=== PATIENT | female | born 1940 | race Caucasian/White ===

== ENCOUNTER 2016-06-28 10:31 | Observation (INO) ==
--- NOTE | 2016-06-28 11:12 | Emergency Department Note ---
Disposition Clinical Impression: Hemoptysis, Lung mass Disposition: Admitted As Inpatient Condition: Fair URI/Sore Throat HPI - General Chief Complaint: ED General Medical Stated Complaint: Coughing up blood Time Seen by Provider: 06/28/16 11:03 Source: patient Limitations: no limitations Nursing Notes Reviewed: Yes Vital Signs Reviewed: Yes - History of Present Illness Pt Subjective Complaint: cough Onset (ago): week(s) Duration: intermittent Severity: mild Improves with: nothing Worsens with: nothing Associated symptoms: Reports: other (Patient started coughing up bright red blood today) - Related Data Allergies Allergy/AdvReac Type Severity Reaction Status Date / Time Penicillins Allergy Rash Verified 06/28/16 10:40 All systems ED: reviewed and negative except as stated. Constitutional: Denies: fever, chills, weakness Respiratory: Reports: hemoptysis. Denies: wheezes Gastrointestinal: Denies: nausea, vomiting URI PMH - Past Medical History Medical history: Reports: aortic aneurysm - Social History Smoking Status: Former smoker Alcohol use: Reports: none Drug use: Reports: none Physical Exam - General Limitations: no limitations General appearance: alert, in no apparent distress - Head Head exam: atraumatic, normocephalic, normal inspection - Eye Eye exam: Present: normal appearance, PERRL, EOMI - Expanded Eye Exam Pupils: Left: reactive - ENT ENT exam: normal exam, normal oropharynx, mucous membranes moist - Expanded ENT Exam External ear exam: Present: normal external inspection Mouth exam: Present: normal external inspection Teeth exam: Present: normal inspection Throat exam: Present: normal inspection - Neck Neck exam: Present: normal inspection, full ROM, trachea midline - Chest Chest inspection: Present: normal inspection, symmetric chest wall rise - Respiratory Respiratory exam: Present: normal lung sounds bilaterally - Cardiovascular Cardiovascular exam: Present: regular rate, normal rhythm, normal heart sounds - Abdominal Exam Abdominal exam: Present: soft, Non-Tender. Absent: tenderness, distention, guarding, rebound, rigidity - Extremities Exam Extremities exam: Present: normal inspection, full ROM. Absent: tenderness, pedal edema - Expanded Upper Extremity Exam Shoulder exam: Present: normal inspection, full ROM Arm exam: Present: normal inspection, full ROM Elbow exam: Present: normal inspection, full ROM Forearm/Wrist exam: Present: normal inspection, full ROM Hand exam: Present: normal inspection, full ROM Vascular exam: Normal: capillary refill, radial pulse - Expanded Lower Extremity Exam Hip/Pelvis exam: Present: normal inspection, full ROM Upper leg exam: Present: normal inspection, full ROM Knee exam: Present: normal inspection, full ROM Lower leg exam: Present: normal inspection, full ROM Ankle exam: Present: normal inspection, full ROM Foot/toe exam: Present: normal inspection, full ROM Neurovascular/Tendon exam: Absent: motor deficit, sensory deficit, tendon deficit - Back Exam Back exam: Present: normal inspection, full ROM. Absent: tenderness - Neurological Exam Neurological exam: Present: alert, oriented X3 - Expanded Neurological Exam Patient oriented to: Present: person, place, time Coma Scale Eye Opening: Spontaneous Coma Scale Motor Response: Obeys Commands Coma Scale Verbal Response: Oriented Coma Scale Total: 15 - Psychiatric Psychiatric exam: Present: normal affect, normal mood - Skin Skin exam: Present: warm, dry, intact, normal color Course - Consultations Consultation #1: Dr. Gorman accepts Time: 13:01 Vital Signs Temperature 98.1 F 06/28/16 10:36 Pulse Rate 113 06/28/16 10:36 Respiratory Rate 20 06/28/16 10:36 Blood Pressure 146/68 06/28/16 10:36 O2 Sat by Pulse Oximetry 96 06/28/16 10:36 Temperature 98.1 F 06/28/16 10:36 Pulse Rate 97 06/28/16 12:18 Respiratory Rate 18 06/28/16 12:18 Blood Pressure 150/63 06/28/16 12:18 O2 Sat by Pulse Oximetry 95 06/28/16 12:18 Oxygen Delivery Oxygen Delivery Room Air Upper Respiratory Infection - Differential Diagnosis Differential Diagnosis: Likely: bronchitis, pneumonia - Medical Records Medical records reviewed: Yes I reviewed the patient's medical records. - Lab Data Lab results reviewed: Yes I reviewed the patient's lab results. Result diagrams: 06/28/16 11:34 06/28/16 11:34 Lab Results 06/28/16 06/28/16 06/28/16 Range/Units 11:34 11:34 11:34 WBC 11.5 H (4.3-11.1) K/mcL RBC 3.97 (3.82-4.97) M/mcL Hgb 10.6 L (11.5-15.4) g/dL Hct 32.7 L (35.3-44.9) % MCV 82.4 L (83.0-100.0) fL MCH 26.7 L (28.0-33.3) pg MCHC 32.4 (31.6-35.5) g/dL RDW 14.6 H (11.5-14.5) % Plt Count 500 H (140-400) K/mcL MPV 9.3 L (9.4-12.4) fL Immature Gran % 0.6 (0-4) % Seg Neutrophils % 67.8 % Lymphocytes % 20.9 % Monocytes % 8.1 % Eosinophils % 1.8 % Basophils % 0.8 % Neutrophils # 7.8 (1.6-8.9) K/mcL Lymphocytes # 2.4 (0.6-4.6) K/mcL Monocytes # 0.9 (0.0-1.3) K/mcL Eosinophils # 0.2 (0.0-0.6) K/mcL Basophils # 0.1 (0.0-0.2) K/mcL Immature Plt Fraction 2.6 (1.1-6.1) % PT 11.7 (9.4-12.1) Seconds INR 1.1 APTT 25.9 L (26.0-36.0) Seconds Sodium 130 L (136-145) mEq/L Potassium 3.8 (3.5-4.5) mEq/L Chloride 96 L (98-109) mEq/L Carbon Dioxide 23 (19-29) mEq/L BUN 16 (7-20) mg/dL Creatinine 0.97 (0.57-1.11) mg/dL Est GFR ( Amer) > 60 (> 60) Est GFR (Non-Af Amer) 56 L (> 60) BUN/Creatinine Ratio 16 (6-26) Glucose 486 H (70-99) mg/dL Calculated Osmolality 293 (280-300) Calcium 9.1 (8.6-10.8) mg/dL - Radiology Data Radiology results reviewed: Yes I reviewed the patient's radiology results.
[2016-06-28 11:41] LABS: Basophils # 0.1 K/mcL (0.0-0.2); Basophils % 0.8 %; Eosinophils # 0.2 K/mcL (0.0-0.6); Eosinophils % 1.8 %; Hematocrit 32.7 % (35.3-44.9); Hemoglobin 10.6 g/dL (11.5-15.4); Immature Granulocytes % 0.6 % (0-4); Immature Platelets 2.6 % (1.1-6.1); Lymphocytes # 2.4 K/mcL (0.6-4.6); Lymphocytes % 20.9 %; Mean Corpuscular HGB Conc 32.4 g/dL (31.6-35.5); Mean Corpuscular Hemoglobin 26.7 pg (28.0-33.3); Mean Corpuscular Volume 82.4 fL (83.0-100.0); Mean Platelet Volume 9.3 fL (9.4-12.4); Monocytes # 0.9 K/mcL (0.0-1.3); Monocytes % 8.1 %; Neutrophils # 7.8 K/mcL (1.6-8.9); Platelet Count 500 K/mcL (140-400); Red Blood Count 3.97 M/mcL (3.82-4.97); Red Cell Distribution Width 14.6 % (11.5-14.5); Segmented Neutrophils % 67.8 %
[2016-06-28 11:47] LABS: INR 1.1; Prothrombin Time 11.7 Seconds (9.4-12.1)
[2016-06-28 11:49] LABS: Activated Partial Thrombo Time 25.9 Seconds (26.0-36.0)
[2016-06-28 11:52] LABS: BUN/Creatinine Ratio 16 (6-26); Blood Urea Nitrogen 16 mg/dL (7-20); Calcium 9.1 mg/dL (8.6-10.8); Carbon Dioxide 23 mEq/L (19-29); Chloride 96 mEq/L (98-109); Glucose 486 mg/dL (70-99); Osmolality,Calculated 293 (280-300); Potassium 3.8 mEq/L (3.5-4.5); Sodium 130 mEq/L (136-145); eGFR For African Americans > 60 (> 60); eGFR For Non-African Americans 56 (> 60)
[2016-06-28] MEDS ORDERED: Insulin LISPRO 300 UNITS/3 ML VIAL SQ STA (13:12)
--- NOTE | 2016-06-28 13:45 | Internal Med History&Physical ---
Date of Encounter: 06/28/16 Time of Encounter: 13:00 Assessment and Plan (1) Hemoptysis Current visit: Yes Status: Acute Patient with acute hemoptysis. Recent aspirin use. Prior history of gastric ulcers. Also lung mass present on CT scan. Will observe patient in the hospital. Monitor blood counts. High risk for complications. (2) Essential hypertension Current visit: Yes Status: Chronic Monitor blood pressure. Resume home medications. (3) Diabetes mellitus, type 2 Current visit: Yes Status: Chronic Blood sugars are elevated. Monitor blood sugars. Sliding scale insulin. Diabetic diet. Qualifiers: Diabetes mellitus complication status: with hyperglycemia Diabetes mellitus exterminator insulin use: without assisted use Qualified Code(s): E11.65 - Type 2 diabetes mellitus with hyperglycemia (4) Lung mass Current visit: Yes Status: Acute Last present in the left upper lobe. Concern for malignancy. Will consult pulmonology for further recommendations. No weight loss reported. (5) Anemia Current visit: Yes Status: Chronic Hemoglobin is 10.6. Reviewing patient's labs, she has had anemia in the past. We will check iron levels, folic acid and vitamin B12 levels. Patient could also have acute anemia related to her hemoptysis. We will follow blood counts. Qualifiers: Anemia type: unspecified type Qualified Code(s): D64.9 - Anemia, unspecified Internal Medicine - H&P: HPI Chief complaint: Hemoptysis Admitted From: Emergency Dept Plans for Post Hospital Care: Home History of present illness: Ms. Hernandez is a 75 year old female patient with history of diabetes mellitus type 2, hypertension presented to the ER with complaints of hemoptysis. Patient is a former smoker who quit smoking about 2-1/2 years back. She had previously been diagnosed with possible COPD. She does not use any inhalers. Over the past week she has been taking a lot of [place] for indigestion. She noticed hemoptysis with a large amount of blood clots since this morning. Denies any fever chills or night sweats. No weight loss. No shortness of breath. No chest pain. No abdominal pain. No nausea or vomiting. Past Med Surg Social Fam HX - Past Medical History Attestation: Yes The following information was validated with the patient. Source: patient Medical history: aortic aneurysm, cirrhosis, hypertension - Past Surgical History Surgical History: cholecystectomy, hysterectomy, knee replacement - Social History Smoking Status: Former smoker Alcohol use: none Drug use: none - Additional Family History Additional family history: Reviewed and found to be noncontributory at this time Internal Medicine - H&P: Meds Glimepiride [Amaryl] 4 mg PO DAILY 06/28/16 [History] Losartan/Hydrochlorothiazide [Hyzaar 100-25 Tablet] 1 tab PO DAILY 06/28/16 [ History] Potassium Chloride [Klor-Con 10] 30 meq PO DAILY 06/28/16 [History] Simvastatin [Zocor] 5 mg PO DAILY 06/28/16 [History] Allergies Penicillins Allergy (Verified 06/28/16 10:40) Rash aspirin Adverse Reaction (Verified 06/28/16 13:35) Gastrointestinal Upset All Systems PM: A 10-system review of systems was performed and is negative for pertinent findings except as documented above in the HPI. - Constitutional Constitutional: no chills, no fever(s), no night sweats - EENT Eyes: no change in vision, no discharge, no pain, no photophobia Ears: no ear discharge, no ear pain, no tinnitus Nose, mouth and throat: no dysphagia, no nasal discharge, no neck pain, no sore throat - Cardiovascular Cardiovascular ROS IM: no chest pain, no diaphoresis, no dyspnea, no lightheadedness, no palpitations, no syncope - Respiratory Respiratory: cough, hemoptysis, no dyspnea, no wheezing, no excessive phlegm production - Gastrointestinal Gastrointestinal: no abdominal pain, no diarrhea, no hematemesis, no hematochezia, no melena, no nausea, no vomiting - Genitourinary Genitourinary: no change in urinary stream, no dysuria, no flank pain, no hematuria - Musculoskeletal Musculoskeletal ROS IM: no numbness, no tingling - Integumentary Integumentary IM: no rash, no unusual bruising - Neurological Neurological ROS: no confusion, no convulsions, no focal weakness, no numbness, no tingling, no tremor(s) - Hematologic/Lymphatic Hematologic/Lymphatic: no easy bruising - Constitutional Vitals: Temp Pulse Resp BP Pulse Ox 98.1 F 97 18 149/74 95 06/28/16 10:36 06/28/16 12:18 06/28/16 13:14 06/28/16 13:14 06/28/16 12:18 General appearance: Present: cooperative, mild distress, A&O X 3, answers questions appropriately - Eye Eye exam: Present: EOMI, PERRL, conjuntiva pink, sclera anicteric - Neck Neck exam general surgery: Present: supple, trachea midline. Absent: lymphadenopathy - Respiratory Respiratory exam: Present: CTAB. Absent: accessory muscle use, rales, rhonchi, wheezes - Cardiovascular Cardiovascular exam: Present: RRR, +S1, +S2. Absent: diastolic murmur, gallop, rubs, systolic murmur - GI/Abdominal GI/Abdominal exam: Present: normal bowel sounds, soft, no peritoneal signs. Absent: distended, tenderness - Extremities Exam Extremities exam: Present: warm, radial pulses palpable and symetrical. Absent : calf tenderness, cyanotic, pedal edema - Neurological Exam Neurological exam: Present: alert, oriented X3, no focal deficits. Absent: facial droop, speech deficit - Skin Skin exam: Present: dry, intact Internal Med - H&P Results - Labs CBC & Chem 7: 06/28/16 11:34 06/28/16 11:34 - Impressions Impressions Chest CT 06/28/16 11:11 IMPRESSION: Large 8.2 x 6.3 cm left lung mass most suggestive of neoplasm. There are mildly prominent mediastinal lymph nodes. D/ / Madeline Mac Cha, MD / Madeline Mac Cha, MD Interpreting Provider: Madeline Mac Cha, MD - Attending Attestation This document has been at least partially created by [employer] recognition technology by Dr. Gorman. Errors in grammar, wording or other phrases may exist. If errors are found after the documentation is signed, they will be addressed individually in the addendum section of this document when appropriate.
[2016-06-28] MEDS ORDERED: Naloxone 0.4 MG/ML INJ IVP PRN (13:51)
[2016-06-28] MEDS ORDERED: *HR* Dextrose 50 % in Water (Syg) 50 ML SYRINGE IVP PRN (13:53)
[2016-06-28] MEDS ORDERED: Dextrose Gel 15 GM PO PRN ×2 (13:53)
[2016-06-28] MEDS ORDERED: D5% in Water 1,000 ML IVC PRN (13:53)
[2016-06-28 14:13] LABS: Hemoglobin A1C 9.9 %
--- NOTE | 2016-06-28 14:53 | Pulmonology Consult Note ---
Date of Encounter: 06/28/16 Time of Encounter: 14:51 Assessment and Plan (1) Hemoptysis Current Visit: Yes Status: Acute Hemoptysis in this former cigarette smoker with COPD upper lobe lung mass is likely secondary to lung cancer. Patient also seems to have mediastinal adenopathy and thus likely has advanced stage non-small cell lung cancer. Further evaluation will be performed to include conventional bronchoscopy and EBUS. The timing of these procedures will be deferred to the pulmonary rounding service assuming care next week. Code(s): R04.2 - Hemoptysis SNOMED Code(s): 81284814 (2) Abnormal chest CT Current Visit: Yes Status: Acute Chest CT scan abnormalities as previously outlined. 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 The patient is aware of the situation and has agreed to bronchoscopy for further evaluation. Code(s): R93.8 - Abnormal findings on diagnostic imaging of other specified body structures SNOMED Code(s): 901379734 History of Present Illness Consult date: 06/28/16 Chief complaint: Hemoptysis, abnormal chest CT scan History of present illness: 75-year-old female, former 40+-pack-year smoker having stopped approximately 2 years ago who noted the onset of hemoptysis prompting admission to the hospital. Patient describes several bouts of expectoration of bright red blood , unable to specifically quantitate volume. In addition, the patient has also noted mild left anterior shoulder discomfort for at least the past several weeks. Patient does admit to mild exertional breathlessness and activity limitation. There is no well established family history of either COPD or lung cancer. The patient has no personal histories of malignancy. Past Med Surg Social Fam HX - Past Medical History Medical history: aortic aneurysm, cirrhosis, hypertension Psychiatric history: no psych history - Past Surgical History Surgical History: cholecystectomy, hysterectomy, knee replacement - Social History Smoking Status: Former smoker Smokeless Tobacco Status: No Alcohol use: none Drug use: none - Family History Mother Name: Maria D Castillo Age: 74 Family Member Ethnicity: Non- Living Status: Age at : 74 Cause of : complications from diabetes Hx Family Cardiac Disorders: No Hx Family Respiratory Disorders: No Hx Family Cancer: No Hx Family GI Disorders: No Hx Family Genitourinary Disorders: No Hx Family Endocrine Disorder: No Hx Family Musculoskeletal Disorders: No Hx Family Neuromuscular Disorders: No Hx Family Neurologic Disorders: No Hx Family HEENT Disorders: No Hx Family Autoimmune Disorders: No Hx Family Reproductive Disorders: No Hx Family Psychosocial Disorders: No Hx Family Medical Disorders: No Medications and Allergies Glimepiride [Amaryl] 4 mg PO DAILY 06/28/16 [History] Losartan/Hydrochlorothiazide [Hyzaar 100-25 Tablet] 1 tab PO DAILY 06/28/16 [ History] Potassium Chloride [Klor-Con 10] 30 meq PO DAILY 06/28/16 [History] Simvastatin [Zocor] 5 mg PO DAILY 06/28/16 [History] Allergies Penicillins Allergy (Verified 06/28/16 10:40) Rash aspirin Adverse Reaction (Verified 06/28/16 13:35) Gastrointestinal Upset All Systems: A 10-system review of systems was performed and is negative for pertinent findings except as documented above in the HPI. - Constitutional Constitutional: as per HPI - Respiratory Respiratory: as per HPI Physical Examination Vital Signs: Vital Signs, Last 4 Hours Temp Pulse Resp BP Pulse Ox 06/28/16 14:03 96 06/28/16 13:49 98.3 F 95 16 145/76 97 06/28/16 13:14 18 149/74 General appearance: no acute distress, other (Obese female) Eyes: nonicteric ENT: oropharynx moist Mallampati (class): 2 Neck: supple, no lymphadenopathy Auscultation: bilateral: diminished breath sounds (Clear andrade bilaterally) Cardiovascular: regular rate and rhythm Gastrointestinal: normoactive bowel sounds, non-distended Integumentary: normal Extremities: no cyanosis, no clubbing, edema (Mild lower extremity edema) normal mental status, non-focal exam Results - Laboratory Findings CBC and BMP: 06/28/16 11:34 06/28/16 11:34 PT/INR, D-dimer PT 11.7 Seconds (9.4-12.1) 06/28/16 11:34 Abnormal lab findings: Abnormal lab results WBC 11.5 K/mcL (4.3-11.1) H 06/28/16 11:34 Hgb 10.6 g/dL (11.5-15.4) L 06/28/16 11:34 Hct 32.7 % (35.3-44.9) L 06/28/16 11:34 MCV 82.4 fL (83.0-100.0) L 06/28/16 11:34 MCH 26.7 pg (28.0-33.3) L 06/28/16 11:34 RDW 14.6 % (11.5-14.5) H 06/28/16 11:34 Plt Count 500 K/mcL (140-400) H 06/28/16 11:34 MPV 9.3 fL (9.4-12.4) L 06/28/16 11:34 APTT 25.9 Seconds (26.0-36.0) L 06/28/16 11:34 Sodium 130 mEq/L (136-145) L 06/28/16 11:34 Chloride 96 mEq/L (98-109) L 06/28/16 11:34 Est GFR (Non-Af Amer) 56 (> 60) L 06/28/16 11:34 Glucose 486 mg/dL (70-99) H 06/28/16 11:34 Hemoglobin A1c 9.9 % (-5.6) H 06/28/16 11:34 - Diagnostic Findings CT scan - chest: other (Chest CT scan notable for diffuse emphysematous changes in addition to left upper lobe mass possible endobronchial component and concurrent mediastinal adenopathy within the paratracheal area right AP window periaortic area and lower left paratracheal region.) - Clinical Findings Intake & Output: Intake & Output 06/27/16 06/28/16 06/28/16 23:59 07:59 15:59 Weight 96.9 kg Consult Discharge Plan - Plan Referrals: Madeline Patterson CNP [Primary Care Provider] -
[2016-06-28] MEDS: Pantoprazole 40 MG VIAL IVP SCH (15:04)
[2016-06-28] MEDS ORDERED: 0.9 % Sodium Chloride 1,000 ML IVC SCH (15:30)
[2016-06-28 15:57] LABS: Hematocrit 34.3 % (35.3-44.9)
[2016-06-28] MEDS: Insulin LISPRO 300 UNITS/3 ML VIAL SQ SCH ×2 (17:33→21:07)
[2016-06-28 22:37] LABS: Hematocrit 34.1 % (35.3-44.9)
[2016-06-29 04:12] LABS: Basophils # 0.1 K/mcL (0.0-0.2); Basophils % 0.8 %; Eosinophils # 0.3 K/mcL (0.0-0.6); Eosinophils % 2.2 %; Hematocrit 31.8 % (35.3-44.9); Hemoglobin 10.3 g/dL (11.5-15.4); Immature Granulocytes % 0.6 % (0-4); Lymphocytes # 3.2 K/mcL (0.6-4.6); Lymphocytes % 23.8 %; Mean Corpuscular HGB Conc 32.4 g/dL (31.6-35.5); Mean Corpuscular Hemoglobin 26.5 pg (28.0-33.3); Mean Corpuscular Volume 81.7 fL (83.0-100.0); Mean Platelet Volume 9.5 fL (9.4-12.4); Monocytes # 1.2 K/mcL (0.0-1.3); Monocytes % 8.8 %; Neutrophils # 8.6 K/mcL (1.6-8.9); Platelet Count 468 K/mcL (140-400); Red Blood Count 3.89 M/mcL (3.82-4.97); Red Cell Distribution Width 14.9 % (11.5-14.5); Segmented Neutrophils % 63.8 %
[2016-06-29 04:30] LABS: % Iron Saturation 14 % (15-50); BUN/Creatinine Ratio 16 (6-26); Blood Urea Nitrogen 14 mg/dL (7-20); Calcium 9.2 mg/dL (8.6-10.8); Carbon Dioxide 22 mEq/L (19-29); Chloride 100 mEq/L (98-109); Glucose 195 mg/dL (70-99); Iron 27 mcg/dL (50-170); Osmolality,Calculated 284 (280-300); Potassium 3.5 mEq/L (3.5-4.5); Sodium 134 mEq/L (136-145); Transferrin 137 mg/dL (180-382); eGFR For African Americans > 60 (> 60); eGFR For Non-African Americans > 60 (> 60)
[2016-06-29 04:52] LABS: Ferritin 279 ng/ml (5-204)
[2016-06-29 05:03] LABS: Folate 17.9 ng/mL (7.0-31.4)
--- NOTE | 2016-06-29 06:54 | Pulmonology Progress Note ---
Date of Encounter: 06/29/16 Time of Encounter: 06:54 Assessment and Plan (1) Hemoptysis Current Visit: Yes Status: Acute Minor hemoptysis which appears to be s/t to SONDRA lung mass presumable primary lung CA in this woman with a significant history of tobacco abuse. Last episode was last night. No evidence of coaguloapathy and the patient is not on anticoagulation. -empiric Abx started likely deescalate as no clear evidence of infectious process. -continue conservative mgnt including antitussive agents. (2) Lung mass Current Visit: Yes Status: Acute Suspect primary lung malignancy. Plan on diagnostic Bronchoscopy today. Subjective Principal diagnosis: Hemoptysis Interval history: NO events overnight. The patient states that she is feeling fine. Last episode of hemoptysis was last night around 7pm. Objective PUL Vital signs: Last Vital Signs Temp 98.4 F 06/29/16 06:36 Pulse 88 06/29/16 06:36 Resp 15 06/29/16 06:36 BP 141/78 06/29/16 06:36 Pulse Ox 95 06/29/16 06:36 General appearance: no acute distress Eyes: nonicteric ENT: oropharynx moist Neck: supple Effort: normal Auscultation: left: diminished breath sounds (Left upper lung andrade diminished ) Cardiovascular: regular rate and rhythm Gastrointestinal: normoactive bowel sounds Integumentary: normal Extremities: no clubbing normal mental status, non-focal exam mood appropriate Results - Laboratory Findings CBC and BMP: 06/29/16 03:18 06/29/16 03:18 PT/INR, D-dimer PT 11.7 Seconds (9.4-12.1) 06/28/16 11:34 Abnormal lab findings: Abnormal lab results WBC 13.5 K/mcL (4.3-11.1) H 06/29/16 03:18 Hgb 10.3 g/dL (11.5-15.4) L 06/29/16 03:18 Hct 31.8 % (35.3-44.9) L 06/29/16 03:18 MCV 81.7 fL (83.0-100.0) L 06/29/16 03:18 MCH 26.5 pg (28.0-33.3) L 06/29/16 03:18 RDW 14.9 % (11.5-14.5) H 06/29/16 03:18 Plt Count 468 K/mcL (140-400) H 06/29/16 03:18 APTT 25.9 Seconds (26.0-36.0) L 06/28/16 11:34 Sodium 134 mEq/L (136-145) L 06/29/16 03:18 Glucose 195 mg/dL (70-99) H 06/29/16 03:18 Hemoglobin A1c 9.9 % (-5.6) H 06/28/16 11:34 Iron 27 mcg/dL (50-170) L 06/29/16 03:18 % Saturation 14 % (15-50) L 06/29/16 03:18 Transferrin 137 mg/dL (180-382) L 06/29/16 03:18 Ferritin 279 ng/ml (5-204) H 06/29/16 03:18 - Diagnostic Findings Chest x-ray: report reviewed, image reviewed CT scan - chest: report reviewed, image reviewed - Clinical Findings Intake & Output: Intake & Output 06/28/16 06/28/16 06/29/16 15:59 23:59 07:59 Intake Total 0 / 0 Output Total 0 / 0 Balance 0 / 0 Weight 96.9 kg Consult Discharge Plan - Plan Referrals: Madeline Patterson, [employer] [Primary Care Provider] -
[2016-06-29] MEDS: Insulin LISPRO 300 UNITS/3 ML VIAL SQ SCH ×4 (07:40→21:10)
--- NOTE | 2016-06-29 07:48 | Internal Med Progress Note ---
Date of Encounter: 06/29/16 Time of Encounter: 07:44 - Assessment and plan (1) Lung mass Current Visit: Yes Status: Acute Assessment and plan: 71/female Admitted with hemoptysis. Noted that patient has a left lower lobe lung mass. Pulmonology consulted. Scheduled for bronchoscopy. Plan: We will start IV levofloxacin after blood cultures. Possibility of a postobstructive pneumonia cannot be ruled out Will follow recommendations from pulmonary. (2) Hemoptysis Current Visit: Yes Status: Acute Assessment and plan: No hemoptysis in the past 12 hours. We will monitor very closely. (3) Essential hypertension Current Visit: Yes Status: Chronic Assessment and plan: Blood pressure is within acceptable range. (4) Diabetes mellitus, type 2 Current Visit: Yes Status: Chronic Assessment and plan: Blood sugar is within acceptable range. Qualifiers: Diabetes mellitus complication status: with unspecified complications Diabetes mellitus retirement insulin use: without retirement use Qualified Code( s): E11.8 - Type 2 diabetes mellitus with unspecified complications (5) DVT prophylaxis Current Visit: Yes Status: Acute Assessment and plan: No pharmacological DVT prophylaxis in view of hemoptysis. Medical decision making: This patient has moderate to severe risk of worsening in spite of being on appropriate treatment due to underlying lung mass. - Subjective Interval history: Seen and examined. Chart reviewed. Patient is comfortably sitting in a bed. Denies any chest pain, shortness of breath, dizziness or diarrhea. - Constitutional Vitals: Temp Pulse Resp BP Pulse Ox 98.4 F 88 15 141/78 95 06/29/16 06:36 06/29/16 06:36 06/29/16 06:36 06/29/16 06:36 06/29/16 06:36 General appearance: Present: cooperative, mild distress, A&O X 3, answers questions appropriately - Head Head exam: Present: atraumatic, normocephalic - Eye Eye exam: Present: PERRL, conjuntiva pink, sclera anicteric Pupils: Present: PERRL - Neck Neck exam general surgery: Present: supple, trachea midline. Absent: lymphadenopathy - Respiratory Respiratory exam: Present: CTAB. Absent: accessory muscle use, rales, rhonchi, wheezes - Cardiovascular Cardiovascular exam: Present: RRR, +S1, +S2. Absent: diastolic murmur, gallop, rubs, systolic murmur - GI/Abdominal GI/Abdominal exam: Present: normal bowel sounds, soft, no peritoneal signs. Absent: distended, tenderness - Extremities Exam Extremities exam: Present: warm, radial pulses palpable and symetrical. Absent : calf tenderness, cyanotic, pedal edema - Neurological Exam Neurological exam: Present: CN II-XII intact, oriented X3, no focal deficits. Absent: pronater drift, facial droop, speech deficit - Skin Skin exam: Present: dry, intact Internal Medicine: Result - Labs CBC & Chem 7: 06/29/16 03:18 06/29/16 03:18 Labs: Short CBC 06/28/16 06/28/16 06/29/16 Range/Units 15:50 21:52 03:18 WBC 13.5 H (4.3-11.1) K/mcL Hgb 11.0 L 11.0 L 10.3 L (11.5-15.4) g/dL Hct 34.3 L 34.1 L 31.8 L (35.3-44.9) % Plt Count 468 H (140-400) K/mcL Neutrophils # 8.6 (1.6-8.9) K/mcL BMP 06/29/16 03:18 Sodium 134 L Potassium 3.5 Chloride 100 Carbon Dioxide 22 BUN 14 Creatinine 0.87 Glucose 195 H Calcium 9.2 - ABG Interpretation ABG results: PT/INR, D-dimer PT 11.7 Seconds (9.4-12.1) 06/28/16 11:34 Consult Discharge Plan - Plan Referrals: Madeline Patterson [employer] [Primary Care Provider] -
--- NOTE | 2016-06-29 08:48 | Anesthesia Evaluation PreOp ---
Date of Encounter: 06/29/16 Time of Encounter: 08:46 - Past History Planned Operation: ebus/hemoptysis Cardiac History: HTN, Other (h/h stable, no tx. echo 05/15 ef 65%, nl rv. AAA) Pulmonary History: Former smoker (quit 2.5 years ago, h/o 40 pack years), Asthma , COPD, Other (lung mass, SONDRA) Other Medical History: Hepatic (cirrhosis/nl coags), Diabetes Type II (241 at 7 :13) Anesthesia History: No Prior Anesthetic Complications, Past Anesthesia ( cholecyst, hysterect, r knee) Alcohol Use: none Drug use: none Medications and Allergies Glimepiride [Amaryl] 4 mg PO DAILY 06/28/16 [History] Losartan/Hydrochlorothiazide [Hyzaar 100-25 Tablet] 1 tab PO DAILY 06/28/16 [ History] Potassium Chloride [Klor-Con 10] 30 meq PO DAILY 06/28/16 [History] Simvastatin [Zocor] 5 mg PO DAILY 06/28/16 [History] Allergies Penicillins Allergy (Verified 06/28/16 10:40) Rash aspirin Adverse Reaction (Verified 06/28/16 13:35) Gastrointestinal Upset - Meds/Allergy Pre-op Review Medications Reviewed: Yes Allergies Reviewed: Yes Beta Blockers on Current Med List: No Anesthesia Results - Labs 06/29/16 03:18 06/29/16 03:18 Anesthesia Exam Vital Signs/O2 Sat/Glucose, Most Current Temp Pulse Resp BP Pulse Ox 06/29/16 06:36 98.4 F 88 15 141/78 95 Height: 1.55 Weight: 97 NPO (# of Hours): >8 - HEENT Pupil (Motor): Pupils equal, EOMI Mallampati: II Teeth: Edentulous Oral Opening: Greater than 3 - RETAIL FIELD REPRESENTATIVE LOC: Oriented RETAIL FIELD REPRESENTATIVE Motor: Normal RUE, Normal LUE, Normal RLE, Normal LLE, Normal Face RETAIL FIELD REPRESENTATIVE Sensory: Normal: RUE, LUE, RLE, LLE, Face - Cardiac Rhythm: Regular Murmur: None - Pulmonary Breath Sounds: bilateral Clear Respiratory Effort: Symmetrical Anesthesia Assess/Plan ASA Score: 3 (mo, dm, lung ca) Modified [place] Scale for Level of Consciousness: Cooperative, oriented, and tranquil Anesthetic Plan: General Monitoring Plan: Standard Monitors Recovery Plan: PACU
[2016-06-29] MEDS ORDERED: Ondansetron 4 MG/2 ML VIAL IVP ONE (08:49)
[2016-06-29] MEDS ORDERED: *HR* Rocuronium Bromide 50 MG/5 ML VIAL IVC ONE (08:49)
[2016-06-29] MEDS ORDERED: *HR* Phenylephrine 10 MG/ML VIAL IVC ONE (08:49)
[2016-06-29] MEDS ORDERED: 0.9 % Sodium Chloride 10 ML PF VIAL IVP ONE (08:49)
[2016-06-29] MEDS ORDERED: Lidocaine -MPF 4% 5 ML AMPUL TP ONE (08:49)
[2016-06-29] MEDS ORDERED: EPHEDrine 50 MG/ML VIAL IVP ONE (08:49)
[2016-06-29] MEDS ORDERED: Lidocaine -MPF 2% 5 ML VIAL INFILT ONE (08:49)
[2016-06-29] MEDS ORDERED: *HR* Succinylcholine 200 MG/10 ML VIAL IVP ONE (08:49)
[2016-06-29] MEDS ORDERED: *HR* Propofol 200 MG/20 ML VIAL IVP ONE (08:49)
--- NOTE | 2016-06-29 08:52 | History & Physical Report ---
Date of Encounter: 06/29/16 Time of Encounter: 08:51 24 Hour HP Update - Instructions Instructions: If the History and Physical is less than 30 days old and was completed prior to A.M. admission and or procedure and has NOT been updated on calendar day of procedure please complete this update prior to performing procedure. - Update Patient reports changes in Medical Condition: No Changes in examination, assessment, or condition: No Changes in Medication: No Preop tests/diagnostics Reviewed: Yes Pre-Op MRSA Screen: Negative Surgery Remains Indicated: Yes Consent for Planned Operative Procedure(s) Verified: Yes - Pre-Operative Checklist Preoperative Checklist Indicated: No
[2016-06-29] MEDS ORDERED: *HR* FentaNYL (PF) 100 MCG/2 ML VIAL ONE (09:09)
[2016-06-29] MEDS ORDERED: *HR* Promethazine 25 MG/ML VIAL IVP PRN (10:30)
[2016-06-29] MEDS ORDERED: *HR* Labetalol 100 MG/20 ML MDV IVP PRN (10:30)
--- NOTE | 2016-06-29 10:55 | Anesthesia Evaluation Post Op ---
Date of Encounter: 06/29/16 Time of Encounter: 10:53 - Vital Signs Vital Signs: Vital Signs/O2 Sat/Glucose, Most Recent Temp Pulse Resp BP Pulse Ox 98.2 F 100 18 133/65 93 06/29/16 10:13 06/29/16 10:43 06/29/16 10:43 06/29/16 10:43 06/29/16 10:43 Blood Glucose* 241 - Lungs Lungs: Clear Ascult./Percussion - Airway Airway: Non-obstructed - Cardiovascular Baseline Rhythm - Mental Status Mental Status: Alert & Oriented, Answers Appropriately - Pain Pain Scale: 0 Pain Scale used: Numeric (1 - 10) - Nausea Vomiting Nausea Vomiting: Not Present - Hydration Hydration: NPO, Has not voided Notes: 06/29/16 10:54 AAOx3,VSS with no complaints, as per preop baseline - Discharge PostOp Status: Transfer Patient to floor
[2016-06-29] MEDS: Levofloxacin 750 MG/150 ML 750 MG/150 ML BAG IVPB SCH (11:46)
[2016-06-29] MEDS: Losartan/HCTZ 50-12.5 TABLET PO SCH (11:46)
[2016-06-29] MEDS: Pantoprazole 40 MG VIAL IVP SCH (11:46)
--- NOTE | 2016-06-29 11:57 | Electrocardiograph Report ---
[address] [address] Test Date: 2016-06-28 Pat Name: Medina Hernandez Department: [id number] Room: 2NE19 Gender: F Upfitter: : 1940 Requested By: Jairo Chapman Order Number: [id number] Reading MD: David Fish Measurements Intervals [place] Rate: 106 P: 2 SD: 154 QRS: 72 QRSD: 65 T: 48 QT: 316 QTc: 378 Interpretive Statements SINUS TACHYCARDIA WITH OCCASIONAL SUPRAVENTRICULAR PREMATURE COMPLEXES LOW QRS VOLTAGE IN PRECORDIAL LEADS ABNORMAL RHYTHM ECG Electronically Signed On 06-29-2016 11:56:08 EDT by David Fish
[2016-06-29 12:50] LABS: Source of Body Fluid LUL BAL
[2016-06-29 14:10] LABS: Appearance of Body Fluid Hazy (Clear)
[2016-06-29 14:11] LABS: Volume of Body Fluid 19 mL
[2016-06-30] MEDS: Insulin LISPRO 300 UNITS/3 ML VIAL SQ SCH ×4 (08:33→21:54)
[2016-06-30] MEDS: Levofloxacin 750 MG/150 ML 750 MG/150 ML BAG IVPB SCH (08:35)
[2016-06-30] MEDS: Losartan/HCTZ 50-12.5 TABLET PO SCH (08:36)
[2016-06-30] MEDS: Pantoprazole 40 MG VIAL IVP SCH (08:36)
--- NOTE | 2016-06-30 09:57 | Pulmonology Progress Note ---
Date of Encounter: 06/30/16 Time of Encounter: 09:57 Assessment and Plan (1) Hemoptysis Current Visit: Yes Status: Acute Minor hemoptysis which appears has resolved and is likely related to underlying malignancy possibly with acute infectious for Recommend seven-day course of Levaquin for coverage based upon microbiological sensitivities (currently no growth) (2) Lung mass Current Visit: Yes Status: Acute Suspect primary lung malignancy. Patient underwent bronchoscopy with E Nicole leading to fine-needle aspiration of subcarinal lymph node preliminary evaluation was not suggestive of atypical cells unfortunately course was complicated a bit by hypoxia and procedure was stopped earlier than anticipated. Patient may need to be brought back in the outpatient basis for repeat E Nicole and sampling of the lung mass itself I will follow-up on the results of her cytology and call patient to reschedule if no diagnosis is made from my standpoint does not appear that patient needs to be aimed in the hospital and I am okay with discharge at the discretion of the primary team. She will follow up with pulmonary Subjective Principal diagnosis: Hemoptysis Interval history: No further episodes of hemoptysis. Some Florencio minor throat pain status post intubation but no other untoward effects of bronchoscopy. I explained to the patient that his initial evaluation has been nondiagnostic and she may need to repeat bronchoscopy pending cytological evaluation Objective PUL Vital signs: Last Vital Signs Temp 97.7 F 06/30/16 07:07 Pulse 80 06/30/16 07:07 Resp 17 06/30/16 07:07 BP 141/83 06/30/16 07:07 Pulse Ox 96 06/30/16 07:07 General appearance: no acute distress Auscultation: left: diminished breath sounds Cardiovascular: regular rate and rhythm Extremities: no edema, no clubbing Results - Laboratory Findings CBC and BMP: 06/29/16 03:18 06/29/16 03:18 PT/INR, D-dimer PT 11.7 Seconds (9.4-12.1) 06/28/16 11:34 Abnormal lab findings: Abnormal lab results WBC 13.5 K/mcL (4.3-11.1) H 06/29/16 03:18 Hgb 10.3 g/dL (11.5-15.4) L 06/29/16 03:18 Hct 31.8 % (35.3-44.9) L 06/29/16 03:18 MCV 81.7 fL (83.0-100.0) L 06/29/16 03:18 MCH 26.5 pg (28.0-33.3) L 06/29/16 03:18 RDW 14.9 % (11.5-14.5) H 06/29/16 03:18 Plt Count 468 K/mcL (140-400) H 06/29/16 03:18 APTT 25.9 Seconds (26.0-36.0) L 06/28/16 11:34 Sodium 134 mEq/L (136-145) L 06/29/16 03:18 Glucose 195 mg/dL (70-99) H 06/29/16 03:18 POC Glucose 125 (58-89) H 06/28/16 20:49 Hemoglobin A1c 9.9 % (-5.6) H 06/28/16 11:34 Iron 27 mcg/dL (50-170) L 06/29/16 03:18 % Saturation 14 % (15-50) L 06/29/16 03:18 Transferrin 137 mg/dL (180-382) L 06/29/16 03:18 Ferritin 279 ng/ml (5-204) H 06/29/16 03:18 Fluid Appearance Hazy (Clear) A 06/29/16 12:48 - Microbiology Findings Microbiology Findings: Microbiology, Last 48 Hours 06/29/16 12:48 Respiratory Culture - Preliminary Left Upper Lobe Lung Normal upper respiratory tract maria [place] rosario. No apparent pathogens isolated. 06/29/16 12:48 Gram Stain - Final Left Upper Lobe Lung - Clinical Findings Intake & Output: Intake & Output 06/29/16 06/30/16 06/30/16 23:59 07:59 15:59 Intake Total 240 / 240 0 / 0 Output Total 100 / 100 0 / 0 Balance 140 / 140 0 / 0 Weight 96.9 kg - VTE Documentation of Mechanical Device: Intermittent pneumatic compression device Consult Discharge Plan - Plan Referrals: Madeline Patterson CNP [Primary Care Provider] -
--- NOTE | 2016-06-30 18:28 | Internal Med Progress Note ---
Date of Encounter: 06/30/16 Time of Encounter: 18:26 - Assessment and plan (1) Lung mass Current Visit: Yes Status: Acute Assessment and plan: 71/female Admitted with hemoptysis. Noted that patient has a left lower lobe lung mass. Pulmonology consulted. Scheduled for bronchoscopy. Plan: We will start IV levofloxacin after blood cultures. Possibility of a postobstructive pneumonia cannot be ruled out Will follow recommendations from pulmonary. 06/30/2016 Still having hemoptysis. We will continue present management. Likely home tomorrow. (2) Hemoptysis Current Visit: Yes Status: Acute Assessment and plan: No hemoptysis in the past 12 hours. We will monitor very closely. (3) Essential hypertension Current Visit: Yes Status: Chronic Assessment and plan: Blood pressure is within acceptable range. (4) Diabetes mellitus, type 2 Current Visit: Yes Status: Chronic Assessment and plan: Blood sugar is within acceptable range. Qualifiers: Diabetes mellitus complication status: with unspecified complications Diabetes mellitus termite renewal inspector insulin use: without termite renewal inspector use Qualified Code( s): E11.8 - Type 2 diabetes mellitus with unspecified complications (5) DVT prophylaxis Current Visit: Yes Status: Acute Assessment and plan: No pharmacological DVT prophylaxis in view of hemoptysis. Medical decision making: This patient has moderate to severe risk of worsening in spite of being on appropriate treatment due to underlying lung mass. - Subjective Interval history: Seen and examined. Chart reviewed. Patient is comfortably sitting in a bed. Denies any chest pain, shortness of breath, dizziness or diarrhea. 06/30/2016 Seen and examined. Chart reviewed. Patient is sitting on a chair. Patient is still having hemoptysis. - Constitutional Vitals: Temp Pulse Resp BP Pulse Ox 97.4 F L 90 15 144/76 97 06/30/16 15:44 06/30/16 15:44 06/30/16 15:44 06/30/16 15:44 06/30/16 15:44 General appearance: Present: cooperative, mild distress, A&O X 3, answers questions appropriately - Head Head exam: Present: atraumatic, normocephalic - Eye Eye exam: Present: PERRL, conjuntiva pink, sclera anicteric Pupils: Present: PERRL - Neck Neck exam general surgery: Present: supple, trachea midline. Absent: lymphadenopathy - Respiratory Respiratory exam: Present: CTAB. Absent: accessory muscle use, rales, rhonchi, wheezes - Cardiovascular Cardiovascular exam: Present: RRR, +S1, +S2. Absent: diastolic murmur, gallop, rubs, systolic murmur - GI/Abdominal GI/Abdominal exam: Present: normal bowel sounds, soft, no peritoneal signs. Absent: distended, tenderness - Extremities Exam Extremities exam: Present: warm, radial pulses palpable and symetrical. Absent : calf tenderness, cyanotic, pedal edema - Neurological Exam Neurological exam: Present: CN II-XII intact, oriented X3, no focal deficits. Absent: pronater drift, facial droop, speech deficit - Skin Skin exam: Present: dry, intact Internal Medicine: Result - Labs CBC & Chem 7: 06/29/16 03:18 06/29/16 03:18 - ABG Interpretation ABG results: PT/INR, D-dimer PT 11.7 Seconds (9.4-12.1) 06/28/16 11:34 - VTE Documentation of Mechanical Device: Intermittent pneumatic compression device Consult Discharge Plan - Plan Referrals: Madeline Patterson, MEDICAL ASSISTANT [Primary Care Provider] -
[2016-07-01 06:03] LABS: Basophils # 0.1 K/mcL (0.0-0.2); Basophils % 0.9 %; Eosinophils # 0.4 K/mcL (0.0-0.6); Eosinophils % 3.5 %; Hematocrit 32.7 % (35.3-44.9); Hemoglobin 10.2 g/dL (11.5-15.4); Immature Granulocytes % 0.8 % (0-4); Lymphocytes # 2.5 K/mcL (0.6-4.6); Lymphocytes % 24.7 %; Mean Corpuscular HGB Conc 31.2 g/dL (31.6-35.5); Mean Corpuscular Hemoglobin 26.1 pg (28.0-33.3); Mean Corpuscular Volume 83.6 fL (83.0-100.0); Mean Platelet Volume 9.3 fL (9.4-12.4); Monocytes # 1.1 K/mcL (0.0-1.3); Platelet Count 452 K/mcL (140-400); Red Blood Count 3.91 M/mcL (3.82-4.97); Red Cell Distribution Width 14.8 % (11.5-14.5); Segmented Neutrophils % 59.1 %
[2016-07-01 06:17] LABS: Alanine Aminotransferase 16 Units/L (0-55); Albumin 2.8 g/dL (3.5-5.0); Albumin/Globulin Ratio 0.7 (1.1-2.2); Alkaline Phosphatase 66 Units/L (38-126); Aspartate Amino Transferase 18 Units/L (5-34); BUN/Creatinine Ratio 24 (6-26); Bilirubin,Total 0.3 mg/dL (0.2-1.2); Blood Urea Nitrogen 23 mg/dL (7-20); Calcium 9.2 mg/dL (8.6-10.8); Carbon Dioxide 24 mEq/L (19-29); Chloride 103 mEq/L (98-109); Globulin 4.1 g/dL (2.4-3.5); Glucose 195 mg/dL (70-99); Osmolality,Calculated 291 (280-300); Potassium 3.7 mEq/L (3.5-4.5); Sodium 136 mEq/L (136-145); Total Protein 6.9 g/dL (6.0-8.3); eGFR For African Americans > 60 (> 60); eGFR For Non-African Americans 57 (> 60)
[2016-07-01 07:17] VITALS: BP 134/72
--- NOTE | 2016-07-01 08:39 | Event Note ---
Date of Encounter: 07/01/16 Time of Encounter: 08:38 Cytology comes back as nondiagnostic for malignancy although suspect primary lung cancer. Plan on repeat EBUS early next week as an outpatient. From pulmonary standpoint suitable for discharge is no further episodes of hemoptysis would discharge patient with inhaler regimen including long acting muscarinic agent short acting beta agonist she should be referred to pulmonary an outpatient basis I have updated the patient our staff will call her to schedule bronchoscopy
--- NOTE | 2016-07-01 10:06 | Discharge Summary ---
Date of Encounter: 07/01/16 Time of Encounter: 10:02 - Discharge Diagnosis (1) Lung mass Priority: Primary Status: Acute (2) Hemoptysis Priority: Primary Status: Acute (3) Essential hypertension Priority: Secondary Status: Chronic (4) Diabetes mellitus, type 2 Priority: Secondary Status: Chronic Qualifiers: Diabetes mellitus complication status: with unspecified complications Diabetes mellitus nursing home insulin use: without nursing home use Qualified Code( s): E11.8 - Type 2 diabetes mellitus with unspecified complications (5) DVT prophylaxis Priority: Secondary Status: Acute - Discharge Medications Prescriptions: Levofloxacin 500 mg PO DAILY #3 tablet Tiotropium [Spiriva] 18 mcg IH 0700 #30 capsule Home Medications: Glimepiride [Amaryl] 4 mg PO DAILY 06/28/16 [History] Losartan/Hydrochlorothiazide [Hyzaar 100-25 Tablet] 1 tab PO DAILY 06/28/16 [ History] Potassium Chloride [Klor-Con 10] 30 meq PO DAILY 06/28/16 [History] Simvastatin [Zocor] 5 mg PO DAILY 06/28/16 [History] Levofloxacin 500 mg PO DAILY #3 tablet 07/01/16 [Rx] Tiotropium [Spiriva] 18 mcg IH 0700 #30 capsule 07/01/16 [Rx] Allergies/Adverse Reactions: Allergies Penicillins Allergy (Verified 06/28/16 10:40) Rash aspirin Adverse Reaction (Verified 06/28/16 13:35) Gastrointestinal Upset Date of admission: 06/28/16 12:55 Primary care physician: Madeline Patterson CNP Consults: 06/28/16 13:53 Consult to Sponge Clipper [CONS] Routine Comment: 06/28/16 14:01 Consult to Pulmonology [CONS] Routine Consulting Provider: [facility] Melissa Reason for Consult: Hemoptysis/ lung mass Time Notified: 14:02 Call Completed: Yes Discharging clinician: Vaughn Rao - Patient Status Disposition: Home, Self-Care Condition: Fair Functional capacity at discharge: independent ambulation Overall status at discharge: patient is not back to baseline - Discharge Instructions Follow Up With: Madeline Patterson CNP [Primary Care Provider] - Edward Rothman MD [Partnered Physician] - - Diet and Activity Activity: increase activity as tolerated Diet: diabetic diet Interval History: Ms. Hernandez is a 75 year old female patient with history of diabetes mellitus type 2, hypertension presented to the ER with complaints of hemoptysis. Patient is a former smoker who quit smoking about 2-1/2 years back. She had previously been diagnosed with possible COPD. She does not use any inhalers. Over the past week she has been taking a lot of [place] for indigestion. She noticed hemoptysis with a large amount of blood clots since this morning. Denies any fever chills or night sweats. No weight loss. No shortness of breath. No chest pain. No abdominal pain. No nausea or vomiting. Hospital course: Patient was hospitalized. IV antibiotics levofloxacin started. Pulmonology was consulted and patient underwent bronchoscopy. Bronchoscopy findings noted. Cytology/bronchial brushings were negative. As per pulmonology, they will schedule outpatient bronchoscopy. Plan Patient can go home today. Spriva 18 mcg 1 puff daily Levofloxacin 500 mg for 3 days follow up with PCP in 1-2 weeks Follow up with pulmonary ( pulmonary will schedule appt) all questions answered. - Time Spent with Patient Total time spent providing and/or coordinating discharge services: - Constitutional Vitals: Temp Pulse Resp BP Pulse Ox 98.3 F 92 17 134/72 96 07/01/16 07:12 07/01/16 07:12 07/01/16 07:12 07/01/16 07:12 07/01/16 07:12 General appearance: Present: cooperative, mild distress, A&O X 3, answers questions appropriately - VTE Documentation of Mechanical Device: Intermittent pneumatic compression device
[2016-07-01] MEDS: Levofloxacin 750 MG/150 ML 750 MG/150 ML BAG IVPB SCH (10:19)
[2016-07-01] MEDS: Losartan/HCTZ 50-12.5 TABLET PO SCH (10:20)
[2016-07-01] MEDS: Insulin LISPRO 300 UNITS/3 ML VIAL SQ SCH (10:21)
[2016-07-02] MEDS ORDERED: levoFLOXacin 500 MG TABLET PO SCH (09:00)
== END 2016-07-01 14:33 | disposition home or self-care (01) ==
LOC: 2NENU 10:31 → EMEROO 10:31 → 2NENU 13:40
PROVIDERS: ADMIT Internal Medicine; ATTEND Internal Medicine

== ENCOUNTER 2016-09-07 07:57 | Inpatient (IN) ==
[2016-09-07] MEDS ORDERED: *HR* HYDROcodone/Acet 5/325 mg TABLET PO ONE ×2 (08:13→09:25)
--- NOTE | 2016-09-07 08:41 | Emergency Department Note ---
Disposition Clinical Impression: HCAP (healthcare-associated pneumonia), Chest pain, Atrial fibrillation Disposition: Admitted As Inpatient Condition: Fair General Adult HPI - General Chief complaint: ED Chest Pain Stated complaint: chest pain Time Seen by Provider: 09/07/16 08:01 Source: patient Limitations: no limitations Nursing Notes Reviewed: Yes Vital Signs Reviewed: Yes - History of Present Illness Pain Scale: 3 - Related Data Home Medications Medication Instructions Recorded Confirmed Glimepiride [Amaryl] 4 mg PO BID 06/28/16 09/07/16 Losartan/Hydrochlorothiazide 1 tab PO DAILY 06/28/16 09/07/16 [Hyzaar 100-25 Tablet] Potassium Chloride [Klor-Con 10] 10 meq PO TID 06/28/16 09/07/16 Simvastatin [Zocor] 5 mg PO HS 06/28/16 09/07/16 SitaGLIPtin [Januvia] 100 mg PO DAILY 07/31/16 09/07/16 Albuterol Sulfate [Albuterol 2 puff IH Q6H PRN 08/07/16 09/07/16 Inhaler] Lidocaine/Prilocaine CREAM [Emla] 1 appl TP ONCE PRN 09/02/16 09/07/16 Previous Rx's Medication Instructions Recorded Magic Mouthwash [Magic Mouthwash 10 ml PO QID PRN #240 ml 08/07/16 BLM] Prochlorperazine Maleate 10 mg PO Q8HR PRN #90 tablet 08/07/16 [Compazine] Loperamide [Imodium] 2 mg PO TID PRN #90 capsule 08/20/16 Ondansetron [Zofran] 4 mg PO Q8HR PRN #90 tablet 08/20/16 Omeprazole [PriLOSEC] 40 mg PO DAILY #30 cap 08/27/16 Apixaban [Eliquis] 5 mg PO BID #30 tablet 09/04/16 Diltiazem CD (24hr) [Cardizem CD] 180 mg PO DAILY #30 cap.er.24h 09/04/16 Allergies Allergy/AdvReac Type Severity Reaction Status Date / Time Penicillins Allergy Rash Verified 09/02/16 16:17 aspirin AdvReac Gastrointestinal Verified 09/02/16 16:17 Upset Hydromorphone [From Dilaudid] AdvReac Confusion Verified 09/07/16 10:58 meperidine [From Demerol] AdvReac Confusion Verified 09/07/16 10:58 Past Medical History - Past Medical History Medical history: Reports: aortic aneurysm, atrial fibrillation, cancer, diabetes , hyperlipidemia, hypertension Surgical history: Reports: cholecystectomy, hysterectomy, knee replacement Psychiatric history: Reports: no psych history - Social History Smoking Status: Former smoker Smokeless Tobacco Status: No Alcohol use: Reports: none Drug use: Reports: none Physical Exam - General Limitations: no limitations General appearance: alert, in no apparent distress Course Vital Signs Temperature 97.7 F 09/07/16 07:58 Pulse Rate 101 09/07/16 07:58 Respiratory Rate 20 09/07/16 07:58 Blood Pressure 118/60 09/07/16 07:58 O2 Sat by Pulse Oximetry 96 09/07/16 07:58 Temperature 97.7 F 09/07/16 07:58 Pulse Rate 99 09/07/16 09:13 Respiratory Rate 22 09/07/16 11:26 Blood Pressure 93/57 09/07/16 11:26 O2 Sat by Pulse Oximetry 95 09/07/16 09:13 Oxygen Delivery Oxygen Delivery Room Air Medical Decision Making - MDM Narrative Medical decision making narrative: I examined this patient and my medical decision-making was reviewed with the ARTS ADMINISTRATOR/PA/Advanced Practice Nurse/Resident Physician. I agree with the documented findings, disposition and treatment plan as described except to the extent set forth below. Patient presents today and was seen by Dr. Mitchell and myself, I agree with his evaluation and treatment plan, supervised the care of the patient's stay. Patient's having chest discomfort. It seems reproducible around her sternum. She has had no cardiac disease in the past. She is a cancer patient this time. We will do a workup on her see if we can get her feeling better and then determine disposition. She is in agreement with this plan. Chest X-Ray 09/07/16 08:01 IMPRESSION: 1. Interval appearance of a left base opacity and pleural effusion. Differential considerations include post treatment changes versus pneumonia. 2. Stable left mid lung opacity, compatible with the patient's known malignancy. 3. Emphysema. 4. Cardiomegaly. D/ / 09/07/2016 08:30:05 Diana Lizarraga MD / kalee Interpreting Provider: Diana Lizarraga MD 1100 hrs.: Patient appears to have a possible new pneumonia on chest x-ray we started treatment on her and bring her into the hospital. Patient's agreement with plan. - Lab Data Result diagrams: 09/07/16 08:35 09/07/16 08:35 Lab Results 09/07/16 09/07/16 09/07/16 Range/Units 08:35 08:35 08:35 WBC 6.3 D (4.3-11.1) K/mcL RBC 3.53 L (3.82-4.97) M/mcL Hgb 9.5 L (11.5-15.4) g/dL Hct 30.1 L (35.3-44.9) % MCV 85.3 (83.0-100.0) fL MCH 26.9 L (28.0-33.3) pg MCHC 31.6 (31.6-35.5) g/dL RDW 17.6 H (11.5-14.5) % Plt Count 192 (140-400) K/mcL MPV 9.0 L (9.4-12.4) fL Immature Gran % 0.8 (0-4) % Seg Neutrophils % 74.4 % Lymphocytes % 10.4 % Monocytes % 13.2 % Eosinophils % 0.6 % Basophils % 0.6 % Neutrophils # 4.7 (1.6-8.9) K/mcL Lymphocytes # 0.7 (0.6-4.6) K/mcL Monocytes # 0.8 (0.0-1.3) K/mcL Eosinophils # 0.0 (0.0-0.6) K/mcL Basophils # 0.0 (0.0-0.2) K/mcL PT 16.8 H D (9.4-12.1) Seconds INR 1.5 APTT 29.3 (26.0-36.0) Seconds Sodium (136-145) mEq/L Potassium (3.5-4.5) mEq/L Chloride (98-109) mEq/L Carbon Dioxide (19-29) mEq/L BUN (7-20) mg/dL Creatinine (0.57-1.11) mg/dL Est GFR ( Amer) (> 60) Est GFR (Non-Af Amer) (> 60) BUN/Creatinine Ratio (6-26) Glucose (70-99) mg/dL Calculated Osmolality (280-300) Calcium (8.6-10.8) mg/dL Troponin I (0-0.03) ng/mL B-Natriuretic Peptide 182 H (0-100) pg/mL 09/07/16 09/07/16 Range/Units 08:35 08:35 WBC (4.3-11.1) K/mcL RBC (3.82-4.97) M/mcL Hgb (11.5-15.4) g/dL Hct (35.3-44.9) % MCV (83.0-100.0) fL MCH (28.0-33.3) pg MCHC (31.6-35.5) g/dL RDW (11.5-14.5) % Plt Count (140-400) K/mcL MPV (9.4-12.4) fL Immature Gran % (0-4) % Seg Neutrophils % % Lymphocytes % % Monocytes % % Eosinophils % % Basophils % % Neutrophils # (1.6-8.9) K/mcL Lymphocytes # (0.6-4.6) K/mcL Monocytes # (0.0-1.3) K/mcL Eosinophils # (0.0-0.6) K/mcL Basophils # (0.0-0.2) K/mcL PT (9.4-12.1) Seconds INR APTT (26.0-36.0) Seconds Sodium 136 (136-145) mEq/L Potassium 3.9 (3.5-4.5) mEq/L Chloride 104 (98-109) mEq/L Carbon Dioxide 23 (19-29) mEq/L BUN 13 (7-20) mg/dL Creatinine 0.87 (0.57-1.11) mg/dL Est GFR ( Amer) > 60 (> 60) Est GFR (Non-Af Amer) > 60 (> 60) BUN/Creatinine Ratio 15 (6-26) Glucose 200 H (70-99) mg/dL Calculated Osmolality 288 (280-300) Calcium 9.1 (8.6-10.8) mg/dL Troponin I 0.01 (0-0.03) ng/mL B-Natriuretic Peptide (0-100) pg/mL
[2016-09-07 08:50] LABS: Basophils % 0.6 %; Eosinophils % 0.6 %; Hematocrit 30.1 % (35.3-44.9); Hemoglobin 9.5 g/dL (11.5-15.4); Immature Granulocytes % 0.8 % (0-4); Lymphocytes # 0.7 K/mcL (0.6-4.6); Lymphocytes % 10.4 %; Mean Corpuscular HGB Conc 31.6 g/dL (31.6-35.5); Mean Corpuscular Hemoglobin 26.9 pg (28.0-33.3); Mean Corpuscular Volume 85.3 fL (83.0-100.0); Monocytes # 0.8 K/mcL (0.0-1.3); Monocytes % 13.2 %; Neutrophils # 4.7 K/mcL (1.6-8.9); Platelet Count 192 K/mcL (140-400); Red Blood Count 3.53 M/mcL (3.82-4.97); Red Cell Distribution Width 17.6 % (11.5-14.5); Segmented Neutrophils % 74.4 %
[2016-09-07 09:03] LABS: Activated Partial Thrombo Time 29.3 Seconds (26.0-36.0); BUN/Creatinine Ratio 15 (6-26); Blood Urea Nitrogen 13 mg/dL (7-20); Calcium 9.1 mg/dL (8.6-10.8); Carbon Dioxide 23 mEq/L (19-29); Chloride 104 mEq/L (98-109); Glucose 200 mg/dL (70-99); INR 1.5; Osmolality,Calculated 288 (280-300); Potassium 3.9 mEq/L (3.5-4.5); Prothrombin Time 16.8 Seconds (9.4-12.1); Sodium 136 mEq/L (136-145); eGFR For African Americans > 60 (> 60); eGFR For Non-African Americans > 60 (> 60)
[2016-09-07] MEDS ORDERED: Vancomycin 1,500 MG in D5% in Water 250 ML IVPB ONE ×2 (10:25→10:35)
[2016-09-07] MEDS ORDERED: Levofloxacin 750 MG/150 ML 750 MG/150 ML BAG IVPB ONE (10:25)
[2016-09-07] MEDS ORDERED: Cefepime HCl 2,000 MG in D5% in Water (Mini-Bag+) 100 ML IVPB ONE (10:27)
--- NOTE | 2016-09-07 10:45 | Emergency Department Note ---
Disposition Clinical Impression: HCAP (healthcare-associated pneumonia), Atrial fibrillation Chest pain Qualifiers: Chest pain type: unspecified Qualified Code(s): R07.9 - Chest pain, unspecified Disposition: Admitted As Inpatient Condition: Fair Referrals: NO,PCP [Primary Care Provider] - Forms: ED Satisfaction Letter Time of Disposition: 10:41 Chest Pain HPI - General Chief Complaint: ED Chest Pain Stated Complaint: chest pain Time Seen by Provider: 09/07/16 08:01 Source: patient Limitations: no limitations Vital Signs Reviewed: Yes Nursing Notes Reviewed: Yes - History of Present Illness HPI Narrative: Patient presents to the ED with chief complaint of chest pain. Patient states that she woke up this morning and was having some centralized chest and right chest pain. It did not wake her up, but it was present when she awoke. States at its fairly localized, and tender to palpation and very pleuritic in nature. States she has never had pain like this before. She does have a fairly recently newly diagnosed history of lung cancer. Is followed by oncology here. Had a port placed in her right chest last month. She has had 2 rounds of chemotherapy and 7 rounds of radiation. No fevers. Minimal cough. No nausea or vomiting. No pain or swelling in her legs. She does have a new history of A. fib as well and was just discharged from the hospital about a week ago. She is on a Eliquis. Severity scale (1-10): 3 - Related Data Home Medications Medication Instructions Recorded Confirmed Glimepiride [Amaryl] 4 mg PO BID 06/28/16 09/02/16 Losartan/Hydrochlorothiazide 1 tab PO DAILY 06/28/16 09/02/16 [Hyzaar 100-25 Tablet] Potassium Chloride [Klor-Con 10] 10 meq PO TID 06/28/16 09/02/16 Simvastatin [Zocor] 5 mg PO HS 06/28/16 09/02/16 SitaGLIPtin [Januvia] 100 mg PO DAILY 07/31/16 09/02/16 Albuterol Sulfate [Albuterol 2 puff IH Q6H PRN 08/07/16 09/02/16 Inhaler] Lidocaine/Prilocaine CREAM [Emla] 1 appl TP ONCE PRN 09/02/16 09/02/16 Previous Rx's Medication Instructions Recorded Magic Mouthwash [Magic Mouthwash 10 ml PO QID PRN #240 ml 08/07/16 BLM] Prochlorperazine Maleate 10 mg PO Q8HR PRN #90 tablet 08/07/16 [Compazine] Loperamide [Imodium] 2 mg PO TID PRN #90 capsule 08/20/16 Ondansetron [Zofran] 4 mg PO Q8HR PRN #90 tablet 08/20/16 Omeprazole [PriLOSEC] 40 mg PO DAILY #30 cap 08/27/16 Apixaban [Eliquis] 5 mg PO BID #30 tablet 09/04/16 Diltiazem CD (24hr) [Cardizem CD] 180 mg PO DAILY #30 cap.er.24h 09/04/16 Allergies Allergy/AdvReac Type Severity Reaction Status Date / Time Penicillins Allergy Rash Verified 09/02/16 16:17 aspirin AdvReac Gastrointestinal Verified 09/02/16 16:17 Upset Hydromorphone [From Dilaudid] AdvReac Confusion Verified 09/07/16 10:58 meperidine [From Demerol] AdvReac Confusion Verified 09/07/16 10:58 Constitutional: Denies: fever Eyes: Denies: vision change Cardiovascular: Reports: chest pain Respiratory: Denies: cough Gastrointestinal: Denies: vomiting Chest Pain PMH - Past Medical History Medical history: Reports: aortic aneurysm, atrial fibrillation, cancer, diabetes , hyperlipidemia, hypertension Surgical history: Reports: cholecystectomy, hysterectomy, knee replacement Psychiatric history: Reports: no psych history - Social History Smoking Status: Former smoker Alcohol use: Reports: none Drug use: Reports: none Physical Exam - General Limitations: no limitations General appearance: alert, in no apparent distress, other (Does appear uncomfortable) - Head Head exam: atraumatic, normocephalic, normal inspection - Eye Eye exam: Present: normal appearance, PERRL, EOMI - ENT ENT exam: normal exam, normal oropharynx, mucous membranes moist - Neck Neck exam: Present: normal inspection, full ROM, trachea midline - Chest Chest inspection: Present: other (Patient has a port in her right chest wall. There is no erythema, fluctuance, drainage. It is nontender. However, she is exquisitely tender on her sternum and right costochondral junction. States this is somewhat reproducible of her tenderness, but not exactly) - Respiratory Respiratory exam: Present: other (Rhonchi, left). Absent: normal lung sounds bilaterally - Cardiovascular Cardiovascular exam: Present: regular rate, irregular rhythm - Abdominal Exam Abdominal exam: Present: soft, Non-Tender. Absent: tenderness, distention, guarding, rebound, rigidity - Extremities Exam Extremities exam: Present: normal inspection, full ROM, pedal edema (Trace bilaterally). Absent: tenderness - Back Exam Back exam: Present: normal inspection, full ROM. Absent: tenderness - Neurological Exam Neurological exam: Present: alert, oriented X3 - Psychiatric Psychiatric exam: Present: normal affect, normal mood - Skin Skin exam: Present: warm, dry, intact, normal color Course Course Narrative: 75-year-old female, history lung cancer presenting with chest pain. Newly diagnosed A. fib with RVR. Currently rate controlled. Seems pretty uncomfortable. No fevers. Labs and imaging likely admission. - Reevaluation(s) Reevaluation #1: Patient has a pneumonia, no white count, normal lactate, however, was just admitted, will treat as HCAP. Patient more comfortable now, however, was slightly hypoxic (92%). We will place on oxygen. Vital Signs Temperature 97.7 F 09/07/16 07:58 Pulse Rate 101 09/07/16 07:58 Respiratory Rate 20 09/07/16 07:58 Blood Pressure 118/60 09/07/16 07:58 O2 Sat by Pulse Oximetry 96 09/07/16 07:58 Temperature 97.7 F 09/07/16 07:58 Pulse Rate 99 09/07/16 09:13 Respiratory Rate 22 09/07/16 09:13 Blood Pressure 119/51 09/07/16 09:13 O2 Sat by Pulse Oximetry 95 09/07/16 09:13 Oxygen Delivery Oxygen Delivery Room Air Chest Pain - Medical Records Medical records reviewed: Yes I reviewed the patient's medical records. - Lab Data Lab results reviewed: Yes I reviewed the patient's lab results. Result diagrams: 09/07/16 08:35 09/07/16 08:35 Lab Results 09/07/16 09/07/16 09/07/16 Range/Units 08:35 08:35 08:35 WBC 6.3 D (4.3-11.1) K/mcL RBC 3.53 L (3.82-4.97) M/mcL Hgb 9.5 L (11.5-15.4) g/dL Hct 30.1 L (35.3-44.9) % MCV 85.3 (83.0-100.0) fL MCH 26.9 L (28.0-33.3) pg MCHC 31.6 (31.6-35.5) g/dL RDW 17.6 H (11.5-14.5) % Plt Count 192 (140-400) K/mcL MPV 9.0 L (9.4-12.4) fL Immature Gran % 0.8 (0-4) % Seg Neutrophils % 74.4 % Lymphocytes % 10.4 % Monocytes % 13.2 % Eosinophils % 0.6 % Basophils % 0.6 % Neutrophils # 4.7 (1.6-8.9) K/mcL Lymphocytes # 0.7 (0.6-4.6) K/mcL Monocytes # 0.8 (0.0-1.3) K/mcL Eosinophils # 0.0 (0.0-0.6) K/mcL Basophils # 0.0 (0.0-0.2) K/mcL PT 16.8 H D (9.4-12.1) Seconds INR 1.5 APTT 29.3 (26.0-36.0) Seconds Sodium (136-145) mEq/L Potassium (3.5-4.5) mEq/L Chloride (98-109) mEq/L Carbon Dioxide (19-29) mEq/L BUN (7-20) mg/dL Creatinine (0.57-1.11) mg/dL Est GFR ( Amer) (> 60) Est GFR (Non-Af Amer) (> 60) BUN/Creatinine Ratio (6-26) Glucose (70-99) mg/dL Calculated Osmolality (280-300) Calcium (8.6-10.8) mg/dL Troponin I (0-0.03) ng/mL B-Natriuretic Peptide 182 H (0-100) pg/mL 09/07/16 09/07/16 Range/Units 08:35 08:35 WBC (4.3-11.1) K/mcL RBC (3.82-4.97) M/mcL Hgb (11.5-15.4) g/dL Hct (35.3-44.9) % MCV (83.0-100.0) fL MCH (28.0-33.3) pg MCHC (31.6-35.5) g/dL RDW (11.5-14.5) % Plt Count (140-400) K/mcL MPV (9.4-12.4) fL Immature Gran % (0-4) % Seg Neutrophils % % Lymphocytes % % Monocytes % % Eosinophils % % Basophils % % Neutrophils # (1.6-8.9) K/mcL Lymphocytes # (0.6-4.6) K/mcL Monocytes # (0.0-1.3) K/mcL Eosinophils # (0.0-0.6) K/mcL Basophils # (0.0-0.2) K/mcL PT (9.4-12.1) Seconds INR APTT (26.0-36.0) Seconds Sodium 136 (136-145) mEq/L Potassium 3.9 (3.5-4.5) mEq/L Chloride 104 (98-109) mEq/L Carbon Dioxide 23 (19-29) mEq/L BUN 13 (7-20) mg/dL Creatinine 0.87 (0.57-1.11) mg/dL Est GFR ( Amer) > 60 (> 60) Est GFR (Non-Af Amer) > 60 (> 60) BUN/Creatinine Ratio 15 (6-26) Glucose 200 H (70-99) mg/dL Calculated Osmolality 288 (280-300) Calcium 9.1 (8.6-10.8) mg/dL Troponin I 0.01 (0-0.03) ng/mL B-Natriuretic Peptide (0-100) pg/mL - Radiology Data Radiology results reviewed: Yes I reviewed the patient's radiology results. - EKG Data EKG attestation: Yes I reviewed and interpreted this EKG. EKG results narrative: A. fib, rate 99, QRS 72, QTC 395, normal axis, no change from previous. S.B.A.R. - S.B.A.R. Situation: Demographics, MOA Background: Presenting Complaint, Relevant PMH, Meds, & Allergies Assessment: Vital Signs, Course and respsone to treatment, Exam Concerns, Patient/Family Expectation, Pertinant Lab Results, Outstanding Labs Recommendation: Recommendation based on pending studies, treatments, or consults Hilaria Report Given to: Dr. Ilia Manrique Repor Time: 10:45
[2016-09-07] MEDS ORDERED: Magic Mouthwash 10 ML UD Cup PO PRN (12:44)
[2016-09-07] MEDS ORDERED: Naloxone 0.4 MG/ML INJ IVP PRN (12:45)
[2016-09-07] MEDS ORDERED: Ondansetron 4 MG/2 ML VIAL IVP PRN (12:45)
[2016-09-07] MEDS ORDERED: *HR* Morphine 2 MG/ML SYRINGE IVP PRN (12:45)
[2016-09-07 13:03] LABS: Magnesium 1.4 mg/dL (1.6-2.6)
[2016-09-07] MEDS ORDERED: D5% in Water 1,000 ML IVC PRN ×2 (14:51→16:38)
[2016-09-07] MEDS ORDERED: Dextrose Gel 15 GM PO PRN ×4 (14:51→16:38)
[2016-09-07] MEDS ORDERED: *HR* Dextrose 50 % in Water (Syg) 50 ML SYRINGE IVP PRN ×2 (14:51→16:38)
--- NOTE | 2016-09-07 14:52 | Internal Med History&Physical ---
Date of Encounter: 09/07/16 Time of Encounter: 14:00 Assessment and Plan (1) HCAP (healthcare-associated pneumonia) Current visit: Yes Status: Acute Healthcare associated pneumonia present on admission, likely bacterial Continue IV Levaquin, IV cefepime, IV vancomycin Continue DuoNeb breathing treatment, O2 via nasal cannula Continue Eliquis Cultures pending Troponin - 0.01 BN peptide - 182 Chest x-ray - left lower lobe opacity probable pneumonia EKG - atrial fibrillation with no acute ST-T changes Strict I's and O's, daily weight, cardiac telemetry Labs in a.m. (2) Atrial fibrillation Current visit: Yes Status: Chronic Chronic atrial fibrillation - rate controlled Continue home meds, continue anticoagulation Qualifiers: Atrial fibrillation type: chronic Qualified Code(s): I48.2 - Chronic atrial fibrillation (3) Lung cancer Current visit: No Status: Chronic Recently diagnosed lung cancer - undergoing chemotherapy and radiation therapy Follows up with oncology regularly Oncology consult Qualifiers: Laterality: left Lung location: upper lobe of lung Qualified Code(s): C34.12 - Malignant neoplasm of upper lobe, left bronchus or lung (4) Essential hypertension Current visit: No Status: Chronic Essential hypertension, controlled, continue home meds, monitor. (5) Diabetes mellitus, type 2 Current visit: No Status: Chronic Diabetes mellitus type 2, [id number], hyperglycemia Insulin sliding scale, glucose checks Qualifiers: Diabetes mellitus complication status: without complication Diabetes mellitus senior care insulin use: without senior care use Qualified Code(s): E11.9 - Type 2 diabetes mellitus without complications (6) DVT prophylaxis Current visit: No Status: Acute Continue Eliquis Internal Medicine - H&P: HPI Chief complaint: Chest pain Admitted From: Emergency Dept History of present illness: Ms. Hernandez is a 75 year old female with past medical history of atrial fibrillation, hypertension, diabetes and recently diagnosed lung cancer on chemotherapy. She presents to the ED with complaints of right-sided chest pain that started early this morning. On examination the patient is awake and alert. Not in any distress. Able to provide history. Her daughters are at her bedside. Patient states she woke up and realized that her chest was hurting. Seems to be tender and seems to be around her port region in the right subclavian. Patient states that the area is tender. Pain seems very pleuritic in nature. Patient is undergoing chemotherapy and radiation therapy and is followed by oncology here. Patient has some mild shortness of breath and some cough with no sputum production. Denies having nausea or vomiting or abdominal pain. She states he does have chronic diarrhea. Pain is localized and does not radiate. Rates it about 6 out of 10. Describes it as a aching and sharp pain which is almost constant. Aggravated with movement and with coughing. No alleviating factors. No other associated symptoms. Patient denies having any fever. Initial evaluation revealed probable left base pneumonia and emphysema and currently medically which are chronic. Otherwise labs on initial evaluation are fairly within normal limits. Patient does not have a fever and she is not tachycardic. Hemodynamically stable. Patient will be admitted for healthcare associated pneumonia. She will be on IV antibiotics. Cultures are pending. Patient and family have been explained about her condition and plan of care. Understood and agreed. No unanswered questions. CODE STATUS full code. Past Med Surg Social Fam HX - Past Medical History Medical history: aortic aneurysm, atrial fibrillation, cancer, diabetes, hyperlipidemia, hypertension Psychiatric history: no psych history - Past Surgical History Surgical History: cholecystectomy, hysterectomy, knee replacement - Social History Smoking Status: Former smoker Smokeless Tobacco Status: No Alcohol use: none Drug use: none - Family History Mother Family Member Ethnicity: Non- Living Status: Hx Family Cardiac Disorders: No Hx Family Respiratory Disorders: No Hx Family Cancer: No Hx Family GI Disorders: No Hx Family Endocrine Disorder: No Hx Family Neuromuscular Disorders: No Hx Family Neurologic Disorders: No Hx Family HEENT Disorders: No Hx Family Autoimmune Disorders: No Internal Medicine - H&P: Meds Glimepiride [Amaryl] 4 mg PO BID 06/28/16 [History] Losartan/Hydrochlorothiazide [Hyzaar 100-25 Tablet] 1 tab PO DAILY 06/28/16 [ History] Potassium Chloride [Klor-Con 10] 10 meq PO TID 06/28/16 [History] Simvastatin [Zocor] 5 mg PO HS 06/28/16 [History] SitaGLIPtin [Januvia] 100 mg PO DAILY 07/31/16 [History] Albuterol Sulfate [Albuterol Inhaler] 2 puff IH Q6H PRN 08/07/16 [History] Magic Mouthwash [Magic Mouthwash BLM] 10 ml PO QID PRN #240 ml 08/07/16 [Rx] Prochlorperazine Maleate [Compazine] 10 mg PO Q8HR PRN #90 tablet 08/07/16 [Rx] Loperamide [Imodium] 2 mg PO TID PRN #90 capsule 08/20/16 [Rx] Ondansetron [Zofran] 4 mg PO Q8HR PRN #90 tablet 08/20/16 [Rx] Omeprazole [PriLOSEC] 40 mg PO DAILY #30 cap 08/27/16 [Rx] Lidocaine/Prilocaine CREAM [Emla] 1 appl TP ONCE PRN 09/02/16 [History] Apixaban [Eliquis] 5 mg PO BID #30 tablet 09/04/16 [Rx] Diltiazem CD (24hr) [Cardizem CD] 180 mg PO DAILY #30 cap.er.24h 09/04/16 [Rx] Allergies Penicillins Allergy (Verified 09/02/16 16:17) Rash aspirin Adverse Reaction (Verified 09/02/16 16:17) Gastrointestinal Upset Hydromorphone [From Dilaudid] Adverse Reaction (Verified 09/07/16 10:58) Confusion meperidine [From Demerol] Adverse Reaction (Verified 09/07/16 10:58) Confusion All Systems PM: A 10-system review of systems was performed and is negative for pertinent findings except as documented above in the HPI. - Constitutional Constitutional: fatigue, weakness, no fever(s) - EENT Eyes: no blurry vision - Cardiovascular Cardiovascular ROS IM: chest pain, dyspnea, dyspnea on exertion, edema, no lightheadedness, no orthopnea, no syncope - Respiratory Respiratory: cough, dyspnea, dyspnea on exertion, chest congestion, no hemoptysis - Gastrointestinal Gastrointestinal: diarrhea, no abdominal pain, no bloating, no cramping, no melena, no nausea, no vomiting - Genitourinary Genitourinary: no dysuria - Neurological Neurological ROS: no abnormal gait, no abnormal speech, no dizziness, no focal weakness, no numbness, no tingling - Constitutional Vitals: Temp Pulse Resp BP Pulse Ox 97.7 F 92 20 107/67 98 09/07/16 12:53 09/07/16 12:53 09/07/16 12:53 09/07/16 12:53 09/07/16 12:53 General appearance: Present: A&O X 3, pleasant, no acute distress, obese, answers questions appropriately Exam: Generalized weakness, ill-appearing - Head Head exam: Present: atraumatic - Eye Eye exam: Present: EOMI - Neck Neck exam general surgery: Present: supple - Respiratory Respiratory exam: Present: decreased breath sounds (The bases, otherwise good air entry), rhonchi (Mild bilateral), tachypnea. Absent: accessory muscle use, rales, wheezes - Cardiovascular Cardiovascular exam: Present: irregular rhythm, +S1, +S2, systolic murmur - GI/Abdominal GI/Abdominal exam: Present: soft, no peritoneal signs. Absent: distended, firm , guarding, rigid, tenderness - Extremities Exam Extremities exam: Present: pedal edema (Bilateral leg pitting edema 3+), radial pulses palpable and symetrical. Absent: cyanotic, tenderness - Neurological Exam Neurological exam: Present: alert, oriented X3, no focal deficits. Absent: facial droop, speech deficit Internal Med - H&P Results - Labs CBC & Chem 7: 09/07/16 08:35 09/07/16 08:35
[2016-09-07] MEDS: Acetaminophen 325 MG TABLET PO PRN (15:11)
[2016-09-07] MEDS: Ipratropium/Albuterol Neb 3 ML IH SCH ×3 (15:55→22:06)
[2016-09-07] MEDS: 0.9 % Sodium Chloride 1,000 ML IVC SCH (16:16)
--- NOTE | 2016-09-07 16:37 | Oncology Inp Consult Note ---
Date of Encounter: 09/07/16 Time of Encounter: 12:00 Assessment and Plan (1) Chest pain Status: Acute Assessment and plan: Rt Sided chest pain radiating to the back, history of atrial fibrillation, complaint with anticoagulation, sharp worse with inspiration, chest x-ray showing left lung mass, left lower lung changes inflammation versus pneumonia. She is being treated with antibiotics for hospital-acquired pneumonia, status post recent hospitalization and discharge. Consider CT evaluation if pain does not improve, bilateral lower extremity edema without tenderness and recent diagnosis of atrial fibrillation on anticoagulation. On morphine prn for pain control. Chemoradiation will be held for this wk. Patient seen examined bedside with family who is aware of above plan Qualifiers: Chest pain type: unspecified Qualified Code(s): R07.9 - Chest pain, unspecified - Data of Consult Requesting Physician: Moiz Palma DO Primary Care Provider: PCP NO - Consult Narrative Reason for consult: lung cancer History of present illness: 75-year-old female with medical history significant for hypertension, diabetes mellitus, ulcer disease status post endoscopy in the past, with history of chronic tobacco abuse, with a CT scan 06/28/2016 which showed a large 8.2 x 6.3 cm left lung mass suggestive of neoplasm with prominent mediastinal lymph nodes measuring 1 x 1.8 cm prevascular lymph node, precarinal lymph nodes. Adrenal glands were normal, fatty infiltration of the liver. Patient underwent bronchoscopy at that time but due to hypoxemia underwent a repeat bronchoscopy procedure in June 2016, biopsy of which showed rare clusters of cells suspicious for non-small cell carcinoma. She underwent a repeat bronchoscopy procedure in July 2016 and pathology showed squamous cell carcinoma. PET imaging from June 2016 showed a hypermetabolic left upper lobe mass compatible primary lung malignancy, left hilar and mediastinal lymph nodes compatible with metastatic disease. Started chemoradiation July 2016, first week of carboplatin and Taxol 2016 , she was hospitalized a week ago for atrial fibrillation new onset, started a liquid this and rate controlled with drugs. She presented this morning with sharp pain in the chest and cough chest x-ray showed possible left lower lobe changes consistent with pneumonia/Rx related changes she also has a left lung mass. He is hospitalized for continued monitoring and IV antibiotics. She is being started on vancomycin and levofloxacin. The patient does report a pain of 5 (rt chest) in the chest radiating to the back. He denied any expectoration, no fever or chills. She had taken eliquis since discharge home last wk. Past Med Surg Social Fam HX - Past Medical History Medical history: aortic aneurysm, atrial fibrillation, cancer, diabetes, hyperlipidemia, hypertension Psychiatric history: no psych history - Past Surgical History Surgical History: cholecystectomy, hysterectomy, knee replacement - Social History Smoking Status: Former smoker Smokeless Tobacco Status: No Alcohol use: none Drug use: none - Family History Mother Family Member Ethnicity: Non- Living Status: Hx Family Cardiac Disorders: No Hx Family Respiratory Disorders: No Hx Family Cancer: No Hx Family GI Disorders: No Hx Family Endocrine Disorder: No Hx Family Neuromuscular Disorders: No Hx Family Neurologic Disorders: No Hx Family HEENT Disorders: No Hx Family Autoimmune Disorders: No Medications and Allergies Glimepiride [Amaryl] 4 mg PO BID 06/28/16 [History] Losartan/Hydrochlorothiazide [Hyzaar 100-25 Tablet] 1 tab PO DAILY 06/28/16 [ History] Potassium Chloride [Klor-Con 10] 10 meq PO TID 06/28/16 [History] Simvastatin [Zocor] 5 mg PO HS 06/28/16 [History] SitaGLIPtin [Januvia] 100 mg PO DAILY 07/31/16 [History] Albuterol Sulfate [Albuterol Inhaler] 2 puff IH Q6H PRN 08/07/16 [History] Magic Mouthwash [Magic Mouthwash BLM] 10 ml PO QID PRN #240 ml 08/07/16 [Rx] Prochlorperazine Maleate [Compazine] 10 mg PO Q8HR PRN #90 tablet 08/07/16 [Rx] Loperamide [Imodium] 2 mg PO TID PRN #90 capsule 08/20/16 [Rx] Ondansetron [Zofran] 4 mg PO Q8HR PRN #90 tablet 08/20/16 [Rx] Omeprazole [PriLOSEC] 40 mg PO DAILY #30 cap 08/27/16 [Rx] Lidocaine/Prilocaine CREAM [Emla] 1 appl TP ONCE PRN 09/02/16 [History] Apixaban [Eliquis] 5 mg PO BID #30 tablet 09/04/16 [Rx] Diltiazem CD (24hr) [Cardizem CD] 180 mg PO DAILY #30 cap.er.24h 09/04/16 [Rx] Allergies Penicillins Allergy (Verified 09/02/16 16:17) Rash aspirin Adverse Reaction (Verified 09/02/16 16:17) Gastrointestinal Upset Hydromorphone [From Dilaudid] Adverse Reaction (Verified 09/07/16 10:58) Confusion meperidine [From Demerol] Adverse Reaction (Verified 09/07/16 10:58) Confusion Review of systems: as iN HPI Oncology - Exam - Constitutional Vitals: Temp Pulse Resp BP Pulse Ox 97.7 F 92 20 107/67 98 09/07/16 12:53 09/07/16 12:53 09/07/16 12:53 09/07/16 12:53 09/07/16 12:53 General appearance: obese - Head Head exam: Present: atraumatic - Eye Eye exam: Present: sclera anicteric - ENT Additional comments: On O2 By NC, mild distress due to pain - Neck Neck exam: Present: full ROM - Respiratory Respiratory exam: Present: CTAB - Cardiovascular Cardiovascular exam: Present: irregular rhythm, +S1, +S2 - GI/Abdominal GI/Abdominal exam: Present: normal bowel sounds, soft - Extremities Exam Extremities exam: Present: pedal edema - Neurological Exam Neurological exam: Present: alert, CN II-XII intact, oriented X3 - Psychiatric Psychiatric exam: Present: normal mood Oncology - Results - Imaging and Cardiology CT scan - chest Status: image reviewed by me Consult Discharge Plan - Plan Referrals: NO,PCP [Primary Care Provider] -
[2016-09-07] MEDS ORDERED: Insulin LISPRO 300 UNITS/3 ML VIAL SQ ONE (17:12)
[2016-09-07] MEDS: Insulin LISPRO 300 UNITS/3 ML VIAL SQ SCH ×2 (17:13→23:26)
[2016-09-07] MEDS: Famotidine 20 MG/2 ML VIAL IVP SCH (17:14)
[2016-09-07] MEDS: Cefepime HCl 2,000 MG in D5% in Water (Mini-Bag+) 100 ML IVPB SCH (17:15)
[2016-09-07] MEDS ORDERED: Insulin LISPRO 300 UNITS/3 ML VIAL SQ SCH (18:00)
[2016-09-07] MEDS ORDERED: *HR* HYDROcodone/Acet 7.5/325 mg TABLET PO PRN (18:30)
[2016-09-07] MEDS: APIXABAN 5 MG TABLET PO SCH (20:02)
[2016-09-08] MEDS: Ipratropium/Albuterol Neb 3 ML IH SCH ×4 (03:42→21:13)
[2016-09-08 04:23] LABS: Basophils % 0.4 %; Eosinophils % 0.3 %; Hematocrit 27.8 % (35.3-44.9); Hemoglobin 8.6 g/dL (11.5-15.4); Immature Granulocytes % 0.9 % (0-4); Lymphocytes % 14.6 %; Mean Corpuscular HGB Conc 30.9 g/dL (31.6-35.5); Mean Corpuscular Hemoglobin 26.6 pg (28.0-33.3); Mean Corpuscular Volume 86.1 fL (83.0-100.0); Mean Platelet Volume 9.4 fL (9.4-12.4); Monocytes # 1.2 K/mcL (0.0-1.3); Monocytes % 17.6 %; Neutrophils # 4.6 K/mcL (1.6-8.9); Platelet Count 164 K/mcL (140-400); Red Blood Count 3.23 M/mcL (3.82-4.97); Segmented Neutrophils % 66.2 %
[2016-09-08 04:34] LABS: BUN/Creatinine Ratio 19 (6-26); Blood Urea Nitrogen 19 mg/dL (7-20); Calcium 8.8 mg/dL (8.6-10.8); Carbon Dioxide 20 mEq/L (19-29); Chloride 104 mEq/L (98-109); Glucose 153 mg/dL (70-99); Osmolality,Calculated 281 (280-300); Potassium 4.2 mEq/L (3.5-4.5); Sodium 133 mEq/L (136-145); eGFR For African Americans > 60 (> 60); eGFR For Non-African Americans 53 (> 60)
[2016-09-08] MEDS: Cefepime HCl 2,000 MG in D5% in Water (Mini-Bag+) 100 ML IVPB SCH ×2 (06:29→17:47)
[2016-09-08] MEDS: Famotidine 20 MG/2 ML VIAL IVP SCH (06:29)
--- NOTE | 2016-09-08 06:52 | Electrocardiograph Report ---
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
[2016-09-08] MEDS ORDERED: Magnesium Sulfate 2 GM in D5% in Water 100 ML IVPB ONE (08:12)
[2016-09-08] MEDS: Diltiazem CD (24hr) 180 MG CAPSULE PO SCH (08:40)
[2016-09-08] MEDS: Losartan/HCTZ 50-12.5 TABLET PO SCH (08:40)
[2016-09-08] MEDS: APIXABAN 5 MG TABLET PO SCH ×2 (08:41→21:46)
[2016-09-08] MEDS: Insulin LISPRO 300 UNITS/3 ML VIAL SQ SCH ×4 (08:42→21:47)
[2016-09-08] MEDS ORDERED: Magic Mouthwash 10 ML UD Cup PO PRN (08:45)
[2016-09-08] MEDS ORDERED: Levofloxacin 750 MG/150 ML 750 MG/150 ML BAG IVPB SCH (09:00)
--- NOTE | 2016-09-08 09:44 | Internal Med Progress Note ---
Date of Encounter: 09/08/16 Time of Encounter: 09:44 - Assessment and plan (1) HCAP (healthcare-associated pneumonia) Current Visit: Yes Status: Acute Assessment and plan: Continue Cefepime, Levaquin and Vancomycin Patient's groin rash is not typical for drug rash, however, will continue to monitor Benefits of antibiotics outweigh risk of rash at this time, and the rash is not typical Monitor closely High risk due to use of Vancomycin (2) Atrial fibrillation Current Visit: Yes Status: Chronic Assessment and plan: HR mostly <110 but not optimal Continue Diltiazem 180mg daily, will increase prn Qualifiers: Atrial fibrillation type: chronic Qualified Code(s): I48.2 - Chronic atrial fibrillation (3) History of lung cancer Current Visit: Yes Status: Chronic Assessment and plan: On chemoradiation Continue same, follow up with Oncology as outpatient (4) Anemia Current Visit: Yes Status: Chronic Assessment and plan: Hb is at baseline, anemia of chronic disease Qualifiers: Anemia type: unspecified type Qualified Code(s): D64.9 - Anemia, unspecified (5) Diabetes mellitus, type 2 Current Visit: Yes Status: Chronic Assessment and plan: A1C 8.8% Continue Monitoring FS ACHS Continue basal, prandial and supplemental insulin Qualifiers: Diabetes mellitus complication status: without complication Diabetes mellitus fpc insulin use: without extermination inspector use Qualified Code(s): E11.9 - Type 2 diabetes mellitus without complications (6) Essential hypertension Current Visit: Yes Status: Chronic Assessment and plan: Controlled, continue meds - Subjective Interval history: 75 F Seen a d evaluated at bedside along with daughters Admitted and being managed for probable [id number]-[id number] discharged one week ago Complains of pain in the left hand, and asking for "water pill" Also complained of a rash in her groin bilaterally, said to have started after she was started on antibiotics - Constitutional Vitals: Temp Pulse Resp BP Pulse Ox 98.3 F 103 18 103/64 96 09/08/16 07:03 09/08/16 07:03 09/08/16 07:03 09/08/16 07:03 09/08/16 07:03 General appearance: Present: A&O X 3, pleasant, no acute distress, obese, answers questions appropriately - Head Head exam: Present: atraumatic, normocephalic - Eye Eye exam: Present: PERRL, conjuntiva pink, sclera anicteric Pupils: Present: PERRL - Neck Neck exam general surgery: Present: supple, trachea midline. Absent: lymphadenopathy - Respiratory Respiratory exam: Present: rhonchi. Absent: accessory muscle use, rales, wheezes Additional comments: Port-a-cath - Cardiovascular Cardiovascular exam: Present: RRR, +S1, +S2. Absent: diastolic murmur, gallop, rubs, systolic murmur - GI/Abdominal GI/Abdominal exam: Present: normal bowel sounds, soft, no peritoneal signs. Absent: distended, tenderness - Additional comments: Groin rash, no wheals, seems chronic, not papular, not pruritic and not weeping - Extremities Exam Extremities exam: Present: warm, radial pulses palpable and symetrical. Absent : calf tenderness, cyanotic, pedal edema Internal Medicine: Result - Labs CBC & Chem 7: 09/08/16 04:12 09/08/16 04:12 Labs: Short CBC 09/08/16 Range/Units 04:12 WBC 7.0 (4.3-11.1) K/mcL Hgb 8.6 L (11.5-15.4) g/dL Hct 27.8 L (35.3-44.9) % Plt Count 164 (140-400) K/mcL Neutrophils # 4.6 (1.6-8.9) K/mcL BMP 09/08/16 04:12 Sodium 133 L Potassium 4.2 Chloride 104 Carbon Dioxide 20 BUN 19 Creatinine 1.02 Glucose 153 H Calcium 8.8 - ABG Interpretation ABG results: PT/INR, D-dimer PT 16.8 Seconds (9.4-12.1) H D 09/07/16 08:35 Consult Discharge Plan - Plan Referrals: NO,PCP [Primary Care Provider] -
[2016-09-08] MEDS: *HR* HYDROcodone/Acet 7.5/325 mg TABLET PO PRN ×2 (11:40→17:46)
[2016-09-08] MEDS ORDERED: Vancomycin 1,500 MG in D5% in Water 250 ML IVPB SCH (12:00)
[2016-09-08] MEDS: 0.9 % Sodium Chloride 1,000 ML IVC SCH (21:47)
[2016-09-09 03:37] LABS: Basophils % 0.7 %; Eosinophils # 0.1 K/mcL (0.0-0.6); Hematocrit 25.1 % (35.3-44.9); Hemoglobin 7.9 g/dL (11.5-15.4); Immature Granulocytes % 1.4 % (0-4); Lymphocytes % 17.8 %; Mean Corpuscular HGB Conc 31.5 g/dL (31.6-35.5); Mean Corpuscular Hemoglobin 26.5 pg (28.0-33.3); Mean Corpuscular Volume 84.2 fL (83.0-100.0); Mean Platelet Volume 9.3 fL (9.4-12.4); Monocytes # 0.8 K/mcL (0.0-1.3); Monocytes % 14.7 %; Neutrophils # 3.6 K/mcL (1.6-8.9); Platelet Count 157 K/mcL (140-400); Red Blood Count 2.98 M/mcL (3.82-4.97); Red Cell Distribution Width 18.4 % (11.5-14.5); Segmented Neutrophils % 63.4 %
[2016-09-09 03:44] LABS: Calcium 8.2 mg/dL (8.6-10.8); Potassium 3.7 mEq/L (3.5-4.5)
[2016-09-09] MEDS: Ipratropium/Albuterol Neb 3 ML IH SCH ×5 (04:28→22:35)
[2016-09-09] MEDS: Acetaminophen 325 MG TABLET PO PRN (04:35)
[2016-09-09] MEDS: 0.9 % Sodium Chloride 1,000 ML IVC SCH ×2 (04:36)
[2016-09-09] MEDS: Cefepime HCl 2,000 MG in D5% in Water (Mini-Bag+) 100 ML IVPB SCH ×2 (05:25→17:25)
[2016-09-09] MEDS: Insulin LISPRO 300 UNITS/3 ML VIAL SQ SCH ×4 (07:58→20:35)
--- NOTE | 2016-09-09 08:32 | Oncology Inp Progress Note ---
Date of Encounter: 09/09/16 Time of Encounter: 08:00 (1) Chest pain Current Visit: Yes Status: Acute Assessment and plan: Rt Sided chest pain radiating to the back, history of atrial fibrillation, complaint with anticoagulation, sharp worse with inspiration, chest x-ray showing left lung mass, left lower lung changes inflammation versus pneumonia. She is being treated with antibiotics for hospital-acquired pneumonia, status post recent hospitalization and discharge. Improved pain today, ct pain meds Chemoradiation will be held for this wk. Patient seen examined bedside with family who is aware of above plan Qualifiers: Chest pain type: unspecified Qualified Code(s): R07.9 - Chest pain, unspecified Oncology: Subj Interval history: Sitting up in chair min pain, improved breathing - Constitutional Vitals: Vital Signs Temp Pulse Resp BP Pulse Ox 09/09/16 07:16 97.7 F 98 18 93/50 99 09/09/16 04:39 99/64 09/09/16 04:16 98 F 107 17 91/63 98 09/09/16 00:00 97.3 F L 87 16 94/60 97 09/08/16 21:55 96 09/08/16 21:15 15 97 09/08/16 20:25 97.9 F 100 18 116/68 99 09/08/16 15:48 16 94 09/08/16 15:19 98.6 F 110 20 107/58 94 09/08/16 10:52 18 96 09/08/16 10:43 98.1 F 107 18 110/72 96 Intake and Output 09/08/16 09/09/16 09/09/16 23:59 07:59 15:59 Intake Total 100 / 100 700 / 700 Balance 100 / 100 700 / 700 Intake: IV Fluids 100 / 100 350 / 350 Maxipime 2,000 MG In 100 / 100 100 / 100 Dextrose 5% (Minibag+) 100 ML 100 ML @ 200 mls/ hr IVPB Q12HR RASHI Rx#: [id number] Vancocin 1,500 MG In 250 / 250 Dextrose 5% 250 ML @ 167 mls/hr IVPB Q24H RASHI Rx#: [id number] Oral 350 / 350 Other: # Voids 1 Weight 95.38 kg Blood Glucose* 93 121 Patient Weight 09/09/16 23:59 Weight 95.38 kg General appearance: no acute distress - Head Head exam: Present: atraumatic, normal inspection - Eye Eye exam: Present: sclera anicteric - ENT ENT exam: Present: mucous membranes moist - Respiratory Respiratory exam: Present: CTAB - GI/Abdominal GI/Abdominal exam: Present: distended, soft - Extremities Exam Extremities exam: Present: pedal edema - Neurological Exam Neurological exam: Present: alert, CN II-XII intact, oriented X3 Oncology: Obj Data - Labs CBC & Chem 7: 09/09/16 03:23 09/09/16 03:23 Labs: Laboratory Results - last 24 hr 09/07/16 09/07/16 09/07/16 17:11 17:58 20:41 WBC RBC Hgb Hct MCV MCH MCHC RDW Plt Count MPV Immature Gran % Seg Neutrophils % Lymphocytes % Monocytes % Eosinophils % Basophils % Neutrophils # Lymphocytes # Monocytes # Eosinophils # Basophils # Sodium Potassium Chloride Carbon Dioxide BUN Creatinine Est GFR ( Amer) Est GFR (Non-Af Amer) BUN/Creatinine Ratio Glucose POC Glucose 190 H 217 H 140 H Calculated Osmolality Calcium 09/08/16 09/08/16 09/09/16 07:01 10:46 03:23 WBC 5.6 RBC 2.98 L Hgb 7.9 L Hct 25.1 L MCV 84.2 MCH 26.5 L MCHC 31.5 L RDW 18.4 H Plt Count 157 MPV 9.3 L Immature Gran % 1.4 Seg Neutrophils % 63.4 Lymphocytes % 17.8 Monocytes % 14.7 Eosinophils % 2.0 Basophils % 0.7 Neutrophils # 3.6 Lymphocytes # 1.0 Monocytes # 0.8 Eosinophils # 0.1 Basophils # 0.0 Sodium Potassium Chloride Carbon Dioxide BUN Creatinine Est GFR ( Amer) Est GFR (Non-Af Amer) BUN/Creatinine Ratio Glucose POC Glucose 191 H 193 H Calculated Osmolality Calcium 09/09/16 03:23 WBC RBC Hgb Hct MCV MCH MCHC RDW Plt Count MPV Immature Gran % Seg Neutrophils % Lymphocytes % Monocytes % Eosinophils % Basophils % Neutrophils # Lymphocytes # Monocytes # Eosinophils # Basophils # Sodium 131 L Potassium 3.7 Chloride 103 Carbon Dioxide 22 BUN 24 H Creatinine 1.09 Est GFR ( Amer) 59 L Est GFR (Non-Af Amer) 49 L BUN/Creatinine Ratio 22 Glucose 95 POC Glucose Calculated Osmolality 276 L Calcium 8.2 L - Impressions Impressions Contrast Injection 09/08/16 00:00 IMPRESSION: Normal port dye study D/ / Devante Nieto MD / Devante Nieto MD Interpreting Provider: Devante Nieto MD - ABG Interpretation ABG results: PT/INR, D-dimer PT 16.8 Seconds (9.4-12.1) H D 09/07/16 08:35 Consult Discharge Plan - Plan Referrals: NO,PCP [Primary Care Provider] -
--- NOTE | 2016-09-09 09:43 | Internal Med Progress Note ---
Date of Encounter: 09/09/16 Time of Encounter: 09:43 - Assessment and plan (1) HCAP (healthcare-associated pneumonia) Current Visit: Yes Status: Acute Assessment and plan: Continue Cefepime, Levaquin and Zyvox Check Zyvox with patient's pharmacy for outpatient therapy Blood culture preliminary negative Day 3 of antibiotics Obtain sputum cultur is possible Repeat CXR due to worsening leg edema and cough Patient remains afebrile, WBC is WNL, she is not septic (2) Atrial fibrillation Current Visit: Yes Status: Chronic Assessment and plan: HR now controlled Continue Diltiazem 180mg daily BP is low normal but acceptable Hold Lozartan-HCTZ Qualifiers: Atrial fibrillation type: chronic Qualified Code(s): I48.2 - Chronic atrial fibrillation (3) History of lung cancer Current Visit: Yes Status: Chronic Assessment and plan: On chemoradiation Continue same, follow up with Oncology as outpatient (4) Anemia Current Visit: Yes Status: Chronic Assessment and plan: Hb is at baseline, today blood is hemodiluted, Hb 7.8 No apparent bleeding Continue to monitor Qualifiers: Anemia type: unspecified type Qualified Code(s): D64.9 - Anemia, unspecified (5) Diabetes mellitus, type 2 Current Visit: Yes Status: Chronic Assessment and plan: A1C 8.8% Continue Monitoring FS ACHS Continue basal, prandial and supplemental insulin Qualifiers: Diabetes mellitus complication status: without complication Diabetes mellitus long term acute care registered nurse insulin use: without half-way use Qualified Code(s): E11.9 - Type 2 diabetes mellitus without complications (6) Essential hypertension Current Visit: Yes Status: Chronic Assessment and plan: Controlled, Hold Losaratan-HCTZ (7) Pedal edema Current Visit: Yes Status: Acute Assessment and plan: Pitting bilateral dependent pedal edema Patient with BNP on admission 184 CXR with no pulmonary edema Renal function is at baseline Patient did receive IVF in ER and some maintenance fluids on admission which has been discontinued Continue to monitor May start low dose diuretics prn - Subjective Interval history: 75 F Seen a d evaluated at bedside along with daughters Admitted and being managed for probable [id number] discharged one week ago She continued t have itching and did not tolerate vancomycin yesterday changed to Zyvox this morning, Denies new complains, she is worried about her pedal edema Her ECHo from about a week ago shows normal EF, she is making adequate urine She has not needed increasing O2 requirements but does report her cough is becoming productive - Constitutional Vitals: Temp Pulse Resp BP Pulse Ox 97.7 F 98 18 93/50 99 09/09/16 07:16 09/09/16 07:16 09/09/16 07:16 09/09/16 07:16 09/09/16 07:16 General appearance: Present: A&O X 3, pleasant, no acute distress, obese, answers questions appropriately - Head Head exam: Present: atraumatic, normocephalic - Eye Eye exam: Present: PERRL, conjuntiva pink, sclera anicteric Pupils: Present: PERRL - Neck Neck exam general surgery: Present: supple, trachea midline. Absent: lymphadenopathy - Respiratory Respiratory exam: Present: rhonchi (R lung mid and lower zones) - Cardiovascular Cardiovascular exam: Present: RRR, +S1, +S2. Absent: diastolic murmur, gallop, rubs, systolic murmur - GI/Abdominal GI/Abdominal exam: Present: normal bowel sounds, soft, no peritoneal signs. Absent: distended, tenderness - Extremities Exam Extremities exam: Present: warm, radial pulses palpable and symetrical. Absent : calf tenderness, cyanotic, pedal edema - Neurological Exam Neurological exam: Present: alert, CN II-XII intact, oriented X3, no focal deficits. Absent: pronater drift, facial droop, speech deficit - Skin Skin exam: Present: dry, intact Internal Medicine: Result - Labs CBC & Chem 7: 09/09/16 03:23 09/09/16 03:23 Labs: Short CBC 09/09/16 Range/Units 03:23 WBC 5.6 (4.3-11.1) K/mcL Hgb 7.9 L (11.5-15.4) g/dL Hct 25.1 L (35.3-44.9) % Plt Count 157 (140-400) K/mcL Neutrophils # 3.6 (1.6-8.9) K/mcL BMP 09/09/16 03:23 Sodium 131 L Potassium 3.7 Chloride 103 Carbon Dioxide 22 BUN 24 H Creatinine 1.09 Glucose 95 Calcium 8.2 L - ABG Interpretation ABG results: PT/INR, D-dimer PT 16.8 Seconds (9.4-12.1) H D 09/07/16 08:35 - Impressions Impressions Contrast Injection 09/08/16 00:00 IMPRESSION: Normal port dye study D/ / Devante Nieto MD / Devante Nieto MD Interpreting Provider: Devante Nieto MD Consult Discharge Plan - Plan Referrals: NO,PCP [Primary Care Provider] - Prescriptions: Linezolid [Zyvox] 600 mg PO BID #10 tablet
[2016-09-09] MEDS: Linezolid 600 MG TABLET PO SCH ×2 (09:55→20:11)
[2016-09-09] MEDS: Diltiazem CD (24hr) 180 MG CAPSULE PO SCH (09:55)
[2016-09-09] MEDS: APIXABAN 5 MG TABLET PO SCH ×2 (09:55→20:12)
[2016-09-09] MEDS: Losartan/HCTZ 50-12.5 TABLET PO SCH ×2 (09:55→10:05)
[2016-09-10] MEDS: Cefepime HCl 2,000 MG in D5% in Water (Mini-Bag+) 100 ML IVPB SCH ×2 (06:04→17:06)
[2016-09-10] MEDS: Ipratropium/Albuterol Neb 3 ML IH SCH ×4 (07:35→22:24)
[2016-09-10] MEDS ORDERED: Furosemide 20 MG TABLET PO PRN (08:06)
[2016-09-10] MEDS: APIXABAN 5 MG TABLET PO SCH ×2 (08:43→20:22)
[2016-09-10] MEDS: Diltiazem CD (24hr) 180 MG CAPSULE PO SCH (08:44)
[2016-09-10] MEDS: Linezolid 600 MG TABLET PO SCH ×2 (08:44→20:22)
[2016-09-10] MEDS: Insulin LISPRO 300 UNITS/3 ML VIAL SQ SCH ×4 (08:45→20:32)
[2016-09-10] MEDS ORDERED: levoFLOXacin 750 MG TABLET PO SCH (09:00)
[2016-09-10] MEDS ORDERED: Levofloxacin 750 MG/150 ML 750 MG/150 ML BAG IVPB SCH (09:00)
[2016-09-10] MEDS ORDERED: Aminoglycoside Consult 1 EACH MC ONE (09:18)
[2016-09-10] MEDS ORDERED: Furosemide 20 MG TABLET PO SCH (12:00)
--- NOTE | 2016-09-10 12:18 | Internal Med Progress Note ---
Date of Encounter: 09/10/16 Time of Encounter: 12:13 - Assessment and plan (1) HCAP (healthcare-associated pneumonia) Current Visit: Yes Status: Acute Assessment and plan: Continue Cefepime, Levaquin and Zyvox Zyvox is covered by insurance and per SW no pre-auth and cost is 12 dollars Blood culture preliminary negative Sputum culture shows some bacteria, GPC Day 4 of antibiotics, continue same (2) Atrial fibrillation Current Visit: Yes Status: Chronic Assessment and plan: HR now controlled Continue Diltiazem 180mg daily Continue Eliquis Qualifiers: Atrial fibrillation type: chronic Qualified Code(s): I48.2 - Chronic atrial fibrillation (3) History of lung cancer Current Visit: Yes Status: Chronic Assessment and plan: On chemoradiation Continue same, follow up with Oncology as outpatient (4) Anemia Current Visit: Yes Status: Chronic Assessment and plan: Hb is at baseline, today blood is hemodiluted, Hb 7.8 Rpt CBC today is pending No apparent bleeding Continue to monitor Qualifiers: Anemia type: unspecified type Qualified Code(s): D64.9 - Anemia, unspecified (5) Diabetes mellitus, type 2 Current Visit: Yes Status: Chronic Assessment and plan: A1C 8.8% Continue Monitoring FS ACHS Continue basal, prandial and supplemental insulin Qualifiers: Diabetes mellitus complication status: without complication Diabetes mellitus moth exterminator insulin use: without moth exterminator use Qualified Code(s): E11.9 - Type 2 diabetes mellitus without complications (6) Essential hypertension Current Visit: Yes Status: Chronic Assessment and plan: Controlled, Resume losartan at low dose Add lasix for pedal edema D/C Losartan-HCTZ combination (7) Pedal edema Current Visit: Yes Status: Acute Assessment and plan: Pitting bilateral dependent pedal edema Patient with BNP on admission 184 Repeat BNP pending Patient with normal EF but mild diastolic dysfunction on ECHO 08/2016 CXR with no pulmonary edema Renal function is at baseline Patient did receive IVF in ER and some maintenance fluids on admission which has been discontinued Start low dose lasix as tolerated by BP - Subjective Interval history: 75 F Seen and evaluated at bedside Admitted and being managed for probable [id number]-gqrwatty discharged one week ago She reports some improvement in her respiratory status and is saturating 96% on room air at time of review She however continues to have worsening pedal edema Repeat CXR done yesterday did not show any pulmonary edema, Left lung infiltrates persist her Hb was downtrending yesterday 09/09, repeat CBC, chem and BNP are pending I have started her on po lasix as tolerated by her bP as she does have diastolic dysfunction and has receievd IVF on admission Her sputum culture shows GNR and BPC, she is on appropriate antibiotics She also complained off frequent non-watery BM, send for C.diff - Constitutional Vitals: Temp Pulse Resp BP Pulse Ox 97.8 F 106 28 99/65 98 09/10/16 11:45 09/10/16 11:45 09/10/16 11:45 09/10/16 11:45 09/10/16 11:45 General appearance: Present: A&O X 3, pleasant, no acute distress, obese, answers questions appropriately - Head Head exam: Present: atraumatic, normocephalic - Eye Eye exam: Present: PERRL, conjuntiva pink, sclera anicteric Pupils: Present: PERRL - Neck Neck exam general surgery: Present: supple, trachea midline. Absent: lymphadenopathy - Respiratory Respiratory exam: Present: rhonchi. Absent: accessory muscle use, rales, wheezes, tachypnea - Cardiovascular Cardiovascular exam: Present: irregular rhythm, +S1, +S2. Absent: diastolic murmur, gallop, rubs, systolic murmur - GI/Abdominal GI/Abdominal exam: Present: normal bowel sounds, soft, no peritoneal signs. Absent: distended, tenderness - Extremities Exam Extremities exam: Present: pedal edema, warm, radial pulses palpable and symetrical. Absent: calf tenderness, cyanotic - Neurological Exam Neurological exam: Present: alert, CN II-XII intact, oriented X3, no focal deficits. Absent: pronater drift, facial droop, speech deficit - Skin Skin exam: Present: dry, intact Internal Medicine: Result - Labs CBC & Chem 7: 09/09/16 03:23 09/09/16 03:23 - ABG Interpretation ABG results: PT/INR, D-dimer PT 16.8 Seconds (9.4-12.1) H D 09/07/16 08:35 - Impressions Impressions Chest X-Ray 09/09/16 15:45 IMPRESSION: Persistent left parahilar and left lower lobe infiltrate possibly representing pneumonia D/ / Florencio Epperson MD / Florencio Epperson MD Interpreting Provider: Florencio Epperson MD Consult Discharge Plan - Plan Referrals: Tayo Hudson DO [Non-Partnered Physician] - 09/21/16 2:00 pm ( Please follow up as schedule...) Prescriptions: Linezolid [Zyvox] 600 mg PO BID #10 tablet
[2016-09-10 14:09] LABS: Basophils % 0.7 %; Eosinophils # 0.1 K/mcL (0.0-0.6); Eosinophils % 1.3 %; Hematocrit 25.4 % (35.3-44.9); Hemoglobin 8.2 g/dL (11.5-15.4); Immature Granulocytes % 0.7 % (0-4); Immature Platelets 2.1 % (1.1-6.1); Lymphocytes # 0.7 K/mcL (0.6-4.6); Lymphocytes % 14.3 %; Mean Corpuscular HGB Conc 32.3 g/dL (31.6-35.5); Mean Corpuscular Hemoglobin 27.1 pg (28.0-33.3); Mean Corpuscular Volume 83.8 fL (83.0-100.0); Mean Platelet Volume 9.5 fL (9.4-12.4); Monocytes # 0.6 K/mcL (0.0-1.3); Monocytes % 12.8 %; Neutrophils # 3.2 K/mcL (1.6-8.9); Platelet Count 183 K/mcL (140-400); Red Blood Count 3.03 M/mcL (3.82-4.97); Red Cell Distribution Width 18.1 % (11.5-14.5); Segmented Neutrophils % 70.2 %
[2016-09-10 14:26] LABS: BUN/Creatinine Ratio 24 (6-26); Blood Urea Nitrogen 21 mg/dL (7-20); Calcium 8.3 mg/dL (8.6-10.8); Carbon Dioxide 19 mEq/L (19-29); Chloride 106 mEq/L (98-109); Glucose 158 mg/dL (70-99); Osmolality,Calculated 278 (280-300); Potassium 4.2 mEq/L (3.5-4.5); Sodium 131 mEq/L (136-145); eGFR For African Americans > 60 (> 60); eGFR For Non-African Americans > 60 (> 60)
[2016-09-10 22:57] LABS: Bilirubin,Urine Negative (Negative); Blood,Urine Negative (Negative); Clarity,Urine Clear (Clear); Color,Urine Yellow (Yellow); Glucose,Urine (UA) Normal (Normal); Ketones,Urine Negative (Negative); Leukocyte Esterase,Urine Negative (Negative); Nitrite,Urine Negative (Negative); Protein,Urine Negative (Neg-Trace); Specific Gravity,Urine 1.014 (1.010-1.025); Urobilinogen,Urine Normal (Normal)
[2016-09-11 03:18] LABS: Basophils % 0.7 %; Eosinophils # 0.1 K/mcL (0.0-0.6); Eosinophils % 2.9 %; Hematocrit 24.9 % (35.3-44.9); Hemoglobin 7.9 g/dL (11.5-15.4); Immature Granulocytes % 0.7 % (0-4); Immature Platelets 1.9 % (1.1-6.1); Lymphocytes # 0.8 K/mcL (0.6-4.6); Lymphocytes % 18.2 %; Mean Corpuscular HGB Conc 31.7 g/dL (31.6-35.5); Mean Corpuscular Hemoglobin 26.6 pg (28.0-33.3); Mean Corpuscular Volume 83.8 fL (83.0-100.0); Monocytes # 0.7 K/mcL (0.0-1.3); Monocytes % 15.2 %; Neutrophils # 2.8 K/mcL (1.6-8.9); Platelet Count 180 K/mcL (140-400); Red Blood Count 2.97 M/mcL (3.82-4.97); Red Cell Distribution Width 18.1 % (11.5-14.5); Segmented Neutrophils % 62.3 %
[2016-09-11 03:53] LABS: BUN/Creatinine Ratio 19 (6-26); Blood Urea Nitrogen 16 mg/dL (7-20); Calcium 8.8 mg/dL (8.6-10.8); Carbon Dioxide 19 mEq/L (19-29); Chloride 107 mEq/L (98-109); Glucose 133 mg/dL (70-99); Osmolality,Calculated 281 (280-300); Sodium 134 mEq/L (136-145); eGFR For African Americans > 60 (> 60); eGFR For Non-African Americans > 60 (> 60)
[2016-09-11] MEDS: Ipratropium/Albuterol Neb 3 ML IH SCH ×2 (04:21→10:04)
[2016-09-11] MEDS: Cefepime HCl 2,000 MG in D5% in Water (Mini-Bag+) 100 ML IVPB SCH (05:26)
[2016-09-11] MEDS ORDERED: Furosemide 40 MG TABLET PO SCH (09:00)
[2016-09-11] MEDS: Diltiazem CD (24hr) 180 MG CAPSULE PO SCH (09:39)
[2016-09-11] MEDS: Linezolid 600 MG TABLET PO SCH (09:39)
[2016-09-11] MEDS: APIXABAN 5 MG TABLET PO SCH (09:39)
[2016-09-11] MEDS: Insulin LISPRO 300 UNITS/3 ML VIAL SQ SCH ×2 (09:41→13:04)
[2016-09-11 12:14] VITALS: BP 106/62
[2016-09-11] MEDS ORDERED: levoFLOXacin 750 MG TABLET PO ONE (12:33)
--- NOTE | 2016-09-11 12:34 | Discharge Summary ---
Date of Encounter: 09/11/16 Time of Encounter: 10:00 - Discharge Diagnosis (1) HCAP (healthcare-associated pneumonia) Priority: Primary Status: Acute (2) Atrial fibrillation Priority: Secondary Status: Chronic Qualifiers: Qualified Code(s): I48.2 - Chronic atrial fibrillation (3) History of lung cancer Priority: Secondary Status: Chronic (4) Anemia Priority: Secondary Status: Chronic Qualifiers: Qualified Code(s): D64.9 - Anemia, unspecified (5) Diabetes mellitus, type 2 Priority: Secondary Status: Chronic Qualifiers: Qualified Code(s): E11.9 - Type 2 diabetes mellitus without complications (6) Essential hypertension Priority: Secondary Status: Chronic (7) Pedal edema Priority: Secondary Status: Acute (8) CHF (congestive heart failure) Priority: Secondary Status: Chronic Qualifiers: Qualified Code(s): I50.33 - Acute on chronic diastolic (congestive) heart failure - Discharge Medications Prescriptions: Furosemide [Lasix] 20 mg PO DAILY #15 tab levoFLOXacin [Levaquin] 750 mg PO Q48H #4 tab Linezolid [Zyvox] 600 mg PO BID #10 tablet Losartan [Cozaar] 12.5 mg PO DAILY #30 tab Home Medications: Glimepiride [Amaryl] 4 mg PO BID 06/28/16 [History] Potassium Chloride [Klor-Con 10] 10 meq PO TID 06/28/16 [History] Simvastatin [Zocor] 5 mg PO HS 06/28/16 [History] SitaGLIPtin [Januvia] 100 mg PO DAILY 07/31/16 [History] Albuterol Sulfate [Albuterol Inhaler] 2 puff IH Q6H PRN 08/07/16 [History] Magic Mouthwash [Magic Mouthwash BLM] 10 ml PO QID PRN #240 ml 08/07/16 [Rx] Prochlorperazine Maleate [Compazine] 10 mg PO Q8HR PRN #90 tablet 08/07/16 [Rx] Loperamide [Imodium] 2 mg PO TID PRN #90 capsule 08/20/16 [Rx] Ondansetron [Zofran] 4 mg PO Q8HR PRN #90 tablet 08/20/16 [Rx] Omeprazole [PriLOSEC] 40 mg PO DAILY #30 cap 08/27/16 [Rx] Lidocaine/Prilocaine CREAM [Emla] 1 appl TP ONCE PRN 09/02/16 [History] Apixaban [Eliquis] 5 mg PO BID #30 tablet 09/04/16 [Rx] Diltiazem CD (24hr) [Cardizem CD] 180 mg PO DAILY #30 cap.er.24h 09/04/16 [Rx] Linezolid [Zyvox] 600 mg PO BID #10 tablet 09/09/16 [Rx] Acetaminophen [Tylenol] 650 mg PO Q6HR PRN tab 09/11/16 [Rx] Furosemide [Lasix] 20 mg PO DAILY #15 tab 09/11/16 [Rx] HYDROcodone/Acet 7.5/325 mg [[place] 7.5-325 mg] 1 tab PO Q6HR PRN tab 09/11/16 [ Rx] Linezolid [Zyvox] 600 mg PO BID tab 09/11/16 [Rx] Losartan [Cozaar] 12.5 mg PO DAILY #30 tab 09/11/16 [Rx] levoFLOXacin [Levaquin] 750 mg PO Q48H #4 tab 09/11/16 [Rx] Allergies/Adverse Reactions: Allergies Penicillins Allergy (Verified 09/02/16 16:17) Rash aspirin Adverse Reaction (Verified 09/02/16 16:17) Gastrointestinal Upset Hydromorphone [From Dilaudid] Adverse Reaction (Verified 09/07/16 10:58) Confusion meperidine [From Demerol] Adverse Reaction (Verified 09/07/16 10:58) Confusion Date of admission: 09/07/16 14:17 Primary care physician: PCP NO Consults: 09/07/16 14:45 Consult to Interventional Radiology [CONS] Stat Consulting Provider: Radiology Interventional Cols Reason for Consult: port study Call Completed: No Discharging clinician: Karl Pastrana Anticipated date of discharge: 09/11/16 - Patient Status Disposition: Home, Self-Care Condition: Fair Functional capacity at discharge: independent ambulation Overall status at discharge: patient is progressing back to baseline - Discharge Instructions Instructions: Heart Failure (DC), Pneumonia (DC) Follow Up With: Tayo Hudson DO [Non-Partnered Physician] - 07/24/17 2:00 pm ( Please follow up as schedule...) Additional Instructions: YOUR BLOOD PRESSURE MEDICATIONS WERE ADJUSTED 1. LOSARTAN -HCTZ COMBINATION WAS DISCONTINUED 2. YOU WERE STARTED ON LOSARTAN 12.5MG DAILY 3. YOU WERE STARTED ON LASIX 20MG DAILY FOR YOUR PEDAL EDEMA YOU HAVE ANTIBIOTICS TO TAKE FOR 4 MORE DOSES 1.ZYVOX 500MG TWICE A DAY FOR 4 MORE DAYS 2. LEVOFLOXACIN EVERY OTHER DAY STARTING WEDNESDAY 09/13 FOR 4 MORE DOSES. FOLLOW UP WITH YOUR PCP FOR MONITORING OF YOUR BLOOD PRESSURE AND RENAL FUNCTION - Diet and Activity Activity: resume usual activities as tolerated Diet: diabetic diet, low fat, low cholesterol, low salt diet Interval History: Ms. Hernandez is a 75 year old female with past medical history of atrial fibrillation, hypertension, diabetes and recently diagnosed lung cancer on chemotherapy. She presented to [facility] with complaints of right-sided chest pain that started on day of presentation On examination in the ER, the patient was awake and alert. Not in any distress. Able to provide history. Her daughters were at her bedside. Patient reported she woke up and realized that her chest was hurting. Seems to be tender and seems to be around her port region in the right subclavian. Patient states that the area is tender. Pain seems very pleuritic in nature. Patient is undergoing chemotherapy and radiation therapy and is followed by oncology here. Patient has some mild shortness of breath and some cough with no sputum production. Denies having nausea or vomiting or abdominal pain. Aggravated with movement and with coughing. No alleviating factors. No other associated symptoms. Patient denies having any fever. Initial evaluation revealed probable left base pneumonia and emphysema, otherwise labs on initial evaluation were fairly within normal limits. She was hemodynamically stable She was admitted for management of HCAP with IV broad spectrum antibiotics On Day 1 of admission, she reported itching and rash with use of Vancomycin which was discontinued. She received Levaquin and Zyvox for her pneumonia. Blood and sputum cultures were unremarkable Patient had received IVF in the ER on admission and developed worsening pedal edema during her stay. Rpeat CXR and clinical findings did ot demonstrate pulmonary edema, however, her BNP was elevated at >400. She was therefore started on lasix Her home medications have been adjusted for her blood pressure She was seen this morning, in no form of distress, clinically stable for discharge. She did not require supplemental O2 at time of discharge She is discharged to complete Zyvox and Levaquin at home Plan of care discussed, verbalized understanding Follow up with PCP Hospital course: Ms. Hernandez is a 75 year old female As above - Time Spent with Patient Total time spent providing and/or coordinating discharge services: Greater than 30 minutes (40 minutes spent on face tof damien encounter, chart review, medication reconciliation and prescription and documentation) - Constitutional Vitals: Temp Pulse Resp BP Pulse Ox 98.4 F 107 15 106/62 97 09/11/16 12:13 09/11/16 12:13 09/11/16 12:13 09/11/16 12:13 09/11/16 12:13 General appearance: Present: A&O X 3, pleasant, no acute distress, obese, answers questions appropriately - Head Head exam: Present: atraumatic, normocephalic - Eye Eye exam: Present: PERRL, conjuntiva pink, sclera anicteric Pupils: Present: PERRL - Neck Neck exam general surgery: Present: supple, trachea midline. Absent: lymphadenopathy - Respiratory Respiratory exam: Present: CTAB. Absent: accessory muscle use, rales, rhonchi, wheezes Additional comments: R chest port - Cardiovascular Cardiovascular exam: Present: irregular rhythm, +S1, +S2. Absent: diastolic murmur, gallop, rubs, systolic murmur - GI/Abdominal GI/Abdominal exam: Present: normal bowel sounds, soft, no peritoneal signs. Absent: distended, tenderness - Extremities Exam Extremities exam: Present: pedal edema, warm, radial pulses palpable and symetrical. Absent: calf tenderness, cyanotic - Neurological Exam Neurological exam: Present: alert, CN II-XII intact, oriented X3, no focal deficits. Absent: pronater drift, facial droop, speech deficit - Skin Skin exam: Present: dry, intact
--- NOTE | 2016-09-11 14:30 | Oncology Inp Progress Note ---
Date of Encounter: 09/11/16 Time of Encounter: 11:45 (1) History of lung cancer Status: Chronic Assessment and plan: Ms. Hernandez will continue with Dr. Donaldson as an outpatient for concurrent chemotherapy radiotherapy. We will make sure she has appointment with her primary oncologist after discharge. Do not hesitate to call if you have concerns or questions in the meantime Oncology: Subj Interval history: Feeling much better today. She is breathing much easier. Chest pain is minimal. Still with slight cough, now nonproductive. No fever or chills or other symptoms of active infection. She is anxious to return home. - Constitutional Vitals: Vital Signs Temp Pulse Resp BP Pulse Ox 09/11/16 12:13 98.4 F 107 15 106/62 97 09/11/16 10:05 20 96 09/11/16 08:21 98.4 F 120 18 118/78 95 09/11/16 04:21 16 94 09/11/16 03:17 98.1 F 94 16 113/71 93 09/11/16 00:19 98.2 F 102 16 106/56 96 09/10/16 22:24 16 94 09/10/16 20:40 98 09/10/16 20:36 98 09/10/16 20:13 97.9 F 100 16 111/68 96 09/10/16 16:28 97.8 F 83 13 102/55 98 09/10/16 15:57 18 97 Intake and Output 09/11/16 09/11/16 09/11/16 00:59 08:59 16:59 Intake Total 400 / 400 460 / 460 120 / 120 Output Total 300 / 300 200 / 200 Balance 100 / 100 260 / 260 120 / 120 Intake: IV Fluids 100 / 100 100 / 100 Maxipime 2,000 MG In 100 / 100 100 / 100 Dextrose 5% (Minibag+) 100 ML 100 ML @ 200 mls/ hr IVPB Q12HR [facility] Rx#: [id number] Oral 300 / 300 360 / 360 120 / 120 Output: Urine 300 / 300 200 / 200 Other: Meal Breakfast Lunch Percent of Meal Consumed 90% 75% Weight 96.1 kg Blood Glucose* 157 148 186 Patient Weight 09/12/16 00:59 Weight 96.1 kg - Head Head exam: Present: atraumatic, normal inspection, normocephalic - Eye Eye exam: Present: conjuntiva pink, sclera anicteric - ENT ENT exam: Present: mucous membranes moist, normal oropharynx - Neck Neck exam: Present: full ROM, normal inspection - Respiratory Respiratory exam: Present: CTAB - Cardiovascular Cardiovascular exam: Present: irregular rhythm - GI/Abdominal GI/Abdominal exam: Present: normal bowel sounds, soft - Extremities Exam Extremities exam: Present: pedal edema Oncology: Obj Data - Labs CBC & Chem 7: 09/11/16 03:10 09/11/16 03:10 Labs: Laboratory Results - last 24 hr 09/09/16 09/10/16 09/10/16 20:31 07:13 11:42 WBC RBC Hgb Hct MCV MCH MCHC RDW Plt Count MPV Immature Gran % Seg Neutrophils % Lymphocytes % Monocytes % Eosinophils % Basophils % Neutrophils # Lymphocytes # Monocytes # Eosinophils # Basophils # Immature Plt Fraction Sodium Potassium Chloride Carbon Dioxide BUN Creatinine Est GFR ( Amer) Est GFR (Non-Af Amer) BUN/Creatinine Ratio Glucose POC Glucose 135 H 182 H 131 H Calculated Osmolality Calcium B-Natriuretic Peptide Urine Color Urine Clarity Urine pH Ur Specific [place] Urine Protein Urine Glucose (UA) Urine Ketones Urine Blood Urine Nitrite Urine Bilirubin Urine Urobilinogen Ur Leukocyte Esterase 09/10/16 09/10/16 09/10/16 14:00 14:00 16:30 WBC RBC Hgb Hct MCV MCH MCHC RDW Plt Count MPV Immature Gran % Seg Neutrophils % Lymphocytes % Monocytes % Eosinophils % Basophils % Neutrophils # Lymphocytes # Monocytes # Eosinophils # Basophils # Immature Plt Fraction Sodium 131 L Potassium 4.2 Chloride 106 Carbon Dioxide 19 BUN 21 H Creatinine 0.86 Est GFR ( Amer) > 60 Est GFR (Non-Af Amer) > 60 BUN/Creatinine Ratio 24 Glucose 158 H POC Glucose 197 H Calculated Osmolality 278 L Calcium 8.3 L B-Natriuretic Peptide 414 H Urine Color Urine Clarity Urine pH Ur Specific [place] Urine Protein Urine Glucose (UA) Urine Ketones Urine Blood Urine Nitrite Urine Bilirubin Urine Urobilinogen Ur Leukocyte Esterase 09/10/16 09/10/16 09/11/16 20:32 22:45 03:10 WBC 4.5 RBC 2.97 L Hgb 7.9 L Hct 24.9 L MCV 83.8 MCH 26.6 L MCHC 31.7 RDW 18.1 H Plt Count 180 MPV 9.0 L Immature Gran % 0.7 Seg Neutrophils % 62.3 Lymphocytes % 18.2 Monocytes % 15.2 Eosinophils % 2.9 Basophils % 0.7 Neutrophils # 2.8 Lymphocytes # 0.8 Monocytes # 0.7 Eosinophils # 0.1 Basophils # 0.0 Immature Plt Fraction 1.9 Sodium Potassium Chloride Carbon Dioxide BUN Creatinine Est GFR ( Amer) Est GFR (Non-Af Amer) BUN/Creatinine Ratio Glucose POC Glucose 157 H Calculated Osmolality Calcium B-Natriuretic Peptide Urine Color Yellow Urine Clarity Clear Urine pH 6.0 Ur Specific [place] 1.014 Urine Protein Negative Urine Glucose (UA) Normal Urine Ketones Negative Urine Blood Negative Urine Nitrite Negative Urine Bilirubin Negative Urine Urobilinogen Normal Ur Leukocyte Esterase Negative 09/11/16 03:10 WBC RBC Hgb Hct MCV MCH MCHC RDW Plt Count MPV Immature Gran % Seg Neutrophils % Lymphocytes % Monocytes % Eosinophils % Basophils % Neutrophils # Lymphocytes # Monocytes # Eosinophils # Basophils # Immature Plt Fraction Sodium 134 L Potassium 4.0 Chloride 107 Carbon Dioxide 19 BUN 16 Creatinine 0.85 Est GFR ( Amer) > 60 Est GFR (Non-Af Amer) > 60 BUN/Creatinine Ratio 19 Glucose 133 H POC Glucose Calculated Osmolality 281 Calcium 8.8 B-Natriuretic Peptide Urine Color Urine Clarity Urine pH Ur Specific [place] Urine Protein Urine Glucose (UA) Urine Ketones Urine Blood Urine Nitrite Urine Bilirubin Urine Urobilinogen Ur Leukocyte Esterase - ABG Interpretation ABG results: PT/INR, D-dimer PT 16.8 Seconds (9.4-12.1) H D 09/07/16 08:35 Consult Discharge Plan - Plan Instructions: Heart Failure (DC), Pneumonia (DC) Additional Instructions: YOUR BLOOD PRESSURE MEDICATIONS WERE ADJUSTED 1. LOSARTAN -HCTZ COMBINATION WAS DISCONTINUED 2. YOU WERE STARTED ON LOSARTAN 12.5MG DAILY 3. YOU WERE STARTED ON LASIX 20MG DAILY FOR YOUR PEDAL EDEMA YOU HAVE ANTIBIOTICS TO TAKE FOR 4 MORE DOSES 1.ZYVOX 500MG TWICE A DAY FOR 4 MORE DAYS 2. LEVOFLOXACIN EVERY OTHER DAY STARTING WEDNESDAY 09/13 FOR 4 MORE DOSES. FOLLOW UP WITH YOUR PCP FOR MONITORING OF YOUR BLOOD PRESSURE AND RENAL FUNCTION Referrals: Tayo Hudson DO [Non-Partnered Physician] - 09/21/16 2:00 pm ( Please follow up as schedule...) Prescriptions: Furosemide [Lasix] 20 mg PO DAILY #15 tab levoFLOXacin [Levaquin] 750 mg PO Q48H #4 tab Linezolid [Zyvox] 600 mg PO BID #10 tablet Losartan [Cozaar] 12.5 mg PO DAILY #30 tab
[2016-09-12] MEDS ORDERED: levoFLOXacin 750 MG TABLET PO SCH (09:00)
== END 2016-09-11 13:29 | disposition home or self-care (01) | DRG 193 ==
LOC: 2ANU 07:57 → EMEROO 07:57 → 2ANU 12:18 → SUATTDRO 14:17
PROVIDERS: ADMIT Internal Medicine; ATTEND Internal Medicine

== ENCOUNTER 2016-09-29 12:15 | Inpatient (IN) ==
--- NOTE | 2016-09-29 12:38 | Emergency Department Note ---
Disposition Clinical Impression: Pericardial effusion, Pleural effusion Dyspnea Qualifiers: Dyspnea type: unspecified Qualified Code(s): R06.00 - Dyspnea, unspecified Lung cancer Qualifiers: Laterality: unspecified laterality Lung location: unspecified part of lung Qualified Code(s): C34.90 - Malignant neoplasm of unspecified part of unspecified bronchus or lung Disposition: Admitted As Inpatient Condition: Fair Referrals: NONE,PCP [Non-Partnered Physician] - Forms: ED Satisfaction Letter Time of Disposition: 16:56 Chest Pain HPI - General Chief Complaint: ED Chest Pain Stated Complaint: chest discomfort Time Seen by Provider: 09/29/16 12:29 Source: patient Limitations: no limitations Vital Signs Reviewed: Yes Nursing Notes Reviewed: Yes - History of Present Illness HPI Narrative: 76-year-old comes in with exertional dyspnea and chest discomfort. Patient states she was diagnosed with pneumonia couple weeks ago and she's been short of breath. Patient was to receive a blood transfusion couple days ago but apparently there were not able to give it as a were not able to access her port. She does have bruising around her chest. Patient was seen at cancer Center today and they were concerned she might be in heart failure. Patient does have a history of atrial fib that was diagnosed a couple weeks ago. She does have a heart rate of 110 up to 130. Echocardiogram done on 09/03/2016 indicates EF of 70-75%. Patient was a heavy cigarette smoker stopped in 2013. Review of recent records show a biopsy adenocarcinoma of the lung stage III. She was started on chemotherapy. Hemoglobin was noted to be 7 on the . Pt complaint: chest pain Onset (ago): [employer] Duration: constant Pain Location: substernal Severity scale (1-10): 2 Quality: tightness, aching Worsens with: exertion (Dyspnea worse with exertion) Associated symptoms: Denies: nausea, vomiting Treatments prior to arrival chest pain: none - Related Data Home Medications Medication Instructions Recorded Confirmed Glimepiride [Amaryl] 4 mg PO BID 06/28/16 09/24/16 Potassium Chloride [Klor-Con 10] 10 meq PO TID 06/28/16 09/24/16 Simvastatin [Zocor] 5 mg PO HS 06/28/16 09/24/16 SitaGLIPtin [Januvia] 100 mg PO DAILY 07/31/16 09/24/16 Albuterol Sulfate [Albuterol 2 puff IH Q6H PRN 08/07/16 09/24/16 Inhaler] Lidocaine/Prilocaine CREAM [Emla] 1 appl TP ONCE PRN 09/02/16 09/24/16 Previous Rx's Medication Instructions Recorded Magic Mouthwash [Magic Mouthwash 10 ml PO QID PRN #240 ml 08/07/16 BLM] Prochlorperazine Maleate 10 mg PO Q8HR PRN #90 tablet 08/07/16 [Compazine] Loperamide [Imodium] 2 mg PO TID PRN #90 capsule 08/20/16 Ondansetron [Zofran] 4 mg PO Q8HR PRN #90 tablet 08/20/16 Omeprazole [PriLOSEC] 40 mg PO DAILY #30 cap 08/27/16 Apixaban [Eliquis] 5 mg PO BID #30 tablet 09/04/16 Diltiazem CD (24hr) [Cardizem CD] 180 mg PO DAILY #30 cap.er.24h 09/04/16 Acetaminophen [Tylenol] 650 mg PO Q6HR PRN tab 09/11/16 Furosemide [Lasix] 20 mg PO DAILY #15 tab 09/11/16 Losartan [Cozaar] 12.5 mg PO DAILY #30 tab 09/11/16 HYDROcodone/Acet 5/325 mg [[place] 1 tab PO Q6H PRN #50 tab 09/17/16 5-325 mg] Nystatin [Nystatin Suspension] 5 ml PO QID #240 ml 09/17/16 Allergies Allergy/AdvReac Type Severity Reaction Status Date / Time Penicillins Allergy Rash Verified 09/29/16 12:19 vancomycin Allergy Rash Verified 09/29/16 12:19 aspirin AdvReac Gastrointestinal Verified 09/29/16 12:19 Upset Hydromorphone [From Dilaudid] AdvReac Confusion Verified 09/29/16 12:19 meperidine [From Demerol] AdvReac Confusion Verified 09/29/16 12:19 All systems ED: reviewed and negative except as stated. Constitutional: Denies: fever, chills, weakness, weight change Eyes: Denies: eye pain, eye discharge, vision change ENT ED: Denies: ear pain, throat pain, dental pain, hearing loss, epistaxis, congestion, dysphagia Cardiovascular: Reports: dyspnea on exertion. Denies: chest pain, palpitations , edema, syncope Respiratory: Denies: cough, dyspnea, wheezes, hemoptysis, stridor Gastrointestinal: Denies: abdominal pain, nausea, vomiting, diarrhea, constipation, hematemesis, melena, hematochezia Genitourinary: Denies: dysuria, frequency, hematuria, discharge Musculoskeletal: Denies: back pain, neck pain, arthralgia, myalgia Integumentary: Denies: rash, abrasion, lesions Neurological: Denies: headache, weakness, numbness, paresthesias, confusion, abnormal gait, vertigo Psychiatric: Denies: anxiety, depression, suicidal thoughts, homicidal thoughts , auditory hallucinations, visual hallucinations Endocrine: Denies: fatigue Hematological/Lymphatic: Denies: easy bleeding, easy bruising Allergic/Immunologic: Denies: facial swelling, urticaria Chest Pain PMH - Past Medical History Medical history: Reports: aortic aneurysm, atrial fibrillation, cancer, diabetes , hyperlipidemia, hypertension Surgical history: Reports: cholecystectomy, hysterectomy, knee replacement Psychiatric history: Reports: no psych history - Social History Smoking Status: Former smoker Alcohol use: Reports: none Drug use: Reports: none Physical Exam - General Limitations: no limitations General appearance: alert - Head Head exam: atraumatic, normocephalic, normal inspection - Eye Eye exam: Present: normal appearance, PERRL, EOMI - ENT ENT exam: normal exam, normal oropharynx, mucous membranes moist - Neck Neck exam: Present: normal inspection, full ROM, trachea midline - Chest Chest inspection: Present: symmetric chest wall rise, other (Ecchymosis across the anterior chest wall) - Respiratory Respiratory exam: Present: wheezes, prolonged expiratory phase - Cardiovascular Cardiovascular exam: Present: regular rate, normal rhythm, normal heart sounds - Abdominal Exam Abdominal exam: Present: soft, Non-Tender. Absent: tenderness, distention, guarding, rebound, rigidity - Extremities Exam Extremities exam: Present: normal inspection, full ROM. Absent: tenderness, pedal edema - Expanded Lower Extremity Exam Neurovascular/Tendon exam: Absent: motor deficit, sensory deficit, tendon deficit Gait: observed and normal - Back Exam Back exam: Present: normal inspection, full ROM. Absent: tenderness - Neurological Exam Neurological exam: Present: alert, oriented X3 - Psychiatric Psychiatric exam: Present: normal affect, normal mood - Skin Skin exam: Present: warm, dry, intact, normal color Course - Reevaluation(s) Reevaluation #1: The patient indicates that she does not want to have any blood transfusions here as apparently there was some problems getting blood the last couple of days and she wants to have it done as scheduled in the cancer center tomorrow. I was able to convince her to get an IV and have a CTA of the chest to make sure we were not dealing with a pulmonary embolism although she is on blood thinners. Time: 13:00 Reevaluation #2: Discussed with Kat Al nurse practitioner, will admit. I did discuss with her tray filler concerned that if the pleural effusion is drain the pericardial effusion could develop into cardiac tamponade Time: 16:54 - Consultations Consultation #1: Discussed with Dr. Gaytan, admit to hospitalist Time: 15:27 Consultation #2: Discussed with Dr. Reyes. Echo does show a fairly large pleural effusion and fairly large pericardial effusion. No evidence of tamponade. He does note that draining the pleural fluid may result in a development of tamponade. Time: 16:50 Consultation #3: Discussed with Dr. Norman of cardiothoracic surgery who will see the patient in consult. Time: 16:57 Vital Signs Temperature 97.5 F L 09/29/16 12:23 Pulse Rate 115 09/29/16 12:23 Respiratory Rate 20 09/29/16 12:23 Blood Pressure 116/73 09/29/16 12:23 O2 Sat by Pulse Oximetry 97 09/29/16 12:23 Temperature 97.5 F L 09/29/16 12:23 Pulse Rate 106 09/29/16 13:51 Respiratory Rate 22 09/29/16 13:51 Blood Pressure 117/68 09/29/16 13:51 O2 Sat by Pulse Oximetry 95 09/29/16 13:51 Oxygen Delivery Oxygen Delivery Room Air Chest Pain - Lab Data Lab results reviewed: Yes I reviewed the patient's lab results. Result diagrams: 09/29/16 13:34 09/29/16 13:15 Lab Results 09/29/16 09/29/16 09/29/16 Range/Units 13:15 13:15 13:15 WBC (4.3-11.1) K/mcL RBC (3.82-4.97) M/mcL Hgb (11.5-15.4) g/dL Hct (35.3-44.9) % MCV (83.0-100.0) fL MCH (28.0-33.3) pg MCHC (31.6-35.5) g/dL RDW (11.5-14.5) % Plt Count (140-400) K/mcL MPV (9.4-12.4) fL Immature Gran % (0-4) % Seg Neutrophils % % Lymphocytes % % Monocytes % % Eosinophils % % Basophils % % Neutrophils # (1.6-8.9) K/mcL Lymphocytes # (0.6-4.6) K/mcL Monocytes # (0.0-1.3) K/mcL Eosinophils # (0.0-0.6) K/mcL Basophils # (0.0-0.2) K/mcL PT 19.6 H (9.4-12.1) Seconds INR 1.8 APTT 27.3 (26.0-36.0) Seconds Sodium 133 L (136-145) mEq/L Potassium 3.8 (3.5-4.5) mEq/L Chloride 101 (98-109) mEq/L Carbon Dioxide 24 (19-29) mEq/L BUN 22 H (7-20) mg/dL Creatinine 0.87 (0.57-1.11) mg/dL Est GFR ( Amer) > 60 (> 60) Est GFR (Non-Af Amer) > 60 (> 60) BUN/Creatinine Ratio 25 (6-26) Glucose 236 H (70-99) mg/dL Calculated Osmolality 287 (280-300) Lactic Acid (0.5-2.2) mmol/L Calcium 8.8 (8.6-10.8) mg/dL Total Bilirubin (0.2-1.2) mg/dL Direct Bilirubin (0.0-0.5) mg/dL Indirect Bilirubin (0.0-1.2) mg/dL AST (5-34) Units/L ALT (0-55) Units/L Alkaline Phosphatase (38-126) Units/L Troponin I 0.06 H* (0-0.03) ng/mL B-Natriuretic Peptide (0-100) pg/mL Serum Total Protein (6.0-8.3) g/dL Albumin (3.5-5.0) g/dL Globulin (2.4-3.5) g/dL Albumin/Globulin Ratio (1.1-2.2) Amylase (25-125) Units/L Lipase (8-78) Units/L 09/29/16 09/29/16 09/29/16 Range/Units 13:15 13:34 13:34 WBC 4.9 (4.3-11.1) K/mcL RBC 2.91 L (3.82-4.97) M/mcL Hgb 7.8 L (11.5-15.4) g/dL Hct 24.5 L (35.3-44.9) % MCV 84.2 (83.0-100.0) fL MCH 26.8 L (28.0-33.3) pg MCHC 31.8 (31.6-35.5) g/dL RDW 18.9 H (11.5-14.5) % Plt Count 265 (140-400) K/mcL MPV 10.5 (9.4-12.4) fL Immature Gran % 1.2 (0-4) % Seg Neutrophils % 77.3 % Lymphocytes % 12.7 % Monocytes % 4.7 % Eosinophils % 3.7 % Basophils % 0.4 % Neutrophils # 3.8 (1.6-8.9) K/mcL Lymphocytes # 0.6 (0.6-4.6) K/mcL Monocytes # 0.2 (0.0-1.3) K/mcL Eosinophils # 0.2 (0.0-0.6) K/mcL Basophils # 0.0 (0.0-0.2) K/mcL PT (9.4-12.1) Seconds INR APTT (26.0-36.0) Seconds Sodium (136-145) mEq/L Potassium (3.5-4.5) mEq/L Chloride (98-109) mEq/L Carbon Dioxide (19-29) mEq/L BUN (7-20) mg/dL Creatinine (0.57-1.11) mg/dL Est GFR ( Amer) (> 60) Est GFR (Non-Af Amer) (> 60) BUN/Creatinine Ratio (6-26) Glucose (70-99) mg/dL Calculated Osmolality (280-300) Lactic Acid 1.8 (0.5-2.2) mmol/L Calcium (8.6-10.8) mg/dL Total Bilirubin 0.9 (0.2-1.2) mg/dL Direct Bilirubin 0.3 (0.0-0.5) mg/dL Indirect Bilirubin 0.6 (0.0-1.2) mg/dL AST 23 (5-34) Units/L ALT 24 (0-55) Units/L Alkaline Phosphatase 105 (38-126) Units/L Troponin I (0-0.03) ng/mL B-Natriuretic Peptide (0-100) pg/mL Serum Total Protein 7.1 (6.0-8.3) g/dL Albumin 3.0 L (3.5-5.0) g/dL Globulin 4.1 H (2.4-3.5) g/dL Albumin/Globulin Ratio 0.7 L (1.1-2.2) Amylase 65 (25-125) Units/L Lipase 86 H (8-78) Units/L 09/29/16 Range/Units 13:54 WBC (4.3-11.1) K/mcL RBC (3.82-4.97) M/mcL Hgb (11.5-15.4) g/dL Hct (35.3-44.9) % MCV (83.0-100.0) fL MCH (28.0-33.3) pg MCHC (31.6-35.5) g/dL RDW (11.5-14.5) % Plt Count (140-400) K/mcL MPV (9.4-12.4) fL Immature Gran % (0-4) % Seg Neutrophils % % Lymphocytes % % Monocytes % % Eosinophils % % Basophils % % Neutrophils # (1.6-8.9) K/mcL Lymphocytes # (0.6-4.6) K/mcL Monocytes # (0.0-1.3) K/mcL Eosinophils # (0.0-0.6) K/mcL Basophils # (0.0-0.2) K/mcL PT (9.4-12.1) Seconds INR APTT (26.0-36.0) Seconds Sodium (136-145) mEq/L Potassium (3.5-4.5) mEq/L Chloride (98-109) mEq/L Carbon Dioxide (19-29) mEq/L BUN (7-20) mg/dL Creatinine (0.57-1.11) mg/dL Est GFR ( Amer) (> 60) Est GFR (Non-Af Amer) (> 60) BUN/Creatinine Ratio (6-26) Glucose (70-99) mg/dL Calculated Osmolality (280-300) Lactic Acid (0.5-2.2) mmol/L Calcium (8.6-10.8) mg/dL Total Bilirubin (0.2-1.2) mg/dL Direct Bilirubin (0.0-0.5) mg/dL Indirect Bilirubin (0.0-1.2) mg/dL AST (5-34) Units/L ALT (0-55) Units/L Alkaline Phosphatase (38-126) Units/L Troponin I (0-0.03) ng/mL B-Natriuretic Peptide 141 H (0-100) pg/mL Serum Total Protein (6.0-8.3) g/dL Albumin (3.5-5.0) g/dL Globulin (2.4-3.5) g/dL Albumin/Globulin Ratio (1.1-2.2) Amylase (25-125) Units/L Lipase (8-78) Units/L - Radiology Data Radiology results reviewed: Yes I reviewed the patient's radiology results. Chest X-Ray 09/29/16 12:35 IMPRESSION: Moderate left pleural effusion. Left basilar airspace disease or atelectasis, worse than 09/07/2016. D/ / 09/29/2016 13:40:27 Donn Cleary MD / [facility] Interpreting Provider: Donn Cleary MD Chest CTA 09/29/16 13:55 IMPRESSION: 1. No evidence of pulmonary embolus. 2. Persistent left hilar and mediastinal adenopathy. Previously seen left upper lobe mass has decreased in size since prior PET-CT of July 29, 2016. There is a persistent consolidation in the lingula of the left upper lobe. 3. Large pericardial effusion, new since prior CT of September 02, 2016. 4. Moderate left pleural effusion and small to moderate right pleural effusion. D/ / Juan Francisco Ochoa MD / Juan Francisco Ochoa MD Interpreting Provider: Juan Francisco Ochoa MD - EKG Data EKG attestation: Yes I reviewed and interpreted this EKG. Rate: tachycardia Rhythm: A.Fib Interpretation: no acute changes Heart Score - Score History: Moderately Suspicious EKG: Normal Age: Greater than 65 Risk Factors: 1-2 risk factors Troponin: Less than normal limit HEART Score Total: 4 Critical Care Time Critical Care Time: Yes Total Critical Care Time: 30 Attestation: The high probability of a clinically significant, sudden or life threatening deterioration of the [cardiovascular] system(s) required my full and direct attention, intervention and personal management. The aggregate critical care time was [30] minutes. This time is in addition to time spent performing reported procedures but includes the following: [x] Data Review and interpretation [x] Patient assessment and monitoring of vital signs [x] Documentation [x] Medication orders and management
[2016-09-29 13:32] LABS: INR 1.8; Prothrombin Time 19.6 Seconds (9.4-12.1)
[2016-09-29 13:34] LABS: Activated Partial Thrombo Time 27.3 Seconds (26.0-36.0)
[2016-09-29 13:40] LABS: BUN/Creatinine Ratio 25 (6-26); Blood Urea Nitrogen 22 mg/dL (7-20); Calcium 8.8 mg/dL (8.6-10.8); Carbon Dioxide 24 mEq/L (19-29); Chloride 101 mEq/L (98-109); Glucose 236 mg/dL (70-99); Osmolality,Calculated 287 (280-300); Sodium 133 mEq/L (136-145); eGFR For African Americans > 60 (> 60); eGFR For Non-African Americans > 60 (> 60)
[2016-09-29 13:41] LABS: Basophils % 0.4 %; Eosinophils # 0.2 K/mcL (0.0-0.6); Eosinophils % 3.7 %; Hematocrit 24.5 % (35.3-44.9); Immature Granulocytes % 1.2 % (0-4); Lymphocytes # 0.6 K/mcL (0.6-4.6); Lymphocytes % 12.7 %; Mean Corpuscular HGB Conc 31.8 g/dL (31.6-35.5); Mean Corpuscular Hemoglobin 26.8 pg (28.0-33.3); Mean Corpuscular Volume 84.2 fL (83.0-100.0); Mean Platelet Volume 10.5 fL (9.4-12.4); Monocytes # 0.2 K/mcL (0.0-1.3); Monocytes % 4.7 %; Neutrophils # 3.8 K/mcL (1.6-8.9); Platelet Count 265 K/mcL (140-400); Red Blood Count 2.91 M/mcL (3.82-4.97); Red Cell Distribution Width 18.9 % (11.5-14.5); Segmented Neutrophils % 77.3 %
[2016-09-29 13:42] LABS: Albumin/Globulin Ratio 0.7 (1.1-2.2); Bilirubin,Direct 0.3 mg/dL (0.0-0.5); Bilirubin,Indirect 0.6 mg/dL (0.0-1.2); Bilirubin,Total 0.9 mg/dL (0.2-1.2); Globulin 4.1 g/dL (2.4-3.5); Potassium 3.8 mEq/L (3.5-4.5); Total Protein 7.1 g/dL (6.0-8.3)
[2016-09-29 13:56] LABS: Hemoglobin 7.8 g/dL (11.5-15.4)
--- NOTE | 2016-09-29 16:41 | Electrocardiograph Report ---
[email or web address] Test Date: 2016-09-29 Pat Name: Medina Hernandez Department: 105 Room: Gender: F [employer]ist: : 1940 Requested By: Carlos Eduardo Farmer Order Number: [id number] Reading MD: Teena Lunsford DO Measurements Intervals [place] Rate: 109 P: MN: 0 QRS: 83 QRSD: 60 T: 35 QT: 313 QTc: 377 Interpretive Statements ATRIAL FIBRILLATION WITH RAPID VENTRICULAR RESPONSE LOW QRS VOLTAGE IN PRECORDIAL LEADS [QRS DEFLECTION < 1.0 mV IN CHEST LEADS] ABNORMAL RHYTHM ECG Electronically Signed On 09-29-2016 16:39:55 EDT by Teena Lunsford DO
[2016-09-29] MEDS ORDERED: Naloxone 0.4 MG/ML INJ IVP PRN (17:05)
[2016-09-29] MEDS ORDERED: Acetaminophen 325 MG TABLET PO PRN (17:05)
--- NOTE | 2016-09-29 17:05 | Internal Med History&Physical ---
<Ubaldo Alhieu Bray - Last Filed: 09/29/16 17:10> Date of Encounter: 09/29/16 Time of Encounter: 16:58 Assessment and Plan (1) Pericardial effusion Current visit: Yes Status: Acute Presented with shortness of breath and orthopnea. CTA chest with large pericardial effusion, new since prior CT of 09/02/2016. Echo done in the ED without evidence of tamponade. Cardiology consulted in ED and recommended not draining pleural effusion as this may result in development of tamponade. CTS also consulted. Awaiting further recommendations (2) Pleural effusion Current visit: Yes Status: Acute CTA chest with moderate left pleural effusion and small to moderate right pleural effusion. Also has large pericardial effusion; Cardiology evaluated and conceredn that drainign pleueral effusion will result in development of tamonade. Hold on thoracentesis for now. With lung cancer concerned for malignant effusion. IV lasix. Oncology consulted (3) Elevated troponin Current visit: Yes Status: Acute troponin 0.06. In the setting of a-fib with RVR, pericardial effusion. Denies chest pain. EKG with a-fib. Cycle troponin. Cardiology consulted. (4) Lung cancer Current visit: No Status: Chronic dx non-small cell lung cancer 07/2016. Follows with Dr. Donaldson. Currently on chemo and radiation. Oncology consulted Qualifiers: Laterality: left Lung location: upper lobe of lung Qualified Code(s): C34.12 - Malignant neoplasm of upper lobe, left bronchus or lung (5) Atrial fibrillation with RVR Current visit: No Status: Acute known hx a-fib. HRs intermittently in low 100s. Cont home CCB, monitor HR. Monitor HR and consider cardizem gtt if worsens. Cont home Eliqus (6) Anemia Current visit: No Status: Chronic Hgb 7.8. Was suppose to receive 1 unit PRBC say prior to admission however unable to infuse due to medi-port difficulty per patient. No evidence of bleeding, no melena. Hgb has been stable in the 7s. Hold on transfusion at thie time to prevent worsening fluid overload. Oncology consulted Qualifiers: Anemia type: other cause Other causes of anemia: chronic disease, neoplastic Qualified Code(s): D63.0 - Anemia in neoplastic disease (7) Diabetes mellitus, type 2 Current visit: No Status: Chronic per hx. Holding hoe oral hypoglycemics. SSI while inpatient. Monitor blood sugar and titrate PRN Qualifiers: Diabetes mellitus complication status: without complication Diabetes mellitus fpc insulin use: without fpc use Qualified Code(s): E11.9 - Type 2 diabetes mellitus without complications (8) Essential hypertension Current visit: No Status: Chronic per hx. BP stable in the ED. Cont home BP medications. Monitor BP and titrate PRN (9) DVT prophylaxis Current visit: No Status: Acute eliquis Internal Medicine - H&P: HPI Chief complaint: shortness of breath Admitted From: Home Plans for Post Hospital Care: Home History of present illness: Ms. Hernandez is a 76 year old female with PMH lung cancer, anemia, a-fib, and HTN who presented to [facility] on 09/29/2016 with complaints of shortness of breath. She was found to have a large pericardial effusion and moderate pleural effusion. She was admitted for further work-up and treatment. Information obtained from chart review and patient report. Patient was recently discharged from hospital with pneumonia; says she has been short of breath since leaving hospital and has gotten progressively worse. Says she has missed last 2 radiation tx because she cannot lay flat. Has intermittent cough, non- productive. No chest pain. Legs are swollen but have been since she left the hospital. Has large bruise to left breast from mediport being placed yesterday, no melena, no active bleeding Past Med Surg Social Fam HX - Past Medical History Medical history: aortic aneurysm, atrial fibrillation, cancer, diabetes, hyperlipidemia, hypertension Psychiatric history: no psych history - Past Surgical History Surgical History: cholecystectomy, hysterectomy, knee replacement - Social History Smoking Status: Former smoker Smokeless Tobacco Status: No Alcohol use: none Drug use: none - Family History Mother Family Member Ethnicity: Non- Living Status: Hx Family Cardiac Disorders: No Hx Family Respiratory Disorders: No Hx Family Cancer: No Hx Family GI Disorders: No Hx Family Endocrine Disorder: No Hx Family Neuromuscular Disorders: No Hx Family Neurologic Disorders: No Hx Family HEENT Disorders: No Hx Family Autoimmune Disorders: No Internal Medicine - H&P: Meds Glimepiride [Amaryl] 4 mg PO BID 06/28/16 [History] Potassium Chloride [Klor-Con 10] 10 meq PO TID 06/28/16 [History] Simvastatin [Zocor] 5 mg PO HS 06/28/16 [History] SitaGLIPtin [Januvia] 100 mg PO DAILY 07/31/16 [History] Albuterol Sulfate [Albuterol Inhaler] 2 puff IH Q6H PRN 08/07/16 [History] Magic Mouthwash [Magic Mouthwash BLM] 10 ml PO QID PRN #240 ml 08/07/16 [Rx] Prochlorperazine Maleate [Compazine] 10 mg PO Q8HR PRN #90 tablet 08/07/16 [Rx] Loperamide [Imodium] 2 mg PO TID PRN #90 capsule 08/20/16 [Rx] Ondansetron [Zofran] 4 mg PO Q8HR PRN #90 tablet 08/20/16 [Rx] Omeprazole [PriLOSEC] 40 mg PO DAILY #30 cap 08/27/16 [Rx] Lidocaine/Prilocaine CREAM [Emla] 1 appl TP ONCE PRN 09/02/16 [History] Apixaban [Eliquis] 5 mg PO BID #30 tablet 09/04/16 [Rx] Diltiazem CD (24hr) [Cardizem CD] 180 mg PO DAILY #30 cap.er.24h 09/04/16 [Rx] Acetaminophen [Tylenol] 650 mg PO Q6HR PRN tab 09/11/16 [Rx] Losartan [Cozaar] 12.5 mg PO DAILY #30 tab 09/11/16 [Rx] HYDROcodone/Acet 5/325 mg [[place] 5-325 mg] 1 tab PO Q6H PRN #50 tab 09/17/16 [Rx ] Furosemide [Lasix] 40 mg PO DAILY 09/29/16 [History] Allergies Penicillins Allergy (Verified 09/29/16 12:19) Rash vancomycin Allergy (Verified 09/29/16 12:19) Rash aspirin Adverse Reaction (Verified 09/29/16 12:19) Gastrointestinal Upset Hydromorphone [From Dilaudid] Adverse Reaction (Verified 09/29/16 12:19) Confusion meperidine [From Demerol] Adverse Reaction (Verified 09/29/16 12:19) Confusion All Systems PM: A 10-system review of systems was performed and is negative for pertinent findings except as documented above in the HPI. - Constitutional Constitutional: fatigue, lethargy, malaise, no chills, no fever(s), no night sweats - EENT Eyes: no change in vision, no discharge, no pain, no photophobia Ears: no ear discharge, no ear pain, no tinnitus Nose, mouth and throat: no dysphagia, no nasal discharge, no neck pain, no sore throat - Cardiovascular Cardiovascular ROS IM: edema, no chest pain, no diaphoresis, no dyspnea, no lightheadedness, no palpitations, no syncope - Respiratory Respiratory: dyspnea, dyspnea on exertion, no cough, no wheezing, no excessive phlegm production - Gastrointestinal Gastrointestinal: no abdominal pain, no diarrhea, no hematemesis, no hematochezia, no melena, no nausea, no vomiting - Genitourinary Genitourinary: no change in urinary stream, no dysuria, no flank pain, no hematuria - Musculoskeletal Musculoskeletal ROS IM: no numbness, no tingling - Integumentary Integumentary IM: no rash, no unusual bruising - Neurological Neurological ROS: no confusion, no convulsions, no focal weakness, no numbness, no tingling, no tremor(s) - Hematologic/Lymphatic Hematologic/Lymphatic: no easy bruising - Constitutional Vitals: Temp Pulse Resp BP Pulse Ox 97.5 F L 106 22 117/68 95 09/29/16 12:23 09/29/16 13:51 09/29/16 13:51 09/29/16 13:51 09/29/16 13:51 General appearance: Present: A&O X 3, no acute distress, obese - Head Head exam: Present: atraumatic, normocephalic - Eye Eye exam: Present: PERRL, conjuntiva pink, sclera anicteric Pupils: Present: PERRL - Neck Neck exam general surgery: Present: supple, trachea midline. Absent: lymphadenopathy - Respiratory Respiratory exam: Present: rales. Absent: accessory muscle use, rhonchi, wheezes - Cardiovascular Cardiovascular exam: Present: irregular rhythm, tachycardia. Absent: diastolic murmur, gallop, rubs, systolic murmur - GI/Abdominal GI/Abdominal exam: Present: normal bowel sounds, soft, no peritoneal signs. Absent: distended, tenderness - Extremities Exam Extremities exam: Present: pedal edema, warm, radial pulses palpable and symetrical. Absent: calf tenderness, cyanotic - Neurological Exam Neurological exam: Present: CN II-XII intact, oriented X3, no focal deficits. Absent: pronater drift, facial droop, speech deficit - Skin Skin exam: Present: dry, intact Additional comments: right breast bruising Internal Med - H&P Results - Labs CBC & Chem 7: 09/29/16 13:34 09/29/16 13:15 Labs: Short CBC 09/29/16 Range/Units 13:34 WBC 4.9 (4.3-11.1) K/mcL Hgb 7.8 L (11.5-15.4) g/dL Hct 24.5 L (35.3-44.9) % Plt Count 265 (140-400) K/mcL Neutrophils # 3.8 (1.6-8.9) K/mcL BMP 09/29/16 13:15 Sodium 133 L Potassium 3.8 Chloride 101 Carbon Dioxide 24 BUN 22 H Creatinine 0.87 Glucose 236 H Calcium 8.8 Cardiac Enzymes 09/29/16 Range/Units 13:15 Troponin I 0.06 H* (0-0.03) ng/mL Liver Function 09/29/16 Range/Units 13:15 Total Bilirubin 0.9 (0.2-1.2) mg/dL Direct Bilirubin 0.3 (0.0-0.5) mg/dL AST 23 (5-34) Units/L ALT 24 (0-55) Units/L Alkaline Phosphatase 105 (38-126) Units/L Albumin 3.0 L (3.5-5.0) g/dL - Impressions ITS Impressions Chest X-Ray 09/29/16 12:35 IMPRESSION: Moderate left pleural effusion. Left basilar airspace disease or atelectasis, worse than 09/07/2016. D/ / 09/29/2016 13:40:27 [facility] Provider: Donn Cleary MD Chest CTA 09/29/16 13:55 IMPRESSION: 1. No evidence of pulmonary embolus. 2. Persistent left hilar and mediastinal adenopathy. Previously seen left upper lobe mass has decreased in size since prior PET-CT of 07/29/2016. There is a persistent consolidation in the lingula of the left upper lobe. 3. Large pericardial effusion, new since prior CT of 09/02/2016. 4. Moderate left pleural effusion and small to moderate right pleural effusion. D/ / 09/29/2016 15:42:13 Juan Francisco Ochoa MD / [facility] Interpreting Provider: Juan Francisco Ochoa MD <AnaCintiaJose MigueldanaKeith ruth - Last Filed: 09/29/16 18:28> Date of Encounter: 09/29/16 Internal Medicine - H&P: HPI History of present illness: Ms. Hernandez is a 76 year old female All Systems PM: A 10-system review of systems was performed and is negative for pertinent findings except as documented above in the HPI. - Constitutional Vitals: Temp Pulse Resp BP Pulse Ox 97.5 F L 86 20 125/84 94 09/29/16 12:23 09/29/16 17:10 09/29/16 17:57 09/29/16 17:57 09/29/16 17:10 Internal Med - H&P Results - Labs CBC & Chem 7: 09/29/16 13:34 09/29/16 13:15 - Attending Attestation Pericardial and left pleural effusions, consider possible etiology as malignancy due to history of lung cancer. Cardiothoracic surgery consulted, cardiology and oncology consult as well Continue Lasix IV Time spent on this admission 40 minutes For this encounter, I have reviewed the KENO CLERK or PA documentation, treatment plan, and medical decision making; and I have had face to face time with this patient.
[2016-09-29] MEDS ORDERED: D5% in Water 1,000 ML IVC PRN (17:08)
[2016-09-29] MEDS ORDERED: *HR* Dextrose 50 % in Water (Syg) 50 ML SYRINGE IVP PRN (17:08)
[2016-09-29] MEDS ORDERED: Dextrose Gel 15 GM PO PRN ×2 (17:08)
[2016-09-29] MEDS ORDERED: Furosemide 40 MG/4 ML VIAL IVP SCH (17:15)
[2016-09-29 19:52] LABS: Hemoglobin A1C 7.3 %
--- NOTE | 2016-09-29 20:01 | Oncology Inp Consult Note ---
Date of Encounter: 09/29/16 Time of Encounter: 16:30 Assessment and Plan (1) Lung cancer Status: Chronic Assessment and plan: -Started on chemoradiation in July, with week 1 started on august 20, 2016 as part of her management for stage III NSCLC. - Week 3 of chemotherapy was delayed until September 24, 2016 due to episode of PNA and new onset Afib after cycle 2 that required inpatient management. - At this time I would recommend to hold off on chemoradiation until her acute medical issues have resolved ( orthopnea, management of new pericardial effusion ). Qualifiers: Laterality: left Lung location: upper lobe of lung Qualified Code(s): C34.12 - Malignant neoplasm of upper lobe, left bronchus or lung (2) Pericardial effusion Status: Acute Assessment and plan: -CT scan showed moderate-large pericardial effusion. Clinically presentation concerning for pericardial tamponade. I agree with TTE and cardiothoracic surgery consult. - Differential diagnosis include malignant pericardial effusion. Awaiting for cardiothoracic surgery input. She is aware that she may need pericardial drainage if her TTE reveals findings consistent with tamponade. She reports that her last meal was early today, so I would keep her NPO in case surgical management is required. Daughter present at the bedside during the discussion. (3) Atrial fibrillation Status: Chronic Assessment and plan: Management as per primary team. Qualifiers: Atrial fibrillation type: chronic Qualified Code(s): I48.2 - Chronic atrial fibrillation - Data of Consult Requesting Physician: Litzy Carreno MD Primary Care Provider: Tayo Hudson - Consult Narrative Reason for consult: stage IV lung cancer , shortness of breath and pericardial effusion History of present illness: Ms. Hernandez is a 76 year old female with history of HTN, DM, Peptic ulcer disease, history of tobacco abuse, and stage III lung cancer currently undergoing chemoradiation, referred from the cancer center due to shortness of breath/orthopnea. Ms. Hernandez was seen with her daughter at the bedside. The clinical events that led to the diagnosis of lung cancer included blood-tinged sputum, for which a CT chest was completed on 06/28/16, revealing a large 8.2 x 6.3 cm left lung mass associated with ipsilateral mediastinal nodes . She underwent a bronchoscopy + biopsy procedure in June 2016 that showed cells suspicious for non small cell carcinoma. Repeat bronchoscopy in July 2016, revealed pathologic findings consistent with a diagnosis of squamous cell carcinoma. PET scan from June 2016 showed an hypermetabolic left upper lobe mass compatible with primary lung cancer. left hilar and mediastinal lymph nodes compatible with metastatic disease. She was started on chemoradiation in July 2016. On 08/20/16 she received the first week of carboplatin/taxol. After 2 doses she required hospitalization due to PNA and new onset Afib. Her treatment was interrupted due to the hospitalization, but week 3 was resumed on 09/24/16. She reports that during the last couple of days she has experienced significant orthopnea, having to sleep in a recliner, along with having difficulty to lie down flat when radiation therapy was attempted. Today, she was noticed more dysneic when during a visit to receive radiation therapy, then being brought to the ED due to worsening respiratory distress and concerns of CHF. Hospital course: CT chest showed not PE, but revealed moderate-large pericardial effusion. TTE was completed and cardiothoracic surgery consult has been requested due to concerns of possible tamponade. At the time of the visit she denies CP, SOB at rest. Past Med Surg Social Fam HX - Past Medical History Medical history: aortic aneurysm, atrial fibrillation, cancer, diabetes, hyperlipidemia, hypertension Psychiatric history: no psych history - Past Surgical History Surgical History: cholecystectomy, hysterectomy, knee replacement - Social History Smoking Status: Former smoker Smokeless Tobacco Status: No Alcohol use: none Drug use: none - Family History Mother Family Member Ethnicity: Non- Living Status: Hx Family Cardiac Disorders: No Hx Family Respiratory Disorders: No Hx Family Cancer: No Hx Family GI Disorders: No Hx Family Endocrine Disorder: No Hx Family Neuromuscular Disorders: No Hx Family Neurologic Disorders: No Hx Family HEENT Disorders: No Hx Family Autoimmune Disorders: No Medications and Allergies Glimepiride [Amaryl] 4 mg PO BID 06/28/16 [History] Potassium Chloride [Klor-Con 10] 10 meq PO TID 06/28/16 [History] Simvastatin [Zocor] 5 mg PO HS 06/28/16 [History] SitaGLIPtin [Januvia] 100 mg PO DAILY 07/31/16 [History] Albuterol Sulfate [Albuterol Inhaler] 2 puff IH Q6H PRN 08/07/16 [History] Magic Mouthwash [Magic Mouthwash BLM] 10 ml PO QID PRN #240 ml 08/07/16 [Rx] Prochlorperazine Maleate [Compazine] 10 mg PO Q8HR PRN #90 tablet 08/07/16 [Rx] Loperamide [Imodium] 2 mg PO TID PRN #90 capsule 08/20/16 [Rx] Ondansetron [Zofran] 4 mg PO Q8HR PRN #90 tablet 08/20/16 [Rx] Omeprazole [PriLOSEC] 40 mg PO DAILY #30 cap 08/27/16 [Rx] Lidocaine/Prilocaine CREAM [Emla] 1 appl TP ONCE PRN 09/02/16 [History] Apixaban [Eliquis] 5 mg PO BID #30 tablet 09/04/16 [Rx] Diltiazem CD (24hr) [Cardizem CD] 180 mg PO DAILY #30 cap.er.24h 09/04/16 [Rx] Acetaminophen [Tylenol] 650 mg PO Q6HR PRN tab 09/11/16 [Rx] Losartan [Cozaar] 12.5 mg PO DAILY #30 tab 09/11/16 [Rx] HYDROcodone/Acet 5/325 mg [[place] 5-325 mg] 1 tab PO Q6H PRN #50 tab 09/17/16 [Rx ] Furosemide [Lasix] 40 mg PO DAILY 09/29/16 [History] Allergies Penicillins Allergy (Verified 09/29/16 12:19) Rash vancomycin Allergy (Verified 09/29/16 12:19) Rash aspirin Adverse Reaction (Verified 09/29/16 12:19) Gastrointestinal Upset Hydromorphone [From Dilaudid] Adverse Reaction (Verified 09/29/16 12:19) Confusion meperidine [From Demerol] Adverse Reaction (Verified 09/29/16 12:19) Confusion Constitutional: Present: fatigue Cardiovascular: Present: irregular heart rhythm, leg edema, orthopnea Gastrointestinal: Absent: abdominal pain, dysphagia, melena Musculoskeletal: Present: as per HPI Neurological: Absent: abnormal gait, behavioral changes, dizziness, focal weakness Psychiatric: Absent: confusion Endocrine: Present: as per HPI Hematologic/Lymphatic: Present: as per HPI Oncology - Exam - Constitutional Vitals: Temp Pulse Resp BP Pulse Ox 97.7 F 97 20 116/56 95 09/29/16 18:52 09/29/16 18:52 09/29/16 18:52 09/29/16 18:52 09/29/16 18:52 - Head Head exam: Present: normal inspection - ENT ENT exam: Present: normal exam - Neck Neck exam: Present: normal inspection - Respiratory Respiratory exam: Present: CTAB - Cardiovascular Cardiovascular exam: Present: RRR - GI/Abdominal GI/Abdominal exam: Present: normal bowel sounds - Extremities Exam Extremities exam: Present: pedal edema - Neurological Exam Neurological exam: Present: oriented X3 - Psychiatric Psychiatric exam: Present: normal affect - Skin Skin exam: Present: normal color Consult Discharge Plan - Plan Referrals: Tayo Hudson DO [Primary Care Provider] -
[2016-09-29] MEDS: Insulin LISPRO 300 UNITS/3 ML VIAL SQ SCH (21:07)
[2016-09-30 01:34] LABS: Alanine Aminotransferase 17 Units/L (0-55); Albumin 2.9 g/dL (3.5-5.0); Albumin/Globulin Ratio 0.8 (1.1-2.2); Alkaline Phosphatase 101 Units/L (38-126); Aspartate Amino Transferase 16 Units/L (5-34); BUN/Creatinine Ratio 22 (6-26); Bilirubin,Total 0.9 mg/dL (0.2-1.2); Blood Urea Nitrogen 18 mg/dL (7-20); Calcium 8.6 mg/dL (8.6-10.8); Carbon Dioxide 26 mEq/L (19-29); Chloride 101 mEq/L (98-109); Globulin 3.6 g/dL (2.4-3.5); Glucose 102 mg/dL (70-99); Osmolality,Calculated 284 (280-300); Potassium 3.1 mEq/L (3.5-4.5); Sodium 136 mEq/L (136-145); Total Protein 6.5 g/dL (6.0-8.3); eGFR For African Americans > 60 (> 60); eGFR For Non-African Americans > 60 (> 60)
[2016-09-30 01:40] LABS: Basophils % 0.4 %; Eosinophils # 0.3 K/mcL (0.0-0.6); Eosinophils % 5.9 %; Hematocrit 22.6 % (35.3-44.9); Hemoglobin 7.3 g/dL (11.5-15.4); Immature Granulocytes % 0.9 % (0-4); Lymphocytes # 0.7 K/mcL (0.6-4.6); Lymphocytes % 15.5 %; Mean Corpuscular HGB Conc 32.3 g/dL (31.6-35.5); Mean Corpuscular Hemoglobin 27.2 pg (28.0-33.3); Mean Corpuscular Volume 84.3 fL (83.0-100.0); Mean Platelet Volume 10.1 fL (9.4-12.4); Monocytes # 0.3 K/mcL (0.0-1.3); Neutrophils # 3.2 K/mcL (1.6-8.9); Nucleated Red Blood Cells 0.4 /100 WBC (0); Platelet Count 262 K/mcL (140-400); Red Blood Count 2.68 M/mcL (3.82-4.97); Red Cell Distribution Width 18.6 % (11.5-14.5); Segmented Neutrophils % 70.3 %
--- NOTE | 2016-09-30 08:09 | Cardiothoracic Consult Note ---
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 The patient was evaluated in [facility] emergency department yesterday for progressive shortness of breath and dyspnea on exertion. A chest CT revealed a large pericardial effusion. A transthoracic echocardiogram was performed in the emergency department; however, no formal echocardiogram was performed to evaluate the patient for evidence of tamponade. She appears asymptomatic at this point, stating that her breathing has improved and her vital signs have remained stable without evidence of hypotension. I will obtain a transthoracic echocardiogram to evaluate the size of the effusion and any evidence of tamponade. She had been Elequis until yesterday and this will need to be stopped for at least 2 days prior to surgery. The patient will possibly undergo subxiphoid pericardial window tomorrow. The assessment and plan as outlined above was discussed with the patient and/or family members who expressed understanding and agreement. All questions were answered. - History of Present Illness Consult date: 09/29/16 Requesting physician: Teofilo Moore Consult reason: Pericardial effusion Chief complaint: Shortness of breath, lower extremity edema History of present illness: Ms. Hernadnez is a 76 year old hypertensive lady with hypercholesterolemia, known COPD, and recently diagnosed Stage IIIa left upper lobe lung squamous cell carcinoma. The patient had a biopsy-proven diagnosis of left upper lobe lung cancer in July 2016. She was started on chemotherapy and radiation therapy and has currently completed 3 cycles of chemotherapy and approximately 15 radiation sessions. Yesterday she complained of more severe shortness of breath and dyspnea on exertion, as well as progressive lower extremity edema. She was evaluated in the emergency department where a chest x-ray showed stable cardiomegaly and left basilar airspace disease. Subsequent chest CT revealed a large pericardial effusion, a moderate to large left pleural effusion, and a small to moderate right pericardial effusion. The patient was admitted for treatment of her pericardial effusion and pleural effusions. Past Med Surg Social Fam HX - Past Medical History Medical history: aortic aneurysm, atrial fibrillation, cancer (Stage IIIa squamous cell carcinoma involving the left upper lobe of the lung), COPD, diabetes, hyperlipidemia, hypertension Psychiatric history: no psych history - Past Surgical History Surgical History: cholecystectomy, hysterectomy, knee replacement (Right total knee replacement.), other (A-port placement) - Social History Smoking Status: Former smoker Smokeless Tobacco Status: No Alcohol use: none Drug use: none - Family History Mother Family Member Ethnicity: Non- Living Status: Hx Family Cardiac Disorders: No Hx Family Respiratory Disorders: No Hx Family Cancer: No Hx Family GI Disorders: No Hx Family Endocrine Disorder: No Hx Family Neuromuscular Disorders: No Hx Family Neurologic Disorders: No Hx Family HEENT Disorders: No Hx Family Autoimmune Disorders: No Medications and Allergies Glimepiride [Amaryl] 4 mg PO BID 06/28/16 [History] Potassium Chloride [Klor-Con 10] 10 meq PO TID 06/28/16 [History] Simvastatin [Zocor] 5 mg PO HS 06/28/16 [History] SitaGLIPtin [Januvia] 100 mg PO DAILY 07/31/16 [History] Albuterol Sulfate [Albuterol Inhaler] 2 puff IH Q6H PRN 08/07/16 [History] Magic Mouthwash [Magic Mouthwash BLM] 10 ml PO QID PRN #240 ml 08/07/16 [Rx] Prochlorperazine Maleate [Compazine] 10 mg PO Q8HR PRN #90 tablet 08/07/16 [Rx] Loperamide [Imodium] 2 mg PO TID PRN #90 capsule 08/20/16 [Rx] Ondansetron [Zofran] 4 mg PO Q8HR PRN #90 tablet 08/20/16 [Rx] Omeprazole [PriLOSEC] 40 mg PO DAILY #30 cap 08/27/16 [Rx] Lidocaine/Prilocaine CREAM [Emla] 1 appl TP ONCE PRN 09/02/16 [History] Apixaban [Eliquis] 5 mg PO BID #30 tablet 09/04/16 [Rx] Diltiazem CD (24hr) [Cardizem CD] 180 mg PO DAILY #30 cap.er.24h 09/04/16 [Rx] Acetaminophen [Tylenol] 650 mg PO Q6HR PRN tab 09/11/16 [Rx] Losartan [Cozaar] 12.5 mg PO DAILY #30 tab 09/11/16 [Rx] HYDROcodone/Acet 5/325 mg [[place] 5-325 mg] 1 tab PO Q6H PRN #50 tab 09/17/16 [Rx ] Furosemide [Lasix] 40 mg PO DAILY 09/29/16 [History] Allergies Penicillins Allergy (Verified 09/29/16 12:19) Rash vancomycin Allergy (Verified 09/29/16 12:19) Rash aspirin Adverse Reaction (Verified 09/29/16 12:19) Gastrointestinal Upset Hydromorphone [From Dilaudid] Adverse Reaction (Verified 09/29/16 12:19) Confusion meperidine [From Demerol] Adverse Reaction (Verified 09/29/16 12:19) Confusion All Systems Review: A 10-system review of systems was performed and is negative for pertinent findings except as documented above in the HPI. Physical Examination Vital Signs, Last 4 Hours Pulse 09/30/16 04:25 95 General: Conversant, No Apparent Distress HEENT: Atraumatic, Normocephaly, Trachea midline Neck: No JVD, Normal carotid pulses Cardiac: Reg Rate and Rhythm, Normal S1 and S2, No Murmur Lungs: Normal Breath Sounds, No Wheeze, Rales, Rhonchi Neuro: Alert and responsive, No focal deficits noted Vascular: Normal capillary refill Abdomen: Soft, Non-tender Skin: No rashes noted on visualized skin Musculoskeletal: No Chest Wall Tenderness Extremities: No Clubbing, No Cyanosis, Other (Bilateral lower extremity edema from the knees to the toes, right side greater than left side.) Results 09/30/16 01:11 09/30/16 01:11 Lab Results, Last 24 hours 09/29/16 09/30/16 09/30/16 19:33 01:11 01:11 WBC 4.6 Hgb 7.3 L Hct 22.6 L Plt Count 262 Sodium Potassium Chloride Carbon Dioxide BUN Creatinine Glucose Calcium Total Bilirubin AST ALT Alkaline Phosphatase Troponin I 0.06 H* 0.08 H* 09/30/16 01:11 WBC Hgb Hct Plt Count Sodium 136 Potassium 3.1 L Chloride 101 Carbon Dioxide 26 BUN 18 Creatinine 0.82 Glucose 102 H Calcium 8.6 Total Bilirubin 0.9 AST 16 ALT 17 Alkaline Phosphatase 101 Troponin I - Imaging Chest Xray: image reviewed (Stable cardiomegaly. Left lung andrade airspace disease.) Consult Discharge Plan - Plan Referrals: Tayo Hudson DO [Primary Care Provider] -
[2016-09-30] MEDS: Insulin LISPRO 300 UNITS/3 ML VIAL SQ SCH ×4 (08:43→21:55)
--- NOTE | 2016-09-30 09:10 | Cardiology Consult Note ---
Date of Encounter: 09/30/16 Time of Encounter: 08:30 Assessment and Plan (1) Elevated troponin Current Visit: Yes Status: Acute Mild, adynamic troponin elevation in the setting of large pericardial effusion. This likely reflects demand ischemia; doubt ACS. No ischemic ECG changes, chest pain free. TTE: EF 70% with normal wall motion. (2) Pericardial effusion Current Visit: Yes Status: Acute TTE 09/29/16: Large pericardial effusion, largest inferiorly and inferolaterally without evidence of tamponade. EF 70%. Hemodynamically stable, adequate urine output. CT surgery consulted, tentative plan for pericardial window on 10/01/16 to allow for Eliquis wash-out--last dose on 09/29/16 AM. Recommend stopping IV lasix. Further mgmt per CT surgery. (3) Atrial fibrillation Current Visit: Yes Status: Chronic Recent diagnosis early August on atrial fibrillation in the setting of Lung CA/ chemotherapy/radiation. Has been on cardizem for rate control and Eliquis for AC. 12 hour tele: avg HR=91 Afib. HR low 100's at bedside. Continue to hold cardizem , consider resuming after pericardial window. Unfortunately, unable to continue AC due to pericardial effusion. Last dose of Elqiuis 09/29/16 AM dose. Patient has allergy to ASA (severe stomach ulcers). CHA2Ds Vasc= 5, she is high risk for CVA. She is aware of increased risk without full anticoagulation. Qualifiers: Atrial fibrillation type: persistent Qualified Code(s): I48.1 - Persistent atrial fibrillation Discussion w patient/family: The assessment and plan as outlined above was discussed with the patient and/or family members who expressed understanding and agreement. All questions were answered. Thank you for involving us in the care of your patient. Please call with any questions. The patient will be discussed and reviewed with Dr. David Fish; changes to be made accordingly. Anticipate sign-off. History of Present Illness Consult date: 09/30/16 Requesting physician: Teofilo Moore Consult reason: Pericardial effusion Chief complaint: Shortness of breath History of present illness: Ms. Hernandez is a 76 year old female with PMHx significant for DMII, HTN, HLD, Afib (Eliquis), and recent stage 3 Lung CA dx who was sent to the ED by oncology due to CHF symptoms including worsening shortness of breath and orthopnea. She reports she has been short of breath since dx of PNA several weeks ago but symptoms have worsened the past two days. Reports was recommended to have PRBC infusion this week, however there was difficulty accessing port. She was sent to the ED for CT scan--CT scan demonstrated pericardial and pleural effusions. Stat echo was obtained and demonstrated EF 70% with large pericardial effusion--largest inferiorly and inferolaterally, no evidence of tamponade. CT surgery also consulted. She reports last dose of Eliquis on AM dose. Prior CV testing: TTE 09/03/16: LVEF 70-75%, no significant valvular dysfunction, normal RV size and function, normal wall motion, no effusion TTE 05/05/16: LVEF 65%, mild LVDD, no significant valvular disease, normal wall motion LHC 03/07/12: Mild atherosclerotic coronary artery disease. The left ventricle is normal and has normal contractility, EF 70% Moderate PAD with small AAA. TTE 01/09/12:LVEF 65%, mildly dilated LA, trivial-mild MR, moderate TR, normal wall motion Past Med Surg Social Fam HX - Past Medical History Attestation: Yes The following information was validated with the patient. Source: patient Medical history: aortic aneurysm, atrial fibrillation, cancer (Stage IIIa squamous cell carcinoma involving the left upper lobe of the lung), COPD, diabetes, hyperlipidemia, hypertension Psychiatric history: no psych history - Past Surgical History Surgical History: cholecystectomy, hysterectomy, knee replacement (Right total knee replacement.), other (A-port placement) - Social History Smoking Status: Former smoker (former heavy smoker, quit 2013) Smokeless Tobacco Status: No Alcohol use: none Drug use: none - Family History Mother Family Member Ethnicity: Non- Living Status: Hx Family Cardiac Disorders: No Hx Family Respiratory Disorders: No Hx Family Cancer: No Hx Family GI Disorders: No Hx Family Endocrine Disorder: No Hx Family Neuromuscular Disorders: No Hx Family Neurologic Disorders: No Hx Family HEENT Disorders: No Hx Family Autoimmune Disorders: No Medications and Allergies Glimepiride [Amaryl] 4 mg PO BID 06/28/16 [History] Potassium Chloride [Klor-Con 10] 10 meq PO TID 06/28/16 [History] Simvastatin [Zocor] 5 mg PO HS 06/28/16 [History] SitaGLIPtin [Januvia] 100 mg PO DAILY 07/31/16 [History] Albuterol Sulfate [Albuterol Inhaler] 2 puff IH Q6H PRN 08/07/16 [History] Magic Mouthwash [Magic Mouthwash BLM] 10 ml PO QID PRN #240 ml 08/07/16 [Rx] Prochlorperazine Maleate [Compazine] 10 mg PO Q8HR PRN #90 tablet 08/07/16 [Rx] Loperamide [Imodium] 2 mg PO TID PRN #90 capsule 08/20/16 [Rx] Ondansetron [Zofran] 4 mg PO Q8HR PRN #90 tablet 08/20/16 [Rx] Omeprazole [PriLOSEC] 40 mg PO DAILY #30 cap 08/27/16 [Rx] Lidocaine/Prilocaine CREAM [Emla] 1 appl TP ONCE PRN 09/02/16 [History] Apixaban [Eliquis] 5 mg PO BID #30 tablet 09/04/16 [Rx] Diltiazem CD (24hr) [Cardizem CD] 180 mg PO DAILY #30 cap.er.24h 09/04/16 [Rx] Acetaminophen [Tylenol] 650 mg PO Q6HR PRN tab 09/11/16 [Rx] Losartan [Cozaar] 12.5 mg PO DAILY #30 tab 09/11/16 [Rx] HYDROcodone/Acet 5/325 mg [[place] 5-325 mg] 1 tab PO Q6H PRN #50 tab 09/17/16 [Rx ] Furosemide [Lasix] 40 mg PO DAILY 09/29/16 [History] Allergies Penicillins Allergy (Verified 09/29/16 12:19) Rash vancomycin Allergy (Verified 09/29/16 12:19) Rash aspirin Adverse Reaction (Verified 09/29/16 12:19) Gastrointestinal Upset Hydromorphone [From Dilaudid] Adverse Reaction (Verified 09/29/16 12:19) Confusion meperidine [From Demerol] Adverse Reaction (Verified 09/29/16 12:19) Confusion All Systems Review: A 10-system review of systems was performed and is negative for pertinent findings except as documented above in the HPI. - Cardiovascular Cardiovascular: as per HPI Physical Examination Vital Signs, Last 4 Hours Temp Pulse Resp BP Pulse Ox 09/30/16 08:14 97.6 F 105 16 123/89 95 General: Conversant, No Apparent Distress HEENT: Atraumatic, Normocephaly, Mucus Membranes Moist Cardiac: Other (irregularly irregular) Lungs: Other (bibasilar diminished/rales) Neuro: Alert and responsive Abdomen: Soft Skin: No rashes noted on visualized skin Musculoskeletal: No Chest Wall Tenderness Extremities: Normal Pulses, Other (+2-3 BLE edema) Results 09/30/16 01:11 09/30/16 01:11 Lab Results 09/29/16 09/30/16 09/30/16 19:33 01:11 01:11 WBC 4.6 Hgb 7.3 L Hct 22.6 L Plt Count 262 Sodium Potassium Chloride Carbon Dioxide BUN Creatinine Glucose Calcium Total Bilirubin AST ALT Alkaline Phosphatase Troponin I 0.06 H* 0.08 H* 09/30/16 01:11 WBC Hgb Hct Plt Count Sodium 136 Potassium 3.1 L Chloride 101 Carbon Dioxide 26 BUN 18 Creatinine 0.82 Glucose 102 H Calcium 8.6 Total Bilirubin 0.9 AST 16 ALT 17 Alkaline Phosphatase 101 Troponin I Active Medications Acetaminophen (Tylenol) 650 mg PO Q6HR PRN PRN Reason: Mild Pain (1-3) Stop: 03/31/17 17:06 Dextrose/Water (Dextrose 50% (Syg)) 25 ml IVP AD PRN PRN Reason: Hypoglycemia Stop: 03/31/17 17:09 Glucagon (Glucagen) 1 mg IM ONCE PRN PRN Reason: Hypoglycemia Stop: 03/31/17 17:09 Glucose (Gluctose) 15 gm PO ONCE PRN PRN Reason: Hypoglycemia Stop: 03/31/17 17:09 Glucose (Gluctose) 30 gm PO ONCE PRN PRN Reason: Hypoglycemia Stop: 03/31/17 17:09 Dextrose (Dextrose 5%) 1,000 mls @ 100 mls/hr IVC .Q10H PRN PRN Reason: HYPOGLYCEMIA Stop: 03/31/17 17:09 Insulin Human Lispro (Humalog) 0 units SQ TIDAC RASHI PRN Reason: Protocol Stop: 04/01/17 07:31 Last Admin: 09/30/16 08:43 Dose: Not Given Insulin Human Lispro (Humalog) 0 units SQ HS RASHI PRN Reason: Protocol Stop: 03/31/17 21:01 Last Admin: 09/29/16 21:07 Dose: 3 units Naloxone HCl (Narcan) 0.4 mg IVP Q2MIN PRN PRN Reason: Opioid Reversal Stop: 03/31/17 17:06 - Imaging and Cardiology Echo: report reviewed Other Results: 12 hour tele: avg HR=98 afib. - EKG Interpretation EKG results cardiology: personally reviewed Consult Discharge Plan - Plan Referrals: Tayo Hudson DO [Primary Care Provider] -
--- NOTE | 2016-09-30 09:46 | Oncology Inp Progress Note ---
Date of Encounter: 09/30/16 Time of Encounter: 09:44 (1) Lung cancer Current Visit: No Status: Chronic Assessment and plan: -Started on chemoradiation in July, with week 1 started on august 20, 2016 as part of her management for stage III NSCLC. - Week 3 of chemotherapy was delayed until September 24, 2016 due to episode of PNA and new onset Afib after cycle 2 that required inpatient management. - At this time I would recommend to hold off on chemoradiation. I appreciate cardiothoracic surgery input, plan for pericardial window tomorrow. Qualifiers: Laterality: left Lung location: upper lobe of lung Qualified Code(s): C34.12 - Malignant neoplasm of upper lobe, left bronchus or lung (2) Pericardial effusion Current Visit: Yes Status: Acute Assessment and plan: -CT scan showed moderate-large pericardial effusion. Cardiology and cardiothoracic surgery on board. Plan for pericardial window tomorrow. Last dose of Apixaban on 09/29/16 in AM. - We discussed the plan to check for cytology of pericardial fluid to rule out malignant involvement. - Please send the pericardial fluid for cytology, in addition to other routine testing ( LDH, albumin, cell count, gram stain, cultures) (3) Atrial fibrillation Current Visit: No Status: Chronic Assessment and plan: Management as per primary team. Holding apixaban due to expected surgery. Qualifiers: Atrial fibrillation type: chronic Qualified Code(s): I48.2 - Chronic atrial fibrillation Oncology: Subj Interval history: Reports no significant overnight events. Denies chest pain/SOB. Daughter present at bedside. - Constitutional Vitals: Vital Signs Temp Pulse Resp BP Pulse Ox 09/30/16 08:14 97.6 F 105 16 123/89 95 09/30/16 04:25 95 09/30/16 03:51 98.0 F 97 16 109/47 94 09/30/16 00:40 97.6 F 90 18 112/72 93 09/29/16 19:40 81 09/29/16 18:52 97.7 F 97 20 116/56 95 Intake and Output 09/29/16 09/30/16 09/30/16 23:59 07:59 15:59 Output Total 400 / 400 400 / 400 Balance -400 / -400 -400 / -400 Output: Urine 400 / 400 400 / 400 Other: Meal Breakfast Percent of Meal Consumed 35% Weight 96.1 kg Blood Glucose* 257 136 Patient Weight 09/30/16 23:59 Weight 96.1 kg - Head Head exam: Present: normal inspection - Eye Eye exam: Present: normal appearance - ENT ENT exam: Present: normal exam - Respiratory Respiratory exam: Present: rales. Absent: CTAB - Cardiovascular Cardiovascular exam: Present: irregular rhythm - GI/Abdominal GI/Abdominal exam: Present: normal bowel sounds - Extremities Exam Extremities exam: Present: pedal edema. Absent: tenderness Oncology: Obj Data - Labs CBC & Chem 7: 09/30/16 01:11 09/30/16 01:11 Labs: Laboratory Results - last 24 hr 09/29/16 09/29/16 09/29/16 19:33 19:33 21:01 WBC RBC Hgb Hct MCV MCH MCHC RDW Plt Count MPV Immature Gran % Seg Neutrophils % Lymphocytes % Monocytes % Eosinophils % Basophils % Neutrophils # Lymphocytes # Monocytes # Eosinophils # Basophils # Nucleated RBCs/100 WBC Sodium Potassium Chloride Carbon Dioxide BUN Creatinine Est GFR ( Amer) Est GFR (Non-Af Amer) BUN/Creatinine Ratio Glucose POC Glucose 257 H Est Mean Plasma Glucose 163 Hemoglobin A1c 7.3 H Calculated Osmolality Calcium Total Bilirubin AST ALT Alkaline Phosphatase Troponin I 0.06 H* Serum Total Protein Albumin Globulin Albumin/Globulin Ratio 09/30/16 09/30/16 09/30/16 01:11 01:11 01:11 WBC 4.6 RBC 2.68 L Hgb 7.3 L Hct 22.6 L MCV 84.3 MCH 27.2 L MCHC 32.3 RDW 18.6 H Plt Count 262 MPV 10.1 Immature Gran % 0.9 Seg Neutrophils % 70.3 Lymphocytes % 15.5 Monocytes % 7.0 Eosinophils % 5.9 Basophils % 0.4 Neutrophils # 3.2 Lymphocytes # 0.7 Monocytes # 0.3 Eosinophils # 0.3 Basophils # 0.0 Nucleated RBCs/100 WBC 0.4 H Sodium 136 Potassium 3.1 L Chloride 101 Carbon Dioxide 26 BUN 18 Creatinine 0.82 Est GFR ( Amer) > 60 Est GFR (Non-Af Amer) > 60 BUN/Creatinine Ratio 22 Glucose 102 H POC Glucose Est Mean Plasma Glucose Hemoglobin A1c Calculated Osmolality 284 Calcium 8.6 Total Bilirubin 0.9 AST 16 ALT 17 Alkaline Phosphatase 101 Troponin I 0.08 H* Serum Total Protein 6.5 Albumin 2.9 L Globulin 3.6 H Albumin/Globulin Ratio 0.8 L - ABG Interpretation ABG results: PT/INR, D-dimer PT 19.6 Seconds (9.4-12.1) H 09/29/16 13:15 Consult Discharge Plan - Plan Referrals: Tayo Hudson DO [Primary Care Provider] -
--- NOTE | 2016-09-30 14:11 | Anesthesia Evaluation PreOp ---
Date of Encounter: 10/01/16 Time of Encounter: 07:41 - Past History Planned Operation: pericardial window Cardiac History: HTN, Hyperlipidemia, Arrhythmia (A-Fib), Other (hx AAA current pericardial effusion) Pulmonary History: Former smoker, COPD, Other (SONDRA squamous cell cancer stage 3 , currently getting chemo and XRT) APPLICATION INTEGRATION ARCHITECT History: Denies Any Significant HX Other Medical History: Diabetes Type II Anesthesia History: No Prior Anesthetic Complications, Past Anesthesia (krishna, SYLVIA, right TKA, aport) : No Alcohol Use: none Drug use: none Medications and Allergies Glimepiride [Amaryl] 4 mg PO BID 06/28/16 [History] Potassium Chloride [Klor-Con 10] 10 meq PO TID 06/28/16 [History] Simvastatin [Zocor] 5 mg PO HS 06/28/16 [History] SitaGLIPtin [Januvia] 100 mg PO DAILY 07/31/16 [History] Albuterol Sulfate [Albuterol Inhaler] 2 puff IH Q6H PRN 08/07/16 [History] Magic Mouthwash [Magic Mouthwash BLM] 10 ml PO QID PRN #240 ml 08/07/16 [Rx] Prochlorperazine Maleate [Compazine] 10 mg PO Q8HR PRN #90 tablet 08/07/16 [Rx] Loperamide [Imodium] 2 mg PO TID PRN #90 capsule 08/20/16 [Rx] Ondansetron [Zofran] 4 mg PO Q8HR PRN #90 tablet 08/20/16 [Rx] Omeprazole [PriLOSEC] 40 mg PO DAILY #30 cap 08/27/16 [Rx] Lidocaine/Prilocaine CREAM [Emla] 1 appl TP ONCE PRN 09/02/16 [History] Apixaban [Eliquis] 5 mg PO BID #30 tablet 09/04/16 [Rx] Diltiazem CD (24hr) [Cardizem CD] 180 mg PO DAILY #30 cap.er.24h 09/04/16 [Rx] Acetaminophen [Tylenol] 650 mg PO Q6HR PRN tab 09/11/16 [Rx] Losartan [Cozaar] 12.5 mg PO DAILY #30 tab 09/11/16 [Rx] HYDROcodone/Acet 5/325 mg [[place] 5-325 mg] 1 tab PO Q6H PRN #50 tab 09/17/16 [Rx ] Furosemide [Lasix] 40 mg PO DAILY 09/29/16 [History] Allergies Penicillins Allergy (Verified 09/29/16 12:19) Rash vancomycin Allergy (Verified 09/29/16 12:19) Rash aspirin Adverse Reaction (Verified 09/29/16 12:19) Gastrointestinal Upset Hydromorphone [From Dilaudid] Adverse Reaction (Verified 09/29/16 12:19) Confusion meperidine [From Demerol] Adverse Reaction (Verified 09/29/16 12:19) Confusion - Meds/Allergy Pre-op Review Medications Reviewed: Yes Allergies Reviewed: Yes Beta Blockers on Current Med List: No Anesthesia Results - Labs 10/01/16 04:28 10/01/16 04:28 Anesthesia Exam Selected Entries 10/01/16 05:19 Temperature 98.8 F Pulse Rate 111 Respiratory Rate 20 Blood Pressure 116/60 O2 Sat by Pulse Oximetry 95 Oxygen Flow Rate (LPM) 1 Oxygen Delivery Method Nasal Cannula Weight: 97kg NPO (# of Hours): 8 Pain Scale: 0 Pain Scale Used: Numeric (1 - 10) - HEENT Pupil (Motor): EOMI Mallampati: III Teeth: Edentulous Oral Opening: Greater than 3 - APPLICATION INTEGRATION ARCHITECT LOC: Oriented APPLICATION INTEGRATION ARCHITECT Motor: Normal RUE, Normal LUE, Normal RLE, Normal LLE, Normal Face APPLICATION INTEGRATION ARCHITECT Sensory: Normal: RUE, LUE, RLE, LLE, Face - Cardiac Rhythm: Regular Murmur: None - Pulmonary Breath Sounds: bilateral Clear Respiratory Effort: Symmetrical (has to sit up to breath ans is still SOB) Anesthesia Assess/Plan ASA Score: 4 Modified Jamar Scale for Level of Consciousness: Cooperative, oriented, and tranquil Anesthetic Plan: General Monitoring Plan: Standard Monitors Recovery Plan: ICU (Discussed risks of GA, questions answered and agrees to proceed.)
--- NOTE | 2016-09-30 17:19 | Internal Med Progress Note ---
Date of Encounter: 09/30/16 Time of Encounter: 15:30 - Assessment and plan (1) Pericardial effusion Current Visit: Yes Status: Acute Assessment and plan: TTE and CT of chest showed large pericardial effusion hemodynamically stable now no signs of tamponade Possible etiology from recently diagnose Left lug Squamous cell cancer CTS consulted. scheduled for Paricardial window in AM held Elequis and Anti platelets since y/d cont close monitoring (2) Pleural effusion Current Visit: Yes Status: Acute Assessment and plan: Since there is a possibility she may develop hypotension, will d/c Lasix for now Pt symptoms are better too cont close monitoring may need thoracotomy too. will talk to CTS (3) Elevated troponin Current Visit: Yes Status: Acute Assessment and plan: due to demand ischemia no signs of ischemia no acute EKG changes (4) Lung cancer Current Visit: No Status: Chronic Assessment and plan: Currently in the middle of active Chemo Heme Onc consulted Qualifiers: Laterality: left Lung location: upper lobe of lung Qualified Code(s): C34.12 - Malignant neoplasm of upper lobe, left bronchus or lung (5) Essential hypertension Current Visit: No Status: Chronic Assessment and plan: Held all BP meds - concern for hypotension (6) Atrial fibrillation Current Visit: Yes Status: Chronic Assessment and plan: rate controlled held eliquis for procedure Qualifiers: Atrial fibrillation type: persistent Qualified Code(s): I48.1 - Persistent atrial fibrillation (7) Diabetes mellitus, type 2 Current Visit: No Status: Chronic Assessment and plan: on ISS Qualifiers: Diabetes mellitus complication status: without complication Diabetes mellitus nursing home insulin use: without moth exterminator use Qualified Code(s): E11.9 - Type 2 diabetes mellitus without complications (8) DVT prophylaxis Current Visit: No Status: Acute Assessment and plan: SCD's - Subjective Interval history: Ms. Hernandez is a 76 year old female with PMH lung cancer- active chemo therapy, Chronic anemia, a-fib, and HTN who presented to [facility] on 09/29/2016 with complaints of shortness of breath. She was found to have a large pericardial effusion and moderate pleural effusion. She was admitted for further work-up and treatment. Pt denied any CP. Still has some SOB / ADAMS , however over all feels better. No fever / chills. - Constitutional Vitals: Temp Pulse Resp BP Pulse Ox 98.6 F 107 16 123/59 94 09/30/16 11:19 09/30/16 15:28 09/30/16 11:19 09/30/16 11:19 09/30/16 11:19 General appearance: Present: A&O X 3, no acute distress, obese - Head Head exam: Present: atraumatic, normal inspection - Neck Neck exam general surgery: Present: supple. Absent: lymphadenopathy, thyromegaly - Respiratory Respiratory exam: Present: decreased breath sounds, wheezes. Absent: rales, respiratory distress, rhonchi, tachypnea - Cardiovascular Cardiovascular exam: Present: distant heart sounds, irregular rhythm, +S1, +S2 - GI/Abdominal GI/Abdominal exam: Present: normal bowel sounds, soft. Absent: distended, guarding, tenderness - Extremities Exam Extremities exam: Present: pedal edema (2+). Absent: calf tenderness, tenderness - Neurological Exam Neurological exam: Present: alert, oriented X3 - Psychiatric Psychiatric exam: Present: normal affect, normal mood Internal Medicine: Result - Labs CBC & Chem 7: 09/30/16 01:11 09/30/16 01:11 Labs: Short CBC 09/30/16 Range/Units 01:11 WBC 4.6 (4.3-11.1) K/mcL Hgb 7.3 L (11.5-15.4) g/dL Hct 22.6 L (35.3-44.9) % Plt Count 262 (140-400) K/mcL Neutrophils # 3.2 (1.6-8.9) K/mcL BMP 09/30/16 01:11 Sodium 136 Potassium 3.1 L Chloride 101 Carbon Dioxide 26 BUN 18 Creatinine 0.82 Glucose 102 H Calcium 8.6 Cardiac Enzymes 09/29/16 09/30/16 Range/Units 19:33 01:11 Troponin I 0.06 H* 0.08 H* (0-0.03) ng/mL Liver Function 09/30/16 Range/Units 01:11 Total Bilirubin 0.9 (0.2-1.2) mg/dL AST 16 (5-34) Units/L ALT 17 (0-55) Units/L Alkaline Phosphatase 101 (38-126) Units/L Albumin 2.9 L (3.5-5.0) g/dL - ABG Interpretation ABG results: PT/INR, D-dimer PT 19.6 Seconds (9.4-12.1) H 09/29/16 13:15 Consult Discharge Plan - Plan Referrals: Tayo Hudson DO [Primary Care Provider] -
[2016-09-30] MEDS ORDERED: *HR* Digoxin 0.5 MG/2 ML AMPUL IVP ONE (23:13)
[2016-10-01 05:29] LABS: Basophils % 0.5 %; Eosinophils # 0.3 K/mcL (0.0-0.6); Eosinophils % 6.4 %; Hematocrit 21.9 % (35.3-44.9); Hemoglobin 7.1 g/dL (11.5-15.4); Immature Granulocytes % 1.2 % (0-4); Lymphocytes # 0.7 K/mcL (0.6-4.6); Lymphocytes % 15.8 %; Mean Corpuscular HGB Conc 32.4 g/dL (31.6-35.5); Mean Corpuscular Hemoglobin 27.3 pg (28.0-33.3); Mean Corpuscular Volume 84.2 fL (83.0-100.0); Mean Platelet Volume 9.9 fL (9.4-12.4); Monocytes # 0.4 K/mcL (0.0-1.3); Neutrophils # 2.8 K/mcL (1.6-8.9); Platelet Count 219 K/mcL (140-400); Red Cell Distribution Width 19.2 % (11.5-14.5); Segmented Neutrophils % 66.1 %
[2016-10-01 05:44] LABS: BUN/Creatinine Ratio 14 (6-26); Blood Urea Nitrogen 11 mg/dL (7-20); Calcium 8.5 mg/dL (8.6-10.8); Carbon Dioxide 29 mEq/L (19-29); Chloride 103 mEq/L (98-109); Glucose 123 mg/dL (70-99); Magnesium 1.4 mg/dL (1.6-2.6); Osmolality,Calculated 285 (280-300); Potassium 3.1 mEq/L (3.5-4.5); Sodium 137 mEq/L (136-145); eGFR For African Americans > 60 (> 60); eGFR For Non-African Americans > 60 (> 60)
[2016-10-01] MEDS ORDERED: Clindamycin 900 MG/50 ML 900 MG/50 ML IV.SOLN IVPB ONE ×2 (07:00→08:17)
[2016-10-01] MEDS ORDERED: *HR* Phenylephrine 10 MG/ML VIAL ONE (07:25)
[2016-10-01] MEDS ORDERED: *HR* Rocuronium Bromide 50 MG/5 ML VIAL ONE (07:25)
[2016-10-01] MEDS ORDERED: *HR* Midazolam HCl 5 MG/5 ML VIAL IVP ONE (07:25)
[2016-10-01] MEDS ORDERED: *HR* FentaNYL (PF) 250 MCG/5 ML VIAL ONE (07:25)
[2016-10-01] MEDS ORDERED: *HR* Propofol 200 MG/20 ML VIAL IVP ONE (07:26)
[2016-10-01] MEDS ORDERED: Ondansetron 4 MG/2 ML VIAL ONE (08:40)
[2016-10-01] MEDS ORDERED: Dexamethasone 4 MG/ML VIAL ONE (08:40)
[2016-10-01] MEDS ORDERED: *HR* Morphine 2 MG/ML SYRINGE IVP PRN (09:10)
--- NOTE | 2016-10-01 09:25 | Operative Note ---
Date of procedure: 10/01/16 Pre-op diagnosis: 1. Pericardial effusion without tamponade. 2. Left pleural effusion. Post-op diagnosis: same Procedure: 1. Subxiphoid paracardial window. 2. Left chest tube insertion. Implants: None. Complications: None. Anesthesia: TAHIRAA Surgeon: Jose Norman Estimated blood loss (cc): 10 Specimen: 1. Pericardial fluid. 2. Anterior pericardium. 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 The patient had a biopsy-proven diagnosis of left upper lobe lung cancer in July 2016. She was started on chemotherapy and radiation therapy and has currently completed 3 cycles of chemotherapy and approximately 15 radiation sessions. Yesterday she complained of more severe shortness of breath and dyspnea on exertion, as well as progressive lower extremity edema. She was evaluated in the emergency department where a chest x-ray showed stable cardiomegaly and left basilar airspace disease. Subsequent chest CT revealed a large pericardial effusion, a moderate to large left pleural effusion, and a small to moderate right pericardial effusion. The echocardiogram confirmed the large pericardial effusion and showed no evidence of tapenade physiology. The patient was admitted for treatment of her pericardial effusion and pleural effusions. She had been on Eliquis for her atrial fibrillation and this was discontinued. The operation was delayed for 2 days to allow the antiplatelet effect to resolve. FINDINGS AT OPERATION: The patient had approximately 550 mL of serosanguineous fluid within the pericardial space. A portion of the pericardial fluid was sent for CBC, chemistry, cultures, and cytology. She had approximately 700 mL of yellow turbid fluid in the left pleural space. The pleural fluid was not sent for studies. DESCRIPTION OF OPERATION: After obtaining informed consent for the patient, she was taken to the operating room where satisfactory general endotracheal anesthetic was induced. Appropriate monitoring lines were placed, and the patient's neck, chest, and upper abdomen were prepped and draped in a sterile fashion. During the prep, the patient suddenly experienced tachycardia with heart rates 150-160 and a decrease in her systolic blood pressure. Dr. Pandya administered José Manuel- Synephrine for the blood pressure and the subxiphoid pericardial window was undertaken immediately after a timeout define the patient and the procedure. A vertical incision was made over the xiphoid process through the skin and subcutaneous tissue. The xiphoid was lifted anteriorly and the pericardial sac was quickly identified. A 15 blade was used to open the pericardium with removal of the pericardial effusion. Immediately upon opening the pericardial sac the patient's heart rate decreased and she had an increase in her systolic blood pressure. After the patient stabilized, a portion of the anterior pericardium was resected and sent for permanent section. A portion of the pericardial fluid was sent for CBC, chemistry (including glucose, LDH, and total protein), cultures (including aerobic, anaerobic, fungal, and TB), and cytology. A total of 550 mL of serosanguineous fluid was withdrawn from the pericardium. A 32 American right angle chest tube was placed along the diaphragm. The rectus abdominis fascia, subcutaneous tissue, and skin edges were repaired using running Vicryl sutures. Steri-Strips and sterile dressings were applied. A 32 American chest tube was then placed into the left pleural space. An incision was made in the inframammary crease and the intercostal space identified. This was opened with a tonsil and the tube was inserted. The patient had initial drainage were approximately 7 or cc of yellow turbid fluid. The patient was transferred to the ICU in satisfactory postoperative condition. The instrument, needle, and sponge count were correct at end of operation.
[2016-10-01 09:41] LABS: Basophils % 0.4 %; Eosinophils # 0.3 K/mcL (0.0-0.6); Eosinophils % 3.9 %; Hemoglobin 7.7 g/dL (11.5-15.4); Immature Granulocytes % 3.7 % (0-4); Lymphocytes # 1.6 K/mcL (0.6-4.6); Lymphocytes % 24.1 %; Mean Corpuscular HGB Conc 32.1 g/dL (31.6-35.5); Mean Corpuscular Hemoglobin 27.1 pg (28.0-33.3); Mean Corpuscular Volume 84.5 fL (83.0-100.0); Monocytes # 0.7 K/mcL (0.0-1.3); Neutrophils # 3.9 K/mcL (1.6-8.9); Nucleated Red Blood Cells 0.6 /100 WBC (0); Platelet Count 268 K/mcL (140-400); Red Blood Count 2.84 M/mcL (3.82-4.97); Segmented Neutrophils % 57.9 %
[2016-10-01] MEDS: Insulin LISPRO 300 UNITS/3 ML VIAL SQ SCH ×4 (10:12→21:22)
[2016-10-01] MEDS: 0.9 % Sodium Chloride w KCl 20 MEQ/1,000 ML MLS IVC SCH (10:30)
[2016-10-01 11:03] LABS: BUN/Creatinine Ratio 13 (6-26); Blood Urea Nitrogen 11 mg/dL (7-20); Calcium 8.3 mg/dL (8.6-10.8); Carbon Dioxide 22 mEq/L (19-29); Chloride 103 mEq/L (98-109); Glucose 262 mg/dL (70-99); Osmolality,Calculated 288 (280-300); Potassium 3.1 mEq/L (3.5-4.5); Sodium 135 mEq/L (136-145); eGFR For African Americans > 60 (> 60); eGFR For Non-African Americans > 60 (> 60)
[2016-10-01] MEDS: Albuterol 2.5 MG/3 ML NEBULIZER IH SCH ×4 (11:22→23:26)
--- NOTE | 2016-10-01 11:37 | Oncology Inp Progress Note ---
Date of Encounter: 10/01/16 Time of Encounter: 11:36 (1) Lung cancer Current Visit: No Status: Chronic Assessment and plan: -Started on chemoradiation in July, with week 1 started on august 20, 2016 as part of her management for stage III NSCLC. - Week 3 of chemotherapy was delayed until September 24, 2016 due to episode of PNA and new onset Afib after cycle 2 that required inpatient management. - At this time I would recommend to hold off on chemoradiation in view of recent surgical procedure. will follow up results of cytology of pericardial and pleural effusion. Family aware that it may take several days to get a final report. Qualifiers: Laterality: left Lung location: upper lobe of lung Qualified Code(s): C34.12 - Malignant neoplasm of upper lobe, left bronchus or lung (2) Pericardial effusion Current Visit: Yes Status: Acute Assessment and plan: -Associated with pleural effusion. s/p pericardial window today. 550 cc of sero sanguinolent fluid was drained from pericardium, and approximately 700 cc of yellow turbid fluid from the left pleural space. - Do no resume apixaban for now. She will probably need to be discharged off apixaban, and decision about appropriate time to resume it should be taken during outpatient office visit with primary oncologist post discharge. (3) Atrial fibrillation Current Visit: Yes Status: Chronic Assessment and plan: Management as per primary team. Continue holding apixaban due to recent surgery and serosanguinolent pericardial effusion. Qualifiers: Atrial fibrillation type: persistent Qualified Code(s): I48.1 - Persistent atrial fibrillation Oncology: Subj Interval history: Patient seen with her family at the bedside, post procedure ( pericardial window ). She reports pain at the site of chest tube. - Constitutional Vitals: Vital Signs Temp Pulse Resp BP Pulse Ox 10/01/16 11:28 22 94 10/01/16 11:00 124 22 141/62 94 10/01/16 10:57 92 10/01/16 10:53 19 92 10/01/16 10:30 98.0 F 134 24 137/63 88 10/01/16 10:00 98.0 F 105 26 116/56 91 10/01/16 09:45 132 17 124/59 100 10/01/16 09:30 129 16 110/87 99 10/01/16 09:23 12 94 10/01/16 09:15 97.8 F 115 12 110/43 97 10/01/16 05:19 98.8 F 111 20 116/60 95 10/01/16 00:09 98.4 F 111 17 113/61 97 09/30/16 19:57 98.2 F 109 146 126/53 97 09/30/16 19:35 99 09/30/16 15:28 107 Intake and Output 09/30/16 10/01/16 10/01/16 23:59 07:59 15:59 Intake Total 120 / 120 50 / 50 Output Total 715 / 715 Balance 120 / 120 -665 / -665 Intake: IV Fluids 50 / 50 Cleocin Premix 900 MG/50 50 / 50 ML 900 mg In 50 ml @ 100 mls/hr IVPB PREOP ONE Rx# :[id number] Oral 120 / 120 Output: Estimated Blood Loss 500 / 500 Chest Tube Drainage 215 / 215 Left Mediastinal #1 190 / 190 Upper Mediastinal #2 25 / 25 Other: Meal Dinner Percent of Meal Consumed 70% Weight 96.7 kg Blood Glucose* 174 Patient Weight 10/01/16 23:59 Weight 96.7 kg - Head Head exam: Present: normal inspection - Eye Eye exam: Present: EOMI - ENT ENT exam: Present: normal exam - Respiratory Respiratory exam: Absent: respiratory distress, wheezes Additional comments: mostly clear, some upper respiratory transmitted sounds. - Cardiovascular Cardiovascular exam: Present: irregular rhythm, +S1. Absent: RRR Additional comments: chest tube in place - GI/Abdominal GI/Abdominal exam: Present: normal bowel sounds - Extremities Exam Additional comments: intermittent compression device in place. no calf tenderness. persistent bilateral lower extremity edema - Neurological Exam Neurological exam: Present: oriented X3 - Psychiatric Psychiatric exam: Present: normal affect Oncology: Obj Data - Labs CBC & Chem 7: 10/01/16 09:34 10/01/16 10:42 Labs: Laboratory Results - last 24 hr 09/30/16 09/30/16 09/30/16 08:18 11:21 11:39 WBC RBC Hgb Hct MCV MCH MCHC RDW Plt Count MPV Immature Gran % Seg Neutrophils % Lymphocytes % Monocytes % Eosinophils % Basophils % Neutrophils # Lymphocytes # Monocytes # Eosinophils # Basophils # Nucleated RBCs/100 WBC Sodium Potassium Chloride Carbon Dioxide BUN Creatinine Est GFR ( Amer) Est GFR (Non-Af Amer) BUN/Creatinine Ratio Glucose POC Glucose 136 H 215 H Calculated Osmolality Calcium Magnesium Troponin I Blood Type A POSITIVE Antibody Screen NEGATIVE Crossmatch See Detail 09/30/16 09/30/16 10/01/16 16:52 20:01 04:28 WBC 4.2 L RBC 2.60 L Hgb 7.1 L Hct 21.9 L MCV 84.2 MCH 27.3 L MCHC 32.4 RDW 19.2 H Plt Count 219 MPV 9.9 Immature Gran % 1.2 Seg Neutrophils % 66.1 Lymphocytes % 15.8 Monocytes % 10.0 Eosinophils % 6.4 Basophils % 0.5 Neutrophils # 2.8 Lymphocytes # 0.7 Monocytes # 0.4 Eosinophils # 0.3 Basophils # 0.0 Nucleated RBCs/100 WBC Sodium Potassium Chloride Carbon Dioxide BUN Creatinine Est GFR ( Amer) Est GFR (Non-Af Amer) BUN/Creatinine Ratio Glucose POC Glucose 141 H 174 H Calculated Osmolality Calcium Magnesium Troponin I Blood Type Antibody Screen Crossmatch 10/01/16 10/01/16 10/01/16 04:28 04:28 08:05 WBC RBC Hgb Hct MCV MCH MCHC RDW Plt Count MPV Immature Gran % Seg Neutrophils % Lymphocytes % Monocytes % Eosinophils % Basophils % Neutrophils # Lymphocytes # Monocytes # Eosinophils # Basophils # Nucleated RBCs/100 WBC Sodium 137 Potassium 3.1 L Chloride 103 Carbon Dioxide 29 BUN 11 Creatinine 0.78 Est GFR ( Amer) > 60 Est GFR (Non-Af Amer) > 60 BUN/Creatinine Ratio 14 Glucose 123 H POC Glucose 155 H Calculated Osmolality 285 Calcium 8.5 L Magnesium 1.4 L Troponin I 0.15 H* Blood Type Antibody Screen Crossmatch 10/01/16 10/01/16 10/01/16 09:18 09:34 10:42 WBC 6.7 D RBC 2.84 L Hgb 7.7 L Hct 24.0 L MCV 84.5 MCH 27.1 L MCHC 32.1 RDW 19.0 H Plt Count 268 MPV 10.0 Immature Gran % 3.7 Seg Neutrophils % 57.9 Lymphocytes % 24.1 Monocytes % 10.0 Eosinophils % 3.9 Basophils % 0.4 Neutrophils # 3.9 Lymphocytes # 1.6 Monocytes # 0.7 Eosinophils # 0.3 Basophils # 0.0 Nucleated RBCs/100 WBC 0.6 H Sodium 135 L Potassium 3.1 L Chloride 103 Carbon Dioxide 22 BUN 11 Creatinine 0.82 Est GFR ( Amer) > 60 Est GFR (Non-Af Amer) > 60 BUN/Creatinine Ratio 13 Glucose 262 H POC Glucose 238 H Calculated Osmolality 288 Calcium 8.3 L Magnesium Troponin I Blood Type Antibody Screen Crossmatch 10/01/16 11:15 WBC RBC Hgb Hct MCV MCH MCHC RDW Plt Count MPV Immature Gran % Seg Neutrophils % Lymphocytes % Monocytes % Eosinophils % Basophils % Neutrophils # Lymphocytes # Monocytes # Eosinophils # Basophils # Nucleated RBCs/100 WBC Sodium Potassium Chloride Carbon Dioxide BUN Creatinine Est GFR ( Amer) Est GFR (Non-Af Amer) BUN/Creatinine Ratio Glucose POC Glucose 273 H Calculated Osmolality Calcium Magnesium Troponin I Blood Type Antibody Screen Crossmatch - Impressions Impressions Chest X-Ray 10/01/16 09:10 IMPRESSION: 1. Endotracheal tube terminating in the right mainstem bronchus should be retracted approximately 4 cm. 2. Small right apical pneumothorax status post percutaneous chest tube. D/ / Louie Davila MD / Louie Davila MD Interpreting Provider: Louie Davila MD - ABG Interpretation ABG results: PT/INR, D-dimer PT 19.6 Seconds (9.4-12.1) H 09/29/16 13:15 Consult Discharge Plan - Plan Referrals: Tayo Hudson DO [Primary Care Provider] -
[2016-10-01] MEDS: *HR* OxyCODONE/APAP 5/325 TABLET PO PRN ×2 (14:44→21:21)
[2016-10-01] MEDS: Clindamycin 900 MG/50 ML 900 MG/50 ML IV.SOLN IVPB SCH ×2 (16:12→23:42)
[2016-10-01] MEDS: *HR* Morphine 2 MG/ML SYRINGE IVP PRN (16:12)
--- NOTE | 2016-10-01 17:39 | Internal Med Progress Note ---
Date of Encounter: 10/01/16 Time of Encounter: 17:37 - Assessment and plan (1) Pericardial effusion Current Visit: Yes Status: Acute Assessment and plan: TTE and CT of chest showed large pericardial effusion hemodynamically stable now no signs of tamponade Possible etiology from recently diagnose Left lug Squamous cell cancer s/p Paricardial window with Mid line chest tube placed Cont holding Elequis and Anti platelets cont close monitoring (2) Pleural effusion Current Visit: Yes Status: Acute Assessment and plan: s/p Left thoracotomy cont close monitoring Hold on diuretics (3) Elevated troponin Current Visit: Yes Status: Acute Assessment and plan: due to demand ischemia no signs of ischemia no acute EKG changes (4) Lung cancer Current Visit: No Status: Chronic Assessment and plan: Currently in the middle of active Chemo Heme Onc consulted Qualifiers: Laterality: left Lung location: upper lobe of lung Qualified Code(s): C34.12 - Malignant neoplasm of upper lobe, left bronchus or lung (5) Essential hypertension Current Visit: No Status: Chronic Assessment and plan: Held all BP meds - concern for hypotension (6) Atrial fibrillation Current Visit: Yes Status: Chronic Assessment and plan: rate controlled held eliquis for procedure Qualifiers: Atrial fibrillation type: persistent Qualified Code(s): I48.1 - Persistent atrial fibrillation (7) Diabetes mellitus, type 2 Current Visit: No Status: Chronic Assessment and plan: on ISS Qualifiers: Diabetes mellitus complication status: without complication Diabetes mellitus termite renewal inspector insulin use: without termite renewal inspector use Qualified Code(s): E11.9 - Type 2 diabetes mellitus without complications (8) DVT prophylaxis Current Visit: No Status: Acute Assessment and plan: SCD's - Subjective Interval history: Ms. Hernandez is a 76 year old female with PMH lung cancer- active chemo therapy, Chronic anemia, a-fib, and HTN who presented to [facility] on 09/29/2016 with complaints of shortness of breath. She was found to have a large pericardial effusion and moderate pleural effusion. Pt had Subxiphoid paracardial window, Left chest tube placed this morning and transferred to ICU for close monitoring today. Pt was seen and examined in the ICU. Resting comfortably, pain is tolerable with meds. - Constitutional Vitals: Temp Pulse Resp BP Pulse Ox 97.6 F 114 18 112/75 96 10/01/16 15:35 10/01/16 16:00 08/03/17 16:20 10/01/16 16:00 10/01/16 16:20 General appearance: Present: A&O X 3, no acute distress, obese - Neck Neck exam general surgery: Present: supple. Absent: lymphadenopathy, thyromegaly - Respiratory Respiratory exam: Present: decreased breath sounds, rales, wheezes. Absent: respiratory distress - Cardiovascular Cardiovascular exam: Present: distant heart sounds, +S1, +S2, tachycardia - GI/Abdominal GI/Abdominal exam: Present: normal bowel sounds, soft. Absent: rebound, rigid, tenderness - Extremities Exam Extremities exam: Absent: tenderness - Psychiatric Psychiatric exam: Present: normal affect, normal mood Internal Medicine: Result - Labs CBC & Chem 7: 10/01/16 09:34 10/01/16 10:42 Labs: Short CBC 10/01/16 10/01/16 Range/Units 04:28 09:34 WBC 4.2 L 6.7 D (4.3-11.1) K/mcL Hgb 7.1 L 7.7 L (11.5-15.4) g/dL Hct 21.9 L 24.0 L (35.3-44.9) % Plt Count 219 268 (140-400) K/mcL Neutrophils # 2.8 3.9 (1.6-8.9) K/mcL BMP 10/01/16 10/01/16 04:28 10:42 Sodium 137 135 L Potassium 3.1 L 3.1 L Chloride 103 103 Carbon Dioxide 29 22 BUN 11 11 Creatinine 0.78 0.82 Glucose 123 H 262 H Calcium 8.5 L 8.3 L Cardiac Enzymes 10/01/16 Range/Units 04:28 Troponin I 0.15 H* (0-0.03) ng/mL - ABG Interpretation ABG results: PT/INR, D-dimer PT 19.6 Seconds (9.4-12.1) H 09/29/16 13:15 - Impressions Impressions Chest X-Ray 10/01/16 09:10 IMPRESSION: 1. Endotracheal tube terminating in the right mainstem bronchus should be retracted approximately 4 cm. 2. Small right apical pneumothorax status post percutaneous chest tube. D/ / Louie Davila MD / Louie Davila MD Interpreting Provider: Louie Davila MD Consult Discharge Plan - Plan Referrals: Tayo Hudson DO [Primary Care Provider] -
[2016-10-02] MEDS: *HR* OxyCODONE/APAP 5/325 TABLET PO PRN ×4 (02:08→22:55)
[2016-10-02] MEDS: Albuterol 2.5 MG/3 ML NEBULIZER IH SCH ×6 (03:24→23:06)
[2016-10-02 03:44] LABS: Eosinophils % 0.2 %; Hematocrit 23.2 % (35.3-44.9); Hemoglobin 7.2 g/dL (11.5-15.4); Immature Granulocytes % 0.7 % (0-4); Lymphocytes # 0.5 K/mcL (0.6-4.6); Lymphocytes % 10.2 %; Mean Corpuscular Hemoglobin 26.7 pg (28.0-33.3); Mean Corpuscular Volume 85.9 fL (83.0-100.0); Mean Platelet Volume 9.7 fL (9.4-12.4); Monocytes # 0.6 K/mcL (0.0-1.3); Monocytes % 14.2 %; Neutrophils # 3.4 K/mcL (1.6-8.9); Nucleated Red Blood Cells 0.7 /100 WBC (0); Platelet Count 258 K/mcL (140-400); Red Cell Distribution Width 19.5 % (11.5-14.5); Segmented Neutrophils % 74.7 %
[2016-10-02 03:57] LABS: BUN/Creatinine Ratio 17 (6-26); Blood Urea Nitrogen 16 mg/dL (7-20); Calcium 8.5 mg/dL (8.6-10.8); Carbon Dioxide 24 mEq/L (19-29); Chloride 101 mEq/L (98-109); Glucose 157 mg/dL (70-99); Osmolality,Calculated 282 (280-300); Potassium 3.7 mEq/L (3.5-4.5); Sodium 134 mEq/L (136-145); eGFR For African Americans > 60 (> 60); eGFR For Non-African Americans 57 (> 60)
[2016-10-02] MEDS ORDERED: Magnesium Sulfate 2 GM in D5% in Water 100 ML IVPB ONE (04:48)
--- NOTE | 2016-10-02 07:37 | Cardiothoracic Progress Note ---
Date of Encounter: 10/02/16 Time of Encounter: 07:35 - Assessment and plan (1) Atrial fibrillation with RVR Current Visit: No Status: Acute The assessment and plan as outlined above was discussed with the patient and/or family members who expressed understanding and agreement. All questions were answered. The patient is okay to transfer to the floor from my standpoint. We will leave the chest tubes on suction until Wednesday. - Subjective Interval history: The patient has no complaints Vital Signs, Last 4 Hours Pulse Resp BP Pulse Ox 10/02/16 06:00 124 14 124/77 94 10/02/16 05:00 120 18 122/84 92 10/02/16 04:00 133 16 119/63 99 Oxgyen Flow Rate Oxygen Flow Rate (LPM) 3 Clinical Data, last 8 Hours Output, Chest Tube Drainage 90 Amount [Left Mediastinal #1] Output, Chest Tube Drainage 10 Amount [Upper Mediastinal #2] Output, Urine Amount 150 Output, Urine Amount 0 Weight 09/30/16 10/01/16 10/02/16 23:59 23:59 23:59 Weight 96.1 kg 96.7 kg 96.32 kg Lungs are clear to percussion and auscultation. Heart is in a sinus tachycardia. All incisions are healing well without signs of infection. Chest tube drainage is minimal. - Labs 10/02/16 03:18 10/02/16 03:18 Lab Results, Last 24 hours 10/01/16 10/01/16 10/02/16 09:34 10:42 03:18 WBC 6.7 D 4.5 Hgb 7.7 L 7.2 L Hct 24.0 L 23.2 L Plt Count 268 258 Sodium 135 L Potassium 3.1 L Chloride 103 Carbon Dioxide 22 BUN 11 Creatinine 0.82 Glucose 262 H Calcium 8.3 L Magnesium 10/02/16 10/02/16 03:18 03:18 WBC Hgb Hct Plt Count Sodium 134 L Potassium 3.7 Chloride 101 Carbon Dioxide 24 BUN 16 Creatinine 0.96 Glucose 157 H Calcium 8.5 L Magnesium 1.2 L Consult Discharge Plan - Plan Referrals: Tayo Hudson DO [Primary Care Provider] -
[2016-10-02] MEDS: Insulin LISPRO 300 UNITS/3 ML VIAL SQ SCH ×4 (07:43→21:16)
[2016-10-02] MEDS: 0.9 % Sodium Chloride w KCl 20 MEQ/1,000 ML MLS IVC SCH (07:44)
[2016-10-02] MEDS: *HR* Morphine 2 MG/ML SYRINGE IVP PRN (08:51)
[2016-10-02] MEDS ORDERED: Acetaminophen 325 MG TABLET PO PRN ×3 (13:34→16:57)
[2016-10-02] MEDS ORDERED: Diltiazem CD (24hr) 180 MG CAPSULE PO SCH (13:45)
--- NOTE | 2016-10-02 14:19 | Oncology Inp Progress Note ---
Date of Encounter: 10/02/16 Time of Encounter: 14:14 (1) Lung cancer Current Visit: No Status: Chronic Assessment and plan: -Started on chemoradiation in July, with week 1 started on august 20, 2016 as part of her management for stage III NSCLC. - Week 3 of chemotherapy was delayed until September 24, 2016 due to episode of PNA and new onset Afib after cycle 2 that required inpatient management. - Chemoradiation being held due to hospitalization/pericardial fluid collection requiring surgical drainage ( pericardial window). - Pathology results from pericardial tissue: pending. Pericardial fluid cytology revealed red blood cells and rare inflammatory cells. Patient and family updated about the results. Qualifiers: Laterality: left Lung location: upper lobe of lung Qualified Code(s): C34.12 - Malignant neoplasm of upper lobe, left bronchus or lung (2) Pericardial effusion Current Visit: Yes Status: Acute Assessment and plan: -Associated with pleural effusion. s/p pericardial window on 10/01/16. 550 cc of sero sanguinolent fluid was drained from pericardium, and approximately 700 cc of yellow turbid fluid from the left pleural space. cytology showed not evidence of malignancy. Biopsy from pericardial tissue : pending. - Do no resume apixaban for now. She will probably need to be discharged off apixaban, and decision about appropriate time to resume it should be taken during outpatient office visit with primary oncologist . (3) Atrial fibrillation Current Visit: Yes Status: Chronic Assessment and plan: Management as per primary team. Continue holding apixaban due to recent surgery and serosanguinolent pericardial effusion. Qualifiers: Atrial fibrillation type: persistent Qualified Code(s): I48.1 - Persistent atrial fibrillation Oncology: Subj Interval history: patient was seen with her daughter at bedside.Denies significant overnight issues, overall doing ok. awaiting to be transferred to . Expecting to be discharged early next week. - Constitutional Vitals: Vital Signs Temp Pulse Resp BP Pulse Ox 10/02/16 12:33 18 93 10/02/16 11:54 97.2 F L 10/02/16 11:00 118 20 128/78 95 10/02/16 10:10 127 26 97/55 96 10/02/16 09:04 125 24 107/76 96 10/02/16 08:00 144 24 150/92 97 10/02/16 07:42 97.8 F 10/02/16 07:35 12 96 10/02/16 07:00 124 14 133/80 96 10/02/16 06:00 124 14 124/77 94 10/02/16 05:00 120 18 122/84 92 10/02/16 04:00 133 16 119/63 99 10/02/16 03:30 122 10/02/16 03:24 16 119/63 96 10/02/16 03:00 98.2 F 120 18 126/79 96 10/02/16 02:00 138 16 111/35 95 10/02/16 01:00 137 16 123/70 95 10/02/16 00:00 135 18 113/65 97 10/01/16 23:46 128 10/01/16 23:26 16 127/92 97 10/01/16 23:23 97.5 F L 10/01/16 23:00 122 16 127/92 95 10/01/16 22:00 130 22 122/82 96 10/01/16 21:00 138 18 100/67 96 10/01/16 20:29 23 122/71 97 10/01/16 20:00 130 18 92/62 96 10/01/16 19:59 97.8 F 10/01/16 19:30 126 10/01/16 19:00 127 16 108/82 95 10/01/16 18:00 128 18 122/79 96 10/01/16 17:00 128 18 122/96 96 10/01/16 16:20 18 96 10/01/16 16:00 114 18 112/75 99 10/01/16 15:35 97.6 F 10/01/16 15:00 122 18 138/63 99 Intake and Output 10/01/16 10/02/16 10/02/16 23:59 07:59 15:59 Intake Total 660 / 660 1660 / 1660 240 / 240 Output Total 260 / 260 315 / 315 0 / 0 Balance 400 / 400 1345 / 1345 240 / 240 Intake: IV Fluids 100 / 100 1100 / 1100 KCl 20 mEq in 0.9% Sodium 1000 / 1000 Chloride 20 meq In 1,000 ml @ 50 mls/hr IVC .Q20H [facility] Rx#:[id number] Cleocin Premix 900 MG/50 100 / 100 100 / 100 ML 900 mg In 50 ml @ 50 mls/hr IVPB Q8HR [facility] Rx#: [id number] Oral 560 / 560 560 / 560 240 / 240 Output: Urine 50 / 50 150 / 150 Chest Tube Drainage 210 / 210 165 / 165 0 / 0 Left Mediastinal #1 190 / 190 140 / 140 0 / 0 Upper Mediastinal #2 20 / 20 25 / 25 0 / 0 Other: Meal Dinner Breakfast Percent of Meal Consumed 10% 75% Weight 96.32 kg Blood Glucose* 181 178 187 Patient Weight 10/02/16 23:59 Weight 96.32 kg - Head Head exam: Present: normal inspection - ENT ENT exam: Present: normal exam - Neck Neck exam: Present: normal inspection - Respiratory Respiratory exam: Present: CTAB - Cardiovascular Cardiovascular exam: Present: irregular rhythm, RRR - GI/Abdominal GI/Abdominal exam: Present: soft. Absent: distended, mass, rebound - Extremities Exam Extremities exam: Present: pedal edema - Psychiatric Psychiatric exam: Present: normal affect Oncology: Obj Data - Labs CBC & Chem 7: 10/02/16 03:18 10/02/16 03:18 Labs: Laboratory Results - last 24 hr 10/01/16 10/01/16 10/02/16 16:53 20:01 03:18 WBC 4.5 RBC 2.70 L Hgb 7.2 L Hct 23.2 L MCV 85.9 MCH 26.7 L MCHC 31.0 L RDW 19.5 H Plt Count 258 MPV 9.7 Immature Gran % 0.7 Seg Neutrophils % 74.7 Lymphocytes % 10.2 Monocytes % 14.2 Eosinophils % 0.2 Basophils % 0.0 Neutrophils # 3.4 Lymphocytes # 0.5 L Monocytes # 0.6 Eosinophils # 0.0 Basophils # 0.0 Nucleated RBCs/100 WBC 0.7 H Sodium Potassium Chloride Carbon Dioxide BUN Creatinine Est GFR ( Amer) Est GFR (Non-Af Amer) BUN/Creatinine Ratio Glucose POC Glucose 208 H 181 H Calculated Osmolality Calcium Magnesium Pericard Total Protein Pericardial LDH Pericardial Glucose 10/02/16 10/02/16 10/02/16 03:18 03:18 07:17 WBC RBC Hgb Hct MCV MCH MCHC RDW Plt Count MPV Immature Gran % Seg Neutrophils % Lymphocytes % Monocytes % Eosinophils % Basophils % Neutrophils # Lymphocytes # Monocytes # Eosinophils # Basophils # Nucleated RBCs/100 WBC Sodium 134 L Potassium 3.7 Chloride 101 Carbon Dioxide 24 BUN 16 Creatinine 0.96 Est GFR ( Amer) > 60 Est GFR (Non-Af Amer) 57 L BUN/Creatinine Ratio 17 Glucose 157 H POC Glucose 178 H Calculated Osmolality 282 Calcium 8.5 L Magnesium 1.2 L Pericard Total Protein Pericardial LDH Pericardial Glucose 10/02/16 10/02/16 08:25 11:25 WBC RBC Hgb Hct MCV MCH MCHC RDW Plt Count MPV Immature Gran % Seg Neutrophils % Lymphocytes % Monocytes % Eosinophils % Basophils % Neutrophils # Lymphocytes # Monocytes # Eosinophils # Basophils # Nucleated RBCs/100 WBC Sodium Potassium Chloride Carbon Dioxide BUN Creatinine Est GFR ( Amer) Est GFR (Non-Af Amer) BUN/Creatinine Ratio Glucose POC Glucose 187 H Calculated Osmolality Calcium Magnesium Pericard Total Protein 5.1 Pericardial LDH 1140 Pericardial Glucose 131 - Impressions Impressions Chest X-Ray 10/02/16 06:00 IMPRESSION: Interval removal of the endotracheal tube. Stable left chest tube with resolution of the left pneumothorax. Opacification of the left lower lobe likely related to improving atelectasis. Underlying airspace disease is not excluded. Tiny bilateral pleural effusions. D/ / 10/02/2016 07:54:49 Robson Morillo MD / patrica Interpreting Provider: Robson Morillo MD - ABG Interpretation ABG results: PT/INR, D-dimer PT 19.6 Seconds (9.4-12.1) H 09/29/16 13:15 Consult Discharge Plan - Plan Referrals: Tayo Hudson DO [Primary Care Provider] -
--- NOTE | 2016-10-02 14:57 | Internal Med Progress Note ---
Date of Encounter: 10/02/16 Time of Encounter: 13:45 - Assessment and plan (1) Pericardial effusion Current Visit: Yes Status: Acute Assessment and plan: s/p Pericardial window - removed 550 ml of serosanguineous fluid Pericardial fluid cytology revealed red blood cells and rare inflammatory cells hemodynamically stable now no signs of tamponade cont chest tube now - as per CTS Cont holding Elequis and Anti platelets cont close monitoring (2) Pleural effusion Current Visit: Yes Status: Acute Assessment and plan: s/p Left thoracotomy -drained approximately 700 cc of yellow turbid fluid from the left pleural space cont chest tube till Wednesday as per CTS cont close monitoring (3) Atrial fibrillation Current Visit: Yes Status: Chronic Assessment and plan: Pt is in Acute Afib with RVR now mostly due to not taking her Cardizem in last 2 days due concerning of cardiac tamponade Resumed PO Cardizem now if pt HR does not get better, will try Cardizem IV Push then gtt if needed held eliquis for procedure Qualifiers: Atrial fibrillation type: persistent Qualified Code(s): I48.1 - Persistent atrial fibrillation (4) Elevated troponin Current Visit: Yes Status: Acute Assessment and plan: due to demand ischemia no signs of ischemia no acute EKG changes (5) Lung cancer Current Visit: No Status: Chronic Assessment and plan: Currently in the middle of active Chemo Heme Onc is on board Qualifiers: Laterality: left Lung location: upper lobe of lung Qualified Code(s): C34.12 - Malignant neoplasm of upper lobe, left bronchus or lung (6) Essential hypertension Current Visit: No Status: Chronic Assessment and plan: resumed home meds (7) Diabetes mellitus, type 2 Current Visit: No Status: Chronic Assessment and plan: Resumed home meds cont ISS Qualifiers: Diabetes mellitus complication status: without complication Diabetes mellitus snf insulin use: without snf use Qualified Code(s): E11.9 - Type 2 diabetes mellitus without complications (8) DVT prophylaxis Current Visit: No Status: Acute Assessment and plan: SCD's - Subjective Interval history: Ms. Hernandez is a 76 year old female with PMH lung cancer- active chemo therapy, Chronic anemia, a-fib, and HTN who presented to [facility] on 09/29/2016 with complaints of shortness of breath. She was found to have a large pericardial effusion and moderate pleural effusion. Pt had Subxiphoid paracardial window, Left chest tube placed on 10/01/16 and transferred to ICU for close monitoring. Pt was seen and examined in the ICU. Resting comfortably, pain is tolerable with meds. Denied any new complaints. - Constitutional Vitals: Temp Pulse Resp BP Pulse Ox 97.2 F L 127 18 128/78 93 10/02/16 11:54 10/02/16 11:00 10/02/16 12:33 10/02/16 11:00 10/02/16 12:33 General appearance: Present: A&O X 3, no acute distress, obese - Head Head exam: Present: atraumatic, normal inspection - Neck Neck exam general surgery: Present: supple. Absent: thyromegaly - Respiratory Respiratory exam: Present: decreased breath sounds, rales, wheezes. Absent: respiratory distress, rhonchi - Cardiovascular Cardiovascular exam: Present: irregular rhythm, +S1, +S2 - GI/Abdominal GI/Abdominal exam: Present: distended, soft. Absent: rebound, rigid, tenderness - Extremities Exam Extremities exam: Present: pedal edema (2+). Absent: calf tenderness, tenderness - Neurological Exam Neurological exam: Present: alert, oriented X3 - Psychiatric Psychiatric exam: Present: normal affect, normal mood Internal Medicine: Result - Labs CBC & Chem 7: 10/02/16 03:18 10/02/16 03:18 Labs: Short CBC 10/02/16 Range/Units 03:18 WBC 4.5 (4.3-11.1) K/mcL Hgb 7.2 L (11.5-15.4) g/dL Hct 23.2 L (35.3-44.9) % Plt Count 258 (140-400) K/mcL Neutrophils # 3.4 (1.6-8.9) K/mcL BMP 10/02/16 03:18 Sodium 134 L Potassium 3.7 Chloride 101 Carbon Dioxide 24 BUN 16 Creatinine 0.96 Glucose 157 H Calcium 8.5 L - ABG Interpretation ABG results: PT/INR, D-dimer PT 19.6 Seconds (9.4-12.1) H 09/29/16 13:15 - Impressions Impressions Chest X-Ray 10/02/16 06:00 IMPRESSION: Interval removal of the endotracheal tube. Stable left chest tube with resolution of the left pneumothorax. Opacification of the left lower lobe likely related to improving atelectasis. Underlying airspace disease is not excluded. Tiny bilateral pleural effusions. D/ / 10/02/2016 07:54:49 Robson Morillo MD / patrica Interpreting Provider: Robson Morillo MD Consult Discharge Plan - Plan Referrals: Tayo Hudson DO [Primary Care Provider] -
[2016-10-02] MEDS ORDERED: *HR* Morphine 2 MG/ML SYRINGE IVP PRN ×2 (16:00→20:00)
[2016-10-02] MEDS ORDERED: *HR* LORazepam 0.5 MG TABLET PO PRN (16:41)
[2016-10-02] MEDS ORDERED: *HR* Dextrose 50 % in Water (Syg) 50 ML SYRINGE IVP PRN (16:57)
[2016-10-02] MEDS ORDERED: *HR* HYDROcodone/Acet 5/325 mg TABLET PO PRN (16:57)
[2016-10-02] MEDS ORDERED: Naloxone 0.4 MG/ML INJ IVP PRN (16:57)
[2016-10-02] MEDS ORDERED: D5% in Water 1,000 ML IVC PRN (16:57)
[2016-10-02] MEDS ORDERED: Dextrose Gel 15 GM PO PRN ×2 (16:57)
[2016-10-02] MEDS ORDERED: [UNRECOGNIZED DRUG - OTHER] SCH (17:00)
[2016-10-02] MEDS ORDERED: *HR* Glimepiride 4 MG TABLET PO SCH (21:00)
[2016-10-02] MEDS: *HR* Glimepiride 4 MG TABLET PO SCH (21:15)
[2016-10-03 04:10] LABS: Eosinophils % 3.5 %; Hematocrit 23.7 % (35.3-44.9); Hemoglobin 7.6 g/dL (11.5-15.4); Lymphocytes % 15.5 %; Mean Corpuscular HGB Conc 32.1 g/dL (31.6-35.5); Mean Corpuscular Hemoglobin 27.6 pg (28.0-33.3); Mean Corpuscular Volume 86.2 fL (83.0-100.0); Mean Platelet Volume 9.7 fL (9.4-12.4); Monocytes % 16.8 %; Platelet Count 235 K/mcL (140-400); Red Blood Count 2.75 M/mcL (3.82-4.97); Red Cell Distribution Width 20.4 % (11.5-14.5); Segmented Neutrophils % 62.9 %
[2016-10-03 04:11] LABS: Basophils % 0.3 %; Eosinophils # 0.1 K/mcL (0.0-0.6); Lymphocytes # 0.6 K/mcL (0.6-4.6); Monocytes # 0.7 K/mcL (0.0-1.3); Neutrophils # 2.5 K/mcL (1.6-8.9); Nucleated Red Blood Cells 0.8 /100 WBC (0)
[2016-10-03 04:16] LABS: BUN/Creatinine Ratio 18 (6-26); Blood Urea Nitrogen 16 mg/dL (7-20); Calcium 8.8 mg/dL (8.6-10.8); Carbon Dioxide 26 mEq/L (19-29); Chloride 101 mEq/L (98-109); Glucose 161 mg/dL (70-99); Magnesium 1.8 mg/dL (1.6-2.6); Osmolality,Calculated 283 (280-300); Potassium 3.7 mEq/L (3.5-4.5); Sodium 134 mEq/L (136-145); eGFR For African Americans > 60 (> 60); eGFR For Non-African Americans > 60 (> 60)
[2016-10-03] MEDS: *HR* OxyCODONE/APAP 5/325 TABLET PO PRN ×4 (04:34→17:44)
[2016-10-03] MEDS: Albuterol 2.5 MG/3 ML NEBULIZER IH SCH ×5 (04:37→19:45)
[2016-10-03] MEDS: Diltiazem CD (24hr) 180 MG CAPSULE PO SCH (08:34)
[2016-10-03] MEDS: *HR* SitaGLIPtin 100 MG TABLET PO SCH (08:34)
[2016-10-03] MEDS: *HR* Glimepiride 4 MG TABLET PO SCH ×2 (08:34→20:52)
[2016-10-03] MEDS: Furosemide 40 MG TABLET PO SCH (08:35)
[2016-10-03] MEDS: Insulin LISPRO 300 UNITS/3 ML VIAL SQ SCH ×4 (08:36→20:48)
[2016-10-03] MEDS ORDERED: Furosemide 40 MG TABLET PO SCH (09:00)
[2016-10-03] MEDS ORDERED: *HR* SitaGLIPtin 100 MG TABLET PO SCH (09:00)
--- NOTE | 2016-10-03 09:02 | Cardiothoracic Progress Note ---
Date of Encounter: 10/03/16 Time of Encounter: 09:00 - Assessment and plan (1) Atrial fibrillation with RVR Current Visit: No Status: Acute We will leave the chest tubes to suction until Wednesday. - Subjective Interval history: The patient has no complaints. She states that her breathing is improved. Vital Signs, Last 4 Hours Temp Pulse Resp BP Pulse Ox 10/03/16 07:42 97.8 F 109 16 106/57 96 10/03/16 07:28 17 110/49 92 Oxgyen Flow Rate Oxygen Flow Rate (LPM) 2 Clinical Data, last 8 Hours Output, Chest Tube Drainage 0 Amount [Left Mediastinal #1] Output, Chest Tube Drainage 0 Amount [Upper Mediastinal #2] Output, Urine Amount 150 Weight 10/01/16 10/02/16 10/03/16 23:59 23:59 23:59 Weight 96.7 kg 96.32 kg 95.9 kg Lungs are clear to percussion and auscultation. Heart is in an irregular rate and rhythm. All incisions are healing well without signs of infection. Chest tube drainage is minimal. - Labs 10/03/16 03:57 10/03/16 03:57 Lab Results, Last 24 hours 10/03/16 10/03/16 03:57 03:57 WBC 4.0 L Hgb 7.6 L Hct 23.7 L Plt Count 235 Sodium 134 L Potassium 3.7 Chloride 101 Carbon Dioxide 26 BUN 16 Creatinine 0.89 Glucose 161 H Calcium 8.8 Magnesium 1.8 Consult Discharge Plan - Plan Referrals: Tayo Hudson DO [Primary Care Provider] -
--- NOTE | 2016-10-03 14:26 | Internal Med Progress Note ---
Date of Encounter: 10/03/16 Time of Encounter: 14:23 - Assessment and plan (1) Pericardial effusion Current Visit: Yes Status: Acute Assessment and plan: s/p Pericardial window - removed 550 ml of serosanguineous fluid Pericardial fluid cytology revealed red blood cells and rare inflammatory cells hemodynamically stable now no signs of tamponade Improved out put through both chest tubes cont chest tube now - as per CTS Cont holding Elequis and Anti platelets cont close monitoring (2) Pleural effusion Current Visit: Yes Status: Acute Assessment and plan: s/p Left thoracotomy -drained approximately 700 cc of yellow turbid fluid from the left pleural space cont chest tube till Wednesday as per CTS cont close monitoring (3) Atrial fibrillation Current Visit: Yes Status: Chronic Assessment and plan: Her HR is fairly controlled now with PO cardizem If HR persistently elevated will give IV Lopressor 2.5mg IV PRN held eliquis for procedure Qualifiers: Atrial fibrillation type: persistent Qualified Code(s): I48.1 - Persistent atrial fibrillation (4) Elevated troponin Current Visit: Yes Status: Acute Assessment and plan: due to demand ischemia no signs of ischemia no acute EKG changes (5) Lung cancer Current Visit: No Status: Chronic Assessment and plan: Currently in the middle of active Chemo Heme Onc is on board Qualifiers: Laterality: left Lung location: upper lobe of lung Qualified Code(s): C34.12 - Malignant neoplasm of upper lobe, left bronchus or lung (6) Essential hypertension Current Visit: No Status: Chronic Assessment and plan: resumed home meds (7) Diabetes mellitus, type 2 Current Visit: No Status: Chronic Assessment and plan: Resumed home meds cont ISS Qualifiers: Diabetes mellitus complication status: without complication 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 Hernandez is a 76 year old female with PMH lung cancer- active chemo therapy, Chronic anemia, a-fib, and HTN who presented to [facility] on 09/29/2016 with complaints of shortness of breath. She was found to have a large pericardial effusion and moderate pleural effusion. Pt had Subxiphoid paracardial window, Left chest tube placed on 10/01/16. Resting comfortably, pain is tolerable with meds. Denied any new complaints. - Constitutional Vitals: Temp Pulse Resp BP Pulse Ox 98.1 F 100 18 98/75 93 10/03/16 11:12 10/03/16 13:03 10/03/16 11:14 10/03/16 11:12 10/03/16 13:03 General appearance: Present: A&O X 3, no acute distress, obese - Neck Neck exam general surgery: Present: supple. Absent: lymphadenopathy - Respiratory Respiratory exam: Present: decreased breath sounds. Absent: rales, respiratory distress, rhonchi, wheezes - Cardiovascular Cardiovascular exam: Present: irregular rhythm, +S1, +S2. Absent: systolic murmur - GI/Abdominal GI/Abdominal exam: Present: soft. Absent: rebound, rigid, tenderness - Extremities Exam Extremities exam: Present: pedal edema. Absent: calf tenderness, tenderness - Psychiatric Psychiatric exam: Present: normal affect, normal mood Internal Medicine: Result - Labs CBC & Chem 7: 10/03/16 03:57 10/03/16 03:57 Labs: Short CBC 10/03/16 Range/Units 03:57 WBC 4.0 L (4.3-11.1) K/mcL Hgb 7.6 L (11.5-15.4) g/dL Hct 23.7 L (35.3-44.9) % Plt Count 235 (140-400) K/mcL Neutrophils # 2.5 (1.6-8.9) K/mcL BMP 10/03/16 03:57 Sodium 134 L Potassium 3.7 Chloride 101 Carbon Dioxide 26 BUN 16 Creatinine 0.89 Glucose 161 H Calcium 8.8 - ABG Interpretation ABG results: PT/INR, D-dimer PT 19.6 Seconds (9.4-12.1) H 09/29/16 13:15 - VTE Documentation of Mechanical Device: Intermittent pneumatic compression device Consult Discharge Plan - Plan Referrals: Tayo Hudson DO [Primary Care Provider] -
[2016-10-04] MEDS: Albuterol 2.5 MG/3 ML NEBULIZER IH SCH ×7 (00:40→23:22)
[2016-10-04] MEDS: *HR* OxyCODONE/APAP 5/325 TABLET PO PRN ×4 (00:59→18:55)
[2016-10-04] MEDS: Furosemide 40 MG TABLET PO SCH (07:51)
[2016-10-04] MEDS: *HR* SitaGLIPtin 100 MG TABLET PO SCH (07:51)
[2016-10-04] MEDS: Diltiazem CD (24hr) 180 MG CAPSULE PO SCH (07:51)
[2016-10-04] MEDS: *HR* Glimepiride 4 MG TABLET PO SCH ×2 (07:51→20:20)
[2016-10-04] MEDS: Insulin LISPRO 300 UNITS/3 ML VIAL SQ SCH ×4 (07:51→20:58)
--- NOTE | 2016-10-04 09:19 | Cardiothoracic Progress Note ---
Date of Encounter: 10/04/16 Time of Encounter: : - Assessment and plan (1) Atrial fibrillation with RVR Current Visit: No Status: Acute We will leave the chest tubes until tomorrow. I will order a chest x-ray for tomorrow morning. - Subjective Interval history: The patient states that her bilateral leg swelling is gradually improving. She has no complaints. Vital Signs, Last 4 Hours Temp Pulse Resp BP Pulse Ox 10/04/16 08:06 114 10/04/16 08:04 18 97 10/04/16 07:22 98.4 F 107 17 104/65 96 10/04/16 06:01 108 Oxgyen Flow Rate Oxygen Flow Rate (LPM) 2 Clinical Data, last 8 Hours Output, Chest Tube Drainage 0 Amount [Left Mediastinal #1] Output, Chest Tube Drainage 40 Amount [Left Mediastinal #1] Output, Chest Tube Drainage 0 Amount [Upper Mediastinal #2] Output, Chest Tube Drainage 4 Amount [Upper Mediastinal #2] Weight 10/02/16 10/03/16 10/04/16 23:59 23:59 23:59 Weight 96.32 kg 95.9 kg 96.4 kg Lungs are clear to percussion and auscultation. Heart is in an irregular rate and rhythm. All incisions are healing well without signs of infection. Chest tube drainage is minimal and there is no air leak. - Labs 10/03/16 03:57 10/03/16 03:57 - VTE Documentation of Mechanical Device: Intermittent pneumatic compression device Consult Discharge Plan - Plan Referrals: Tayo Hudson DO [Primary Care Provider] -
--- NOTE | 2016-10-04 09:53 | Oncology Inp Progress Note ---
Date of Encounter: 10/04/16 Time of Encounter: 09:49 (1) Lung cancer Current Visit: No Status: Chronic Assessment and plan: -Started on chemoradiation in July, with week 1 started on august 20, 2016 as part of her management for stage III NSCLC. - Chemoradiation being held due to hospitalization/pericardial fluid collection requiring surgical drainage ( pericardial window). Cytology from pericardial fluid revealed not evidence of malignancy ( only RBC and rare inflammatory cells ). She is aware that pathology results from pericardial tissue are still pending , and hopefully will be available later this week. Plan for chest tube to be removed tomorrow. If pathology results are not available at the time she is clinically ready for discharge, there is not need to delay the discharge, but set up an outpatient follow up with Dr. Qiu to discuss the results and further management. Plan of care discussed with patient and daughter at the bedside. Qualifiers: Laterality: left Lung location: upper lobe of lung Qualified Code(s): C34.12 - Malignant neoplasm of upper lobe, left bronchus or lung (2) Pericardial effusion Current Visit: Yes Status: Acute Assessment and plan: -Associated with pleural effusion. s/p pericardial window on 10/01/16. 550 cc of sero sanguinolent fluid was drained from pericardium, and approximately 700 cc of yellow turbid fluid from the left pleural space. cytology showed not evidence of malignancy. Biopsy from pericardial tissue : pending. - Do no resume apixaban for now. She will probably need to be discharged off apixaban, and decision about appropriate time to resume it should be taken during outpatient office visit with primary oncologist . (3) Atrial fibrillation Current Visit: Yes Status: Chronic Assessment and plan: Management as per primary team. Continue holding apixaban due to recent surgery and serosanguinolent pericardial effusion. Qualifiers: Atrial fibrillation type: persistent Qualified Code(s): I48.1 - Persistent atrial fibrillation Oncology: Subj Interval history: Chief complaint: Itching Denies significant overnight complaints, but reports mild itching around the site of the chest tape. She is not interested in anti pruritic medications ( " another pill" . Tolerating meals. Daughter present at the bedside. - Constitutional Vitals: Vital Signs Temp Pulse Resp BP Pulse Ox 10/04/16 08:06 114 10/04/16 08:04 18 97 10/04/16 07:22 98.4 F 107 17 104/65 96 10/04/16 06:01 108 10/04/16 04:27 23 94 10/04/16 04:00 98.2 F 119 18 112/58 96 10/04/16 01:09 91 10/04/16 00:40 20 93 10/04/16 00:00 98.2 F 112 18 102/54 94 10/03/16 21:08 111 10/03/16 20:00 98.1 F 103 18 117/63 94 10/03/16 19:45 19 95 10/03/16 16:19 97.8 F 95 18 90/70 94 10/03/16 15:15 18 94 10/03/16 13:03 100 93 10/03/16 11:50 97 10/03/16 11:14 18 94 10/03/16 11:12 98.1 F 103 18 98/75 100 Intake and Output 10/03/16 10/04/16 10/04/16 23:59 07:59 15:59 Intake Total 240 / 240 120 / 120 740 / 740 Output Total 494 / 494 174 / 174 0 / 0 Balance -254 / -254 -54 / -54 740 / 740 Intake: Oral 240 / 240 120 / 120 740 / 740 Output: Urine 400 / 400 100 / 100 Chest Tube Drainage 94 / 94 74 / 74 0 / 0 Left Mediastinal #1 90 / 90 60 / 60 0 / 0 Upper Mediastinal #2 4 / 4 14 / 14 0 / 0 Other: Meal Dinner Breakfast Percent of Meal Consumed 95% 50% # Voids 1 Weight 96.4 kg Blood Glucose* 152 170 Patient Weight 10/04/16 23:59 Weight 96.4 kg - Head Head exam: Present: normal inspection - Neck Neck exam: Present: normal inspection - GI/Abdominal GI/Abdominal exam: Present: normal bowel sounds. Absent: hyperactive bowel sounds, organomegaly - Psychiatric Psychiatric exam: Present: normal affect Oncology: Obj Data - Labs CBC & Chem 7: 10/03/16 03:57 10/03/16 03:57 Labs: Laboratory Results - last 24 hr 10/03/16 10/03/16 10/03/16 07:47 11:14 16:42 POC Glucose 183 H 193 H 152 H - ABG Interpretation ABG results: PT/INR, D-dimer PT 19.6 Seconds (9.4-12.1) H 09/29/16 13:15 Consult Discharge Plan - Plan Referrals: Tayo Hudson DO [Primary Care Provider] -
--- NOTE | 2016-10-04 14:56 | Internal Med Progress Note ---
Date of Encounter: 10/04/16 Time of Encounter: 14:54 - Assessment and plan (1) Pericardial effusion Current Visit: Yes Status: Acute Assessment and plan: s/p Pericardial window - removed 550 ml of serosanguineous fluid Pericardial fluid cytology revealed red blood cells and rare inflammatory cells Improved out put through both chest tubes possible d/c chest tubes in AM Cont holding Elequis and Anti platelets - as per heme onc request cont close monitoring possible d/c home in AM after Chest tubes removal (2) Pleural effusion Current Visit: Yes Status: Acute Assessment and plan: s/p Left thoracotomy -drained approximately 700 cc of yellow turbid fluid from the left pleural space cont chest tube till Wednesday as per CTS cont close monitoring (3) Atrial fibrillation Current Visit: Yes Status: Chronic Assessment and plan: HR is well controlled with Cardizem Heme Onc recommend to hold on anti coag for an indefinite period Qualifiers: Atrial fibrillation type: persistent Qualified Code(s): I48.1 - Persistent atrial fibrillation (4) Elevated troponin Current Visit: Yes Status: Acute Assessment and plan: due to demand ischemia no signs of ischemia no acute EKG changes (5) Lung cancer Current Visit: No Status: Chronic Assessment and plan: Currently in the middle of active Chemo Heme Onc is on board Qualifiers: Laterality: left Lung location: upper lobe of lung Qualified Code(s): C34.12 - Malignant neoplasm of upper lobe, left bronchus or lung (6) Essential hypertension Current Visit: No Status: Chronic Assessment and plan: stable with home meds (7) Diabetes mellitus, type 2 Current Visit: No Status: Chronic Assessment and plan: Resumed home meds cont ISS Qualifiers: Diabetes mellitus complication status: without complication 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 Hernandez is a 76 year old female with PMH lung cancer- active chemo therapy, Chronic anemia, a-fib, and HTN who presented to [facility] on 09/29/2016 with complaints of shortness of breath. She was found to have a large pericardial effusion and moderate pleural effusion. Pt had Subxiphoid pericardial window, Left chest tube placed on 10/01/16. Resting comfortably, pain is tolerable with meds. Denied any new complaints. - Constitutional Vitals: Temp Pulse Resp BP Pulse Ox 97.9 F 101 16 120/64 97 10/04/16 11:58 10/04/16 12:29 10/04/16 11:58 10/04/16 12:29 10/04/16 11:58 General appearance: Present: A&O X 3, no acute distress, obese - Head Head exam: Present: atraumatic, normal inspection - Respiratory Respiratory exam: Present: decreased breath sounds (basal regions), wheezes. Absent: rales, respiratory distress, rhonchi - Cardiovascular Cardiovascular exam: Present: irregular rhythm, +S1, +S2. Absent: systolic murmur - GI/Abdominal GI/Abdominal exam: Present: normal bowel sounds, soft. Absent: distended, guarding, tenderness - Extremities Exam Extremities exam: Present: pedal edema. Absent: calf tenderness, tenderness - Psychiatric Psychiatric exam: Present: normal affect, normal mood Internal Medicine: Result - Labs CBC & Chem 7: 10/03/16 03:57 10/03/16 03:57 - ABG Interpretation ABG results: PT/INR, D-dimer PT 19.6 Seconds (9.4-12.1) H 09/29/16 13:15 - VTE Documentation of Mechanical Device: Intermittent pneumatic compression device Consult Discharge Plan - Plan Referrals: Tayo Hudson DO [Primary Care Provider] -
[2016-10-05] MEDS: Albuterol 2.5 MG/3 ML NEBULIZER IH SCH ×4 (03:54→16:52)
[2016-10-05] MEDS: *HR* OxyCODONE/APAP 5/325 TABLET PO PRN ×2 (04:46→17:11)
[2016-10-05 04:57] LABS: BUN/Creatinine Ratio 15 (6-26); Blood Urea Nitrogen 14 mg/dL (7-20); Calcium 8.6 mg/dL (8.6-10.8); Carbon Dioxide 27 mEq/L (19-29); Chloride 100 mEq/L (98-109); Glucose 197 mg/dL (70-99); Magnesium 1.5 mg/dL (1.6-2.6); Osmolality,Calculated 282 (280-300); Potassium 3.2 mEq/L (3.5-4.5); Sodium 133 mEq/L (136-145); eGFR For African Americans > 60 (> 60); eGFR For Non-African Americans 58 (> 60)
[2016-10-05 04:58] LABS: Basophils % 0.4 %; Eosinophils # 0.1 K/mcL (0.0-0.6); Eosinophils % 3.1 %; Hematocrit 22.7 % (35.3-44.9); Hemoglobin 6.9 g/dL (11.5-15.4); Immature Granulocytes % 1.1 % (0-4); Lymphocytes # 0.5 K/mcL (0.6-4.6); Lymphocytes % 20.7 %; Mean Corpuscular HGB Conc 30.4 g/dL (31.6-35.5); Mean Corpuscular Hemoglobin 26.3 pg (28.0-33.3); Mean Corpuscular Volume 86.6 fL (83.0-100.0); Mean Platelet Volume 9.3 fL (9.4-12.4); Monocytes # 0.5 K/mcL (0.0-1.3); Monocytes % 17.6 %; Neutrophils # 1.5 K/mcL (1.6-8.9); Nucleated Red Blood Cells 0.8 /100 WBC (0); Platelet Count 217 K/mcL (140-400); Red Blood Count 2.62 M/mcL (3.82-4.97); Red Cell Distribution Width 20.5 % (11.5-14.5); Segmented Neutrophils % 57.1 %
--- NOTE | 2016-10-05 07:45 | Cardiothoracic Progress Note ---
Date of Encounter: 10/05/16 Time of Encounter: 07:43 - Assessment and plan (1) Pericardial effusion Current Visit: Yes Status: Acute The patient is recovering well from her subxiphoid pericardial window and left chest tube insertion. The cytology from the pericardial fluid shows no evidence of malignancy. The drainage from both the pericardial chest tube and left pleural chest tube had decreased. The chest tubes were removed. The assessment and plan as outlined above was discussed with the patient and/or family members who expressed understanding and agreement. All questions were answered. - Subjective Procedure(s) Performed: POD#4 S/P Subxiphoid pericardial window POD#4 S/P Left chest tube insertion Interval history: The patient is resting comfortably in her hospital bed. She has no complaints. Vital Signs, Last 4 Hours Temp Pulse Resp BP Pulse Ox 10/05/16 06:48 98.1 F 106 14 114/56 95 10/05/16 04:48 105 10/05/16 03:54 16 96 Oxgyen Flow Rate Oxygen Flow Rate (LPM) 2 Clinical Data, last 8 Hours Output, Chest Tube Drainage 0 Amount [Left Mediastinal #1] Output, Chest Tube Drainage 45 Amount [Left Mediastinal #1] Output, Chest Tube Drainage 0 Amount [Upper Mediastinal #2] Output, Chest Tube Drainage 2 Amount [Upper Mediastinal #2] Output, Urine Amount 200 Weight 10/03/16 10/04/16 10/05/16 23:59 23:59 23:59 Weight 95.9 kg 96.4 kg 96.9 kg - Physical Examination General: Conversant, No Apparent Distress Neck: No JVD, Normal carotid pulses Cardiac: Reg Rate and Rhythm, Normal S1 and S2, No Murmur Incision: No signs of infection, Dry/intact dressing Chest tubes: Minimal drainage, Other (No air leak.) Lungs: Normal Breath Sounds, No Wheeze, Rales, Rhonchi Neuro: Alert and responsive, No focal deficits noted Vascular: Normal capillary refill Extremities: No Clubbing, No Cyanosis, No Edema - Labs 10/05/16 04:20 10/05/16 04:20 Lab Results, Last 24 hours 10/05/16 10/05/16 04:20 04:20 WBC 2.6 L Hgb 6.9 L Hct 22.7 L Plt Count 217 Sodium 133 L Potassium 3.2 L Chloride 100 Carbon Dioxide 27 BUN 14 Creatinine 0.94 Glucose 197 H Calcium 8.6 Magnesium 1.5 L - Imaging Chest Xray: image reviewed (Mild cardiomegaly. Mild pulmonary edema.) - VTE Documentation of Mechanical Device: Intermittent pneumatic compression device Consult Discharge Plan - Plan Referrals: Tayo Hudson DO [Primary Care Provider] -
[2016-10-05] MEDS: *HR* SitaGLIPtin 100 MG TABLET PO SCH (07:53)
[2016-10-05] MEDS: Furosemide 40 MG TABLET PO SCH (07:53)
[2016-10-05] MEDS: Diltiazem CD (24hr) 180 MG CAPSULE PO SCH (07:53)
[2016-10-05] MEDS: Insulin LISPRO 300 UNITS/3 ML VIAL SQ SCH ×3 (07:53→16:39)
[2016-10-05] MEDS: *HR* Glimepiride 4 MG TABLET PO SCH (07:53)
[2016-10-05] MEDS ORDERED: 0.9 % Sodium Chloride 250 ML ONE (12:05)
[2016-10-05] MEDS ORDERED: Furosemide 20 MG/2 ML VIAL IVP ONE (12:34)
--- NOTE | 2016-10-05 13:42 | Discharge Summary ---
Date of Encounter: 10/05/16 Time of Encounter: 13:38 - Discharge Diagnosis (1) Pericardial effusion Priority: Primary Status: Acute (2) Pleural effusion Priority: Primary Status: Acute (3) Atrial fibrillation Priority: Secondary Status: Chronic Qualifiers: Atrial fibrillation type: persistent Qualified Code(s): I48.1 - Persistent atrial fibrillation (4) Elevated troponin Priority: Secondary Status: Acute (5) Lung cancer Priority: Secondary Status: Chronic Qualifiers: Laterality: left Lung location: upper lobe of lung Qualified Code(s): C34.12 - Malignant neoplasm of upper lobe, left bronchus or lung (6) Essential hypertension Priority: Secondary Status: Chronic (7) Diabetes mellitus, type 2 Priority: Secondary Status: Chronic Qualifiers: Diabetes mellitus complication status: without complication 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 Qualified Code(s): E11.9 - Type 2 diabetes mellitus without complications - Discharge Medications Prescriptions: Oxycodone HCl/Acetaminophen [Percocet 5-325 mg Tablet] 1 each PO Q6H PRN #20 tablet PRN Reason: Pain Home Medications: Glimepiride [Amaryl] 4 mg PO BID 06/28/16 [History] Potassium Chloride [Klor-Con 10] 10 meq PO TID 06/28/16 [History] Simvastatin [Zocor] 5 mg PO HS 06/28/16 [History] SitaGLIPtin [Januvia] 100 mg PO DAILY 07/31/16 [History] Albuterol Sulfate [Albuterol Inhaler] 2 puff IH Q6H PRN 08/07/16 [History] Magic Mouthwash [Magic Mouthwash BLM] 10 ml PO QID PRN #240 ml 08/07/16 [Rx] Prochlorperazine Maleate [Compazine] 10 mg PO Q8HR PRN #90 tablet 08/07/16 [Rx] Loperamide [Imodium] 2 mg PO TID PRN #90 capsule 08/20/16 [Rx] Ondansetron [Zofran] 4 mg PO Q8HR PRN #90 tablet 08/20/16 [Rx] Omeprazole [PriLOSEC] 40 mg PO DAILY #30 cap 08/27/16 [Rx] Lidocaine/Prilocaine CREAM [Emla] 1 appl TP ONCE PRN 09/02/16 [History] Diltiazem CD (24hr) [Cardizem CD] 180 mg PO DAILY #30 cap.er.24h 09/04/16 [Rx] Acetaminophen [Tylenol] 650 mg PO Q6HR PRN tab 09/11/16 [Rx] Losartan [Cozaar] 12.5 mg PO DAILY #30 tab 09/11/16 [Rx] Furosemide [Lasix] 40 mg PO DAILY 09/29/16 [History] Bed - Hospital [Hospital Bed] 1 each .ROUTE AD #1 each 10/02/16 [Rx] Oxycodone HCl/Acetaminophen [Percocet 5-325 mg Tablet] 1 each PO Q6H PRN #20 tablet 10/05/16 [Rx] Allergies/Adverse Reactions: Allergies Penicillins Allergy (Verified 09/29/16 12:19) Rash vancomycin Allergy (Verified 09/29/16 12:19) Rash aspirin Adverse Reaction (Verified 09/29/16 12:19) Gastrointestinal Upset Hydromorphone [From Dilaudid] Adverse Reaction (Verified 09/29/16 12:19) Confusion meperidine [From Demerol] Adverse Reaction (Verified 09/29/16 12:19) Confusion Date of admission: 09/29/16 18:03 Primary care physician: Tayo Hudson - Patient Status Disposition: Home, Self-Care Condition: Good Overall status at discharge: patient is back to baseline - Discharge Instructions Follow Up With: Tayo Hudson DO [Primary Care Provider] - - Diet and Activity Activity: increase activity as tolerated Diet: low salt diet Hospital course: Ms. Hernandez is a 76 year old female with PMH lung cancer- active chemo therapy, Chronic anemia, a-fib, and HTN who presented to [facility] on 09/29/2016 with complaints of shortness of breath. She was found to have a large pericardial effusion and moderate pleural effusion. Pt had Subxiphoid pericardial window, Left chest tube placed on 10/01/16. Pt's SOB improved. s/p Pericardial window - removed 550 ml of serosanguineous fluid and s/p Left thoracotomy -drained approximately 700 cc of yellow turbid fluid from the left pleural space. Her chest tubes got removed by CTS on 10/05/16. Since then no more CP/ SOB. Tolerating PO intake well. Heme Onc did f/u on this pt here, recommend to held her anticoag Eliquis until she sees them as an out pt for further evaluation regarding her chemotherapy. She happened to have Hb at 6.9 today, mostly due to her Lung cancer, no signs of active bleeding. She received 2 U of RPBC before she gets discharged home safely today. - Time Spent with Patient Total time spent providing and/or coordinating discharge services: - Constitutional Vitals: Temp Pulse Resp BP Pulse Ox 98.7 F 87 18 112/46 94 10/05/16 12:45 10/05/16 12:45 10/05/16 12:45 10/05/16 12:45 10/05/16 12:45 General appearance: Present: A&O X 3, no acute distress, obese - Head Head exam: Present: atraumatic, normal inspection - Respiratory Respiratory exam: Present: decreased breath sounds, wheezes. Absent: rales, respiratory distress, rhonchi - Cardiovascular Cardiovascular exam: Present: irregular rhythm, +S1, +S2. Absent: systolic murmur - GI/Abdominal GI/Abdominal exam: Present: normal bowel sounds, soft. Absent: distended, rebound, tenderness - Extremities Exam Extremities exam: Present: pedal edema. Absent: calf tenderness, tenderness - Neurological Exam Neurological exam: Present: alert, oriented X3 - Psychiatric Psychiatric exam: Present: normal affect, normal mood - VTE Documentation of Mechanical Device: Intermittent pneumatic compression device
[2016-10-05 17:16] VITALS: BP 112/62
== END 2016-10-05 17:57 | disposition home or self-care (01) | DRG 271 ==
LOC: 2NNU 12:15 → EMEROO 12:15 → 2NNU 18:28 → ICNU 10-01 09:00 → 2NNU 10-02 18:37
PROVIDERS: ADMIT Internal Medicine; ATTEND Internal Medicine

== ENCOUNTER 2016-12-10 12:43 | Inpatient (IN) ==
[2016-12-10 14:56] LABS: Hematocrit 28.9 % (35.3-44.9); Hemoglobin 9.7 g/dL (11.5-15.4); Lymphocytes # 0.6 K/mcL (0.6-4.6); Mean Corpuscular HGB Conc 33.6 g/dL (31.6-35.5); Mean Corpuscular Hemoglobin 30.5 pg (28.0-33.3); Mean Corpuscular Volume 90.9 fL (83.0-100.0); Mean Platelet Volume 10.6 fL (9.4-12.4); Monocytes # 0.6 K/mcL (0.0-1.3); Red Blood Count 3.18 M/mcL (3.82-4.97); Red Cell Distribution Width 18.8 % (11.5-14.5)
[2016-12-10] MEDS ORDERED: 0.9 % Sodium Chloride 1,000 ML IVC SCH (15:00)
[2016-12-10 15:03] LABS: Platelet Count 65 K/mcL (140-400)
[2016-12-10 15:06] LABS: BUN/Creatinine Ratio 21 (6-26); Blood Urea Nitrogen 14 mg/dL (7-20); Calcium 8.5 mg/dL (8.6-10.8); Carbon Dioxide 28 mEq/L (19-29); Chloride 99 mEq/L (98-109); Glucose 119 mg/dL (70-99); Osmolality,Calculated 282 (280-300); Sodium 135 mEq/L (136-145); eGFR For African Americans > 60 (> 60); eGFR For Non-African Americans > 60 (> 60)
[2016-12-10] MEDS ORDERED: *HR* OxyCODONE/APAP 5/325 TABLET PO ONE (15:12)
[2016-12-10 15:16] LABS: Neutrophils # 0.5 K/mcL (1.6-8.9); Platelet Estimate Decreased (Normal); Toxic Granulation Present (Not Present)
[2016-12-10 15:17] LABS: Dohle Bodies Present (Not Present)
--- NOTE | 2016-12-10 15:48 | Emergency Department Note ---
Disposition Clinical Impression: HCAP (healthcare-associated pneumonia), Lung mass, Pancytopenia Disposition: Admitted As Inpatient Condition: Fair Referrals: Tayo Hudson DO [Primary Care Provider] - General Adult HPI - General Chief complaint: ED Chest Pain Stated complaint: nausea, high hr, from [facility] Time Seen by Provider: 12/10/16 14:45 Source: patient, family Limitations: no limitations Nursing Notes Reviewed: Yes Vital Signs Reviewed: Yes - History of Present Illness HPI Narrative: Patient does have a history of lung cancer diagnosed in May and has gone through chemotherapy and radiation but no surgery. Most recent chemotherapy was 7 days ago. I did review the record that was documented when the patient was seen today by oncology. The patient presents with anorexia and nausea and she did have coughing yesterday productive of brown sputum. Denies any fevers. She does have diarrhea. 2 with family. She did have an episode of nosebleed today when she had coughing. No sneezing. No fever or blurred vision. No blood in the urine or stool, bruising the skin, skin rash, pain or numbness of extremities. Social history: Stopped smoking in 2003, no alcohol Pain Scale: 5 - Related Data Home Medications Medication Instructions Recorded Confirmed Simvastatin [Zocor] 5 mg PO HS 06/28/16 12/10/16 SitaGLIPtin [Januvia] 100 mg PO DAILY 07/31/16 12/10/16 Albuterol Sulfate [Albuterol 2 puff IH Q6H PRN 08/07/16 12/10/16 Inhaler] Lidocaine/Prilocaine CREAM [Emla] 1 appl TP ONCE PRN 09/02/16 12/10/16 Glimepiride [Amaryl] 4 mg PO DAILY 12/10/16 12/10/16 Potassium Chloride [K-Tab ER] 20 meq PO BID 12/10/16 12/10/16 Previous Rx's Medication Instructions Recorded Magic Mouthwash [Magic Mouthwash 10 ml PO QID PRN #240 ml 08/07/16 BLM] Prochlorperazine Maleate 10 mg PO Q8HR PRN #90 tablet 08/07/16 [Compazine] Loperamide [Imodium] 2 mg PO TID PRN #90 capsule 08/20/16 Ondansetron [Zofran] 4 mg PO Q8HR PRN #90 tablet 08/20/16 Omeprazole [PriLOSEC] 40 mg PO DAILY #30 cap 08/27/16 Diltiazem CD (24hr) [Cardizem CD] 180 mg PO DAILY #30 cap.er.24h 09/04/16 Losartan [Cozaar] 12.5 mg PO DAILY #30 tab 09/11/16 Dexamethasone [Decadron] 4 mg PO BID #12 tab 11/24/16 Furosemide [Lasix] 20 mg PO DAILY #20 tablet 11/24/16 OxyCODONE/APAP 5/325 [Percocet 1 each PO Q12H PRN #60 tablet 12/10/16 5/325 MG] Allergies Allergy/AdvReac Type Severity Reaction Status Date / Time Penicillins Allergy Rash Verified 12/10/16 12:49 vancomycin Allergy Rash Verified 12/10/16 12:49 aspirin AdvReac Gastrointestinal Verified 12/10/16 12:49 Upset Hydromorphone [From Dilaudid] AdvReac Confusion Verified 12/10/16 12:49 meperidine [From Demerol] AdvReac Confusion Verified 12/10/16 12:49 Review of Systems: refer to history of present illness Past Medical History - Past Medical History Medical history: Reports: aortic aneurysm, atrial fibrillation, cancer, COPD, diabetes, hyperlipidemia, hypertension Surgical history: Reports: cholecystectomy, hysterectomy, knee replacement ( Right total knee replacement.), other (A-port placement) Psychiatric history: Reports: no psych history - Social History Smoking Status: Former smoker Smokeless Tobacco Status: No Alcohol use: Reports: none Drug use: Reports: none Physical Exam CONSTITUTIONAL: Alert and oriented X3, well-nourished, well appearing, in no apparent distress HEAD: Normocephalic; atraumatic. EYES: PERRL, no scleral icterus. NOSE: The nose is normal in appearance without rhinorrhea RESP: Normal chest excursion with respiration; breath sounds clear and equal bilaterally; no wheezes, rhonchi, or rales CARD: Regular rhythm, without murmurs, rub or gallop ABD: Non-distended; non-tender, soft,without rigidity, rebound or guarding SKIN: Normal for age and race; warm and dry; no apparent lesions . - General Limitations: no limitations General appearance: alert, in no apparent distress Course Vital Signs Temperature 98.2 F 12/10/16 12:46 Pulse Rate 125 12/10/16 12:46 Respiratory Rate 20 12/10/16 12:46 Blood Pressure 118/59 12/10/16 12:46 O2 Sat by Pulse Oximetry 98 12/10/16 12:46 Temperature 98.2 F 12/10/16 12:46 Pulse Rate 125 12/10/16 12:46 Respiratory Rate 20 12/10/16 12:46 Blood Pressure 118/59 12/10/16 12:46 O2 Sat by Pulse Oximetry 98 12/10/16 12:46 Oxygen Delivery Oxygen Delivery Room Air Medical Decision Making - MDM Narrative Medical decision making narrative: Patient does have neutropenia and pneumonia will be started on cefepime and Levaquin and be admitted to the hospital. The hospitalist is paged. Lactate is minimally elevated 2.1. Blood cultures are pending. 1548 - Medical Records Medical records reviewed: Yes I reviewed the patient's medical records. - Lab Data Lab results reviewed: Yes I reviewed the patient's lab results. Result diagrams: 12/10/16 14:48 12/10/16 14:48 Lab Results 12/10/16 12/10/16 12/10/16 Range/Units 14:48 14:48 14:48 WBC 1.7 L D (4.3-11.1) K/mcL RBC 3.18 L (3.82-4.97) M/mcL Hgb 9.7 L (11.5-15.4) g/dL Hct 28.9 L (35.3-44.9) % MCV 90.9 (83.0-100.0) fL MCH 30.5 (28.0-33.3) pg MCHC 33.6 (31.6-35.5) g/dL RDW 18.8 H (11.5-14.5) % Plt Count 65 L (140-400) K/mcL MPV 10.6 (9.4-12.4) fL Seg Neutrophils % 18.0 % Band Neutrophils % 10.0 H (0-4) % Lymphocytes % 36.0 % Monocytes % 36.0 % Neutrophils # 0.5 L (1.6-8.9) K/mcL Lymphocytes # 0.6 (0.6-4.6) K/mcL Monocytes # 0.6 (0.0-1.3) K/mcL Toxic Granulation Present A (Not Present) Dohle Bodies Present A (Not Present) Platelet Estimate Decreased L (Normal) Sodium 135 L (136-145) mEq/L Potassium 3.0 L (3.5-4.5) mEq/L Chloride 99 (98-109) mEq/L Carbon Dioxide 28 (19-29) mEq/L BUN 14 (7-20) mg/dL Creatinine 0.66 (0.57-1.11) mg/dL Est GFR ( Amer) > 60 (> 60) Est GFR (Non-Af Amer) > 60 (> 60) BUN/Creatinine Ratio 21 (6-26) Glucose 119 H (70-99) mg/dL Calculated Osmolality 282 (280-300) Calcium 8.5 L (8.6-10.8) mg/dL Troponin I 0.00 (0-0.03) ng/mL - Radiology Data Radiology results reviewed: Yes I reviewed the patient's radiology results.
[2016-12-10 18:38] LABS: Bilirubin,Urine Negative (Negative); Blood,Urine Negative (Negative); Clarity,Urine Clear (Clear); Color,Urine Yellow (Yellow); Glucose,Urine (UA) Normal (Normal); Ketones,Urine Negative (Negative); Leukocyte Esterase,Urine Negative (Negative); Nitrite,Urine Negative (Negative); PH,Urine 6.5 pH Units (5.0-8.0); Protein,Urine Negative (Neg-Trace); Specific Gravity,Urine 1.014 (1.010-1.025); Urobilinogen,Urine Normal (Normal)
[2016-12-10] MEDS ORDERED: 0.9 % Sodium Chloride 1,000 ML IVC ONE (19:45)
[2016-12-10] MEDS ORDERED: Acetaminophen 325 MG TABLET PO PRN (19:57)
[2016-12-10] MEDS ORDERED: Naloxone 0.4 MG/ML INJ IVP PRN (19:57)
[2016-12-10] MEDS ORDERED: Metoclopramide 10 MG/2 ML VIAL IVP PRN (20:00)
[2016-12-10] MEDS ORDERED: D5% in Water 1,000 ML IVC PRN (20:01)
[2016-12-10] MEDS ORDERED: Dextrose Gel 15 GM PO PRN ×2 (20:01)
[2016-12-10] MEDS ORDERED: *HR* Dextrose 50 % in Water (Syg) 50 ML SYRINGE IVP PRN (20:01)
[2016-12-10] MEDS ORDERED: Potassium Chloride Elixir 20 MEQ/15 ML UDC PO ONE (20:25)
[2016-12-10] MEDS: *HR* Heparin 5,000 UNIT/ML VIAL SQ SCH (21:16)
--- NOTE | 2016-12-10 22:46 | Internal Med History&Physical ---
<Mitesh Trejo - Last Filed: 12/11/16 00:22> Date of Encounter: 12/11/16 Time of Encounter: 21:00 Assessment and Plan (1) Nausea and vomiting Current visit: No Status: Acute Patient initially presented to the hospital with nausea and vomiting. -Her illness is likely a result of her chemotherapy treatment. -Patient on Reglan, which seems to help. Qualifiers: Vomiting type: unspecified Vomiting Intractability: non-intractable Qualified Code(s): R11.2 - Nausea with vomiting, unspecified (2) Pancytopenia Current visit: Yes Status: Acute Patient's white count is 1.7, her hemoglobin was 9.6, platelet count 65. -Patient's pancytopenia is likely a result of her chemotherapy treatments. (3) Lung cancer Current visit: No Status: Chronic Patient has a known history of lung cancer. -Patient was diagnosed in May. -Patient has had a number of radiation and chemotherapy treatments. -Patient's last chemotherapy treatment was expected to elicit a response like the patient has, because her dose was increased. -Patient was warned beforehand that this chemotherapy dose was going to be more serious than normal. -Patient has one more chemotherapy dose scheduled. Qualifiers: Laterality: left Lung location: upper lobe of lung Qualified Code(s): C34.12 - Malignant neoplasm of upper lobe, left bronchus or lung (4) DVT prophylaxis Current visit: No Status: Acute Heparin 5000 subcutaneous Internal Medicine - H&P: HPI Admitted From: Home History of present illness: Ms. Hernandez is a 76 year old female with past medical history of lung cancer, aortic aneurysm, atrial fibrillation, cancer, COPD, diabetes, hyperlipidemia, and hypertension. Presented to the emergency department with the chief complaint of nausea, loss of appetite, and vomiting. Patient states that this happened after she received a chemotherapy treatment. Her last chemotherapy treatment was on . She was diagnosed with colon cancer in May and has gone through several radiation and chemotherapy treatments. She has 1 more chemotherapy treatment scheduled. The patient states that this particular episode of nausea and vomiting this more severe than what normally happens after she receives a chemotherapy treatment. Patient admitted to having a cough the day before her admission with productive brown sputum. She also states that she has some diarrhea. She currently denies any fever, chills, or chest pain. Past Med Surg Social Fam HX - Past Medical History Medical history: aortic aneurysm, atrial fibrillation, cancer, COPD, diabetes, hyperlipidemia, hypertension Psychiatric history: no psych history - Past Surgical History Surgical History: cholecystectomy, hysterectomy, knee replacement, other - Social History Smoking Status: Former smoker Smokeless Tobacco Status: No Alcohol use: none Drug use: none - Family History Mother Family Member Ethnicity: Non- Living Status: Hx Family Cardiac Disorders: No Hx Family Respiratory Disorders: No Hx Family Cancer: No Hx Family GI Disorders: No Hx Family Endocrine Disorder: No Hx Family Neuromuscular Disorders: No Hx Family Neurologic Disorders: No Hx Family HEENT Disorders: No Hx Family Autoimmune Disorders: No Internal Medicine - H&P: Meds Simvastatin [Zocor] 5 mg PO HS 06/28/16 [History] SitaGLIPtin [Januvia] 100 mg PO DAILY 07/31/16 [History] Albuterol Sulfate [Albuterol Inhaler] 2 puff IH Q6H PRN 08/07/16 [History] Magic Mouthwash [Magic Mouthwash BLM] 10 ml PO QID PRN #240 ml 08/07/16 [Rx] Prochlorperazine Maleate [Compazine] 10 mg PO Q8HR PRN #90 tablet 08/07/16 [Rx] Loperamide [Imodium] 2 mg PO TID PRN #90 capsule 08/20/16 [Rx] Ondansetron [Zofran] 4 mg PO Q8HR PRN #90 tablet 08/20/16 [Rx] Omeprazole [PriLOSEC] 40 mg PO DAILY #30 cap 08/27/16 [Rx] Lidocaine/Prilocaine CREAM [Emla] 1 appl TP ONCE PRN 09/02/16 [History] Diltiazem CD (24hr) [Cardizem CD] 180 mg PO DAILY #30 cap.er.24h 09/04/16 [Rx] Losartan [Cozaar] 12.5 mg PO DAILY #30 tab 09/11/16 [Rx] Dexamethasone [Decadron] 4 mg PO BID #12 tab 11/24/16 [Rx] Furosemide [Lasix] 20 mg PO DAILY #20 tablet 11/24/16 [Rx] Glimepiride [Amaryl] 4 mg PO DAILY 12/10/16 [History] OxyCODONE/APAP 5/325 [Percocet 5/325 MG] 1 each PO Q12H PRN #60 tablet 12/10/16 [Rx] Potassium Chloride [K-Tab ER] 20 meq PO BID 12/10/16 [History] 3 Allergy/AdvReac Type Severity Reaction Status Date / Time Penicillins Allergy Rash Verified 12/10/16 12:49 vancomycin Allergy Rash Verified 12/10/16 12:49 aspirin AdvReac Gastrointestinal Verified 12/10/16 12:49 Upset Hydromorphone [From Dilaudid] AdvReac Confusion Verified 12/10/16 12:49 meperidine [From Demerol] AdvReac Confusion Verified 12/10/16 12:49 All Systems PM: A 10-system review of systems was performed and is negative for pertinent findings except as documented above in the HPI. - Constitutional Constitutional: anorexia, fatigue, weakness, no chills, no fever(s), no night sweats - Cardiovascular Cardiovascular ROS IM: no chest pain, no diaphoresis, no dyspnea, no lightheadedness, no palpitations, no syncope - Respiratory Respiratory: cough, excessive phlegm production, change in phlegm color, no wheezing - Gastrointestinal Gastrointestinal: nausea, vomiting, no abdominal pain, no diarrhea, no hematemesis, no hematochezia, no melena - Genitourinary Genitourinary: no change in urinary stream, no dysuria, no flank pain, no hematuria - Musculoskeletal Musculoskeletal ROS IM: no numbness, no tingling - Integumentary Integumentary IM: no rash, no unusual bruising - Neurological Neurological ROS: no confusion, no convulsions, no focal weakness, no numbness, no tingling, no tremor(s) - Constitutional Vitals: Temp Pulse Resp BP Pulse Ox 98.5 F 86 16 86/52 96 12/10/16 19:23 12/10/16 19:23 12/10/16 19:23 12/10/16 21:10 12/10/16 19:23 General appearance: Present: A&O X 3, answers questions appropriately - Head Head exam: Present: atraumatic, normal inspection, normocephalic - Neck Neck exam general surgery: Present: supple, trachea midline. Absent: lymphadenopathy - Respiratory Respiratory exam: Present: rales - Cardiovascular Cardiovascular exam: Present: +S1, +S2. Absent: diastolic murmur, gallop, systolic murmur - GI/Abdominal GI/Abdominal exam: Present: normal bowel sounds, soft, no peritoneal signs. Absent: distended, tenderness - Extremities Exam Extremities exam: Present: warm, radial pulses palpable and symmetrical - Skin Skin exam: Present: dry, intact Internal Med - H&P Results - Labs CBC & Chem 7: 12/10/16 14:48 12/10/16 14:48 Labs: Urine 12/10/16 Range/Units 18:23 Urine Color Yellow (Yellow) Urine Clarity Clear (Clear) Urine pH 6.5 (5.0-8.0) pH Units Ur Specific [place] 1.014 (1.010-1.025) Urine Protein Negative (Neg-Trace) mg/dL Urine Glucose (UA) Normal (Normal) mg/dL <TimothyshelleyRylan - Last Filed: 12/11/16 04:12> Date of Encounter: 12/10/16 Assessment and Plan (1) Hypokalemia Current visit: Yes Status: Acute Potassium of 3.0 was from GI loss and poor intake in the setting of gastroenteritis, will replace and follow BMP (2) GERD (gastroesophageal reflux disease) Current visit: Yes Status: Chronic Continue PPI Qualifiers: Esophagitis presence: without esophagitis Qualified Code(s): K21.9 - Gastro -esophageal reflux disease without esophagitis (3) Diabetes mellitus, type 2 Current visit: Yes Status: Chronic History of type II diabetes with A1c of 8.3% in 09/2016 on glimepiride and sitagliptin, we will hold both medications since she is NPO, will do sliding scale insulin with FS Q4H until she is able to tolerate diet at which point we will switch to ACHS and resume her home medications, hypoglycemia protocol ordered Qualifiers: Diabetes mellitus complication status: with neurologic complications Diabetes mellitus complication detail: with polyneuropathy Diabetes mellitus parts counterman insulin use: without parts counterman use Qualified Code(s): E11.42 - Type 2 diabetes mellitus with diabetic polyneuropathy (4) COPD (chronic obstructive pulmonary disease) Current visit: Yes Status: Chronic stable, will do PRN nebs Qualifiers: COPD type: emphysema Emphysema type: panlobular Qualified Code(s): J43.1 - Panlobular emphysema Internal Medicine - H&P: HPI History of present illness: Ms. Hernandez is a 76 year old female All Systems PM: A 10-system review of systems was performed and is negative for pertinent findings except as documented above in the HPI. - Constitutional Vitals: Temp Pulse Resp BP Pulse Ox 98.4 F 96 16 77/39 93 12/11/16 03:22 12/11/16 03:22 12/11/16 03:22 12/11/16 03:22 12/11/16 03:22 Internal Med - H&P Results - Labs CBC & Chem 7: 12/10/16 14:48 12/10/16 14:48 Labs: Urine 12/10/16 Range/Units 18:23 Urine Color Yellow (Yellow) Urine Clarity Clear (Clear) Urine pH 6.5 (5.0-8.0) pH Units Ur Specific [place] 1.014 (1.010-1.025) Urine Protein Negative (Neg-Trace) mg/dL Urine Glucose (UA) Normal (Normal) mg/dL - Diagnostic Studies Chest x-ray Status: image reviewed by me - Attending Attestation Correction; date of encounter was 12/10/16 and not 12/11/16, the error was electronic in nature I personally interviewed and examined this patient and my medical decision- making was reviewed with the Resident Physician. I agree with the documented findings, disposition and treatment plan as described except to the extent set forth above. Rylan Warner MD, MPH Hospitalist
[2016-12-10] MEDS: *HR* OxyCODONE/APAP 5/325 TABLET PO PRN (23:42)
[2016-12-10] MEDS: Magic Mouthwash 10 ML UD Cup PO SCH (23:47)
[2016-12-10] MEDS: Insulin LISPRO 300 UNITS/3 ML VIAL SQ SCH (23:50)
[2016-12-11] MEDS ORDERED: Ondansetron 4 MG/2 ML VIAL IVP SCH
[2016-12-11] MEDS: Insulin LISPRO 300 UNITS/3 ML VIAL SQ SCH ×5 (04:02→20:55)
[2016-12-11] MEDS ORDERED: Albuterol 2.5 MG/3 ML NEBULIZER IH PRN (04:04)
[2016-12-11] MEDS ORDERED: Magic Mouthwash 10 ML UD Cup PO PRN (04:05)
[2016-12-11 05:01] LABS: Nucleated Red Blood Cells 0.5 /100 WBC (0)
[2016-12-11 05:03] LABS: Basophils # 0.1 K/mcL (0.0-0.2); Basophils % 1.2 %; Eosinophils # 0.1 K/mcL (0.0-0.6); Eosinophils % 1.4 %; Hematocrit 29.7 % (35.3-44.9); Hemoglobin 9.8 g/dL (11.5-15.4); Immature Granulocytes % 1.4 % (0-4); Immature Platelets 7.3 % (1.1-6.1); Lymphocytes # 0.8 K/mcL (0.6-4.6); Lymphocytes % 18.5 %; Mean Corpuscular Hemoglobin 30.3 pg (28.0-33.3); Mean Platelet Volume 11.4 fL (9.4-12.4); Monocytes # 1.1 K/mcL (0.0-1.3); Red Blood Count 3.23 M/mcL (3.82-4.97); Red Cell Distribution Width 18.9 % (11.5-14.5); Segmented Neutrophils % 51.5 %
[2016-12-11 05:09] LABS: Neutrophils # 2.2 K/mcL (1.6-8.9); Platelet Count 74 K/mcL (140-400)
[2016-12-11 05:23] LABS: Alanine Aminotransferase 15 Units/L (0-55); Albumin 2.9 g/dL (3.5-5.0); Alkaline Phosphatase 74 Units/L (38-126); Aspartate Amino Transferase 12 Units/L (5-34); BUN/Creatinine Ratio 17 (6-26); Bilirubin,Total 0.7 mg/dL (0.2-1.2); Blood Urea Nitrogen 12 mg/dL (7-20); Calcium 8.5 mg/dL (8.6-10.8); Carbon Dioxide 25 mEq/L (19-29); Chloride 102 mEq/L (98-109); Dohle Bodies Present (Not Present); Globulin 2.8 g/dL (2.4-3.5); Glucose 97 mg/dL (70-99); Osmolality,Calculated 282 (280-300); Phosphorous 3.2 mg/dL (2.3-4.7); Platelet Estimate Decreased (Normal); Potassium 3.2 mEq/L (3.5-4.5); Sodium 136 mEq/L (136-145); Total Protein 5.7 g/dL (6.0-8.3); Toxic Granulation Present (Not Present); eGFR For African Americans > 60 (> 60); eGFR For Non-African Americans > 60 (> 60)
[2016-12-11 05:24] LABS: Anisocytosis 1+ (Not Present)
[2016-12-11] MEDS: *HR* Heparin 5,000 UNIT/ML VIAL SQ SCH ×3 (05:41→21:13)
[2016-12-11] MEDS ORDERED: Magnesium Sulfate 2 GM in D5% in Water 100 ML IVPB ONE (07:39)
[2016-12-11] MEDS: 0.9 % Sodium Chloride 1,000 ML IVC SCH (08:42)
[2016-12-11] MEDS: Diltiazem CD (24hr) 180 MG CAPSULE PO SCH (08:51)
[2016-12-11] MEDS: Magic Mouthwash 10 ML UD Cup PO SCH ×4 (08:52→21:13)
[2016-12-11] MEDS: *HR* SitaGLIPtin 100 MG TABLET PO SCH (08:58)
[2016-12-11] MEDS: *HR* OxyCODONE/APAP 5/325 TABLET PO PRN ×2 (12:33→23:49)
--- NOTE | 2016-12-11 12:33 | Internal Med Progress Note ---
Date of Encounter: 12/11/16 Time of Encounter: 10:05 - Assessment and plan (1) Nausea and vomiting Current Visit: Yes Status: Acute Assessment and plan: Pt presented to the ED with c/o n/v x 3 days prior to arrival. She is currently getting chemo for lung cancer and was told that this round was going to be worse due to it being stronger. She normally takes Compazine and Zofran at home , is doing well with Reglan here. Will continue as long as it is working. Pt is able to tolerate ice cream and jello with fruit. IVF at 75ml/hour. Abdomen is soft and non-tender to palpation, BS present. Qualifiers: Vomiting type: unspecified Vomiting Intractability: non-intractable Qualified Code(s): R11.2 - Nausea with vomiting, unspecified (2) Diarrhea Current Visit: Yes Status: Acute Assessment and plan: Pt has had several episodes of diarrhea today. She is requesting to wear Attends since she sometimes can't make it to the bathroom. Stool negative for C-diff, stool studies pending, have been collected. Abd is soft and non-tender, bowel sounds present. Immodium prn IVF at 75ml/hour. Pt is able to tolerate jello with fruit and ice cream, encourage po intake if tolerated. Qualifiers: Diarrhea type: functional diarrhea Qualified Code(s): K59.1 - Functional diarrhea (3) Pancytopenia Current Visit: Yes Status: Acute Assessment and plan: White count has increased to 4.2 since admission, hemoglobin is 9.8, platelet count of 74. All improved over admission. Pancytopenia most likely due to chronic disease and chemotherapy, as well as radiation. Continue to monitor labs. (4) GERD (gastroesophageal reflux disease) Current Visit: Yes Status: Chronic Assessment and plan: Chronic. Continue home medications. Qualifiers: Esophagitis presence: without esophagitis Qualified Code(s): K21.9 - Gastro -esophageal reflux disease without esophagitis (5) Hypokalemia Current Visit: Yes Status: Acute Assessment and plan: On admission, potassium was 3.0. She was given supplementation rocío to 3.2. Magnesium is being corrected, as well. We will continue to monitor. (6) Lung cancer Current Visit: Yes Status: Acute Assessment and plan: Patient diagnosed with lung cancer in May. She has undergone radiation and chemotherapy. Chemotherapy treatment was last done last . She normally has nausea and vomiting after treatment, however this time was worse than normal. Patient will follow-up with oncology outpatient for continued treatment and assessment for lung cancer. Qualifiers: Laterality: left Lung location: upper lobe of lung Qualified Code(s): C34.12 - Malignant neoplasm of upper lobe, left bronchus or lung (7) Essential hypertension Current Visit: Yes Status: Chronic Assessment and plan: Patient's vital signs have been stable, blood pressure is within normal limits. Continue to monitor vital signs. Hydralazine 10 mg IV push as needed for systolic blood pressure greater than 180mmhg. Continue home medications. (8) Diabetes mellitus, type 2 Current Visit: Yes Status: Chronic Assessment and plan: Patient's hemoglobin A1c was 7.3% in September. Due to nausea and vomiting, patient has not been able to keep medications down. Continue Accu-Cheks before meals at bedtime Continue sliding scale insulin once patient is able to tolerate foods. Diabetic diet once patient is able to tolerate foods. Qualifiers: Diabetes mellitus complication status: with neurologic complications Diabetes mellitus complication detail: with polyneuropathy Diabetes mellitus intermodal dispatcher insulin use: without intermodal dispatcher use Qualified Code(s): E11.42 - Type 2 diabetes mellitus with diabetic polyneuropathy (9) DVT prophylaxis Current Visit: Yes Status: Acute Assessment and plan: Heparin subcutaneous - Time Spent With Patient less than 15 minutes - Subjective Interval history: Pt was seen and assessed at 1005 a.m. Pt states that she is not feeling any better today. She states that this round of chemo has been really hard on her. Immodium requested for diarrhea. Reports adequate relief with Reglan. Denies headache, blurred vision, SOB, ADAMS, chest pain or tightness, dizziness, near syncope, or lightheadedness. Pt needs another day of IV hydration, antiemetics, and monitoring of labs before discharge. - Constitutional Vitals: Temp Pulse Resp BP Pulse Ox 97.6 F 97 18 101/46 99 12/11/16 11:16 12/11/16 11:16 12/11/16 11:16 12/11/16 11:16 12/11/16 11:16 General appearance: Present: cooperative, mild distress, A&O X 3, pleasant, answers questions appropriately - Head Head exam: Present: atraumatic, normal inspection, normocephalic - Eye Eye exam: Present: normal appearance, conjuntiva pink, sclera anicteric - Neck Neck exam general surgery: Present: normal inspection, supple, trachea midline. Absent: lymphadenopathy, tenderness - Respiratory Respiratory exam: Present: CTAB. Absent: accessory muscle use, chest wall tenderness, decreased breath sounds, rales, respiratory distress, rhonchi, wheezes - Cardiovascular Cardiovascular exam: Present: RRR, +S1, +S2, tachycardia. Absent: diastolic murmur, gallop, rubs, systolic murmur - GI/Abdominal GI/Abdominal exam: Present: normal bowel sounds, soft, no peritoneal signs. Absent: distended, hernia, hepatomegaly, tenderness - Extremities Exam Extremities exam: Present: normal capillary refill, normal inspection, warm, radial pulses palpable and symmetrical. Absent: calf tenderness, cyanotic, pedal edema, tenderness - Neurological Exam Neurological exam: Present: alert, oriented X3, no focal deficits. Absent: facial droop, speech deficit - Skin Skin exam: Present: dry, intact, normal color, warm. Absent: rash Internal Medicine: Result - Labs CBC & Chem 7: 12/11/16 04:44 12/11/16 04:44 Labs: Short CBC 12/11/16 Range/Units 04:44 WBC 4.2 L D (4.3-11.1) K/mcL Hgb 9.8 L (11.5-15.4) g/dL Hct 29.7 L (35.3-44.9) % Plt Count 74 L (140-400) K/mcL Neutrophils # 2.2 (1.6-8.9) K/mcL BMP 12/11/16 04:44 Sodium 136 Potassium 3.2 L Chloride 102 Carbon Dioxide 25 BUN 12 Creatinine 0.69 Glucose 97 Calcium 8.5 L Liver Function 12/11/16 Range/Units 04:44 Total Bilirubin 0.7 (0.2-1.2) mg/dL AST 12 (5-34) Units/L ALT 15 (0-55) Units/L Alkaline Phosphatase 74 (38-126) Units/L Albumin 2.9 L (3.5-5.0) g/dL Urine 12/10/16 Range/Units 18:23 Urine Color Yellow (Yellow) Urine Clarity Clear (Clear) Urine pH 6.5 (5.0-8.0) pH Units Ur Specific [place] 1.014 (1.010-1.025) Urine Protein Negative (Neg-Trace) mg/dL Urine Glucose (UA) Normal (Normal) mg/dL Consult Discharge Plan - Plan Referrals: Tayo Hudson DO [Primary Care Provider] -
[2016-12-11 12:46] LABS: Adenovirus F 40/41 PCR Not detected (Not detect); Astrovirus PCR Not detected (Not detect); C.difficile Toxin A/B by PCR Not detected (Not detect); Campylobacter by PCR Not detected (Not detect); Cryptosporidium by PCR Not detected (Not detect); Cyclospora cayetanensis PCR Not detected (Not detect); E. coli O157 by PCR Not detected (Not detect); Entamoeba histolytica PCR Not detected (Not detect); Enteroaggregative E.coli(EAEC) Not detected (Not detect); Enteropathogenic E.coli(EPEC) Not detected (Not detect); Enterotoxigenic E.coli (ETEC) Not detected (Not detect); Giardia lamblia PCR Not detected (Not detect); Norovirus GI/GII PCR Not detected (Not detect); Plesiomonas shigelloides PCR Not detected (Not detect); Rotavirus A PCR Not detected (Not detect); Salmonella PCR Not detected (Not detect); Sapovirus PCR Not detected (Not detect); Shig/EnteroinvasiveE coli EIEC Not detected (Not detect); Shigalike tox-prod E coli STEC Not detected (Not detect); Vibrio PCR Not detected (Not detect); Vibrio cholerae PCR Not detected (Not detect); Yersinia enterocolitica PCR Not detected (Not detect)
--- NOTE | 2016-12-11 15:27 | Electrocardiograph Report ---
[address] [address] Test Date: 2016-12-10 Pat Name: Medina Hernandez Department: [id number] Room: 3B16 Gender: F Interpreter Translator: MANDO : 1940 Requested By: Florencio Thurston Order Number: [id number] Reading MD: Kana Andujar MD Measurements Intervals [place] Rate: 116 P: CT: 0 QRS: 101 QRSD: 60 T: 37 QT: 331 QTc: 400 Interpretive Statements ATRIAL FIBRILLATION WITH RAPID VENTRICULAR RESPONSE MARKED RIGHT AXIS DEVIATION LOW QRS VOLTAGE IN PRECORDIAL LEADS Electronically Signed On 12-11-2016 15:26:13 EDT by Kana Andujar MD
[2016-12-12] MEDS: *HR* Heparin 5,000 UNIT/ML VIAL SQ SCH ×2 (05:51→14:48)
[2016-12-12] MEDS: 0.9 % Sodium Chloride 1,000 ML IVC SCH ×2 (05:51→22:20)
[2016-12-12 06:48] LABS: Mean Platelet Volume 11.5 fL (9.4-12.4); Red Cell Distribution Width 19.2 % (11.5-14.5)
[2016-12-12 06:49] LABS: Hematocrit 25.2 % (35.3-44.9); Hemoglobin 8.1 g/dL (11.5-15.4); Mean Corpuscular HGB Conc 32.1 g/dL (31.6-35.5); Mean Corpuscular Hemoglobin 30.2 pg (28.0-33.3); Nucleated Red Blood Cells 0.7 /100 WBC (0); Red Blood Count 2.68 M/mcL (3.82-4.97)
[2016-12-12 06:52] LABS: Platelet Count 61 K/mcL (140-400)
[2016-12-12 06:53] LABS: BUN/Creatinine Ratio 13 (6-26); Blood Urea Nitrogen 9 mg/dL (7-20); Calcium 8.3 mg/dL (8.6-10.8); Carbon Dioxide 28 mEq/L (19-29); Chloride 103 mEq/L (98-109); Glucose 66 mg/dL (70-99); Osmolality,Calculated 283 (280-300); Potassium 3.3 mEq/L (3.5-4.5); Sodium 138 mEq/L (136-145); eGFR For African Americans > 60 (> 60); eGFR For Non-African Americans > 60 (> 60)
[2016-12-12 07:25] LABS: Magnesium 1.1 mg/dL (1.6-2.6)
[2016-12-12 07:26] LABS: Lymphocytes # 0.6 K/mcL (0.6-4.6); Monocytes # 0.8 K/mcL (0.0-1.3); Neutrophils # 4.3 K/mcL (1.6-8.9); Platelet Estimate Decreased (Normal); Polychromasia 1+ (Not Present)
[2016-12-12] MEDS ORDERED: Magnesium Sulfate 2 GM in D5% in Water 100 ML IVPB ONE (07:38)
[2016-12-12] MEDS: Insulin LISPRO 300 UNITS/3 ML VIAL SQ SCH ×4 (09:08→22:16)
[2016-12-12] MEDS: Magic Mouthwash 10 ML UD Cup PO SCH ×4 (09:18→22:16)
[2016-12-12] MEDS: *HR* SitaGLIPtin 100 MG TABLET PO SCH (09:18)
[2016-12-12] MEDS: Diltiazem CD (24hr) 180 MG CAPSULE PO SCH (09:20)
[2016-12-12] MEDS: *HR* OxyCODONE/APAP 5/325 TABLET PO PRN (16:18)
--- NOTE | 2016-12-12 18:41 | Discharge Summary ---
Date of Encounter: 12/12/16 Time of Encounter: 07:55 - Discharge Diagnosis (1) Nausea and vomiting Priority: Primary Status: Acute Comments: Pt presented to the ED with c/o n/v x 3 days prior to arrival. She is currently getting chemo for lung cancer and was told that this round was going to be worse due to it being stronger. She normally takes Compazine and Zofran at home , is doing well with Reglan here. Will continue as long as it is working. Pt is able to tolerate ice cream and jello with fruit. IVF at 75ml/hour. Abdomen is soft and non-tender to palpation, BS present. Pt reports today that nausea and vomiting have resolved. She states that Reglan has been helpful. She also states that she has a prescription at home and will not need anymore. She appears to be euvolemic, and her magnesium and potassium have returned within normal limits. Blood pressure is normal, pulses normal for patient. She has been able to tolerate food and fluid. She is stable for discharge. Qualifiers: Vomiting type: unspecified Vomiting Intractability: non-intractable Qualified Code(s): R11.2 - Nausea with vomiting, unspecified (2) Diarrhea Priority: Secondary Status: Acute Comments: Pt had several episodes of diarrhea yesterday, reports improvement with Imodium today. She is requesting to wear Attends since she sometimes can't make it to the bathroom. Stool negative for C-diff, stool studies negative. Stool occult blood was positive. Abd is soft and non-tender, bowel sounds present. Immodium prn IVF at 75ml/hour. Pt is able to tolerate jello with fruit and ice cream, encourage po intake if tolerated. Qualifiers: Diarrhea type: functional diarrhea Qualified Code(s): K59.1 - Functional diarrhea (3) Pancytopenia Priority: Secondary Status: Acute Comments: White blood cell count has returned to normal today. Hemoglobin dropped to 8.1. Platelet count decreased at 61. Pancytopenia most likely due to chronic disease and chemotherapy, as well as radiation. We will continue to monitor. (4) GERD (gastroesophageal reflux disease) Priority: Secondary Status: Chronic Comments: Chronic. Continue home medications. Patient denies esophagitis. Qualifiers: Esophagitis presence: without esophagitis Qualified Code(s): K21.9 - Gastro -esophageal reflux disease without esophagitis (5) Hypokalemia Priority: Secondary Status: Acute Comments: Per family, patient is chronically hypokalemic since beginning chemotherapy. Patient is 3.3 now. Magnesium has been corrected. We will continue to monitor all labs, especially potassium and magnesium throughout visit. Patient takes potassium supplementation at home. She is also getting by mouth supplements here. We will most likely trend upwards once the diarrhea stops. (6) Lung cancer Priority: Secondary Status: Acute Comments: Patient diagnosed with lung cancer in May. She has undergone radiation and chemotherapy. Chemotherapy treatment was last done last . She normally has nausea and vomiting after treatment, however this time was worse than normal. Patient will follow-up with oncology outpatient for continued treatment and assessment for lung cancer. Qualifiers: Laterality: left Lung location: upper lobe of lung Qualified Code(s): C34.12 - Malignant neoplasm of upper lobe, left bronchus or lung (7) Essential hypertension Priority: Secondary Status: Chronic Comments: Patient has been slightly hypotensive at times today. She received a 250 mL bolus of 0.9 normal saline and blood pressure improved and is normotensive at this time. Continue to monitor vital signs. Patient has hydralazine 10 mg IV push as needed for systolic blood pressure greater than 180 mmhg. Continue home medications and monitor vital signs. (8) Diabetes mellitus, type 2 Priority: Secondary Status: Chronic Comments: Patient's hemoglobin A1c was 7.3% in September. Due to nausea and vomiting, patient has not been able to keep medications down. Continue Accu-Cheks before meals at bedtime Continue sliding scale insulin once patient is able to tolerate foods. Diabetic diet once patient is able to tolerate foods. Qualifiers: Diabetes mellitus complication status: with neurologic complications Diabetes mellitus complication detail: with polyneuropathy Diabetes mellitus longterm insulin use: without exterminator termite use Qualified Code(s): E11.42 - Type 2 diabetes mellitus with diabetic polyneuropathy (9) DVT prophylaxis Priority: Secondary Status: Acute Comments: Patient was receiving heparin subcutaneous. It has been stopped due worsening anemia and stool occult blood being positive. MATTI souza ordered. - Discharge Medications Home Medications: Simvastatin [Zocor] 5 mg PO HS 06/28/16 [History] SitaGLIPtin [Januvia] 100 mg PO DAILY 07/31/16 [History] Albuterol Sulfate [Albuterol Inhaler] 2 puff IH Q6H PRN 08/07/16 [History] Magic Mouthwash [Magic Mouthwash BLM] 10 ml PO QID PRN #240 ml 08/07/16 [Rx] Prochlorperazine Maleate [Compazine] 10 mg PO Q8HR PRN #90 tablet 08/07/16 [Rx] Loperamide [Imodium] 2 mg PO TID PRN #90 capsule 08/20/16 [Rx] Ondansetron [Zofran] 4 mg PO Q8HR PRN #90 tablet 08/20/16 [Rx] Omeprazole [PriLOSEC] 40 mg PO DAILY #30 cap 08/27/16 [Rx] Lidocaine/Prilocaine CREAM [Emla] 1 appl TP ONCE PRN 09/02/16 [History] Diltiazem CD (24hr) [Cardizem CD] 180 mg PO DAILY #30 cap.er.24h 09/04/16 [Rx] Losartan [Cozaar] 12.5 mg PO DAILY #30 tab 09/11/16 [Rx] Dexamethasone [Decadron] 4 mg PO BID #12 tab 11/24/16 [Rx] Furosemide [Lasix] 20 mg PO DAILY #20 tablet 11/24/16 [Rx] Glimepiride [Amaryl] 4 mg PO DAILY 12/10/16 [History] OxyCODONE/APAP 5/325 [Percocet 5/325 MG] 1 each PO Q12H PRN #60 tablet 12/10/16 [Rx] Potassium Chloride [K-Tab ER] 20 meq PO BID 12/10/16 [History] Calcium Carbonate [Tums] 1,000 mg PO QID tab.chew 12/12/16 [Rx] Allergies/Adverse Reactions: 3 Allergy/AdvReac Type Severity Reaction Status Date / Time Penicillins Allergy Rash Verified 12/10/16 12:49 vancomycin Allergy Rash Verified 12/10/16 12:49 aspirin AdvReac Gastrointestinal Verified 12/10/16 12:49 Upset Hydromorphone [From Dilaudid] AdvReac Confusion Verified 12/10/16 12:49 meperidine [From Demerol] AdvReac Confusion Verified 12/10/16 12:49 Date of admission: 12/10/16 16:46 Primary care physician: Tayo Burdick Discharging clinician: Reena Schneider Anticipated date of discharge: 12/12/16 - Patient Status Disposition: Home, Self-Care Condition: Good Functional capacity at discharge: independent ambulation Overall status at discharge: patient is progressing back to baseline - Discharge Instructions Follow Up With: Tayo Hudson, [Primary Care Provider] - - Diet and Activity Activity: increase activity as tolerated Diet: diabetic diet Hospital course: Ms. Hernandez is a 76 year old female with recent diagnosis of lung cancer. She also has history of hypertension, diabetes, hyperlipidemia, GERD, COPD, hypertension, and A. fib with RVR. She is currently undergoing chemotherapy for lung cancer. She was admitted for gastritis due to chemotherapy. Patient has had nausea, vomiting, and diarrhea. On discharge, patient reports that nausea and vomiting have resolved, she still having occasional, infrequent episodes of diarrhea that seems to be controlled by Imodium. Patient was going to be discharged this evening, however due to blood in her stool, she will need to stay. Oncology physician saw patient today and was aware of anemia and stated was okay for patient to go home, however I am not certain that she was aware of the positive occult blood stool. Patient denies need for prescription medications for nausea at home. She denies need for medication for pain control. Patient was mildly hypotensive, she recovered with a fluid bolus and has remained normotensive since. Patient has been mildly tachycardic, she states this is normal for her, and has been for years. She denies pain. Potassium has returned almost to normal, magnesium is back within normal limits. Patient will be stable and ready for discharge once hemoglobin has normalized. - Time Spent with Patient Total time spent providing and/or coordinating discharge services: Less than 30 minutes - Constitutional Vitals: Temp Pulse Resp BP Pulse Ox 98.4 F 105 16 109/71 92 12/12/16 15:09 12/12/16 15:09 12/12/16 15:09 12/12/16 15:09 12/12/16 15:09 General appearance: Present: cooperative, mild distress, A&O X 3, pleasant, answers questions appropriately - Head Head exam: Present: atraumatic, normal inspection, normocephalic - Eye Eye exam: Present: normal appearance, conjuntiva pink, sclera anicteric - Neck Neck exam general surgery: Present: normal inspection, supple, trachea midline. Absent: lymphadenopathy, tenderness - Respiratory Respiratory exam: Present: CTAB. Absent: accessory muscle use, rales, respiratory distress, rhonchi, wheezes - Cardiovascular Cardiovascular exam: Present: RRR, +S1, +S2. Absent: diastolic murmur, gallop, rubs, systolic murmur - GI/Abdominal GI/Abdominal exam: Present: normal bowel sounds, soft, no peritoneal signs. Absent: distended, hepatomegaly, tenderness - Extremities Exam Extremities exam: Present: normal capillary refill, normal inspection, warm, radial pulses palpable and symmetrical. Absent: calf tenderness, cyanotic, pedal edema, tenderness - Neurological Exam Neurological exam: Present: alert, oriented X3, no focal deficits. Absent: facial droop, speech deficit - Skin Skin exam: Present: dry, intact, normal color, warm. Absent: rash
[2016-12-12 19:14] LABS: Hematocrit 26.8 % (35.3-44.9); Hemoglobin 8.6 g/dL (11.5-15.4)
[2016-12-13] MEDS: *HR* OxyCODONE/APAP 5/325 TABLET PO PRN (03:35)
[2016-12-13 05:32] LABS: Eosinophils % 0.5 %; Hemoglobin 7.8 g/dL (11.5-15.4); Mean Platelet Volume 11.1 fL (9.4-12.4); Nucleated Red Blood Cells 0.7 /100 WBC (0); Red Cell Distribution Width 19.2 % (11.5-14.5)
[2016-12-13 05:34] LABS: Basophils % 0.7 %; Hematocrit 23.8 % (35.3-44.9); Immature Granulocytes % 5.4 % (0-4); Lymphocytes # 0.6 K/mcL (0.6-4.6); Lymphocytes % 9.8 %; Mean Corpuscular HGB Conc 32.8 g/dL (31.6-35.5); Mean Corpuscular Hemoglobin 31.1 pg (28.0-33.3); Mean Corpuscular Volume 94.8 fL (83.0-100.0); Monocytes # 0.8 K/mcL (0.0-1.3); Monocytes % 13.8 %; Neutrophils # 3.9 K/mcL (1.6-8.9); Platelet Count 63 K/mcL (140-400); Red Blood Count 2.51 M/mcL (3.82-4.97); Segmented Neutrophils % 69.8 %
[2016-12-13 05:46] LABS: BUN/Creatinine Ratio 10 (6-26); Blood Urea Nitrogen 7 mg/dL (7-20); Calcium 8.3 mg/dL (8.6-10.8); Carbon Dioxide 25 mEq/L (19-29); Chloride 104 mEq/L (98-109); Glucose 70 mg/dL (70-99); Osmolality,Calculated 284 (280-300); Sodium 139 mEq/L (136-145); eGFR For African Americans > 60 (> 60); eGFR For Non-African Americans > 60 (> 60)
[2016-12-13] MEDS: *HR* SitaGLIPtin 100 MG TABLET PO SCH (09:09)
[2016-12-13] MEDS: Magic Mouthwash 10 ML UD Cup PO SCH ×3 (09:09→17:34)
[2016-12-13] MEDS: Diltiazem CD (24hr) 180 MG CAPSULE PO SCH (09:09)
[2016-12-13] MEDS: Insulin LISPRO 300 UNITS/3 ML VIAL SQ SCH ×4 (09:11→20:47)
[2016-12-13] MEDS ORDERED: 0.9 % Sodium Chloride 250 ML ONE (11:49)
[2016-12-13] MEDS ORDERED: Potassium Effervescent 25 MEQ TABLET.EFF PO ONE (12:35)
--- NOTE | 2016-12-13 15:18 | Oncology Inp Progress Note ---
Date of Encounter: 12/12/16 Time of Encounter: 12:00 (1) Lung cancer Current Visit: Yes Status: Acute Assessment and plan: s/p chemo radiation--she was hopsitalized at that time and interrupted Rx recently s/p C1 conslidation dose reduced carbotaxol, seen in clinic with tachycardia, A fib, diarrhea, electrolyte imbalanvce D diff neg. She has been feeling well, family wants her home. Discussed with staff, she will be d/james when clinically stable F/U as outpt-with labs-anemia is multifactorial, FOB positive noted. Qualifiers: Laterality: left Lung location: upper lobe of lung Qualified Code(s): C34.12 - Malignant neoplasm of upper lobe, left bronchus or lung Oncology: Subj Interval history: PAtient resting bedside, denies complaints. Has cr diarrhea, C diff neg - Constitutional Vitals: Vital Signs Temp Pulse Resp BP Pulse Ox 12/13/16 14:57 97.9 F 80 16 124/75 97 12/13/16 12:09 98.1 F 16 101/53 96 12/13/16 11:54 98.1 F 99 16 115/55 12/13/16 11:40 98.7 F 109 18 111/77 100 12/13/16 08:31 98.4 F 95 18 110/68 96 12/13/16 03:11 98.2 F 97 15 95/52 95 12/12/16 23:24 98.0 F 87 16 104/64 96 12/12/16 19:09 97.6 F 95 15 104/52 97 Intake and Output 12/12/16 12/13/16 12/13/16 23:59 07:59 15:59 Intake Total 1540 / 1540 300 / 300 2300 / 2300 Output Total 0 / 0 800 / 800 Balance 1540 / 1540 -500 / -500 2300 / 2300 Intake: IV Fluids 1000 / 1000 0.9 % Sodium Chloride 1,000 ML 1000 / 1000 @ 50 mls/hr IVC .Q20H [facility] Rx#: [id number] Oral 540 / 540 300 / 300 800 / 800 Blood Product 1500 / 1500 Rbcs Leuko Poor As-1 Unit 1500 / 1500 [id number] Output: Urine 0 / 0 800 / 800 Other: Meal Dinner Lunch Percent of Meal Consumed 90% 100% Blood Glucose* 135 117 General appearance: obese - Head Head exam: Present: atraumatic, normal inspection - Eye Eye exam: Present: sclera anicteric - ENT ENT exam: Present: mucous membranes moist - Neck Neck exam: Present: full ROM - Respiratory Respiratory exam: Present: CTAB - Cardiovascular Cardiovascular exam: Present: +S1, +S2 - GI/Abdominal GI/Abdominal exam: Present: normal bowel sounds, soft - Extremities Exam Extremities exam: Present: pedal edema - Neurological Exam Neurological exam: Present: alert, CN II-XII intact, oriented X3 Oncology: Obj Data - Labs CBC & Chem 7: 12/13/16 02:55 12/13/16 02:55 Labs: Laboratory Results - last 24 hr 12/12/16 12/12/16 12/12/16 07:18 11:28 15:03 WBC RBC Hgb Hct MCV MCH MCHC RDW Plt Count MPV Immature Gran % Seg Neutrophils % Lymphocytes % Monocytes % Eosinophils % Basophils % Neutrophils # Lymphocytes # Monocytes # Eosinophils # Basophils # Nucleated RBCs/100 WBC Immature Plt Fraction Sodium Potassium Chloride Carbon Dioxide BUN Creatinine Est GFR ( Amer) Est GFR (Non-Af Amer) BUN/Creatinine Ratio Glucose POC Glucose 82 121 H Calculated Osmolality Calcium Magnesium 1.6 Stool Occult Blood Blood Type Antibody Screen Crossmatch 12/12/16 12/12/16 12/12/16 16:42 19:00 19:00 WBC RBC Hgb 8.6 L Hct 26.8 L MCV MCH MCHC RDW Plt Count MPV Immature Gran % Seg Neutrophils % Lymphocytes % Monocytes % Eosinophils % Basophils % Neutrophils # Lymphocytes # Monocytes # Eosinophils # Basophils # Nucleated RBCs/100 WBC Immature Plt Fraction Sodium Potassium Chloride Carbon Dioxide BUN Creatinine Est GFR ( Amer) Est GFR (Non-Af Amer) BUN/Creatinine Ratio Glucose POC Glucose 102 H Calculated Osmolality Calcium Magnesium Stool Occult Blood Blood Type A POSITIVE Antibody Screen NEGATIVE Crossmatch See Detail 12/12/16 12/13/16 12/13/16 19:43 02:55 02:55 WBC 5.6 RBC 2.51 L Hgb 7.8 L Hct 23.8 L MCV 94.8 MCH 31.1 MCHC 32.8 RDW 19.2 H Plt Count 63 L MPV 11.1 Immature Gran % 5.4 H Seg Neutrophils % 69.8 Lymphocytes % 9.8 Monocytes % 13.8 Eosinophils % 0.5 Basophils % 0.7 Neutrophils # 3.9 Lymphocytes # 0.6 Monocytes # 0.8 Eosinophils # 0.0 Basophils # 0.0 Nucleated RBCs/100 WBC 0.7 H Immature Plt Fraction 10.0 H Sodium 139 Potassium 3.0 L Chloride 104 Carbon Dioxide 25 BUN 7 Creatinine 0.67 Est GFR ( Amer) > 60 Est GFR (Non-Af Amer) > 60 BUN/Creatinine Ratio 10 Glucose 70 POC Glucose 135 H Calculated Osmolality 284 Calcium 8.3 L Magnesium Stool Occult Blood Blood Type Antibody Screen Crossmatch 12/13/16 11:25 WBC RBC Hgb Hct MCV MCH MCHC RDW Plt Count MPV Immature Gran % Seg Neutrophils % Lymphocytes % Monocytes % Eosinophils % Basophils % Neutrophils # Lymphocytes # Monocytes # Eosinophils # Basophils # Nucleated RBCs/100 WBC Immature Plt Fraction Sodium Potassium Chloride Carbon Dioxide BUN Creatinine Est GFR ( Amer) Est GFR (Non-Af Amer) BUN/Creatinine Ratio Glucose POC Glucose Calculated Osmolality Calcium Magnesium Stool Occult Blood Positive A Blood Type Antibody Screen Crossmatch Consult Discharge Plan - Plan Referrals: Tayo Hudson DO [Primary Care Provider] -
--- NOTE | 2016-12-13 17:10 | Internal Med Progress Note ---
Date of Encounter: 12/13/16 Time of Encounter: 10:50 - Assessment and plan (1) Nausea and vomiting Current Visit: Yes Status: Acute Assessment and plan: Patient denies nausea or vomiting today. Qualifiers: Vomiting type: unspecified Vomiting Intractability: non-intractable Qualified Code(s): R11.2 - Nausea with vomiting, unspecified (2) Diarrhea Current Visit: Yes Status: Acute Assessment and plan: Pt has had several episodes of diarrhea daily for the last week. Stool negative for C-diff, stool studies are negative. Abd is soft and non-tender, bowel sounds present. Immodium prn IVF at 75ml/hour. Qualifiers: Diarrhea type: functional diarrhea Qualified Code(s): K59.1 - Functional diarrhea (3) Pancytopenia Current Visit: Yes Status: Acute Assessment and plan: White count has increased to 5.6 since admission, hemoglobin was 7.8 this morning , platelet count of 63. All improved over admission. Pancytopenia most likely due to chronic disease and chemotherapy, as well as radiation. Continue to monitor labs. Heparin for DVT prophylaxis has been stopped. Patient received a transfusion of 1 unit PRBCs today. She has had 2 positive stool occult blood test. I have consulted Dr. Thibodeaux for possible scope, she will be seen tomorrow. I also spoke with oncology director of reservations, Dr. Mays, who is in agreement with consult cardiology for tachycardia, as well as consult with Dr. Thibodeaux for scope. Continue to monitor labs (4) GERD (gastroesophageal reflux disease) Current Visit: Yes Status: Chronic Assessment and plan: Chronic. Continue home medications. Qualifiers: Esophagitis presence: without esophagitis Qualified Code(s): K21.9 - Gastro -esophageal reflux disease without esophagitis (5) Hypokalemia Current Visit: Yes Status: Acute Assessment and plan: Patient is chronically hypokalemic. She takes supplements at home. She was to have a K rider today, however it is not hungry early and often interfered with the blood. She received 50 mEq of potassium effervescent supplement. Will continue to check labs daily. Supplement as needed. (6) Lung cancer Current Visit: Yes Status: Acute Assessment and plan: Patient diagnosed with lung cancer in May. She has undergone radiation and chemotherapy. Chemotherapy treatment was last done last . She normally has nausea and vomiting after treatment, however this time was worse than normal. Patient will follow-up with oncology outpatient for continued treatment and assessment for lung cancer. Qualifiers: Laterality: left Lung location: upper lobe of lung Qualified Code(s): C34.12 - Malignant neoplasm of upper lobe, left bronchus or lung (7) Essential hypertension Current Visit: Yes Status: Chronic Assessment and plan: Patient's vital signs have been stable, blood pressure is within normal limits. Continue to monitor vital signs. Hydralazine 10 mg IV push as needed for systolic blood pressure greater than 180mmhg. Continue home medications. Patient has had some hypotensive episodes as well during stay. She has had to have a couple of fluid boluses. We will continue to closely monitor her blood pressure. (8) Diabetes mellitus, type 2 Current Visit: Yes Status: Chronic Assessment and plan: Patient's hemoglobin A1c was 7.3% in September. Continue Accu-Cheks before meals at bedtime Continue sliding scale insulin once patient is able to tolerate foods. Diabetic diet once patient is able to tolerate foods. Qualifiers: Diabetes mellitus complication status: with neurologic complications Diabetes mellitus complication detail: with polyneuropathy Diabetes mellitus exterminator termite insulin use: without exterminator termite use Qualified Code(s): E11.42 - Type 2 diabetes mellitus with diabetic polyneuropathy (9) DVT prophylaxis Current Visit: Yes Status: Acute Assessment and plan: Heparin subcutaneous has been stopped. MATTI souza ordered. Patient up to chair. - Time Spent With Patient less than 15 minutes - Subjective Interval history: Pt was seen and assessed at 1050 a.m. Pt was held overnight due to worsening anemia, as well as positive stool occult Blood. A small morning patient's hemoglobin was lower, she received a transfusion today. We are still waiting on the results of repeat hemoglobin. Patient had second positive stool: Blood today. Consult with Dr. Thibodeaux for scope, patient denies chelsie bleeding per rectum or any increasing abdominal pain or cramping. - Constitutional Vitals: Temp Pulse Resp BP Pulse Ox 97.9 F 80 16 124/75 97 12/13/16 14:57 12/13/16 14:57 12/13/16 14:57 12/13/16 14:57 12/13/16 14:57 General appearance: Present: cooperative, mild distress, A&O X 3, pleasant, no acute distress, answers questions appropriately - Head Head exam: Present: atraumatic, normal inspection, normocephalic - Eye Eye exam: Present: normal appearance, conjuntiva pink, sclera anicteric - Neck Neck exam general surgery: Present: supple, trachea midline. Absent: lymphadenopathy, tenderness - Respiratory Respiratory exam: Present: CTAB. Absent: accessory muscle use, chest wall tenderness, decreased breath sounds, rales, respiratory distress, rhonchi, wheezes - Cardiovascular Cardiovascular exam: Present: RRR, +S1, +S2. Absent: diastolic murmur, gallop, rubs, systolic murmur - GI/Abdominal GI/Abdominal exam: Present: normal bowel sounds, soft, no peritoneal signs. Absent: distended, hepatomegaly, tenderness - Extremities Exam Extremities exam: Present: normal capillary refill, warm, radial pulses palpable and symmetrical. Absent: calf tenderness, cyanotic, pedal edema, tenderness - Neurological Exam Neurological exam: Present: alert, oriented X3, no focal deficits. Absent: facial droop, speech deficit - Skin Skin exam: Present: dry, intact, pallor, warm. Absent: rash Internal Medicine: Result - Labs CBC & Chem 7: 12/13/16 02:55 12/13/16 02:55 Labs: Short CBC 12/12/16 12/13/16 Range/Units 19:00 02:55 WBC 5.6 (4.3-11.1) K/mcL Hgb 8.6 L 7.8 L (11.5-15.4) g/dL Hct 26.8 L 23.8 L (35.3-44.9) % Plt Count 63 L (140-400) K/mcL Neutrophils # 3.9 (1.6-8.9) K/mcL BMP 12/13/16 02:55 Sodium 139 Potassium 3.0 L Chloride 104 Carbon Dioxide 25 BUN 7 Creatinine 0.67 Glucose 70 Calcium 8.3 L Consult Discharge Plan - Plan Referrals: Tayo Hudson DO [Primary Care Provider] -
[2016-12-13 17:12] LABS: Hemoglobin 9.6 g/dL (11.5-15.4)
[2016-12-13] MEDS: 0.9 % Sodium Chloride 1,000 ML IVC SCH (20:47)
[2016-12-14] MEDS: *HR* OxyCODONE/APAP 5/325 TABLET PO PRN ×2 (00:34→14:40)
[2016-12-14] MEDS: Magic Mouthwash 10 ML UD Cup PO SCH ×5 (00:37→21:57)
[2016-12-14 06:17] LABS: Hematocrit 26.6 % (35.3-44.9); Hemoglobin 8.9 g/dL (11.5-15.4); Immature Platelets 8.1 % (1.1-6.1); Mean Corpuscular HGB Conc 33.5 g/dL (31.6-35.5); Mean Corpuscular Hemoglobin 30.9 pg (28.0-33.3); Mean Corpuscular Volume 92.4 fL (83.0-100.0); Mean Platelet Volume 11.6 fL (9.4-12.4); Red Blood Count 2.88 M/mcL (3.82-4.97); Red Cell Distribution Width 19.1 % (11.5-14.5)
[2016-12-14 06:20] LABS: BUN/Creatinine Ratio 12 (6-26); Blood Urea Nitrogen 8 mg/dL (7-20); Calcium 8.2 mg/dL (8.6-10.8); Carbon Dioxide 25 mEq/L (19-29); Chloride 108 mEq/L (98-109); Glucose 96 mg/dL (70-99); Magnesium 1.1 mg/dL (1.6-2.6); Osmolality,Calculated 288 (280-300); Sodium 140 mEq/L (136-145); eGFR For African Americans > 60 (> 60); eGFR For Non-African Americans > 60 (> 60)
[2016-12-14 06:21] LABS: Platelet Count 65 K/mcL (140-400)
[2016-12-14] MEDS ORDERED: Magnesium Sulfate 2 GM in D5% in Water 100 ML IVPB ONE (07:41)
[2016-12-14 07:43] LABS: Lymphocytes # 1.1 K/mcL (0.6-4.6); Monocytes # 0.5 K/mcL (0.0-1.3); Neutrophils # 3.3 K/mcL (1.6-8.9)
[2016-12-14 07:44] LABS: Anisocytosis 1+ (Not Present); Platelet Estimate Decreased (Normal); Polychromasia 1+ (Not Present)
[2016-12-14] MEDS: Insulin LISPRO 300 UNITS/3 ML VIAL SQ SCH ×4 (08:51→21:59)
--- NOTE | 2016-12-14 10:25 | General Surgery Consult Note ---
<Matt Thibodeaux - Last Filed: 12/14/16 14:32> Date of Encounter: 12/14/16 Medications and Allergies Simvastatin [Zocor] 5 mg PO HS 06/28/16 [History] SitaGLIPtin [Januvia] 100 mg PO DAILY 07/31/16 [History] Albuterol Sulfate [Albuterol Inhaler] 2 puff IH Q6H PRN 08/07/16 [History] Magic Mouthwash [Magic Mouthwash BLM] 10 ml PO QID PRN #240 ml 08/07/16 [Rx] Prochlorperazine Maleate [Compazine] 10 mg PO Q8HR PRN #90 tablet 08/07/16 [Rx] Loperamide [Imodium] 2 mg PO TID PRN #90 capsule 08/20/16 [Rx] Ondansetron [Zofran] 4 mg PO Q8HR PRN #90 tablet 08/20/16 [Rx] Omeprazole [PriLOSEC] 40 mg PO DAILY #30 cap 08/27/16 [Rx] Lidocaine/Prilocaine CREAM [Emla] 1 appl TP ONCE PRN 09/02/16 [History] Diltiazem CD (24hr) [Cardizem CD] 180 mg PO DAILY #30 cap.er.24h 09/04/16 [Rx] Losartan [Cozaar] 12.5 mg PO DAILY #30 tab 09/11/16 [Rx] Dexamethasone [Decadron] 4 mg PO BID #12 tab 11/24/16 [Rx] Furosemide [Lasix] 20 mg PO DAILY #20 tablet 11/24/16 [Rx] Glimepiride [Amaryl] 4 mg PO DAILY 12/10/16 [History] OxyCODONE/APAP 5/325 [Percocet 5/325 MG] 1 each PO Q12H PRN #60 tablet 12/10/16 [Rx] Potassium Chloride [K-Tab ER] 20 meq PO BID 12/10/16 [History] Calcium Carbonate [Tums] 1,000 mg PO QID tab.chew 12/12/16 [Rx] 3 Allergy/AdvReac Type Severity Reaction Status Date / Time Penicillins Allergy Rash Verified 12/10/16 12:49 vancomycin Allergy Rash Verified 12/10/16 12:49 aspirin AdvReac Gastrointestinal Verified 12/10/16 12:49 Upset Hydromorphone [From Dilaudid] AdvReac Confusion Verified 12/10/16 12:49 meperidine [From Demerol] AdvReac Confusion Verified 12/10/16 12:49 Review of Systems All systems PM: A 10-system review of systems was performed and is negative for pertinent findings except as documented above in the HPI. General Surgery Exam Initial Vital Signs Temp Pulse Resp BP Pulse Ox 98.2 F 125 20 118/59 98 12/10/16 12:46 12/10/16 12:46 12/10/16 12:46 12/10/16 12:46 12/10/16 12:46 Exam Initial Vital Signs Temp Pulse Resp BP Pulse Ox 98.2 F 125 20 118/59 98 12/10/16 12:46 12/10/16 12:46 12/10/16 12:46 12/10/16 12:46 12/10/16 12:46 Results - Labs 12/14/16 05:19 12/14/16 05:19 Abnormal lab results RBC 2.88 M/mcL (3.82-4.97) L 12/14/16 05:19 Hgb 8.9 g/dL (11.5-15.4) L 12/14/16 05:19 Hct 26.6 % (35.3-44.9) L 12/14/16 05:19 RDW 19.1 % (11.5-14.5) H 12/14/16 05:19 Plt Count 65 K/mcL (140-400) L 12/14/16 05:19 Immature Gran % 5.4 % (0-4) H 12/13/16 02:55 Nucleated RBCs/100 WBC 1.0 /100 WBC (0) H 12/14/16 05:19 Toxic Granulation Present (Not Present) A 12/11/16 04:44 Dohle Bodies Present (Not Present) A 12/11/16 04:44 Platelet Estimate Decreased (Normal) L 12/14/16 05:19 Immature Plt Fraction 8.1 % (1.1-6.1) H 12/14/16 05:19 Polychromasia 1+ (Not Present) A 12/14/16 05:19 Anisocytosis 1+ (Not Present) A 12/14/16 05:19 Potassium 3.0 mEq/L (3.5-4.5) L 12/14/16 05:19 POC Glucose 154 (58-89) H 12/13/16 19:43 Calcium 8.2 mg/dL (8.6-10.8) L 12/14/16 05:19 Magnesium 1.1 mg/dL (1.6-2.6) L 12/14/16 05:19 Serum Total Protein 5.7 g/dL (6.0-8.3) L 12/11/16 04:44 Albumin 2.9 g/dL (3.5-5.0) L 12/11/16 04:44 Albumin/Globulin Ratio 1.0 (1.1-2.2) L 12/11/16 04:44 Procalcitonin 0.13 ng/mL (<=0.10) H 12/10/16 23:40 Stool Occult Blood Positive (Negative) A 12/13/16 11:25 Diabetes panel 12/14/16 Range/Units 05:19 Sodium 140 (136-145) mEq/L Potassium 3.0 L (3.5-4.5) mEq/L Chloride 108 (98-109) mEq/L Carbon Dioxide 25 (19-29) mEq/L BUN 8 (7-20) mg/dL Creatinine 0.67 (0.57-1.11) mg/dL Glucose 96 (70-99) mg/dL Calcium 8.2 L (8.6-10.8) mg/dL Calcium panel 12/14/16 Range/Units 05:19 Calcium 8.2 L (8.6-10.8) mg/dL Pituitary panel 12/14/16 Range/Units 05:19 Sodium 140 (136-145) mEq/L Potassium 3.0 L (3.5-4.5) mEq/L Chloride 108 (98-109) mEq/L Carbon Dioxide 25 (19-29) mEq/L BUN 8 (7-20) mg/dL Creatinine 0.67 (0.57-1.11) mg/dL Glucose 96 (70-99) mg/dL Calcium 8.2 L (8.6-10.8) mg/dL Adrenal panel 12/14/16 Range/Units 05:19 Sodium 140 (136-145) mEq/L Potassium 3.0 L (3.5-4.5) mEq/L Chloride 108 (98-109) mEq/L Carbon Dioxide 25 (19-29) mEq/L BUN 8 (7-20) mg/dL Creatinine 0.67 (0.57-1.11) mg/dL Glucose 96 (70-99) mg/dL Calcium 8.2 L (8.6-10.8) mg/dL All other labs normal. Consult Discharge Plan - Plan Referrals: Tayo Hudson DO [Primary Care Provider] - - Attending Attestation I examined this patient and my medical decision-making was reviewed with the Resident Physician. I agree with the documented findings, disposition and treatment plan as described except to the extent set forth below. I reviewed the above assessment and evaluation and agree with the above plan. Patient denies any abdominal pain but did have symptoms of diarrhea over the past several weeks to months. She has frequent bowel movements up to 5-6 a day with no rectal bleeding. She denies any abdominal pain on examination and denies any nausea or vomiting. States she has a remote history of gastric ulcer and has been on Prilosec for some time. Her last colonoscopy was 5 years ago and was without any polyps. Given her comorbidities I think it will be reasonable for her to have a colonoscopy and an EGD as an outpatient for further evaluation although the most likely cause of the patient's anemia/ pancytopenia is due to her chemotherapy treatments. I will follow-up with the patient after she has had her last chemotherapy treatment and Neulasta injection (likely end of Dec/early Jan). <Cristina Malin - Last Filed: 12/14/16 14:44> Date of Encounter: 12/14/16 Time of Encounter: 10:00 Assessment and Plan (1) Anemia Current Visit: No Status: Chronic On 12/12/16, Hemoglobin 8.6 dropped to 7.8 overnight and patient given 1 unit of pRBC and increased to Hemoglobin= 9.6 (12/13). This morning, hemoglobin= 8.9.Not on anticoagulants. No changes in stool color. Patient has never had an EGD. Requires colonoscopy every 5 years and last one was 5 years ago. Most likely due to chronic anemia as previous iron studies show pattern of chronic anemia along with she is currently completing chomtherapy. Plan: - no need for urgent scopes, but will plan for outpatietn appointment after chemo is completed for EGD and colonoscopy. Qualifiers: Anemia type: other cause Other causes of anemia: chronic disease, neoplastic Qualified Code(s): D63.0 - Anemia in neoplastic disease (2) GERD (gastroesophageal reflux disease) Current Visit: Yes Status: Chronic Home medication prilosec 40mg daily and takes TUMs BID. Patient has never had an EGD and has been treated for GERD for years and can't remember when she started it. No indication for urgent EGD but due to chronic GERD and breakthrough symptoms outpatient EGD indicated. Qualifiers: Esophagitis presence: without esophagitis Qualified Code(s): K21.9 - Gastro -esophageal reflux disease without esophagitis History of Present Illness Consult date: 12/14/16 Reason for consult: other (GI bleed) Requesting physician: Reena Schneider History of present illness: Patient is a 76-year-old female with a past medical history stomach ulcers 40 years ago, GERD, chronic anemia, and lung cancer currently on chemotherapy and radiation presented to the ED with anorexia, nausea, coughing with brown sputum , and nosebleed. Surgery was consultative for positive Hemoccult test with anemia. Patient has chronic anemia highest hemoglobin in the hospital this year 11.0. Patient denies changes in stool color; stool is light brown. For patient 's GERD on prilosec 40mg daily and takes TUMs BID. Patient has never had an EGD. Requires colonoscopy every 5 years and last one was 5 years ago. Denies hx of hemorroids or diverticulous. Not on anticoagulants On 12/12/16, Hemoglobin 8.6 dropped to 7.8 overnight and patient given 1 unit of pRBC and increased to Hemoglobin= 9.6 (12/13). This morning, hemoglobin= 8.9. She has been intermittently tachycardic with systolic pressure in low 100s. Past Med Surg Social Fam HX - Past Medical History Medical history: aortic aneurysm, atrial fibrillation, cancer, COPD, diabetes, hyperlipidemia, hypertension, other (gastric ulcers 40 years ago) Psychiatric history: no psych history - Past Surgical History Surgical History: cholecystectomy, hysterectomy, knee replacement, other - Social History Smoking Status: Former smoker Smokeless Tobacco Status: No Alcohol use: none Drug use: none - Family History Mother Family Member Ethnicity: Non- Living Status: Hx Family Cardiac Disorders: No Hx Family Respiratory Disorders: No Hx Family Cancer: No Hx Family GI Disorders: No Hx Family Endocrine Disorder: No Hx Family Neuromuscular Disorders: No Hx Family Neurologic Disorders: No Hx Family HEENT Disorders: No Hx Family Autoimmune Disorders: No Review of Systems All systems PM: A 10-system review of systems was performed and is negative for pertinent findings except as documented above in the HPI. - Constitutional as per HPI General Surgery Exam Initial Vital Signs Temp Pulse Resp BP Pulse Ox 98.2 F 125 20 118/59 98 12/10/16 12:46 12/10/16 12:46 12/10/16 12:46 12/10/16 12:46 12/10/16 12:46 - Additional Findings Constitutional: Alert, in no acute distress, well nourished, well developed. Head: Normocephalic, atraumatic, normal contour and symmetric, no masses, lesions or scars Heart: Normal, regular rate and rhythm, no murmurs Lungs: Clear to auscultation, no wheezes, rales, or rhonchi Chest: aport present on R Abdomen: Soft, nondistended, nontender, and no masses palpable, bowel sounds present and normal, no guarding or rigidity. Extremities: No clubbing, cyanosis, radial pulse +2/4, capillary refill <2sec., + 3 pitting edema bilaterally in lower extremitites Skin: Skin warm and dry, no lesions, no rashes, no jaundice Neurologic: Cranial nerves II through XII grossly intact, no focal deficits, strength within normal limits in all extremities Psych: Cooperative with exam, good eye contact, cognitive function intact, judgment good insight good, speech clear, thought process logical, and goal directed Exam Initial Vital Signs Temp Pulse Resp BP Pulse Ox 98.2 F 125 20 118/59 98 12/10/16 12:46 12/10/16 12:46 12/10/16 12:46 12/10/16 12:46 12/10/16 12:46 Results - Labs 12/14/16 05:19 12/14/16 05:19 Abnormal lab results RBC 2.88 M/mcL (3.82-4.97) L 12/14/16 05:19 Hgb 8.9 g/dL (11.5-15.4) L 12/14/16 05:19 Hct 26.6 % (35.3-44.9) L 12/14/16 05:19 RDW 19.1 % (11.5-14.5) H 12/14/16 05:19 Plt Count 65 K/mcL (140-400) L 12/14/16 05:19 Immature Gran % 5.4 % (0-4) H 12/13/16 02:55 Nucleated RBCs/100 WBC 1.0 /100 WBC (0) H 12/14/16 05:19 Toxic Granulation Present (Not Present) A 12/11/16 04:44 Dohle Bodies Present (Not Present) A 12/11/16 04:44 Platelet Estimate Decreased (Normal) L 12/14/16 05:19 Immature Plt Fraction 8.1 % (1.1-6.1) H 12/14/16 05:19 Polychromasia 1+ (Not Present) A 12/14/16 05:19 Anisocytosis 1+ (Not Present) A 12/14/16 05:19 Potassium 3.0 mEq/L (3.5-4.5) L 12/14/16 05:19 POC Glucose 154 (58-89) H 12/13/16 19:43 Calcium 8.2 mg/dL (8.6-10.8) L 12/14/16 05:19 Magnesium 1.1 mg/dL (1.6-2.6) L 12/14/16 05:19 Serum Total Protein 5.7 g/dL (6.0-8.3) L 12/11/16 04:44 Albumin 2.9 g/dL (3.5-5.0) L 12/11/16 04:44 Albumin/Globulin Ratio 1.0 (1.1-2.2) L 12/11/16 04:44 Procalcitonin 0.13 ng/mL (<=0.10) H 12/10/16 23:40 Stool Occult Blood Positive (Negative) A 12/13/16 11:25 Diabetes panel 12/14/16 Range/Units 05:19 Sodium 140 (136-145) mEq/L Potassium 3.0 L (3.5-4.5) mEq/L Chloride 108 (98-109) mEq/L Carbon Dioxide 25 (19-29) mEq/L BUN 8 (7-20) mg/dL Creatinine 0.67 (0.57-1.11) mg/dL Glucose 96 (70-99) mg/dL Calcium 8.2 L (8.6-10.8) mg/dL Calcium panel 12/14/16 Range/Units 05:19 Calcium 8.2 L (8.6-10.8) mg/dL Pituitary panel 12/14/16 Range/Units 05:19 Sodium 140 (136-145) mEq/L Potassium 3.0 L (3.5-4.5) mEq/L Chloride 108 (98-109) mEq/L Carbon Dioxide 25 (19-29) mEq/L BUN 8 (7-20) mg/dL Creatinine 0.67 (0.57-1.11) mg/dL Glucose 96 (70-99) mg/dL Calcium 8.2 L (8.6-10.8) mg/dL Adrenal panel 12/14/16 Range/Units 05:19 Sodium 140 (136-145) mEq/L Potassium 3.0 L (3.5-4.5) mEq/L Chloride 108 (98-109) mEq/L Carbon Dioxide 25 (19-29) mEq/L BUN 8 (7-20) mg/dL Creatinine 0.67 (0.57-1.11) mg/dL Glucose 96 (70-99) mg/dL Calcium 8.2 L (8.6-10.8) mg/dL All other labs normal.
[2016-12-14] MEDS: *HR* SitaGLIPtin 100 MG TABLET PO SCH (10:40)
--- NOTE | 2016-12-14 13:38 | Cardiology Consult Note ---
Date of Encounter: 12/14/16 Time of Encounter: 13:33 Assessment and Plan (1) Atrial fibrillation with RVR Current Visit: Yes Status: Chronic Known hx of A-Fib. Presents after chemo for nausea/vomiting. Found to have HGB as low as 7.8 with positive hemoccult stool. GI following. Pt is pancytopenic. A-Fib with mildly elevated HR in setting of lung cancer, and suspected GI bleed. Pt on Cardizem CD 180mg daily at home for rate control. Held this AM due to hypotension. IV fluids infusing. Will stop Cozaar. K 3.0 and Mag 1.1--replace both. 4 hr tele AVG HR 102 bpm, A-Fib. HR 90s-low 100s at bedside. Will continue to monitor for now. BP 90s systolic. If BP stays low and HR becomes more elevated, can consider Digoxin, but not warranted at this time. Given hypotension and hx of pericardial effusion, check limited echo to r/o. Significant LE edema at baseline per pt. CHADSVASC score 5 (Age, Female, HTN, DM). Unable to be anticoagulated given pancytopenia and suspected GI bleed with HGB as low as 7.8. Aware of increased CVA risk. Continue to follow. (2) Hypotension Current Visit: Yes Status: Acute Most recent BP 90s/50s--antihypertensives held this AM. Stop Cozaar. Check limited echo to r/o pericardial effusion given her hx. Qualifiers: Hypotension type: unspecified hypotension type Qualified Code(s): I95.9 - Hypotension, unspecified Discussion w patient/family: The assessment and plan as outlined above was discussed with the patient and/or family members who expressed understanding and agreement. All questions were answered. Thank you for involving us in the care of your patient. Please call with any questions. I will discuss all the above with Dr. Jacobo and make changes as necessary. History of Present Illness Consult date: 12/14/16 Requesting physician: Reena Schneider Consult reason: hypotension, A-Fib RVR Chief complaint: n/v History of present illness: Ms. Hernandez is a 76 year old female with PMH of lung cancer undergoing chemo, aortic aneurysm, atrial fibrillation, COPD, diabetes, hyperlipidemia, pericardial effusion s/p window in September, and hypertension. Presented to the emergency department with the chief complaint of nausea, loss of appetite, and vomiting. Patient states that this happened after she received a chemotherapy treatment. Her last chemotherapy treatment was on . She was diagnosed with lung cancer in May and has gone through several radiation and chemotherapy treatments. She has 1 more chemotherapy treatment scheduled. The patient states that this particular episode of nausea and vomiting this more severe than what normally happens after she receives a chemotherapy treatment. Patient admitted to having a cough the day before her admission with productive brown sputum. She also states that she has some diarrhea. She currently denies any fever, chills, or chest pain. She denies palpitations. Cardiology consulted due to pt being hypotensive and having A-Fib RVR. Since admission, HGB was as low as 7.8, received blood transfusion, hemoccult stool positive. Prior CV testing: TTE 09/29/16: LVEF 70%, no significant valvular dysfunction, normal RV size and function, normal wall motion, large pericardial effusion, largest inferiorly and inferolaterally. No evidence of tamponade. LHC 03/07/12: Mild atherosclerotic coronary artery disease. The left ventricle is normal and has normal contractility, EF 70% Moderate PAD with small AAA. Past Med Surg Social Fam HX - Past Medical History Medical history: aortic aneurysm, atrial fibrillation, cancer, COPD, diabetes, hyperlipidemia, hypertension, other (gastric ulcers 40 years ago) Psychiatric history: no psych history - Past Surgical History Surgical History: cholecystectomy, hysterectomy, knee replacement, other - Social History Smoking Status: Former smoker Smokeless Tobacco Status: No Alcohol use: none Drug use: none - Family History Mother Family Member Ethnicity: Non- Living Status: Hx Family Cardiac Disorders: No Hx Family Respiratory Disorders: No Hx Family Cancer: No Hx Family GI Disorders: No Hx Family Endocrine Disorder: No Hx Family Neuromuscular Disorders: No Hx Family Neurologic Disorders: No Hx Family HEENT Disorders: No Hx Family Autoimmune Disorders: No Medications and Allergies Simvastatin [Zocor] 5 mg PO HS 06/28/16 [History] SitaGLIPtin [Januvia] 100 mg PO DAILY 07/31/16 [History] Albuterol Sulfate [Albuterol Inhaler] 2 puff IH Q6H PRN 08/07/16 [History] Magic Mouthwash [Magic Mouthwash BLM] 10 ml PO QID PRN #240 ml 08/07/16 [Rx] Prochlorperazine Maleate [Compazine] 10 mg PO Q8HR PRN #90 tablet 08/07/16 [Rx] Loperamide [Imodium] 2 mg PO TID PRN #90 capsule 08/20/16 [Rx] Ondansetron [Zofran] 4 mg PO Q8HR PRN #90 tablet 08/20/16 [Rx] Omeprazole [PriLOSEC] 40 mg PO DAILY #30 cap 08/27/16 [Rx] Lidocaine/Prilocaine CREAM [Emla] 1 appl TP ONCE PRN 09/02/16 [History] Diltiazem CD (24hr) [Cardizem CD] 180 mg PO DAILY #30 cap.er.24h 09/04/16 [Rx] Losartan [Cozaar] 12.5 mg PO DAILY #30 tab 09/11/16 [Rx] Dexamethasone [Decadron] 4 mg PO BID #12 tab 11/24/16 [Rx] Furosemide [Lasix] 20 mg PO DAILY #20 tablet 11/24/16 [Rx] Glimepiride [Amaryl] 4 mg PO DAILY 12/10/16 [History] OxyCODONE/APAP 5/325 [Percocet 5/325 MG] 1 each PO Q12H PRN #60 tablet 12/10/16 [Rx] Potassium Chloride [K-Tab ER] 20 meq PO BID 12/10/16 [History] Calcium Carbonate [Tums] 1,000 mg PO QID tab.chew 12/12/16 [Rx] 3 Allergy/AdvReac Type Severity Reaction Status Date / Time Penicillins Allergy Rash Verified 12/10/16 12:49 vancomycin Allergy Rash Verified 12/10/16 12:49 aspirin AdvReac Gastrointestinal Verified 12/10/16 12:49 Upset Hydromorphone [From Dilaudid] AdvReac Confusion Verified 12/10/16 12:49 meperidine [From Demerol] AdvReac Confusion Verified 12/10/16 12:49 All Systems Review: A 10-system review of systems was performed and is negative for pertinent findings except as documented above in the HPI. - Cardiovascular Cardiovascular: leg edema - Respiratory Respiratory: cough - Gastrointestinal Gastrointestinal: nausea Physical Examination Vital Signs Temp Pulse Resp BP Pulse Ox 12/14/16 06:52 97.8 F 86 16 92/51 90 12/14/16 02:58 98.0 F 102 18 106/69 96 12/13/16 19:17 98.4 F 90 15 102/47 95 12/13/16 14:57 97.9 F 80 16 124/75 97 Intake and Output 12/13/16 12/14/16 12/14/16 23:59 07:59 15:59 Intake Total 1100 / 1100 480 / 480 Balance 1100 / 1100 480 / 480 Intake: IV Fluids 1000 / 1000 0.9 % Sodium Chloride 1,000 ML 1000 / 1000 @ 50 mls/hr IVC .Q20H RASHI Rx#: [id number] Oral 100 / 100 480 / 480 Other: Meal Dinner Breakfast Percent of Meal Consumed 0% 100% Stool Size Moderate Moderate Stool Consistency loose loose Stool Color Brown Brown # Voids 1 # Bowel Movements 1 1 Weight 89.54 kg Blood Glucose* 154 95 157 Patient Weight 12/14/16 23:59 Weight 89.54 kg General: Conversant, No Apparent Distress HEENT: Atraumatic, Normocephaly, Mucus Membranes Moist Neck: Normal carotid pulses Cardiac: Other (irregularly irregular) Lungs: Other (diminished) Neuro: Alert and responsive, No focal deficits noted Abdomen: Soft, Non-Tender Skin: No rashes noted on visualized skin Musculoskeletal: No Chest Wall Tenderness Extremities: Other (significant BLE edema) Results 12/14/16 05:19 12/14/16 05:19 Lab Results 12/13/16 12/14/16 12/14/16 17:05 05:19 05:19 WBC 4.8 Hgb 9.6 L D 8.9 L Hct 29.0 L 26.6 L Plt Count 65 L Sodium 140 Potassium 3.0 L Chloride 108 Carbon Dioxide 25 BUN 8 Creatinine 0.67 Glucose 96 Calcium 8.2 L Magnesium 1.1 L Short CBC 12/14/16 12/13/16 Range/Units 05:19 17:05 WBC 4.8 (4.3-11.1) K/mcL Hgb 8.9 L 9.6 L D (11.5-15.4) g/dL Hct 26.6 L 29.0 L (35.3-44.9) % Plt Count 65 L (140-400) K/mcL Neutrophils # 3.3 (1.6-8.9) K/mcL BMP 12/14/16 Range/Units 05:19 Sodium 140 (136-145) mEq/L Potassium 3.0 L (3.5-4.5) mEq/L Chloride 108 (98-109) mEq/L Carbon Dioxide 25 (19-29) mEq/L BUN 8 (7-20) mg/dL Creatinine 0.67 (0.57-1.11) mg/dL Glucose 96 (70-99) mg/dL Calcium 8.2 L (8.6-10.8) mg/dL Active Medications Acetaminophen (Tylenol) 650 mg PO Q6HR PRN PRN Reason: Mild Pain (1-3), headache Stop: 06/11/17 19:58 Last Admin: 12/11/16 18:21 Dose: 650 mg Albuterol Sulfate (Proventil Neb) 2.5 mg IH [id number] PRN; Protocol PRN Reason: Shortness Of Breath/Wheezing Stop: 06/12/17 04:05 Calcium Carbonate (Tums) 1,000 mg PO QID RASHI PRN Reason: Protocol Stop: 06/12/17 09:01 Last Admin: 12/14/16 10:40 Dose: 1,000 mg Dextrose/Water (Dextrose 50% (Syg)) 25 ml IVP AD PRN PRN Reason: Hypoglycemia Stop: 06/11/17 20:02 Diltiazem HCl (Cardizem Cd) 180 mg PO DAILY [facility] Stop: 06/12/17 09:01 Last Admin: 12/14/16 13:39 Dose: Not Given Glucagon (Glucagen) 1 mg IM ONCE PRN PRN Reason: Hypoglycemia Stop: 06/11/17 20:02 Glucose (Gluctose) 15 gm PO ONCE PRN PRN Reason: Hypoglycemia Stop: 06/11/17 20:02 Glucose (Gluctose) 30 gm PO ONCE PRN PRN Reason: Hypoglycemia Stop: 06/11/17 20:02 Dextrose (Dextrose 5%) 1,000 mls @ 100 mls/hr IVC .Q10H PRN PRN Reason: HYPOGLYCEMIA Stop: 06/11/17 20:02 Sodium Chloride (0.9 % Sodium Chloride) 1,000 mls @ 50 mls/hr IVC .Q20H [facility] Stop: 06/12/17 07:46 Last Admin: 12/13/16 20:47 Dose: 50 mls/hr Insulin Human Lispro (Humalog) 0 units SQ TIDAC RASHI PRN Reason: Protocol Stop: 06/12/17 07:31 Last Admin: 12/14/16 08:51 Dose: Not Given Insulin Human Lispro (Humalog) 0 units SQ HS [facility] PRN Reason: Protocol Stop: 06/12/17 21:01 Last Admin: 12/13/16 20:47 Dose: Not Given Loperamide HCl (Imodium) 2 mg PO Q4HR PRN PRN Reason: Diarrhea Stop: 06/12/17 11:19 Last Admin: 12/13/16 20:45 Dose: 2 mg Losartan Potassium (Cozaar) 12.5 mg PO DAILY [facility] PRN Reason: Protocol Stop: 06/12/17 09:01 Last Admin: 12/14/16 10:41 Dose: Not Given Metoclopramide HCl (Reglan) 10 mg IVP Q6HR PRN PRN Reason: Nausea And Vomiting Stop: 06/11/17 20:01 Multi-Ingredient Mouthwash/Gargle (Magic Mouthwash) 10 ml PO QID [facility] Stop: 06/11/17 23:16 Last Admin: 12/14/16 13:39 Dose: 10 ml Multi-Ingredient Mouthwash/Gargle (Magic Mouthwash) 10 ml PO QID PRN PRN Reason: Pain Last Admin: 12/14/16 10:41 Dose: 10 ml Naloxone HCl (Narcan) 0.4 mg IVP Q2MIN PRN PRN Reason: Opioid Reversal Stop: 06/11/17 19:58 Omeprazole (Prilosec) 40 mg PO DAILY [facility] Stop: 06/12/17 09:01 Last Admin: 12/14/16 10:40 Dose: 40 mg Oxycodone/Acetaminophen (Percocet 5/325) 1 each PO Q12H PRN PRN Reason: Pain Stop: 06/12/17 04:06 Last Admin: 12/14/16 00:34 Dose: 1 each Potassium Chloride (Potassium Chloride) 20 meq PO BID [facility] Stop: 06/14/17 21:01 Last Admin: 12/14/16 10:40 Dose: 20 meq Sitagliptin Phosphate (Januvia) 100 mg PO DAILY [facility] Stop: 06/12/17 09:01 Last Admin: 12/14/16 10:40 Dose: Not Given - Imaging and Cardiology Echo: report reviewed - EKG Interpretation EKG results cardiology: personally reviewed (A-Fib RVR rate 116), other (AVG HR past 4 hours 102 A-Fib) Consult Discharge Plan - Plan Referrals: Tayo Hudson DO [Primary Care Provider] -
[2016-12-14] MEDS: Diltiazem CD (24hr) 180 MG CAPSULE PO SCH (13:39)
--- NOTE | 2016-12-14 16:39 | Internal Med Progress Note ---
Date of Encounter: 12/14/16 Time of Encounter: 08:40 - Assessment and plan (1) Nausea and vomiting Current Visit: Yes Status: Resolved Assessment and plan: Patient denies nausea or vomiting today. Antiemetics as needed. Qualifiers: Vomiting type: unspecified Vomiting Intractability: non-intractable Qualified Code(s): R11.2 - Nausea with vomiting, unspecified (2) Diarrhea Current Visit: Yes Status: Acute Assessment and plan: Pt still reports frequent loose stools. Stool negative for C-diff, stool studies are negative. Occult blood was positive x 2. Abd is soft and non-tender, bowel sounds present. Immodium prn Qualifiers: Diarrhea type: functional diarrhea Qualified Code(s): K59.1 - Functional diarrhea (3) Pancytopenia Current Visit: Yes Status: Acute Assessment and plan: White count WNL today, hemoglobin was 8.9 this morning , platelet count of 65. All improved over admission. Pancytopenia most likely due to chronic disease and chemotherapy, as well as radiation. Continue to monitor labs. Heparin for DVT prophylaxis has been stopped. Patient received a transfusion of 1 unit PRBCs. She has had 2 positive stool occult blood test. Pt was seen by Dr. Thibodeaux for scope, not recommended at this time, will follow up outpatient. Continue to monitor labs (4) GERD (gastroesophageal reflux disease) Current Visit: Yes Status: Chronic Assessment and plan: Chronic. Continue home medications. Qualifiers: Esophagitis presence: without esophagitis Qualified Code(s): K21.9 - Gastro -esophageal reflux disease without esophagitis (5) Hypokalemia Current Visit: Yes Status: Acute Assessment and plan: Patient is chronically hypokalemic. She takes supplements at home. Will continue to check labs daily. Increased K+ to 40meq bid. (6) Lung cancer Current Visit: Yes Status: Acute Assessment and plan: Patient diagnosed with lung cancer in May. She has undergone radiation and chemotherapy. Chemotherapy treatment was last done last . She normally has nausea and vomiting after treatment, however this time was worse than normal. Patient will follow-up with oncology outpatient for continued treatment and assessment for lung cancer. Qualifiers: Laterality: left Lung location: upper lobe of lung Qualified Code(s): C34.12 - Malignant neoplasm of upper lobe, left bronchus or lung (7) Essential hypertension Current Visit: Yes Status: Chronic Assessment and plan: Patient's vital signs have been stable, blood pressure is within normal limits. Continue to monitor vital signs. Hydralazine 10 mg IV push as needed for systolic blood pressure greater than 180mmhg. Continue home medications. Patient has had some hypotensive episodes as well during stay. She has had to have a couple of fluid boluses. We will continue to closely monitor her blood pressure. Cardiology has d/cd fluids and stopped Cozaar. Cardizem has been held due to hypotension. (8) Diabetes mellitus, type 2 Current Visit: Yes Status: Chronic Assessment and plan: Patient's hemoglobin A1c was 7.3% in September. Continue Accu-Cheks before meals at bedtime Continue sliding scale insulin. Diabetic diet. Qualifiers: Diabetes mellitus complication status: with neurologic complications Diabetes mellitus complication detail: with polyneuropathy Diabetes mellitus senior care insulin use: without termination clerk use Qualified Code(s): E11.42 - Type 2 diabetes mellitus with diabetic polyneuropathy (9) DVT prophylaxis Current Visit: Yes Status: Acute Assessment and plan: Heparin subcutaneous has been stopped. MATTI souza ordered. Patient up to chair. - Time Spent With Patient less than 15 minutes - Subjective Interval history: Pt was seen and assessed at 0850 a.m. Pt denies chest pain,n/v/d, abdominal pain or cramping. She was seen by surgery and scope will be done outpatient. Pt to have limited echo tomorrow to evaluate for pericardial effusion. - Constitutional Vitals: Temp Pulse Resp BP Pulse Ox 98.1 F 74 15 131/79 97 12/14/16 15:21 12/14/16 15:21 12/14/16 15:21 12/14/16 15:21 12/14/16 15:21 General appearance: Present: cooperative, mild distress, A&O X 3, pleasant, no acute distress, answers questions appropriately - Head Head exam: Present: atraumatic, normal inspection, normocephalic - Eye Eye exam: Present: normal appearance, conjuntiva pink, sclera anicteric - Neck Neck exam general surgery: Present: supple, trachea midline. Absent: lymphadenopathy, tenderness - Respiratory Respiratory exam: Present: CTAB. Absent: accessory muscle use, rales, rhonchi, wheezes - Cardiovascular Cardiovascular exam: Present: RRR, +S1, +S2. Absent: diastolic murmur, gallop, rubs, systolic murmur - GI/Abdominal GI/Abdominal exam: Present: normal bowel sounds, soft, no peritoneal signs. Absent: distended, hepatomegaly, tenderness - Extremities Exam Extremities exam: Present: pedal edema, warm, radial pulses palpable and symmetrical. Absent: calf tenderness, cyanotic, tenderness - Neurological Exam Neurological exam: Present: alert, oriented X3, no focal deficits. Absent: facial droop, speech deficit - Skin Skin exam: Present: dry, intact, normal color, warm. Absent: rash Internal Medicine: Result - Labs CBC & Chem 7: 12/14/16 05:19 12/14/16 05:19 Labs: Short CBC 12/13/16 12/14/16 Range/Units 17:05 05:19 WBC 4.8 (4.3-11.1) K/mcL Hgb 9.6 L D 8.9 L (11.5-15.4) g/dL Hct 29.0 L 26.6 L (35.3-44.9) % Plt Count 65 L (140-400) K/mcL Neutrophils # 3.3 (1.6-8.9) K/mcL BMP 12/14/16 05:19 Sodium 140 Potassium 3.0 L Chloride 108 Carbon Dioxide 25 BUN 8 Creatinine 0.67 Glucose 96 Calcium 8.2 L Consult Discharge Plan - Plan Referrals: Tayo Hudson DO [Primary Care Provider] -
[2016-12-14 17:11] LABS: Magnesium 1.3 mg/dL (1.6-2.6); Potassium 3.3 mEq/L (3.5-4.5)
[2016-12-15 06:50] LABS: Hematocrit 27.3 % (35.3-44.9); Immature Platelets 6.5 % (1.1-6.1); Lymphocytes # 0.6 K/mcL (0.6-4.6); Mean Corpuscular Hemoglobin 30.7 pg (28.0-33.3); Mean Corpuscular Volume 93.2 fL (83.0-100.0); Mean Platelet Volume 10.9 fL (9.4-12.4); Nucleated Red Blood Cells 0.5 /100 WBC (0); Red Blood Count 2.93 M/mcL (3.82-4.97); Red Cell Distribution Width 18.9 % (11.5-14.5)
[2016-12-15 06:58] LABS: BUN/Creatinine Ratio 11 (6-26); Blood Urea Nitrogen 7 mg/dL (7-20); Calcium 8.4 mg/dL (8.6-10.8); Carbon Dioxide 25 mEq/L (19-29); Chloride 107 mEq/L (98-109); Glucose 116 mg/dL (70-99); Osmolality,Calculated 291 (280-300); Potassium 3.2 mEq/L (3.5-4.5); Sodium 141 mEq/L (136-145); eGFR For African Americans > 60 (> 60); eGFR For Non-African Americans > 60 (> 60)
[2016-12-15 07:03] LABS: Platelet Count 66 K/mcL (140-400)
[2016-12-15] MEDS ORDERED: Magnesium Sulfate 2 GM in D5% in Water 100 ML IVPB ONE (07:50)
[2016-12-15] MEDS: Insulin LISPRO 300 UNITS/3 ML VIAL SQ SCH ×2 (09:13→12:36)
[2016-12-15] MEDS: *HR* SitaGLIPtin 100 MG TABLET PO SCH (09:13)
[2016-12-15] MEDS: Diltiazem CD (24hr) 180 MG CAPSULE PO SCH (09:15)
[2016-12-15] MEDS: Magic Mouthwash 10 ML UD Cup PO SCH ×2 (09:16→12:31)
[2016-12-15 10:00] LABS: Dohle Bodies Present (Not Present); Monocytes # 0.4 K/mcL (0.0-1.3); Neutrophils # 3.4 K/mcL (1.6-8.9); Platelet Estimate Decreased (Normal); Toxic Granulation Present (Not Present)
[2016-12-15 10:02] LABS: Anisocytosis 1+ (Not Present); Polychromasia 2+ (Not Present)
--- NOTE | 2016-12-15 11:37 | Cardiology Progress Note ---
Date of Encounter: 12/15/16 Time of Encounter: 11:35 Assessment and Plan (1) Atrial fibrillation with RVR Current Visit: Yes Status: Chronic Known hx of A-Fib. Presents after chemo for nausea/vomiting. Found to have HGB as low as 7.8 with positive hemoccult stool. GI following. Pt is pancytopenic. A-Fib with mildly elevated HR. Pt on Cardizem CD 180mg daily at home for rate control. Held yesterday AM due to hypotension, but given today. HR currently 90s. K 3.2 and Mag 1.3--replace both. 12 hr tele AVG HR 103 bpm, A-Fib. HR 90s bedside. BP tolerated AM dose of Cardizem, continue. BP most recent 136/77. Limited echo resulted--EF 70%, trivial pericardial effusion. Significant LE edema at baseline per pt. CHADSVASC score 5 (Age, Female, HTN, DM). Unable to be anticoagulated given pancytopenia and suspected GI bleed with HGB as low as 7.8. Aware of increased CVA risk. Cardiology signing off. Reconsult PRN. (2) Hypotension Current Visit: Yes Status: Acute Most recent BP 136/77--tolerated Cardizem this AM. Limited echo EF 70%, trivial pericardial effusion. Prior pericardial effusion essentially resolved. Qualifiers: Hypotension type: unspecified hypotension type Qualified Code(s): I95.9 - Hypotension, unspecified Discussion w patient/family: The assessment and plan as outlined above was discussed with the patient and/or family members who expressed understanding and agreement. All questions were answered. Thank you for involving us in the care of your patient. Please call with any questions. I will discuss all the above with Dr. Jacobo and make changes as necessary. Subjective Principal diagnosis: N/V, A-Fib Interval history: Pt denies cardiac complaints this AM. Limited echo EF 70%, trivial pericardial effusion--compared to prior echo, pericardial effusion essentially resolved. 12 hr tele aVG HR 103, A-Fib. Pt received Cardizem CD 180mg this AM. HR 90s at bedside. Objective Vital Signs, Last 4 Hours Temp Pulse Resp BP Pulse Ox 12/15/16 10:58 97.6 F 98 16 136/77 97 Vital Signs Temp Pulse Resp BP Pulse Ox 12/15/16 10:58 97.6 F 98 16 136/77 97 12/15/16 07:24 98.2 F 98 16 97/62 96 12/15/16 04:04 88 16 12/15/16 03:28 99.3 F 124 14 93/55 95 12/15/16 00:18 98.2 F 77 14 113/69 96 12/14/16 19:16 98.0 F 93 14 95/47 97 12/14/16 15:21 98.1 F 74 15 131/79 97 Intake and Output 12/14/16 12/15/16 12/15/16 23:59 07:59 15:59 Intake Total 400 / 400 100 / 100 Balance 400 / 400 100 / 100 Intake: IV Fluids 100 / 100 Magnesium Sulfate 2 GM In 100 / 100 Dextrose 5% 100 ML @ 100 mls/hr IVPB ONCE ONE Rx#:[id number] Oral 400 / 400 Other: Meal Dinner Percent of Meal Consumed 95% Weight 89.902 kg Blood Glucose* 124 125 183 Patient Weight 12/15/16 23:59 Weight 89.902 kg General: Conversant, No Apparent Distress HEENT: Atraumatic, Normocephaly, Mucus Membranes Moist Neck: No JVD, Normal carotid pulses Cardiac: Other (irregularly irregular) Lungs: Normal Breath Sounds, No Wheeze, Rales, Rhonchi Neuro: Alert and responsive, No focal deficits noted Abdomen: Soft, Non-Tender Skin: No rashes noted on visualized skin Musculoskeletal: No Chest Wall Tenderness Extremities: Other (significant lower extremity edema) Results 12/15/16 06:14 12/15/16 06:14 Lab Results 12/15/16 12/15/16 06:14 06:14 WBC 4.4 Hgb 9.0 L Hct 27.3 L Plt Count 66 L Sodium 141 Potassium 3.2 L Chloride 107 Carbon Dioxide 25 BUN 7 Creatinine 0.66 Glucose 116 H Calcium 8.4 L Short CBC 12/15/16 Range/Units 06:14 WBC 4.4 (4.3-11.1) K/mcL Hgb 9.0 L (11.5-15.4) g/dL Hct 27.3 L (35.3-44.9) % Plt Count 66 L (140-400) K/mcL Neutrophils # 3.4 (1.6-8.9) K/mcL BMP 12/15/16 12/14/16 Range/Units 06:14 16:53 Sodium 141 (136-145) mEq/L Potassium 3.2 L 3.3 L (3.5-4.5) mEq/L Chloride 107 (98-109) mEq/L Carbon Dioxide 25 (19-29) mEq/L BUN 7 (7-20) mg/dL Creatinine 0.66 (0.57-1.11) mg/dL Glucose 116 H (70-99) mg/dL Calcium 8.4 L (8.6-10.8) mg/dL Impressions Echocardiogram Limited Views 12/14/16 15:10 Impressions: There is a trivial pericardial effusion present. Previously described pericardial effusion has essentially resolved. Left Ventricular Wall Motion: Rest Echo Findings All wall segments showed normal motion. Findings: Study Quality * Technically adequate exam. Left Ventricle * LVEF 70%. * Normal LV chamber size, wall thickness and function. Right Ventricle * Normal right ventricular structure and function. Pericardium * There is a trivial pericardial effusion present. IVC * The IVC is not well evaluated. Active Medications Acetaminophen (Tylenol) 650 mg PO Q6HR PRN PRN Reason: Mild Pain (1-3), headache Stop: 06/11/17 19:58 Last Admin: 12/11/16 18:21 Dose: 650 mg Albuterol Sulfate (Proventil Neb) 2.5 mg IH [id number] PRN; Protocol PRN Reason: Shortness Of Breath/Wheezing Stop: 06/12/17 04:05 Calcium Carbonate (Tums) 1,000 mg PO QID RASHI PRN Reason: Protocol Stop: 06/12/17 09:01 Last Admin: 12/15/16 09:14 Dose: 1,000 mg Dextrose/Water (Dextrose 50% (Syg)) 25 ml IVP AD PRN PRN Reason: Hypoglycemia Stop: 06/11/17 20:02 Diltiazem HCl (Cardizem Cd) 180 mg PO DAILY [facility] Stop: 06/12/17 09:01 Last Admin: 12/15/16 09:15 Dose: 180 mg Glucagon (Glucagen) 1 mg IM ONCE PRN PRN Reason: Hypoglycemia Stop: 06/11/17 20:02 Glucose (Gluctose) 15 gm PO ONCE PRN PRN Reason: Hypoglycemia Stop: 06/11/17 20:02 Glucose (Gluctose) 30 gm PO ONCE PRN PRN Reason: Hypoglycemia Stop: 06/11/17 20:02 Dextrose (Dextrose 5%) 1,000 mls @ 100 mls/hr IVC .Q10H PRN PRN Reason: HYPOGLYCEMIA Stop: 06/11/17 20:02 Insulin Human Lispro (Humalog) 0 units SQ TIDAC [facility] PRN Reason: Protocol Stop: 06/12/17 07:31 Last Admin: 12/15/16 09:13 Dose: Not Given Insulin Human Lispro (Humalog) 0 units SQ HS [facility] PRN Reason: Protocol Stop: 06/12/17 21:01 Last Admin: 12/14/16 21:59 Dose: Not Given Loperamide HCl (Imodium) 2 mg PO Q4HR PRN PRN Reason: Diarrhea Stop: 06/12/17 11:19 Last Admin: 12/15/16 09:22 Dose: 2 mg Metoclopramide HCl (Reglan) 10 mg IVP Q6HR PRN PRN Reason: Nausea And Vomiting Stop: 06/11/17 20:01 Multi-Ingredient Mouthwash/Gargle (Magic Mouthwash) 10 ml PO QID RASHI Stop: 06/11/17 23:16 Last Admin: 12/15/16 09:16 Dose: 10 ml Multi-Ingredient Mouthwash/Gargle (Magic Mouthwash) 10 ml PO QID PRN PRN Reason: Pain Last Admin: 12/14/16 10:41 Dose: 10 ml Naloxone HCl (Narcan) 0.4 mg IVP Q2MIN PRN PRN Reason: Opioid Reversal Stop: 06/11/17 19:58 Omeprazole (Prilosec) 40 mg PO DAILY [facility] Stop: 06/12/17 09:01 Last Admin: 12/15/16 09:13 Dose: 40 mg Oxycodone/Acetaminophen (Percocet 5/325) 1 each PO Q12H PRN PRN Reason: Pain Stop: 06/12/17 04:06 Last Admin: 12/14/16 14:40 Dose: 1 each Potassium Chloride (Potassium Chloride) 40 meq PO BID [facility] Stop: 06/15/17 21:01 Last Admin: 12/15/16 09:15 Dose: 40 meq Sitagliptin Phosphate (Januvia) 100 mg PO DAILY [facility] Stop: 06/12/17 09:01 Last Admin: 12/15/16 09:13 Dose: Not Given - Imaging and Cardiology Echo: report reviewed - EKG Interpretation EKG results cardiology: other (12 hr tele AVG HR 103, A-Fib.) - VTE Documentation of Mechanical Device: Graduated compression elastic hosiery Consult Discharge Plan - Plan Referrals: Tayo Hudson DO [Primary Care Provider] -
--- NOTE | 2016-12-15 12:14 | Discharge Summary ---
Date of Encounter: 12/15/16 Time of Encounter: 12:13 - Discharge Diagnosis (1) Atrial fibrillation with RVR Priority: Primary Status: Resolved (2) Pedal edema Priority: Primary Status: Chronic (3) CHF (congestive heart failure) Priority: Secondary Status: Chronic Qualifiers: Congestive heart failure type: diastolic Congestive heart failure chronicity: acute on chronic Qualified Code(s): I50.33 - Acute on chronic diastolic (congestive) heart failure (4) Pericardial effusion Priority: Secondary Status: Chronic (5) Nausea and vomiting Priority: Primary Status: Resolved Qualifiers: Vomiting type: unspecified Vomiting Intractability: non-intractable Qualified Code(s): R11.2 - Nausea with vomiting, unspecified (6) Pancytopenia Priority: Secondary Status: Chronic (7) GERD (gastroesophageal reflux disease) Priority: Secondary Status: Chronic Qualifiers: Esophagitis presence: without esophagitis Qualified Code(s): K21.9 - Gastro -esophageal reflux disease without esophagitis (8) Hypokalemia Priority: Primary Status: Acute (9) COPD (chronic obstructive pulmonary disease) Priority: Secondary Status: Chronic Qualifiers: COPD type: emphysema Emphysema type: panlobular Qualified Code(s): J43.1 - Panlobular emphysema (10) Lung cancer Priority: Secondary Status: Chronic Qualifiers: Laterality: left Lung location: upper lobe of lung Qualified Code(s): C34.12 - Malignant neoplasm of upper lobe, left bronchus or lung (11) Essential hypertension Priority: Secondary Status: Chronic (12) Diabetes mellitus, type 2 Priority: Secondary Status: Chronic Qualifiers: Diabetes mellitus complication status: with neurologic complications Diabetes mellitus complication detail: with polyneuropathy Diabetes mellitus group home insulin use: without group home use Qualified Code(s): E11.42 - Type 2 diabetes mellitus with diabetic polyneuropathy - Discharge Medications Home Medications: Simvastatin [Zocor] 5 mg PO HS 06/28/16 [History] SitaGLIPtin [Januvia] 100 mg PO DAILY 07/31/16 [History] Albuterol Sulfate [Albuterol Inhaler] 2 puff IH Q6H PRN 08/07/16 [History] Magic Mouthwash [Magic Mouthwash BLM] 10 ml PO QID PRN #240 ml 08/07/16 [Rx] Prochlorperazine Maleate [Compazine] 10 mg PO Q8HR PRN #90 tablet 08/07/16 [Rx] Loperamide [Imodium] 2 mg PO TID PRN #90 capsule 08/20/16 [Rx] Ondansetron [Zofran] 4 mg PO Q8HR PRN #90 tablet 08/20/16 [Rx] Omeprazole [PriLOSEC] 40 mg PO DAILY #30 cap 08/27/16 [Rx] Lidocaine/Prilocaine CREAM [Emla] 1 appl TP ONCE PRN 09/02/16 [History] Diltiazem CD (24hr) [Cardizem CD] 180 mg PO DAILY #30 cap.er.24h 09/04/16 [Rx] Losartan [Cozaar] 12.5 mg PO DAILY #30 tab 09/11/16 [Rx] Dexamethasone [Decadron] 4 mg PO BID #12 tab 11/24/16 [Rx] Glimepiride [Amaryl] 4 mg PO DAILY 12/10/16 [History] OxyCODONE/APAP 5/325 [Percocet 5/325 MG] 1 each PO Q12H PRN #60 tablet 12/10/16 [Rx] Potassium Chloride [K-Tab ER] 20 meq PO BID 12/10/16 [History] Calcium Carbonate [Tums] 1,000 mg PO QID tab.chew 12/12/16 [Rx] Furosemide [Lasix] 10 mg PO DAILY tablet 12/15/16 [Rx] Allergies/Adverse Reactions: 3 Allergy/AdvReac Type Severity Reaction Status Date / Time Penicillins Allergy Rash Verified 12/10/16 12:49 vancomycin Allergy Rash Verified 12/10/16 12:49 aspirin AdvReac Gastrointestinal Verified 12/10/16 12:49 Upset Hydromorphone [From Dilaudid] AdvReac Confusion Verified 12/10/16 12:49 meperidine [From Demerol] AdvReac Confusion Verified 12/10/16 12:49 Date of admission: 12/14/16 18:33 Primary care physician: Tayo Hudson Discharging clinician: Karl Pastrana Anticipated date of discharge: 12/15/16 - Patient Status Disposition: Home, Self-Care Condition: Good Functional capacity at discharge: independent ambulation Overall status at discharge: patient is progressing back to baseline - Discharge Instructions Follow Up With: Tayo Hudson, [Primary Care Provider] - Additional Instructions: FOLLOW UP WITH YOUR PCP AND ONCOLOGIST CHECK YOUR BLOOD PRESSURE ROUTINELY - Diet and Activity Activity: resume usual activities as tolerated Diet: diabetic diet, low fat, low cholesterol, low salt diet Interval History: See below Hospital course: Ms. Hernandez is a 76 year old female with recent diagnosis of lung cancer. She also has history of hypertension, diabetes, hyperlipidemia, GERD, COPD, hypertension, and A. fib She is currently undergoing chemotherapy for lung cancer. She was admitted for gastritis due to chemotherapy. Patient has had nausea, vomiting, and diarrhea. On discharge, patient reports that nausea and vomiting have resolved, she still having occasional, infrequent episodes of diarrhea that seems to be controlled by Imodium. She is tolerating orally and has been stable. She has pancytopenia due to her diagnosis of CA on chemo, there was concern for GIB due to FOBT positve X2. Gen surgery was consulted and recommended out- patient work up. Patient's hb is now at baseline She also had an episode of low blood pressure , repeat ECHO showed resolution of prior pericardial effusion, cardiology was consulted and has signed off, with no plans for intervention. Patient denies need for prescription medications for nausea at home. She denies need for medication for pain control. She also had hypokalemia throughout her hospital stay , possibly from her GI loss, she is on supplements at home and this will be continued as same She complained of chronic leg edema and stated she was on lasix at home, this has been held since admission, but restarted at low dose of 10mg daily today, patient and her daughters are educated to follow up with PCP for titration of lasix and potassium supplements She is stable and asymptomcatic at discharge Flu shot recommended - Time Spent with Patient Total time spent providing and/or coordinating discharge services: Greater than 30 minutes - Constitutional Vitals: Temp Pulse Resp BP Pulse Ox 97.6 F 98 16 136/77 97 12/15/16 10:58 12/15/16 10:58 12/15/16 10:58 12/15/16 10:58 12/15/16 10:58 General appearance: Present: cooperative, A&O X 3, pleasant, no acute distress, answers questions appropriately - Head Head exam: Present: atraumatic, normocephalic - Eye Eye exam: Present: PERRL, conjuntiva pink, sclera anicteric Pupils: Present: PERRL - Neck Neck exam general surgery: Present: supple, trachea midline. Absent: lymphadenopathy - Respiratory Respiratory exam: Present: rhonchi. Absent: accessory muscle use, rales, wheezes - Cardiovascular Cardiovascular exam: Present: irregular rhythm, +S1, +S2. Absent: diastolic murmur, gallop, rubs, systolic murmur - GI/Abdominal GI/Abdominal exam: Present: normal bowel sounds, soft, no peritoneal signs. Absent: distended, tenderness - Extremities Exam Extremities exam: Present: pedal edema, warm, radial pulses palpable and symmetrical. Absent: calf tenderness, cyanotic - Neurological Exam Neurological exam: Present: alert, CN II-XII intact, oriented X3, no focal deficits. Absent: pronater drift, facial droop, speech deficit - Skin Skin exam: Present: dry, intact - VTE Documentation of Mechanical Device: Graduated compression elastic hosiery
[2016-12-15] MEDS ORDERED: Furosemide 20 MG TABLET PO SCH ×2 (14:00→15:00)
[2016-12-15 17:07] VITALS: BP 126/67
== END 2016-12-15 18:28 | disposition home or self-care (01) | DRG 180 ==
LOC: EMEROO 12:43 → 3BNU 12:43 → SUATTDRO 12-14 18:33
PROVIDERS: ADMIT Registered Nurse; ATTEND Internal Medicine

== ENCOUNTER 2017-02-25 13:23 | Inpatient (IN) ==
[2017-02-25 14:16] LABS: Basophils % 0.4 %; Eosinophils # 0.1 K/mcL (0.0-0.6); Eosinophils % 1.8 %; Hematocrit 35.5 % (35.3-44.9); Immature Granulocytes % 0.7 % (0-4); Lymphocytes # 0.6 K/mcL (0.6-4.6); Lymphocytes % 8.5 %; Mean Corpuscular HGB Conc 33.8 g/dL (31.6-35.5); Mean Corpuscular Hemoglobin 30.5 pg (28.0-33.3); Mean Corpuscular Volume 90.1 fL (83.0-100.0); Mean Platelet Volume 8.8 fL (9.4-12.4); Monocytes # 0.8 K/mcL (0.0-1.3); Neutrophils # 5.2 K/mcL (1.6-8.9); Platelet Count 304 K/mcL (140-400); Red Blood Count 3.94 M/mcL (3.82-4.97); Red Cell Distribution Width 13.3 % (11.5-14.5); Segmented Neutrophils % 76.6 %
[2017-02-25 14:27] LABS: BUN/Creatinine Ratio 15 (6-26); Blood Urea Nitrogen 10 mg/dL (8-23); Calcium 8.8 mg/dL (8.6-10.3); Carbon Dioxide 24 mEq/L (23-29); Chloride 98 mEq/L (98-107); Glucose 152 mg/dL (70-105); Osmolality,Calculated 278 (280-300); Potassium 3.3 mEq/L (3.5-5.1); Sodium 133 mEq/L (136-145); eGFR For African Americans > 60 (> 60); eGFR For Non-African Americans > 60 (> 60)
[2017-02-25] MEDS ORDERED: Meropenem 1,000 MG in Water for inj. (sterile) 10 ML IVP ONE (14:56)
--- NOTE | 2017-02-25 15:00 | Emergency Department Note ---
Disposition Clinical Impression: Pneumonia Qualifiers: Pneumonia type: due to unspecified organism Laterality: unspecified laterality Lung location: unspecified part of lung Qualified Code(s): J18.9 - Pneumonia, unspecified organism Lung cancer Qualifiers: Laterality: unspecified laterality Lung location: unspecified part of lung Qualified Code(s): C34.90 - Malignant neoplasm of unspecified part of unspecified bronchus or lung Disposition: Admitted As Inpatient Condition: Fair Time of Disposition: 15:01 General Adult HPI - General Chief complaint: ED Shortness of Breath/Dyspnea Stated complaint: Lungs filling up with fluid Time Seen by Provider: 02/25/17 13:55 Source: patient, family Mode of arrival: ambulatory Limitations: no limitations Nursing Notes Reviewed: Yes Vital Signs Reviewed: Yes - History of Present Illness HPI Narrative: 76-year-old female with a diagnosis of lung cancer several months ago presents for evaluation of dyspnea. Patient states that she had prolonged drain last Wednesday. Patient states that she is feeling short of breath. Does not require any oxygen. Patient initially was on chemotherapy and radiation but has not completed any of those therapies recently. Patient is on immunomodulators therapy at the cancer center. Patient denies any chest pain. Does note a cough. No fevers. Patient denies any nausea or vomiting. No abdominal pain. Patient states that her blood pressures typically low. Pain Scale: 5 - Related Data Home Medications Medication Instructions Recorded Confirmed Simvastatin [Zocor] 5 mg PO HS 06/28/16 02/25/17 SitaGLIPtin [Januvia] 100 mg PO DAILY 07/31/16 02/25/17 Albuterol Sulfate [Albuterol 2 puff IH Q6H PRN 08/07/16 02/25/17 Inhaler] Lidocaine/Prilocaine CREAM [Emla] 1 appl TP ONCE PRN 09/02/16 02/25/17 Potassium Chloride [K-Tab ER] 30 meq PO BID 12/10/16 02/25/17 Calcium Carbonate [Tums] 1,000 mg PO QID PRN 12/16/16 02/25/17 Furosemide [Lasix] 20 - 40 mg PO DAILY 02/25/17 02/25/17 Previous Rx's Medication Instructions Recorded Magic Mouthwash [Magic Mouthwash 10 ml PO QID PRN #240 ml 08/07/16 BLM] Prochlorperazine Maleate 10 mg PO Q8HR PRN #90 tablet 08/07/16 [Compazine] Loperamide [Imodium] 2 mg PO TID PRN #90 capsule 08/20/16 Ondansetron [Zofran] 4 mg PO Q8HR PRN #90 tablet 08/20/16 Diltiazem CD (24hr) [Cardizem CD] 180 mg PO DAILY #30 cap.er.24h 09/04/16 Losartan [Cozaar] 12.5 mg PO DAILY #30 tab 09/11/16 Diphenoxylate/Atropine [Lomotil 1 each PO QID PRN #90 tablet 12/16/16 2.5 mg/0.025 mg] OxyCODONE/APAP 5/325 [Percocet 1 each PO TID #90 tablet 01/27/17 5/325 MG] Allergies Allergy/AdvReac Type Severity Reaction Status Date / Time Penicillins Allergy Rash Verified 02/24/17 11:06 vancomycin Allergy Rash Verified 02/24/17 11:06 aspirin AdvReac Gastrointestinal Verified 02/24/17 11:06 Upset Hydromorphone [From Dilaudid] AdvReac Confusion Verified 02/24/17 11:06 meperidine [From Demerol] AdvReac Confusion Verified 02/24/17 11:06 All systems ED: reviewed and negative except as stated. Constitutional: Reports: as per HPI. Denies: fever Eyes: Reports: as per HPI ENT ED: Reports: as per HPI Cardiovascular: Reports: as per HPI. Denies: chest pain Respiratory: Reports: as per HPI. Denies: cough, dyspnea Gastrointestinal: Reports: as per HPI. Denies: abdominal pain, nausea, vomiting Genitourinary: Reports: as per HPI Musculoskeletal: Reports: as per HPI Integumentary: Reports: as per HPI Neurological: Reports: as per HPI. Denies: headache Psychiatric: Reports: as per HPI Endocrine: Reports: as per HPI Hematological/Lymphatic: Reports: as per HPI Past Medical History - Past Medical History Medical history: Reports: aortic aneurysm, atrial fibrillation, cancer, COPD, diabetes, hyperlipidemia, hypertension, other Surgical history: Reports: cholecystectomy, hysterectomy, knee replacement, other Psychiatric history: Reports: no psych history - Social History Smoking Status: Former smoker Smokeless Tobacco Status: No Alcohol use: Reports: none Drug use: Reports: none Physical Exam - General Limitations: no limitations General appearance: alert, in no apparent distress - Head Head exam: atraumatic, normocephalic, normal inspection - Eye Eye exam: Present: normal appearance, PERRL, EOMI - ENT ENT exam: normal exam, mucous membranes moist - Neck Neck exam: Present: normal inspection, trachea midline - Chest Chest inspection: Present: normal inspection, symmetric chest wall rise, other ( Right upper chest port) - Respiratory Respiratory exam: Present: other (Sided basilar Rales). Absent: accessory muscle use, prolonged expiratory phase - Abdominal Exam Abdominal exam: Present: soft, Non-Tender. Absent: tenderness, distention - Extremities Exam Extremities exam: Present: normal inspection, pedal edema (Trace bilateral) - Back Exam Back exam: Present: normal inspection - Neurological Exam Neurological exam: Present: alert, oriented X3 - Skin Skin exam: Present: warm, dry, intact, normal color Course Course Narrative: Patient seen and examined. Patient had basic lab work including chest x-ray and labs. Vital Signs Temperature 98.3 F 02/25/17 13:24 Pulse Rate 129 02/25/17 13:24 Respiratory Rate 18 02/25/17 13:24 Blood Pressure 85/58 02/25/17 13:24 O2 Sat by Pulse Oximetry 97 02/25/17 13:24 Temperature 97.7 F 02/25/17 17:20 Pulse Rate 76 02/25/17 17:20 Respiratory Rate 16 02/25/17 17:20 Blood Pressure 95/63 02/25/17 17:20 O2 Sat by Pulse Oximetry 93 02/25/17 17:20 Oxygen Delivery Oxygen Delivery Room Air Medical Decision Making - [facility] Narrative Medical decision making narrative: 76-year-old female presents for evaluation of dyspnea. Patient does have a lung cancer history. Patient started requiring oxygen but chest x-ray does show multifocal pneumonia. Patient is on a medial modulator therapy. Given the patient's significant coronary disease the patient would need IV antibiotics. Patient does have a recent thoracentesis performed. Patient's chest x-ray does show improved effusion. Patient's EKG shows no acute changes. Patient will be admitted to the hospital service for further evaluation and monitoring. - Lab Data Lab results reviewed: Yes I reviewed the patient's lab results. Result diagrams: 02/25/17 14:07 02/25/17 14:07 Lab Results 02/25/17 02/25/17 02/25/17 Range/Units 14:07 14:07 14:07 WBC 6.8 (4.3-11.1) K/mcL RBC 3.94 (3.82-4.97) M/mcL Hgb 12.0 (11.5-15.4) g/dL Hct 35.5 (35.3-44.9) % MCV 90.1 (83.0-100.0) fL MCH 30.5 (28.0-33.3) pg MCHC 33.8 (31.6-35.5) g/dL RDW 13.3 (11.5-14.5) % Plt Count 304 (140-400) K/mcL MPV 8.8 L (9.4-12.4) fL Immature Gran % 0.7 (0-4) % Seg Neutrophils % 76.6 % Lymphocytes % 8.5 % Monocytes % 12.0 % Eosinophils % 1.8 % Basophils % 0.4 % Neutrophils # 5.2 (1.6-8.9) K/mcL Lymphocytes # 0.6 (0.6-4.6) K/mcL Monocytes # 0.8 (0.0-1.3) K/mcL Eosinophils # 0.1 (0.0-0.6) K/mcL Basophils # 0.0 (0.0-0.2) K/mcL D-Dimer (0-500) ng/mLFEU Sodium 133 L (136-145) mEq/L Potassium 3.3 L (3.5-5.1) mEq/L Chloride 98 (98-107) mEq/L Carbon Dioxide 24 (23-29) mEq/L BUN 10 (8-23) mg/dL Creatinine 0.67 (0.60-1.20) mg/dL Est GFR ( Amer) > 60 (> 60) Est GFR (Non-Af Amer) > 60 (> 60) BUN/Creatinine Ratio 15 (6-26) Glucose 152 H (70-105) mg/dL Est Mean Plasma Glucose mg/dl Hemoglobin A1c ( - 5.6) % Calculated Osmolality 278 L (280-300) Lactic Acid 1.8 (0.5-2.2) mmol/L Calcium 8.8 (8.6-10.3) mg/dL Troponin I (< 0.04) ng/mL 02/25/17 02/25/17 02/25/17 Range/Units 14:07 14:07 14:07 WBC (4.3-11.1) K/mcL RBC (3.82-4.97) M/mcL Hgb (11.5-15.4) g/dL Hct (35.3-44.9) % MCV (83.0-100.0) fL MCH (28.0-33.3) pg MCHC (31.6-35.5) g/dL RDW (11.5-14.5) % Plt Count (140-400) K/mcL MPV (9.4-12.4) fL Immature Gran % (0-4) % Seg Neutrophils % % Lymphocytes % % Monocytes % % Eosinophils % % Basophils % % Neutrophils # (1.6-8.9) K/mcL Lymphocytes # (0.6-4.6) K/mcL Monocytes # (0.0-1.3) K/mcL Eosinophils # (0.0-0.6) K/mcL Basophils # (0.0-0.2) K/mcL D-Dimer 3830 H (0-500) ng/mLFEU Sodium (136-145) mEq/L Potassium (3.5-5.1) mEq/L Chloride (98-107) mEq/L Carbon Dioxide (23-29) mEq/L BUN (8-23) mg/dL Creatinine (0.60-1.20) mg/dL Est GFR ( Amer) (> 60) Est GFR (Non-Af Amer) (> 60) BUN/Creatinine Ratio (6-26) Glucose (70-105) mg/dL Est Mean Plasma Glucose 108 mg/dl Hemoglobin A1c 5.4 ( - 5.6) % Calculated Osmolality (280-300) Lactic Acid (0.5-2.2) mmol/L Calcium (8.6-10.3) mg/dL Troponin I < 0.03 (< 0.04) ng/mL - Radiology Data Radiology results reviewed: Yes I reviewed the patient's radiology results. Chest X-Ray 02/25/17 13:36 IMPRESSION: Patchy airspace opacities in the bilateral parahilar regions, left more than right, may be related to pulmonary edema versus pneumonia. Trace left pleural effusion. D/ / Ronan Barrios MD / Ronan Barrios MD Interpreting Provider: Ronan Barrios MD - EKG Data EKG #1 EKG attestation: Yes I reviewed and interpreted this EKG. Rate: tachycardia Rhythm: A.Fib [place]/QRS: normal Voltage: decreased voltage throughout Q waves: aVL, v1 Interpretation: no acute changes, unchanged when compared to prior tracing (date ) S.B.A.R. - S.B.A.RSumaya Situation: Demographics Background: Presenting Complaint Assessment: Vital Signs, Course and respsone to treatment, Patient/Family Expectation Recommendation: Barrier(s) to disposition, Recommendation based on pending studies, treatments, or consults S.B.A.RSumaya Report Given to: Dr. Andriy RosenbaumBSumayaACharu Repor Time: 15:27 Attestation Statement - Attestation Attestation: I examined this patient and my medical decision-making was reviewed with the Resident Physician. I agree with the documented findings, disposition and treatment plan as described except to the extent set forth below. Patient presents to the ED with a chief complaint of shortness of breath. She was sent over from oncology office. She recently had thoracentesis for pleural effusion and is concerned it is accumulated again. On examination she has diminished breath sounds but they are not absent. She is in no respiratory distress. Plan. Chest x-ray shows multifocal pneumonia. There is a small pleural effusion on the left. Patient is immunocompromised on chemotherapy. She started on broad-spectrum antibiotics and admitted to medicine. Lactate normal. Blood culture sent. Blood pressure responded to fluids. Patient's blood pressure normally runs in this range. Patient is not felt to have septic shock.
[2017-02-25] MEDS ORDERED: 0.9 % Sodium Chloride 1,000 ML IVC ONE (15:07)
[2017-02-25] MEDS ORDERED: Diphenoxylate/Atropine 1 TAB TABLET PO PRN (15:50)
[2017-02-25] MEDS ORDERED: Magic Mouthwash 10 ML UD Cup PO PRN (15:50)
[2017-02-25] MEDS ORDERED: Acetaminophen 325 MG TABLET PO PRN (15:54)
[2017-02-25] MEDS ORDERED: MOM Conc 10 ML UD.LIQ PO PRN (15:54)
[2017-02-25] MEDS ORDERED: Ondansetron 4 MG/2 ML VIAL IVP PRN (15:54)
[2017-02-25] MEDS ORDERED: Naloxone 0.4 MG/ML INJ IVP PRN (15:54)
[2017-02-25] MEDS ORDERED: *HR* OxyCODONE/APAP 5/325 TABLET PO ONE (15:57)
[2017-02-25] MEDS ORDERED: Dextrose Gel 15 GM/37.5 ML TUBE PO PRN ×2 (16:03)
[2017-02-25] MEDS ORDERED: *HR* Dextrose 50 % in Water (Syg) 50 ML SYRINGE IVP PRN (16:03)
[2017-02-25] MEDS ORDERED: D5% in Water 1,000 ML IVC PRN (16:03)
[2017-02-25] MEDS ORDERED: Potassium Chloride Elixir 20 MEQ/15 ML UDC PO ONE (16:09)
--- NOTE | 2017-02-25 16:15 | Internal Med History&Physical ---
<Marybeth Whitmore - Last Filed: 02/25/17 16:11> Date of Encounter: 02/25/17 Time of Encounter: 16:11 Assessment and Plan (1) Dyspnea Status: Acute - Dyspnea developed this morning, undetermined etiology. - Pending D-dimer and BNP given Hx of CHF and risks for DVT/PE. - s/p pleural drain and risk of pneumonthorax, may need CT to rule out, defer to attending. Qualifiers: Dyspnea type: unspecified Qualified Code(s): R06.00 - Dyspnea, unspecified (2) HCAP (healthcare-associated pneumonia) Status: Acute - symptoms consistent with PNA and CXR revealed bilateral patchy infiltrate. - Due to drug allergies, received Meropenem and Linezolid at ED, will continue Abx. - Pending blood and sputum cx. (3) CHF (congestive heart failure) Status: Chronic Qualifiers: Congestive heart failure type: diastolic Congestive heart failure chronicity: acute on chronic Qualified Code(s): I50.33 - Acute on chronic diastolic (congestive) heart failure (4) Pleural effusion Status: Chronic - Pleural effusion smaller than previous CXR. (5) Lung cancer Status: Chronic - F/u with oncology. Qualifiers: Laterality: unspecified laterality Lung location: unspecified part of lung Qualified Code(s): C34.90 - Malignant neoplasm of unspecified part of unspecified bronchus or lung (6) Diabetes mellitus, type 2 Status: Chronic - Home meds and insulin SS. - Pending HgbA1c Qualifiers: Diabetes mellitus complication status: with neurologic complications Diabetes mellitus complication detail: with polyneuropathy Diabetes mellitus termite control representative insulin use: without termite control representative use Qualified Code(s): E11.42 - Type 2 diabetes mellitus with diabetic polyneuropathy Internal Medicine - H&P: HPI History of present illness: Ms. Hernandez is a 76 year old female with a diagnosis of lung cancer several months ago presents for evaluation of dyspnea. Patient states that she had prolonged drain last Wednesday. Patient states that she is feeling short of breath this morning. Does not require any oxygen. Patient initially was on chemotherapy and radiation but has not completed any of those therapies recently. Patient is on immunomodulators therapy at the cancer center. Patient denies any chest pain. Does note a cough with yellow mucus. No fevers. Patient denies any nausea or vomiting. No abdominal pain. Patient states that her blood pressures typically low. At the ED, her vital signs are stable, labs are unremarkable. Chest x-ray revealed bilateral pneumonia. She received Meropenem and Linezolid. She will be admitted to the inpatient service for further management. Past Med Surg Social Fam HX - Past Medical History Medical history: aortic aneurysm, atrial fibrillation, cancer, COPD, diabetes, hyperlipidemia, hypertension, other Psychiatric history: no psych history - Past Surgical History Surgical History: cholecystectomy, hysterectomy, knee replacement, other - Social History Smoking Status: Former smoker Smokeless Tobacco Status: No Alcohol use: none Drug use: none - Family History Mother Family Member Ethnicity: Non- Living Status: Hx Family Cardiac Disorders: No Hx Family Respiratory Disorders: No Hx Family Cancer: No Hx Family GI Disorders: No Hx Family Endocrine Disorder: No Hx Family Neuromuscular Disorders: No Hx Family Neurologic Disorders: No Hx Family HEENT Disorders: No Hx Family Autoimmune Disorders: No Internal Medicine - H&P: Meds Simvastatin [Zocor] 5 mg PO HS 06/28/16 [History] SitaGLIPtin [Januvia] 100 mg PO DAILY 07/31/16 [History] Albuterol Sulfate [Albuterol Inhaler] 2 puff IH Q6H PRN 08/07/16 [History] Magic Mouthwash [Magic Mouthwash BLM] 10 ml PO QID PRN #240 ml 08/07/16 [Rx] Prochlorperazine Maleate [Compazine] 10 mg PO Q8HR PRN #90 tablet 08/07/16 [Rx] Loperamide [Imodium] 2 mg PO TID PRN #90 capsule 08/20/16 [Rx] Ondansetron [Zofran] 4 mg PO Q8HR PRN #90 tablet 08/20/16 [Rx] Lidocaine/Prilocaine CREAM [Emla] 1 appl TP ONCE PRN 09/02/16 [History] Losartan [Cozaar] 12.5 mg PO DAILY #30 tab 09/11/16 [Rx] Potassium Chloride [K-Tab ER] 30 meq PO QPM 12/10/16 [History] Calcium Carbonate [Tums] 1,000 mg PO QID PRN 12/16/16 [History] Diphenoxylate/Atropine [Lomotil 2.5 mg/0.025 mg] 1 each PO QID PRN #90 tablet [Rx] Furosemide [Lasix] 20 - 40 mg PO DAILY 02/25/17 [History] OxyCODONE/APAP 5/325 [Percocet 5/325 MG] 1 each PO TID #90 tablet 03/09/17 [Rx] Psyllium Husk [Daily Fiber] 0.52 gm PO DAILY PRN 03/22/17 [History] Clopidogrel [Plavix] 75 mg PO DAILY #30 tablet 03/25/17 [Rx] Diltiazem SR (12hr) [Cardizem SR] 90 mg PO BID #60 cap.er.12h 03/25/17 [Rx] 3 Allergy/AdvReac Type Severity Reaction Status Date / Time Penicillins Allergy Rash Verified 03/15/17 13:17 vancomycin Allergy Rash Verified 03/15/17 13:17 aspirin AdvReac Gastrointestinal Verified 03/15/17 13:17 Upset Hydromorphone [From Dilaudid] AdvReac Confusion Verified 03/15/17 13:17 levofloxacin [From Levaquin] AdvReac Vomiting Verified 03/15/17 13:17 meperidine [From Demerol] AdvReac Confusion Verified 03/15/17 13:17 All Systems PM: A 10-system review of systems was performed and is negative for pertinent findings except as documented above in the HPI. Review of systems: REVIEW OF SYSTEMS: CONSTITUTIONAL: No weight loss, fever, chills, weakness or fatigue. HEENT: Eyes: No visual loss, blurred vision, double vision or yellow sclerae. Ears, Nose, Throat: No hearing loss, sneezing, congestion, runny nose or sore throat. SKIN: No rash or itching. CARDIOVASCULAR: No chest pain, chest pressure or chest discomfort. No palpitations or edema. RESPIRATORY: see HPI. GASTROINTESTINAL: No anorexia, nausea, vomiting or diarrhea. No abdominal pain or blood. GENITOURINARY: No dysuria, urgency, or frequency. NEUROLOGICAL: No headache, dizziness, syncope, paralysis, ataxia, numbness or tingling in the extremities. No change in bowel or bladder control. MUSCULOSKELETAL: No muscle, back pain, joint pain or stiffness. HEMATOLOGIC: No anemia, bleeding or bruising. LYMPHATICS: No enlarged nodes. No history of splenectomy. PSYCHIATRIC: No history of depression or anxiety. ENDOCRINOLOGIC: No reports of sweating, cold or heat intolerance. No polyuria or polydipsia. - Constitutional Vitals: Temp Pulse Resp BP Pulse Ox 98.3 F 106 18 110/50 96 02/25/17 13:24 02/25/17 15:31 02/25/17 15:31 02/25/17 15:31 02/25/17 15:31 Exam: PHYSICAL EXAMINATION: GENERAL APPEARANCE: The patient is alert, oriented and in no acute distress. HEENT: Head is normocephalic. The sinuses are non-tender. Pupils are equal and reactive. The nares are patent. Oropharynx clear without lesions. NECK: Supple without lymphadenopathy. HEART: Regular rate and rhythm. LUNGS: scattered crackles. ABDOMEN: Soft, non-tender, non-distended with good bowel sounds heard. Inguinal area is normal. EXTREMITIES: Without cyanosis, clubbing or edema. NEUROLOGICAL: Gross non-focal. SKIN: Warm and dry without any rash. Internal Med - H&P Results - Labs CBC & Chem 7: 02/25/17 14:07 02/25/17 14:07 <Shanique Ashraf - Last Filed: 03/26/17 09:06> Date of Encounter: 03/26/17 Internal Medicine - H&P: HPI History of present illness: Ms. Hernandez is a 76 year old female All Systems PM: A 10-system review of systems was performed and is negative for pertinent findings except as documented above in the HPI. - Constitutional Vitals: Temp Pulse Resp BP Pulse Ox 98.4 F 100 16 91/53 91 03/01/17 07:21 03/01/17 07:21 03/01/17 07:21 03/01/17 07:21 03/01/17 07:21 Internal Med - H&P Results - Labs CBC & Chem 7: 02/27/17 03:52 02/27/17 03:52 - Impressions ITS Impressions Echocardiogram 02/26/17 18:31 Impressions: Technically adequate exam. Atrial fibrillation. LVEF 65%. Normal LV chamber size, wall thickness and function. Trace mitral regurgitation. Left Ventricular Wall Motion: Rest Echo Findings All wall segments showed normal motion. Findings: Study Quality * Technically adequate exam. ECG Findings * Atrial fibrillation. Left Ventricle * LVEF 65%. * Normal LV chamber size, wall thickness and function. * Indeterminate diastolic function. Right Ventricle * Normal right ventricular structure and function. Left Atrium * Normal left atrial size. Right Atrium * Normal right atrial size. Interatrial Septum * No evidence of PFO by color Doppler. Aortic Valve * Trileaflet aortic valve. * Trileaflet aortic valve with normal function. Mitral Valve * Normal mitral valve structure. * Mildly calcified mitral valve leaflets. * Trace mitral regurgitation. Tricuspid Valve * Normal tricuspid valve structure and function. Pulmonic Valve * Pulmonic valve is not well visualized. Aorta * Normally sized aortic root. Pericardium * The pericardium appears normal. - Attending Attestation I personally and independently interviewed and examined the patient with SURG NURSE, and I reviewed the patient's medical record with her. I am in agreement with the assessment and proposed treatment plan. I discussed my findings and recommendation with the patient and answer all questions. The patient's medical records were edited to accurately reflect this encounter.
[2017-02-25 17:08] LABS: Hemoglobin A1C 5.4 %
[2017-02-25] MEDS: Insulin LISPRO 300 UNITS/3 ML VIAL SQ SCH (18:34)
[2017-02-25] MEDS ORDERED: *HR* OxyCODONE/APAP 5/325 TABLET PO SCH (21:00)
[2017-02-25] MEDS: *HR* Heparin 5,000 UNIT/ML VIAL SQ SCH (23:19)
[2017-02-25] MEDS: Meropenem 1,000 MG in Water for inj. (sterile) 20 ML 20 ML IVPB SCH (23:20)
[2017-02-26 05:57] LABS: Hematocrit 32.7 % (35.3-44.9); Hemoglobin 10.7 g/dL (11.5-15.4); Mean Corpuscular HGB Conc 32.7 g/dL (31.6-35.5); Mean Corpuscular Hemoglobin 29.9 pg (28.0-33.3); Mean Corpuscular Volume 91.3 fL (83.0-100.0); Mean Platelet Volume 9.2 fL (9.4-12.4); Platelet Count 320 K/mcL (140-400); Red Blood Count 3.58 M/mcL (3.82-4.97); Red Cell Distribution Width 13.4 % (11.5-14.5)
[2017-02-26 06:00] LABS: BUN/Creatinine Ratio 14 (6-26); Blood Urea Nitrogen 9 mg/dL (8-23); Calcium 8.5 mg/dL (8.6-10.3); Carbon Dioxide 23 mEq/L (23-29); Chloride 103 mEq/L (98-107); Glucose 143 mg/dL (70-105); Osmolality,Calculated 283 (280-300); Sodium 136 mEq/L (136-145); eGFR For African Americans > 60 (> 60); eGFR For Non-African Americans > 60 (> 60)
[2017-02-26] MEDS: *HR* Heparin 5,000 UNIT/ML VIAL SQ SCH ×3 (06:01→21:44)
--- NOTE | 2017-02-26 06:45 | Electrocardiograph Report ---
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
[2017-02-26] MEDS: Insulin LISPRO 300 UNITS/3 ML VIAL SQ SCH ×3 (07:43→17:38)
[2017-02-26] MEDS: Meropenem 1,000 MG in Water for inj. (sterile) 20 ML 20 ML IVPB SCH ×2 (09:59→17:30)
[2017-02-26] MEDS: *HR* SitaGLIPtin 100 MG TABLET PO SCH (09:59)
[2017-02-26] MEDS: Diltiazem CD (24hr) 180 MG CAPSULE PO SCH (09:59)
[2017-02-26] MEDS: Furosemide 20 MG TABLET PO SCH (09:59)
[2017-02-26 14:09] LABS: Enterococcus by PCR Not Detected (Not Detect); mecA Methicillin-Resist Gene ***DETECTED*** (Not Detect)
[2017-02-26 14:10] LABS: Acinetobacter baumannii by PCR Not Detected (Not Detect); Candida albicans by PCR Not Detected (Not Detect); Candida glabrata by PCR Not Detected (Not Detect); Candida krusei by PCR Not Detected (Not Detect); Candida parapsilosis by PCR Not Detected (Not Detect); Candida tropicalis by PCR Not Detected (Not Detect); Escherichia coli by PCR Not Detected (Not Detect); Klebsiella oxytoca by PCR Not Detected (Not Detect); Klebsiella pneumoniae by PCR Not Detected (Not Detect); Pseudomonas aeruginosa by PCR Not Detected (Not Detect); Serratia marcescens by PCR Not Detected (Not Detect); Staphylococcus aureus by PCR Not Detected (Not Detect); Streptococcus agalactiae(B)PCR Not Detected (Not Detect); Streptococcus by PCR Not Detected (Not Detect); Streptococcus pneumoniae PCR Not Detected (Not Detect); Streptococcus pyogenes (A) PCR Not Detected (Not Detect)
--- NOTE | 2017-02-26 15:16 | Oncology Inp Consult Note ---
Date of Encounter: 02/26/17 Time of Encounter: 08:00 Assessment and Plan (1) Lung cancer Status: Chronic Assessment and plan: Status post chemoradiation therapy, on maintenance immunotherapy, status post thoracentesis with some symptomatic relief, with subsequent worsening of shortness of breath that patient hospitalized status post outpatient antibiotic treatment failure. Chest x-ray showing patchy changes in the left lung lower extremity swelling has improved. Echocardiogram pending continue IV antibiotic therapy, supportive care. Blood culture showing gram-positive cocci in one set , possible contamination continue broad-spectrum antibiotic therapy. Patient seen bedside, plan of care briefly discussed. Qualifiers: Laterality: left Lung location: upper lobe of lung Qualified Code(s): C34.12 - Malignant neoplasm of upper lobe, left bronchus or lung - Data of Consult Requesting Physician: Amy Gomez Primary Care Provider: Tayo Hudson - Consult Narrative Reason for consult: lung ca, pneumonia History of present illness: 76-year-old female with medical history significant for hypertension, diabetes mellitus, ulcer disease status post endoscopy in the past, with history of chronic tobacco abuse, she had a cold episode as well as in, was seen in the emergency room with patient developed a blood-tinged phlegm further workup with a CT scan 06/28/2016 which showed a large 8.2 x 6.3 cm left lung mass suggestive of neoplasm with prominent mediastinal lymph nodes measuring 1 x 1.8 cm prevascular lymph node, precarinal lymph nodes. Patient underwent bronchoscopy at that time not diagnostic (hypoxemia) in June 2016, biopsy of which showed rare clusters of cells suspicious for non-small cell carcinoma. She quit smoking in 2013. She underwent a repeat bronchoscopy procedure in July 2016 and pathology showing squamous cell carcinoma. PET imaging from June 2016 shows a hypermetabolic left upper lobe mass compatible primary lung malignancy, left hilar and mediastinal lymph nodes compatible with metastatic disease. Started chemoradiation July 2016, first week of carboplatin and Taxol 2016 ---s/p 2 doses and was hospitalized with A fib/pneumonia RT last day- 11/11/16. s/p carbo/taxol 11/05/16 (6 wks) Received 12/03/16 consolidation carbotaxol 12/10/16--mouth sores, feels sick, green stools, diarrhea, palpitations-- hosptalized Returns for f/u. She had rpt echo 12/15 nl EF. A fib on meds Ct CAP 01/15--Left mid lung mass likely stable--obscured by atelectasis/ moderate effusion, adenopathy stable She was discussed NCCN recommendations on maintenance immunotherapy. She had CT imaging 01/15--Moderate left pleural effusion. Stable mass and scarring or partial atelectasis in the left upper lobe. Stable adenopathy s/p Druvalumab started 01/15 tolerated well PET 02/14--partial metabolic response She was hospitalized in with the complaints of worsening shortness of breath, status post thoracentesis with gradual onset of shortness of breath. A chest x-ray showed patchy infiltrative areas in the left lower lung, patient was treated outpatient with antibiotic regimen without any improvement. She denies any cough she is not needing oxygen at rest shortness of breath is better on today's ROS Past Med Surg Social Fam HX - Past Medical History Medical history: aortic aneurysm, atrial fibrillation, cancer, COPD, diabetes, hyperlipidemia, hypertension, other Psychiatric history: no psych history - Past Surgical History Surgical History: cholecystectomy, hysterectomy, knee replacement, other - Social History Smoking Status: Former smoker Smokeless Tobacco Status: No Alcohol use: none Drug use: none - Family History Mother Name: hemalatha damian Age: 74 Family Member Ethnicity: Non- Living Status: Age at : 74 Hx Family Cardiac Disorders: Yes Hx Family Respiratory Disorders: No Hx Family Cancer: No Hx Family GI Disorders: No Hx Family Endocrine Disorder: Yes Hx Family Neuromuscular Disorders: No Hx Family Neurologic Disorders: No Hx Family HEENT Disorders: No Hx Family Autoimmune Disorders: No Medications and Allergies Simvastatin [Zocor] 5 mg PO HS 06/28/16 [History] SitaGLIPtin [Januvia] 100 mg PO DAILY 07/31/16 [History] Albuterol Sulfate [Albuterol Inhaler] 2 puff IH Q6H PRN 08/07/16 [History] Magic Mouthwash [Magic Mouthwash BLM] 10 ml PO QID PRN #240 ml 08/07/16 [Rx] Prochlorperazine Maleate [Compazine] 10 mg PO Q8HR PRN #90 tablet 08/07/16 [Rx] Loperamide [Imodium] 2 mg PO TID PRN #90 capsule 08/20/16 [Rx] Ondansetron [Zofran] 4 mg PO Q8HR PRN #90 tablet 08/20/16 [Rx] Lidocaine/Prilocaine CREAM [Emla] 1 appl TP ONCE PRN 09/02/16 [History] Diltiazem CD (24hr) [Cardizem CD] 180 mg PO DAILY #30 cap.er.24h 09/04/16 [Rx] Losartan [Cozaar] 12.5 mg PO DAILY #30 tab 09/11/16 [Rx] Potassium Chloride [K-Tab ER] 30 meq PO BID 12/10/16 [History] Calcium Carbonate [Tums] 1,000 mg PO QID PRN 12/16/16 [History] Diphenoxylate/Atropine [Lomotil 2.5 mg/0.025 mg] 1 each PO QID PRN #90 tablet [Rx] OxyCODONE/APAP 5/325 [Percocet 5/325 MG] 1 each PO TID #90 tablet 01/27/17 [Rx] Furosemide [Lasix] 20 - 40 mg PO DAILY 02/25/17 [History] 3 Allergy/AdvReac Type Severity Reaction Status Date / Time Penicillins Allergy Rash Verified 02/24/17 11:06 vancomycin Allergy Rash Verified 02/24/17 11:06 aspirin AdvReac Gastrointestinal Verified 02/24/17 11:06 Upset Hydromorphone [From Dilaudid] AdvReac Confusion Verified 02/24/17 11:06 meperidine [From Demerol] AdvReac Confusion Verified 02/24/17 11:06 Review of systems: as above Oncology - Exam - Constitutional Vitals: Temp Pulse Resp BP Pulse Ox 97.9 F 85 18 101/62 94 02/26/17 14:49 02/26/17 14:49 02/26/17 14:49 02/26/17 14:49 02/26/17 14:49 General appearance: average body habitus - Head Head exam: Present: atraumatic, normal inspection - Eye Eye exam: Present: sclera anicteric - Neck Neck exam: Present: full ROM - Cardiovascular Cardiovascular exam: Present: +S1, +S2 - GI/Abdominal GI/Abdominal exam: Present: normal bowel sounds, soft - Extremities Exam Extremities exam: Present: normal inspection - Neurological Exam Neurological exam: Present: alert, CN II-XII intact, oriented X3 - Psychiatric Psychiatric exam: Present: normal mood Oncology - Results Labs: Short CBC 02/26/17 Range/Units 04:32 WBC 6.4 (4.3-11.1) K/mcL Hgb 10.7 L (11.5-15.4) g/dL Hct 32.7 L (35.3-44.9) % Plt Count 320 (140-400) K/mcL BMP 02/26/17 04:32 Sodium 136 Potassium 4.0 Chloride 103 Carbon Dioxide 23 BUN 9 Creatinine 0.63 Glucose 143 H Calcium 8.5 L Consult Discharge Plan - Plan Referrals: Tayo Hudson DO [Primary Care Provider] -
[2017-02-26] MEDS: *HR* OxyCODONE/APAP 5/325 TABLET PO PRN (16:07)
--- NOTE | 2017-02-26 18:22 | Internal Med Progress Note ---
Date of Encounter: 02/26/17 Time of Encounter: 16:00 - Assessment and plan (1) Bacteremia due to Gram-positive bacteria Current Visit: Yes Status: Acute (2) Pneumonia due to gram-positive bacteria Current Visit: Yes Status: Acute (3) Atrial fibrillation Current Visit: No Status: Chronic Qualifiers: Atrial fibrillation type: persistent Qualified Code(s): I48.1 - Persistent atrial fibrillation (4) Lung cancer Current Visit: Yes Status: Chronic Qualifiers: Laterality: left Lung location: upper lobe of lung Qualified Code(s): C34.12 - Malignant neoplasm of upper lobe, left bronchus or lung (5) Diabetes mellitus, type 2 Current Visit: No Status: Chronic Qualifiers: Diabetes mellitus complication status: with neurologic complications Diabetes mellitus complication detail: with polyneuropathy Diabetes mellitus care home insulin use: without care home use Qualified Code(s): E11.42 - Type 2 diabetes mellitus with diabetic polyneuropathy (6) Essential hypertension Current Visit: No Status: Chronic Assessment and plan: BLOOD CULTURE X1 RESULTED TODAY SHOWS GRAM POS COCCI. WILL NOT RULE OUT CONTAMINATION DUE TO RISK FACTORS AND PRESENCE OF A CHEMOPORT. WILL CONTINUE WORKUP FOR BACTEREMIA, WILL ADD ZYVOX AND CONTINUE MEROPENEM WILL REPEAT BLOOD CULTURES X 2 WILL ORDER A ECHO TO CHECK FOR VEGETATION. PT'S PORT MIGHT NEED TO BE REMOVED IF REPEAT BLOOD CULTURES REMAINS POSITIVE. DEFER TO ID FOR RECOMMENDATIONS. CONSULT ID WHEN THEY ARE AVAILABLE. THERE WAS NO INFECTIOUS DISEASE ROUNDING TODAY. APPRECIATE ONCOLOGY RECOMMENDATIONS. - Subjective Interval history: pt reports feeling ok, was hoping she could go home today. - Constitutional Vitals: Temp Pulse Resp BP Pulse Ox 97.9 F 85 18 101/62 94 02/26/17 14:49 02/26/17 14:49 02/26/17 14:49 02/26/17 14:49 02/26/17 14:49 General appearance: Present: A&O X 3 - Head Head exam: Present: atraumatic, normocephalic - Eye Eye exam: Present: PERRL, conjuntiva pink, sclera anicteric Pupils: Present: PERRL - Neck Neck exam general surgery: Present: supple, trachea midline. Absent: lymphadenopathy - Respiratory Respiratory exam: Present: CTAB. Absent: accessory muscle use, rales, rhonchi, wheezes Additional comments: mildly decreased sounds in the basis. - Cardiovascular Cardiovascular exam: Present: RRR, +S1, +S2. Absent: diastolic murmur, gallop, rubs, systolic murmur - GI/Abdominal GI/Abdominal exam: Present: normal bowel sounds, soft, no peritoneal signs. Absent: distended, tenderness - Extremities Exam Extremities exam: Present: warm, radial pulses palpable and symmetrical. Absent : calf tenderness, cyanotic, pedal edema - Neurological Exam Neurological exam: Present: CN II-XII intact, oriented X3, no focal deficits. Absent: pronater drift, facial droop, speech deficit - Skin Skin exam: Present: dry, intact Internal Medicine: Result - Labs CBC & Chem 7: 02/26/17 04:32 02/26/17 04:32 Labs: Short CBC 02/26/17 Range/Units 04:32 WBC 6.4 (4.3-11.1) K/mcL Hgb 10.7 L (11.5-15.4) g/dL Hct 32.7 L (35.3-44.9) % Plt Count 320 (140-400) K/mcL [facility] 02/26/17 04:32 Sodium 136 Potassium 4.0 Chloride 103 Carbon Dioxide 23 BUN 9 Creatinine 0.63 Glucose 143 H Calcium 8.5 L - ABG Interpretation ABG results: PT/INR, D-dimer D-Dimer 3830 ng/mLFEU (0-500) H 02/25/17 14:07 Consult Discharge Plan - Plan Referrals: Tayo Hudson DO [Primary Care Provider] -
[2017-02-27] MEDS: Meropenem 1,000 MG in Water for inj. (sterile) 20 ML 20 ML IVPB SCH ×4 (00:51→23:38)
[2017-02-27 05:32] LABS: Basophils % 0.6 %; Eosinophils # 0.2 K/mcL (0.0-0.6); Eosinophils % 3.1 %; Hematocrit 32.1 % (35.3-44.9); Hemoglobin 10.5 g/dL (11.5-15.4); Immature Granulocytes % 0.6 % (0-4); Lymphocytes # 0.7 K/mcL (0.6-4.6); Lymphocytes % 11.4 %; Mean Corpuscular HGB Conc 32.7 g/dL (31.6-35.5); Mean Corpuscular Hemoglobin 29.8 pg (28.0-33.3); Mean Corpuscular Volume 91.2 fL (83.0-100.0); Mean Platelet Volume 9.4 fL (9.4-12.4); Monocytes % 15.7 %; Neutrophils # 4.4 K/mcL (1.6-8.9); Platelet Count 307 K/mcL (140-400); Red Blood Count 3.52 M/mcL (3.82-4.97); Red Cell Distribution Width 13.8 % (11.5-14.5); Segmented Neutrophils % 68.6 %
[2017-02-27 05:46] LABS: BUN/Creatinine Ratio 14 (6-26); Blood Urea Nitrogen 10 mg/dL (8-23); Calcium 8.3 mg/dL (8.6-10.3); Carbon Dioxide 24 mEq/L (23-29); Chloride 105 mEq/L (98-107); Glucose 102 mg/dL (70-105); Osmolality,Calculated 281 (280-300); Potassium 3.9 mEq/L (3.5-5.1); Sodium 136 mEq/L (136-145); eGFR For African Americans > 60 (> 60); eGFR For Non-African Americans > 60 (> 60)
[2017-02-27] MEDS: *HR* Heparin 5,000 UNIT/ML VIAL SQ SCH ×3 (05:50→21:36)
[2017-02-27] MEDS: Insulin LISPRO 300 UNITS/3 ML VIAL SQ SCH ×3 (08:52→16:26)
[2017-02-27] MEDS: Furosemide 20 MG TABLET PO SCH (08:58)
[2017-02-27] MEDS: *HR* SitaGLIPtin 100 MG TABLET PO SCH (08:58)
[2017-02-27] MEDS: Diltiazem CD (24hr) 180 MG CAPSULE PO SCH (08:58)
[2017-02-27] MEDS: *HR* OxyCODONE/APAP 5/325 TABLET PO PRN ×2 (08:59→21:35)
--- NOTE | 2017-02-27 22:56 | Internal Med Progress Note ---
Date of Encounter: 02/27/17 Time of Encounter: 10:53 - Assessment and plan (1) MRSA bacteremia Current Visit: Yes Status: Acute Assessment and plan: Need negative cultures for 48 hours and close monitoring. Continue Meropenem, Zyvox added 02/26 for MRSA coverage. Discharge antibitics to be determined with monitoring. Echo done, read is pending. Port may need removed if BCx positive. Patient requests to go home soon because she is feeling better. She has MRSA+, possibly contaminate positive in 1 of 2 vials but she is high risk, will probably need bactericidal coverage. She is allergic to vancomycin. Disposition plan pending cultures question if medport access okay to use for abx (2) Bacteremia due to Gram-positive bacteria Current Visit: Yes Status: Acute (3) Atrial fibrillation Current Visit: No Status: Chronic Qualifiers: Atrial fibrillation type: persistent Qualified Code(s): I48.1 - Persistent atrial fibrillation (4) CHF (congestive heart failure) Current Visit: No Status: Chronic Qualifiers: Congestive heart failure type: diastolic Congestive heart failure chronicity: acute on chronic Qualified Code(s): I50.33 - Acute on chronic diastolic (congestive) heart failure (5) GERD (gastroesophageal reflux disease) Current Visit: No Status: Chronic Qualifiers: Esophagitis presence: without esophagitis Qualified Code(s): K21.9 - Gastro -esophageal reflux disease without esophagitis (6) Dyspnea Current Visit: No Status: Acute Qualifiers: Dyspnea type: shortness of breath Qualified Code(s): R06.02 - Shortness of breath; R06.00 - Dyspnea, unspecified; R06.01 - Orthopnea - Subjective Interval history: No acute events. Patient states she is feeling much better. Breathing is approaching baseline. - Constitutional Vitals: Temp Pulse Resp BP Pulse Ox 98.9 F 102 14 107/69 90 02/27/17 20:35 02/27/17 20:35 02/27/17 20:35 02/27/17 20:35 02/27/17 20:35 General appearance: Present: A&O X 3 Exam: CVS: irregularly irregular rhythm, no mrg Lungs: CTAB Abd: NT/ND Ext: no edema Internal Medicine: Result - Labs CBC & Chem 7: 02/27/17 03:52 02/27/17 03:52 Labs: Short CBC 02/27/17 Range/Units 03:52 WBC 6.4 (4.3-11.1) K/mcL Hgb 10.5 L (11.5-15.4) g/dL Hct 32.1 L (35.3-44.9) % Plt Count 307 (140-400) K/mcL Neutrophils # 4.4 (1.6-8.9) K/mcL BMP 02/27/17 03:52 Sodium 136 Potassium 3.9 Chloride 105 Carbon Dioxide 24 BUN 10 Creatinine 0.69 Glucose 102 Calcium 8.3 L - ABG Interpretation ABG results: PT/INR, D-dimer D-Dimer 3830 ng/mLFEU (0-500) H 02/25/17 14:07 - Impressions Impressions Echocardiogram 02/26/17 18:31 Impressions: Technically adequate exam. Atrial fibrillation. LVEF 65%. Normal LV chamber size, wall thickness and function. Trace mitral regurgitation. Left Ventricular Wall Motion: Rest Echo Findings All wall segments showed normal motion. Findings: Study Quality * Technically adequate exam. ECG Findings * Atrial fibrillation. Left Ventricle * LVEF 65%. * Normal LV chamber size, wall thickness and function. * Indeterminate diastolic function. Right Ventricle * Normal right ventricular structure and function. Left Atrium * Normal left atrial size. Right Atrium * Normal right atrial size. Interatrial Septum * No evidence of PFO by color Doppler. Aortic Valve * Trileaflet aortic valve. * Trileaflet aortic valve with normal function. Mitral Valve * Normal mitral valve structure. * Mildly calcified mitral valve leaflets. * Trace mitral regurgitation. Tricuspid Valve * Normal tricuspid valve structure and function. Pulmonic Valve * Pulmonic valve is not well visualized. Aorta * Normally sized aortic root. Pericardium * The pericardium appears normal. Consult Discharge Plan - Plan Referrals: Tayo Hudson DO [Primary Care Provider] -
[2017-02-28] MEDS: *HR* Heparin 5,000 UNIT/ML VIAL SQ SCH ×3 (05:56→22:07)
[2017-02-28] MEDS: Meropenem 1,000 MG in Water for inj. (sterile) 20 ML 20 ML IVPB SCH ×2 (08:06→16:14)
[2017-02-28] MEDS: *HR* SitaGLIPtin 100 MG TABLET PO SCH (08:07)
[2017-02-28] MEDS: Furosemide 20 MG TABLET PO SCH (08:07)
[2017-02-28] MEDS: *HR* OxyCODONE/APAP 5/325 TABLET PO PRN ×2 (08:10→22:08)
[2017-02-28] MEDS: Insulin LISPRO 300 UNITS/3 ML VIAL SQ SCH ×3 (08:10→16:14)
[2017-02-28] MEDS: Diltiazem CD (24hr) 180 MG CAPSULE PO SCH (08:11)
--- NOTE | 2017-02-28 20:43 | Internal Med Progress Note ---
Date of Encounter: 02/28/17 Time of Encounter: 13:41 - Assessment and plan (1) MRSA bacteremia Current Visit: Yes Status: Acute Assessment and plan: Need negative cultures for 48 hours and close monitoring. Continue Meropenem, Zyvox added 02/26 for MRSA coverage. Discharge antibitics to be determined with monitoring. Echo done, read is pending. Port may need removed if BCx positive. Patient requests to go home soon because she is feeling better. She has MRSA+, possibly contaminate positive in 1 of 2 vials but she is high risk, will probably need bactericidal coverage. She is allergic to vancomycin. If by tomorrow AM cultures remain negative (>48 hours) she can be discharged home with PO antibiotics. (2) Bacteremia due to Gram-positive bacteria Current Visit: Yes Status: Acute Assessment and plan: Need negative cultures for 48 hours and close monitoring. Continue Meropenem, Zyvox added 02/26 for MRSA coverage. Discharge antibitics to be determined with monitoring. Echo done, read is pending. Port may need removed if BCx positive. Patient requests to go home soon because she is feeling better. Disposition plan pending cultures (3) Atrial fibrillation Current Visit: No Status: Chronic Qualifiers: Atrial fibrillation type: persistent Qualified Code(s): I48.1 - Persistent atrial fibrillation (4) CHF (congestive heart failure) Current Visit: No Status: Chronic Qualifiers: Congestive heart failure type: diastolic Congestive heart failure chronicity: acute on chronic Qualified Code(s): I50.33 - Acute on chronic diastolic (congestive) heart failure (5) GERD (gastroesophageal reflux disease) Current Visit: No Status: Chronic Qualifiers: Esophagitis presence: without esophagitis Qualified Code(s): K21.9 - Gastro -esophageal reflux disease without esophagitis (6) Dyspnea Current Visit: No Status: Acute Qualifiers: Dyspnea type: shortness of breath Qualified Code(s): R06.02 - Shortness of breath; R06.00 - Dyspnea, unspecified; R06.01 - Orthopnea - Subjective Interval history: No acute events. Patient states she is feeling much better. Repeat blood cultures <48 hours currently. - Constitutional Vitals: Temp Pulse Resp BP Pulse Ox 98.1 F 100 18 96/58 93 02/28/17 19:04 02/28/17 19:04 02/28/17 19:04 02/28/17 19:04 02/28/17 19:04 General appearance: Present: A&O X 3 Exam: - Head Head exam: Present: atraumatic, normocephalic - Eye Eye exam: Present: PERRL, conjuntiva pink, sclera anicteric Pupils: Present: PERRL - Neck Neck exam general surgery: Present: supple, trachea midline. Absent: lymphadenopathy - Respiratory Respiratory exam: Present: CTAB. Absent: accessory muscle use, rales, rhonchi, wheezes Additional comments: CHEST: mediport in place, area surrounding is clean, dry, no erythema - Cardiovascular Cardiovascular exam: Present: RRR, +S1, +S2. Absent: diastolic murmur, gallop, rubs, systolic murmur - GI/Abdominal GI/Abdominal exam: Present: normal bowel sounds, soft, no peritoneal signs. Absent: distended, tenderness - Extremities Exam Extremities exam: Present: warm, radial pulses palpable and symmetrical. Absent : calf tenderness, cyanotic, pedal edema - Neurological Exam Neurological exam: Present: CN II-XII intact, oriented X3, no focal deficits. Absent: pronater drift, facial droop, speech deficit - Skin Skin exam: Present: dry, intact Internal Medicine: Result - Labs CBC & Chem 7: 02/27/17 03:52 02/27/17 03:52 - ABG Interpretation ABG results: PT/INR, D-dimer D-Dimer 3830 ng/mLFEU (0-500) H 02/25/17 14:07 - Impressions Impressions Echocardiogram 02/26/17 18:31 Impressions: Technically adequate exam. Atrial fibrillation. LVEF 65%. Normal LV chamber size, wall thickness and function. Trace mitral regurgitation. Left Ventricular Wall Motion: Rest Echo Findings All wall segments showed normal motion. Findings: Study Quality * Technically adequate exam. ECG Findings * Atrial fibrillation. Left Ventricle * LVEF 65%. * Normal LV chamber size, wall thickness and function. * Indeterminate diastolic function. Right Ventricle * Normal right ventricular structure and function. Left Atrium * Normal left atrial size. Right Atrium * Normal right atrial size. Interatrial Septum * No evidence of PFO by color Doppler. Aortic Valve * Trileaflet aortic valve. * Trileaflet aortic valve with normal function. Mitral Valve * Normal mitral valve structure. * Mildly calcified mitral valve leaflets. * Trace mitral regurgitation. Tricuspid Valve * Normal tricuspid valve structure and function. Pulmonic Valve * Pulmonic valve is not well visualized. Aorta * Normally sized aortic root. Pericardium * The pericardium appears normal. Consult Discharge Plan - Plan Referrals: Tayo Hudson DO [Primary Care Provider] -
[2017-03-01] MEDS: Meropenem 1,000 MG in Water for inj. (sterile) 20 ML 20 ML IVPB SCH (00:43)
[2017-03-01] MEDS: *HR* Heparin 5,000 UNIT/ML VIAL SQ SCH (05:43)
--- NOTE | 2017-03-01 06:57 | Discharge Summary ---
Date of Encounter: 03/01/17 Time of Encounter: 06:54 - Discharge Diagnosis (1) MRSA bacteremia Priority: Primary Status: Resolved Comments: Actual culture grew Staph epidermidis, which was highly sensitive to Levaquin. Will discharge patient home with Levaquin and Doxycycline. (2) Atrial fibrillation Priority: Secondary Status: Chronic Qualifiers: Atrial fibrillation type: persistent Qualified Code(s): I48.1 - Persistent atrial fibrillation (3) CHF (congestive heart failure) Priority: Secondary Status: Chronic Qualifiers: Congestive heart failure type: diastolic Congestive heart failure chronicity: acute on chronic Qualified Code(s): I50.33 - Acute on chronic diastolic (congestive) heart failure (4) GERD (gastroesophageal reflux disease) Priority: Secondary Status: Chronic Qualifiers: Esophagitis presence: without esophagitis Qualified Code(s): K21.9 - Gastro -esophageal reflux disease without esophagitis (5) Dyspnea Priority: Secondary Status: Acute Qualifiers: Dyspnea type: shortness of breath Qualified Code(s): R06.02 - Shortness of breath; R06.00 - Dyspnea, unspecified; R06.01 - Orthopnea - Discharge Medications Home Medications: Simvastatin [Zocor] 5 mg PO HS 06/28/16 [History] SitaGLIPtin [Januvia] 100 mg PO DAILY 07/31/16 [History] Albuterol Sulfate [Albuterol Inhaler] 2 puff IH Q6H PRN 08/07/16 [History] Magic Mouthwash [Magic Mouthwash BLM] 10 ml PO QID PRN #240 ml 08/07/16 [Rx] Prochlorperazine Maleate [Compazine] 10 mg PO Q8HR PRN #90 tablet 08/07/16 [Rx] Loperamide [Imodium] 2 mg PO TID PRN #90 capsule 08/20/16 [Rx] Ondansetron [Zofran] 4 mg PO Q8HR PRN #90 tablet 08/20/16 [Rx] Lidocaine/Prilocaine CREAM [Emla] 1 appl TP ONCE PRN 09/02/16 [History] Diltiazem CD (24hr) [Cardizem CD] 180 mg PO DAILY #30 cap.er.24h 09/04/16 [Rx] Losartan [Cozaar] 12.5 mg PO DAILY #30 tab 09/11/16 [Rx] Potassium Chloride [K-Tab ER] 30 meq PO BID 12/10/16 [History] Calcium Carbonate [Tums] 1,000 mg PO QID PRN 12/16/16 [History] Diphenoxylate/Atropine [Lomotil 2.5 mg/0.025 mg] 1 each PO QID PRN #90 tablet [Rx] OxyCODONE/APAP 5/325 [Percocet 5/325 MG] 1 each PO TID #90 tablet 01/27/17 [Rx] Furosemide [Lasix] 20 - 40 mg PO DAILY 02/25/17 [History] Doxycycline 100 mg PO BID #20 capsule 03/01/17 [Rx] levoFLOXacin [Levaquin] 750 mg PO DAILY 10 Days #10 tablet 03/01/17 [Rx] Allergies/Adverse Reactions: 3 Allergy/AdvReac Type Severity Reaction Status Date / Time Penicillins Allergy Rash Verified 02/24/17 11:06 vancomycin Allergy Rash Verified 02/24/17 11:06 aspirin AdvReac Gastrointestinal Verified 02/24/17 11:06 Upset Hydromorphone [From Dilaudid] AdvReac Confusion Verified 02/24/17 11:06 meperidine [From Demerol] AdvReac Confusion Verified 02/24/17 11:06 Procedures/tests Complete & Pending: Procedures Performed prior 72 hours Category Date Time Status EV echocardiogram Stat Y 02/26/17 18:31 Completed Date of admission: 02/25/17 15:54 Primary care physician: Tayo Hudson Discharging clinician: Raegan Fairbanks - Patient Status Disposition: Home, Self-Care Condition: Fair Functional capacity at discharge: independent ambulation Overall status at discharge: patient is progressing back to baseline - Discharge Instructions Follow Up With: Tayo Hudson DO [Primary Care Provider] - - Diet and Activity Activity: increase activity as tolerated Diet: advance to your usual diet Hospital course: Ms. Hernandez is a 76 year old female with a diagnosis of lung cancer several months ago, aortic aneurysm, atrial fibrillation, cancer, COPD, diabetes, hyperlipidemia, hypertension presented for evaluation of dyspnea. Patient states that she had prolonged drain last Wednesday. She did have a recent thoracentesis performed. Patient states that she is feeling short of breath this morning. Does not require any oxygen. Patient initially was on chemotherapy and radiation but has not completed any of those therapies recently. Patient is on immunomodulators therapy at the cancer center. Patient denies any chest pain. Does note a cough with yellow mucus. No fevers. At the ED, her vital signs are stable - she states her blood pressure is usually low, labs are unremarkable. Chest x-ray revealed bilateral pneumonia , was negative for pneumothorax, and effusion from prior study was improved. She received Meropenem and Linezolid because she is allergic to vancomycin and penicillins. She was be admitted to the inpatient service for further management. Blood culture in 1 out of 2 vials grew Staph epidermidis, and mecA gene was positive in serology. Though this could have been considered contaminate she is high risk and so Meropenem and Linezolid were continued until proven negative with repeat blood cultures. Patient pneumonia clinically improved after 2 days of therapy. Repeat blood cultures were negative after greater than 48 hours. She remained afebrile with normal white counts. She was discharged home in stable condition with doxycylcine and Levaquin for an additional 10 days to complete a 14 day course of therapy total. - Time Spent with Patient Total time spent providing and/or coordinating discharge services: - Constitutional Vitals: Temp Pulse Resp BP Pulse Ox 98.0 F 92 18 121/77 93 03/01/17 04:26 03/01/17 04:26 03/01/17 04:26 03/01/17 04:26 03/01/17 04:26 General appearance: Present: A&O X 3 Exam: - Head Head exam: Present: atraumatic, normocephalic - Eye Eye exam: Present: PERRL, conjuntiva pink, sclera anicteric Pupils: Present: PERRL - Neck Neck exam general surgery: Present: supple, trachea midline. Absent: lymphadenopathy - Respiratory Respiratory exam: Present: CTAB. Absent: accessory muscle use, rales, rhonchi, wheezes Additional comments: mildly decreased sounds in the basis. - Cardiovascular Cardiovascular exam: Present: RRR, +S1, +S2. Absent: diastolic murmur, gallop, rubs, systolic murmur - GI/Abdominal GI/Abdominal exam: Present: normal bowel sounds, soft, no peritoneal signs. Absent: distended, tenderness - Extremities Exam Extremities exam: Present: warm, radial pulses palpable and symmetrical. Absent : calf tenderness, cyanotic, pedal edema - Neurological Exam Neurological exam: Present: CN II-XII intact, oriented X3, no focal deficits. Absent: pronater drift, facial droop, speech deficit - Skin Skin exam: Present: dry, intact
[2017-03-01 07:28] VITALS: BP 91/53
[2017-03-01] MEDS: Insulin LISPRO 300 UNITS/3 ML VIAL SQ SCH (08:00)
== END 2017-03-01 11:00 | disposition home or self-care (01) | DRG 291 ==
LOC: 3ANU 13:23 → EMEROO 13:23 → 3ANU 17:42
PROVIDERS: ADMIT Internal Medicine Nephrology; ATTEND Internal Medicine

== ENCOUNTER 2017-03-22 17:04 | Observation (INO) ==
[2017-03-22 18:52] LABS: Basophils % 0.3 %; Eosinophils # 0.2 K/mcL (0.0-0.6); Eosinophils % 1.5 %; Hematocrit 40.2 % (35.3-44.9); Immature Granulocytes % 0.5 % (0-4); Lymphocytes # 0.9 K/mcL (0.6-4.6); Lymphocytes % 8.8 %; Mean Corpuscular HGB Conc 32.3 g/dL (31.6-35.5); Mean Corpuscular Volume 89.5 fL (83.0-100.0); Mean Platelet Volume 8.8 fL (9.4-12.4); Monocytes # 0.9 K/mcL (0.0-1.3); Monocytes % 9.5 %; Neutrophils # 7.9 K/mcL (1.6-8.9); Platelet Count 293 K/mcL (140-400); Red Blood Count 4.49 M/mcL (3.82-4.97); Red Cell Distribution Width 14.2 % (11.5-14.5); Segmented Neutrophils % 79.4 %
--- NOTE | 2017-03-22 19:09 | Emergency Department Note ---
Disposition Clinical Impression: Hx of cancer of lung Pneumonia Qualifiers: Pneumonia type: due to unspecified organism Laterality: right Lung location: unspecified part of lung Qualified Code(s): J18.9 - Pneumonia, unspecified organism Disposition: Admitted As Inpatient Condition: Good Time of Disposition: 20:17 General Adult HPI - General Chief complaint: ED Shortness of Breath/Dyspnea Stated complaint: pneumonia Time Seen by Provider: 03/22/17 18:47 Source: patient Limitations: no limitations Nursing Notes Reviewed: Yes Vital Signs Reviewed: Yes - History of Present Illness HPI Narrative: Patient is a 76-year-old female comes emergency department for possible pneumonia. She states that she had recently been hospitalized for pneumonia and was discharged on 03/01/17. She states that she was having a follow-up chest x-ray today and was notified that she had a right-sided pneumonia. She states that she is feeling well. She does have a cough with intermittent sputum production. Patient denies any fever at this time. She states that she always feels cold and chilled. Patient states that she has a history of lung cancer and it was her cancer center that notify her of the pneumonia. She was sent to the emergency department for possible admission and further IV antibiotics. Pain Scale: 0 - Related Data Home Medications Medication Instructions Recorded Confirmed Simvastatin [Zocor] 5 mg PO HS 06/28/16 03/22/17 SitaGLIPtin [Januvia] 100 mg PO DAILY 07/31/16 03/22/17 Albuterol Sulfate [Albuterol 2 puff IH Q6H PRN 08/07/16 03/22/17 Inhaler] Lidocaine/Prilocaine CREAM [Emla] 1 appl TP ONCE PRN 09/02/16 03/22/17 Potassium Chloride [K-Tab ER] 30 meq PO QPM 12/10/16 03/22/17 Calcium Carbonate [Tums] 1,000 mg PO QID PRN 12/16/16 03/22/17 Furosemide [Lasix] 20 - 40 mg PO DAILY 02/25/17 03/22/17 Psyllium Husk [Daily Fiber] 0.52 gm PO DAILY PRN 03/22/17 03/22/17 Previous Rx's Medication Instructions Recorded Magic Mouthwash [Magic Mouthwash 10 ml PO QID PRN #240 ml 06/09/17 BLM] Prochlorperazine Maleate 10 mg PO Q8HR PRN #90 tablet 08/07/16 [Compazine] Loperamide [Imodium] 2 mg PO TID PRN #90 capsule 08/20/16 Ondansetron [Zofran] 4 mg PO Q8HR PRN #90 tablet 08/20/16 Diltiazem CD (24hr) [Cardizem CD] 180 mg PO DAILY #30 cap.er.24h 09/04/16 Losartan [Cozaar] 12.5 mg PO DAILY #30 tab 09/11/16 Diphenoxylate/Atropine [Lomotil 1 each PO QID PRN #90 tablet 12/16/16 2.5 mg/0.025 mg] OxyCODONE/APAP 5/325 [Percocet 1 each PO TID #90 tablet 03/09/17 5/325 MG] Allergies Allergy/AdvReac Type Severity Reaction Status Date / Time Penicillins Allergy Rash Verified 03/15/17 13:17 vancomycin Allergy Rash Verified 03/15/17 13:17 aspirin AdvReac Gastrointestinal Verified 03/15/17 13:17 Upset Hydromorphone [From Dilaudid] AdvReac Confusion Verified 03/15/17 13:17 levofloxacin [From Levaquin] AdvReac Vomiting Verified 03/15/17 13:17 meperidine [From Demerol] AdvReac Confusion Verified 03/15/17 13:17 All systems ED: reviewed and negative except as stated. Constitutional: Denies: fever Cardiovascular: Denies: chest pain Respiratory: Reports: cough, dyspnea, sputum production Past Medical History - Past Medical History Medical history: Reports: aortic aneurysm, atrial fibrillation, cancer, COPD, diabetes, hyperlipidemia, hypertension, other Surgical history: Reports: cholecystectomy, hysterectomy, knee replacement, other Psychiatric history: Reports: no psych history - Social History Smoking Status: Former smoker Smokeless Tobacco Status: No Alcohol use: Reports: none Drug use: Reports: none Physical Exam - General Limitations: no limitations General appearance: alert, in no apparent distress - Head Head exam: atraumatic, normocephalic - Eye Eye exam: Present: normal appearance, EOMI - Neck Neck exam: Present: normal inspection, full ROM, trachea midline - Respiratory Respiratory exam: Present: normal lung sounds bilaterally. Absent: respiratory distress, wheezes - Cardiovascular Cardiovascular exam: Present: tachycardia, irregular rhythm, normal heart sounds , +S1, +S2 - Abdominal Exam Abdominal exam: Present: soft, Non-Tender, normal bowel sounds - Neurological Exam Neurological exam: Present: alert, oriented X3 - Psychiatric Psychiatric exam: Present: normal affect, normal mood - Skin Skin exam: Present: warm, dry, intact Course Vital Signs Temperature 98.3 F 03/22/17 17:38 Pulse Rate 102 03/22/17 17:38 Respiratory Rate 19 03/22/17 17:38 Blood Pressure 139/90 03/22/17 17:38 O2 Sat by Pulse Oximetry 97 03/22/17 17:38 Temperature 98.0 F 03/22/17 21:36 Pulse Rate 84 03/22/17 21:36 Respiratory Rate 16 03/22/17 21:36 Blood Pressure 91/55 03/22/17 21:36 O2 Sat by Pulse Oximetry 94 03/22/17 21:36 Oxygen Delivery Oxygen Delivery Room Air Medical Decision Making - MDM Narrative Medical decision making narrative: Due to the patient having recent pneumonia and a chest x-ray was obtained as outpatient today will not repeat this x-ray. We will obtain a CBC, BMP, BNP, lactic acid. Patient's chest x-ray from the outpatient showed a right sided pneumonia. Patient did not have a white count. Patient elected acid of 1.8. Patient had an elevated BNP. Negative troponin. Blood cultures have been ordered. The remainder of the patient's laboratory testing was negative we will start the patient on cefepime, Levaquin and Zyvox. The patient will need to be admitted to the hospital for further evaluation and management. I spoke to hospice and they will accept the patient to the service. The patient did not the hospital at this time for further evaluation and management. - Lab Data Lab results reviewed: Yes I reviewed the patient's lab results. Result diagrams: 03/22/17 18:40 03/22/17 18:40 Lab Results 03/22/17 03/22/17 03/22/17 Range/Units 18:40 18:40 18:40 WBC 9.9 (4.3-11.1) K/mcL RBC 4.49 (3.82-4.97) M/mcL Hgb 13.0 (11.5-15.4) g/dL Hct 40.2 (35.3-44.9) % MCV 89.5 (83.0-100.0) fL MCH 29.0 (28.0-33.3) pg MCHC 32.3 (31.6-35.5) g/dL RDW 14.2 (11.5-14.5) % Plt Count 293 (140-400) K/mcL MPV 8.8 L (9.4-12.4) fL Immature Gran % 0.5 (0-4) % Seg Neutrophils % 79.4 % Lymphocytes % 8.8 % Monocytes % 9.5 % Eosinophils % 1.5 % Basophils % 0.3 % Neutrophils # 7.9 (1.6-8.9) K/mcL Lymphocytes # 0.9 (0.6-4.6) K/mcL Monocytes # 0.9 (0.0-1.3) K/mcL Eosinophils # 0.2 (0.0-0.6) K/mcL Basophils # 0.0 (0.0-0.2) K/mcL Sodium 136 (136-145) mEq/L Potassium 3.5 (3.5-5.1) mEq/L Chloride 100 (98-107) mEq/L Carbon Dioxide 27 (23-29) mEq/L BUN 8 (8-23) mg/dL Creatinine 0.73 (0.60-1.20) mg/dL Est GFR ( Amer) > 60 (> 60) Est GFR (Non-Af Amer) > 60 (> 60) BUN/Creatinine Ratio 11 (6-26) Glucose 136 H (70-105) mg/dL Calculated Osmolality 282 (280-300) Lactic Acid 1.8 (0.5-2.2) mmol/L Calcium 9.0 (8.6-10.3) mg/dL Troponin I (< 0.04) ng/mL B-Natriuretic Peptide (Less than 100) pg/mL 03/22/17 03/22/17 Range/Units 18:40 18:40 WBC (4.3-11.1) K/mcL RBC (3.82-4.97) M/mcL Hgb (11.5-15.4) g/dL Hct (35.3-44.9) % MCV (83.0-100.0) fL MCH (28.0-33.3) pg MCHC (31.6-35.5) g/dL RDW (11.5-14.5) % Plt Count (140-400) K/mcL MPV (9.4-12.4) fL Immature Gran % (0-4) % Seg Neutrophils % % Lymphocytes % % Monocytes % % Eosinophils % % Basophils % % Neutrophils # (1.6-8.9) K/mcL Lymphocytes # (0.6-4.6) K/mcL Monocytes # (0.0-1.3) K/mcL Eosinophils # (0.0-0.6) K/mcL Basophils # (0.0-0.2) K/mcL Sodium (136-145) mEq/L Potassium (3.5-5.1) mEq/L Chloride (98-107) mEq/L Carbon Dioxide (23-29) mEq/L BUN (8-23) mg/dL Creatinine (0.60-1.20) mg/dL Est GFR ( Amer) (> 60) Est GFR (Non-Af Amer) (> 60) BUN/Creatinine Ratio (6-26) Glucose (70-105) mg/dL Calculated Osmolality (280-300) Lactic Acid (0.5-2.2) mmol/L Calcium (8.6-10.3) mg/dL Troponin I < 0.03 (< 0.04) ng/mL B-Natriuretic Peptide 288 H (Less than 100) pg/mL Attestation Statement - Attestation Attestation: I, David Perez, examined this patient and my medical decision-making was reviewed with the BUSINESS QUALITY ASSURANCE ANALYST/PA/Advanced Practice Nurse/Resident Physician. I agree with the documented findings, disposition and treatment plan as described except to the extent set forth below. 76-year-old female presents emergency department for further evaluation and possible pneumonia. Patient was recently admitted to the hospital, treated for severe pneumonia with IV antibiotics, she was discharged on levofloxacin as well as doxycycline. Patient stopped taking the levofloxacin secondary to GI upset however she finished the doxycycline. Her medications finished about 10 days prior to evaluation. Patient was counseled to have a repeat chest x-ray which was performed today. She was called by her oncologist recommended she be admitted to the hospital and IV antibiotics for further care and evaluation of her pneumonia. She does have increased shortness of breath compared to her baseline however she does have a history of lung cancer which causes baseline shortness of breath.
[2017-03-22 19:10] LABS: BUN/Creatinine Ratio 11 (6-26); Blood Urea Nitrogen 8 mg/dL (8-23); Carbon Dioxide 27 mEq/L (23-29); Chloride 100 mEq/L (98-107); Glucose 136 mg/dL (70-105); Osmolality,Calculated 282 (280-300); Potassium 3.5 mEq/L (3.5-5.1); Sodium 136 mEq/L (136-145); eGFR For African Americans > 60 (> 60); eGFR For Non-African Americans > 60 (> 60)
[2017-03-22] MEDS ORDERED: Levofloxacin 750 MG/150 ML 750 MG/150 ML BAG IVPB ONE (20:04)
[2017-03-22] MEDS ORDERED: Cefepime HCl 2,000 MG in Water for inj. (sterile) 20 ML IVP ONE (20:06)
[2017-03-23] MEDS ORDERED: Albuterol 2.5 MG/3 ML NEBULIZER IH PRN (04:20)
[2017-03-23] MEDS ORDERED: Acetaminophen 325 MG TABLET PO PRN (04:20)
[2017-03-23] MEDS ORDERED: Naloxone 0.4 MG/ML INJ IVP PRN (04:20)
[2017-03-23] MEDS ORDERED: Stomatitis Mixture 5 ML UDC PO PRN (04:28)
[2017-03-23] MEDS ORDERED: Dextrose Gel 15 GM/37.5 ML TUBE PO PRN ×2 (04:29)
[2017-03-23] MEDS ORDERED: *HR* Dextrose 50 % in Water (Syg) 50 ML SYRINGE IVP PRN (04:29)
[2017-03-23] MEDS ORDERED: D5% in Water 1,000 ML IVC PRN (04:29)
--- NOTE | 2017-03-23 04:37 | Internal Med History&Physical ---
Date of Encounter: 03/23/17 Time of Encounter: 03:30 Assessment and Plan (1) HCAP (healthcare-associated pneumonia) Current visit: No Status: Suspected 1. I am not convinced she has pneumonia. Clinically, she does not give a history and exam does not support it. 2. I viewed yesterday and the most recent x-rays. 3. Will continue antibiotics, but I would stop antibiotics once CT chest obtained and blood cultures resulted if both are negative. 4. CT chest. I suspect xray findings may be due to progressive lung cancer. 5. Monitor closely and consult Oncology if necessary. (2) Lung cancer Current visit: No Status: Chronic 1. CT Chest to evaluate lung pathology. 2. Consult oncology if necessary. Qualifiers: Laterality: unspecified laterality Lung location: unspecified part of lung Qualified Code(s): C34.90 - Malignant neoplasm of unspecified part of unspecified bronchus or lung (3) Diabetes mellitus, type 2 Current visit: No Status: Chronic 1. Will use SSI and monitor glucose. 2. Hold oral home meds. Qualifiers: Diabetes mellitus complication status: with neurologic complications Diabetes mellitus complication detail: with polyneuropathy Diabetes mellitus long chain beamer insulin use: without long chain beamer use Qualified Code(s): E11.42 - Type 2 diabetes mellitus with diabetic polyneuropathy (4) DVT prophylaxis Current visit: Yes Status: Acute 1. Heparin SQ. Internal Medicine - H&P: HPI Chief complaint: chronic cough Admitted From: Emergency Dept Plans for Post Hospital Care: Home History of present illness: Ms. Hernandez is a 76 year old female who was treated for pneumonia several weeks ago and was hospitalized around the New Year. She followed up with her oncologist yesterday who ordered a follow-up chest x-ray. There was comment on the report that the patient had possible multifocal pneumonia. Given these readings, she was sent to the ER. In the ER, patient was evaluated by ER staff , had blood cultures drawn, and was put on triple antibiotics. She was then admitted to the hospitalist service. Upon my assessment of the patient, patient denies any fevers, chills, night sweats, chest pain, or any worsening dyspnea. She does have a cough, but this is chronic and has not changed. It is chronically productive as well. She otherwise feels well and has no complaints. She suffers from lung cancer and finished chemotherapy and radiation several months ago. She has been on immunotherapy recently. She was feeling well when she saw her oncologist, but given x-ray findings, she was advised to go to the ER for evaluation. She denies any weight loss, appetite loss, or extreme fatigue. Past Med Surg Social Fam HX - Past Medical History Attestation: Yes The following information was validated with the patient. Source: patient, old records reviewed Medical history: aortic aneurysm, atrial fibrillation, cancer, COPD, diabetes, hyperlipidemia, hypertension Psychiatric history: no psych history - Past Surgical History Surgical History: cholecystectomy, hysterectomy, knee replacement, other - Social History Smoking Status: Former smoker Smokeless Tobacco Status: No Alcohol use: none Drug use: none Current living situation: Home Recent Out of Country Travel Within the Last 8 Weeks: No - Family History Mother Family Member Ethnicity: Non- Living Status: Age at : 75 Cause of : heart rt Hx Family Cardiac Disorders: Yes (unknown) Hx Family Respiratory Disorders: No Hx Family Cancer: No Hx Family GI Disorders: No Hx Family Genitourinary Disorders: No Hx Family Endocrine Disorder: Yes (dm) Hx Family Musculoskeletal Disorders: No Hx Family Neuromuscular Disorders: No Hx Family Neurologic Disorders: No Hx Family HEENT Disorders: No Hx Family Autoimmune Disorders: No Hx Family Reproductive Disorders: No Hx Family Psychosocial Disorders: No Hx Family Medical Disorders: No Father History Unknown: Yes Living Status: Cause of : coal mine accident Internal Medicine - H&P: Meds Simvastatin [Zocor] 5 mg PO HS 06/28/16 [History] SitaGLIPtin [Januvia] 100 mg PO DAILY 07/31/16 [History] Albuterol Sulfate [Albuterol Inhaler] 2 puff IH Q6H PRN 08/07/16 [History] Magic Mouthwash [Magic Mouthwash BLM] 10 ml PO QID PRN #240 ml 08/07/16 [Rx] Prochlorperazine Maleate [Compazine] 10 mg PO Q8HR PRN #90 tablet 08/07/16 [Rx] Loperamide [Imodium] 2 mg PO TID PRN #90 capsule 08/20/16 [Rx] Ondansetron [Zofran] 4 mg PO Q8HR PRN #90 tablet 08/20/16 [Rx] Lidocaine/Prilocaine CREAM [Emla] 1 appl TP ONCE PRN 09/02/16 [History] Diltiazem CD (24hr) [Cardizem CD] 180 mg PO DAILY #30 cap.er.24h 09/04/16 [Rx] Losartan [Cozaar] 12.5 mg PO DAILY #30 tab 09/11/16 [Rx] Potassium Chloride [K-Tab ER] 30 meq PO QPM 12/10/16 [History] Calcium Carbonate [Tums] 1,000 mg PO QID PRN 12/16/16 [History] Diphenoxylate/Atropine [Lomotil 2.5 mg/0.025 mg] 1 each PO QID PRN #90 tablet [Rx] Furosemide [Lasix] 20 - 40 mg PO DAILY 02/25/17 [History] OxyCODONE/APAP 5/325 [Percocet 5/325 MG] 1 each PO TID #90 tablet 03/09/17 [Rx] Psyllium Husk [Daily Fiber] 0.52 gm PO DAILY PRN 03/22/17 [History] 3 Allergy/AdvReac Type Severity Reaction Status Date / Time Penicillins Allergy Rash Verified 03/15/17 13:17 vancomycin Allergy Rash Verified 03/15/17 13:17 aspirin AdvReac Gastrointestinal Verified 03/15/17 13:17 Upset Hydromorphone [From Dilaudid] AdvReac Confusion Verified 03/15/17 13:17 levofloxacin [From Levaquin] AdvReac Vomiting Verified 03/15/17 13:17 meperidine [From Demerol] AdvReac Confusion Verified 03/15/17 13:17 - Constitutional Constitutional: no chills, no fever(s), no weakness, no weight loss - EENT Eyes: no blurry vision, no change in vision Ears: no ear pain, no tinnitus Nose, mouth and throat: no nasal congestion, no nasal discharge, no sinus pressure, no sore throat - Cardiovascular Cardiovascular ROS IM: no chest pain, no diaphoresis, no dyspnea, no dyspnea on exertion, no lightheadedness, no syncope - Respiratory Respiratory: cough (chronic), no dyspnea, no hemoptysis, no dyspnea on exertion , no wheezing, no pain on inspiration, no pain with cough - Gastrointestinal Gastrointestinal: no abdominal pain, no diarrhea, no hematemesis, no hematochezia, no melena, no nausea, no vomiting - Genitourinary Genitourinary: no dysuria, no flank pain, no hematuria - Musculoskeletal Musculoskeletal ROS IM: no muscle cramps, no muscle weakness, no myalgias, no stiffness - Integumentary Integumentary IM: no rash, no jaundice - Neurological Neurological ROS: no dizziness, no focal weakness, no frequent falls, no headache(s) - Psychiatric Psychiatric: no anxiety, no depression - Endocrine Endocrine IM: no polydipsia, no polyuria - Hematologic/Lymphatic Hematologic/Lymphatic: no easy bruising, no lymphadenopathy - Allergic/Immunologic Allergic/Immunologic: wheezing, no GI upset with certain foods - Constitutional Vitals: Temp Pulse Resp BP Pulse Ox 97.6 F 98 16 106/68 93 03/23/17 03:42 03/23/17 03:42 03/23/17 03:42 03/23/17 03:42 03/23/17 03:42 General appearance: Present: cooperative, A&O X 3, pleasant, no acute distress - Head Head exam: Present: atraumatic, normal inspection - Eye Eye exam: Present: EOMI, PERRL. Absent: scleral icterus Pupils: Present: normal accommodation - ENT ENT exam: Present: mucous membranes dry, normal exam - Neck Neck exam general surgery: Present: full ROM, supple. Absent: tenderness, nuchal rigidity - Respiratory Respiratory exam: Present: CTAB. Absent: accessory muscle use, chest wall tenderness, rales, rhonchi, wheezes Additional comments: Lungs clear on auscultation - Cardiovascular Cardiovascular exam: Present: RRR, +S1, +S2. Absent: diastolic murmur, systolic murmur - GI/Abdominal GI/Abdominal exam: Present: normal bowel sounds, soft. Absent: hepatomegaly, mass, splenomegaly - Extremities Exam Extremities exam: Present: warm. Absent: calf tenderness, cyanotic, pedal edema , tenderness - Back Exam Back exam: Absent: CVA tenderness (L), CVA tenderness (R) - Neurological Exam Neurological exam: Present: alert, CN II-XII intact, oriented X3, no focal deficits - Psychiatric Psychiatric exam: Present: normal affect, normal mood - Skin Skin exam: Present: dry, warm. Absent: rash Internal Med - H&P Results - Labs CBC & Chem 7: 01/22/18 18:40 03/22/17 18:40 - Diagnostic Studies Chest x-ray Status: image reviewed by me (? RML process; left lung appears chroni c-- same as before)
[2017-03-23] MEDS: 0.9 % Sodium Chloride w KCl 20 MEQ/1,000 ML MLS IVC SCH ×2 (05:02→18:02)
[2017-03-23] MEDS: *HR* Heparin 5,000 UNIT/ML VIAL SQ SCH ×2 (05:03→18:01)
[2017-03-23] MEDS: *HR* OxyCODONE/APAP 5/325 TABLET PO SCH ×4 (05:03→22:07)
[2017-03-23 05:33] LABS: Basophils % 0.4 %; Eosinophils # 0.2 K/mcL (0.0-0.6); Eosinophils % 2.5 %; Hematocrit 34.7 % (35.3-44.9); Hemoglobin 11.5 g/dL (11.5-15.4); Immature Granulocytes % 0.6 % (0-4); Lymphocytes # 0.9 K/mcL (0.6-4.6); Lymphocytes % 12.9 %; Mean Corpuscular HGB Conc 33.1 g/dL (31.6-35.5); Mean Corpuscular Hemoglobin 29.4 pg (28.0-33.3); Mean Corpuscular Volume 88.7 fL (83.0-100.0); Mean Platelet Volume 9.1 fL (9.4-12.4); Monocytes # 0.8 K/mcL (0.0-1.3); Monocytes % 11.5 %; Neutrophils # 5.2 K/mcL (1.6-8.9); Platelet Count 240 K/mcL (140-400); Red Blood Count 3.91 M/mcL (3.82-4.97); Red Cell Distribution Width 14.3 % (11.5-14.5); Segmented Neutrophils % 72.1 %
[2017-03-23 05:53] LABS: Alanine Aminotransferase 7 Units/L (7-52); Albumin 3.1 g/dL (3.5-5.7); Albumin/Globulin Ratio 1.1 (1.1-2.2); Alkaline Phosphatase 73 Units/L (34-104); Aspartate Amino Transferase 11 Units/L (13-39); BUN/Creatinine Ratio 12 (6-26); Bilirubin,Total 0.5 mg/dL (0.3-1.0); Blood Urea Nitrogen 8 mg/dL (8-23); Calcium 8.4 mg/dL (8.6-10.3); Carbon Dioxide 28 mEq/L (23-29); Chloride 100 mEq/L (98-107); Globulin 2.7 g/dL (2.4-3.5); Glucose 111 mg/dL (70-105); Magnesium 1.2 mg/dL (1.6-2.6); Osmolality,Calculated 283 (280-300); Sodium 137 mEq/L (136-145); Total Protein 5.8 g/dL (6.4-8.9); eGFR For African Americans > 60 (> 60); eGFR For Non-African Americans > 60 (> 60)
[2017-03-23] MEDS: Insulin LISPRO 300 UNITS/3 ML VIAL SQ SCH ×3 (07:27→17:10)
[2017-03-23] MEDS ORDERED: Levofloxacin 500 MG/100 ML 500 MG/100 ML BAG IVPB SCH (09:00)
[2017-03-23] MEDS: Diltiazem CD (24hr) 180 MG CAPSULE PO SCH (10:08)
[2017-03-23] MEDS: Ipratropium/Albuterol Neb 3 ML IH SCH ×3 (11:11→22:26)
[2017-03-23] MEDS ORDERED: Ondansetron 4 MG/2 ML VIAL IVP PRN (13:32)
[2017-03-23] MEDS ORDERED: Ondansetron 4 MG/2 ML VIAL IVP SCH (16:00)
--- NOTE | 2017-03-23 17:42 | Event Note ---
Date of Encounter: 03/23/17 Time of Encounter: 17:40 Developed severe nausea with Levaquin, start cefepime, continue Zyvox, has history of Staphylococcus epidermides bacteremia/resistant to oxacillin Start nystatin for possible fungal dermatitis underneath both breasts 6 of the chest showed a large left lung opacity, unable to rule out pneumonia CT scan of his chest showed:Interval parenchymal changes in a nonanatomic distribution involving both lungs left greater than right most consistent with radiation-induced changes in a patient with underlying lung carcinoma with a small residual mass in the left upper lobe. Stable left pleural effusion is noted. Slight increased fullness of the left adrenal gland. Question the possibility of metastatic disease. Follow-up PET-CT is recommended for complete assessment. Interval deformity of the superior endplate of T5 likely on the basis of an insufficiency fracture as opposed to a pathologic fracture.
[2017-03-23] MEDS: Cefepime HCl 1,000 MG in Water for inj. (sterile) 20 ML 10 ML IVP SCH (18:02)
[2017-03-23] MEDS: Nystatin Cream 15 GM TUBE TP SCH ×2 (20:25→20:45)
[2017-03-24] MEDS: Cefepime HCl 1,000 MG in Water for inj. (sterile) 20 ML 10 ML IVP SCH ×4 (00:47→23:16)
[2017-03-24] MEDS: Ipratropium/Albuterol Neb 3 ML IH SCH ×4 (03:40→21:34)
[2017-03-24 05:17] LABS: BUN/Creatinine Ratio 8 (6-26); Blood Urea Nitrogen 6 mg/dL (8-23); Calcium 8.5 mg/dL (8.6-10.3); Carbon Dioxide 25 mEq/L (23-29); Chloride 105 mEq/L (98-107); Glucose 114 mg/dL (70-105); Osmolality,Calculated 286 (280-300); Potassium 3.7 mEq/L (3.5-5.1); Sodium 139 mEq/L (136-145); eGFR For African Americans > 60 (> 60); eGFR For Non-African Americans > 60 (> 60)
[2017-03-24] MEDS: *HR* Heparin 5,000 UNIT/ML VIAL SQ SCH ×2 (05:57→18:29)
--- NOTE | 2017-03-24 07:57 | Electrocardiograph Report ---
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
[2017-03-24] MEDS: Insulin LISPRO 300 UNITS/3 ML VIAL SQ SCH ×3 (08:09→17:35)
[2017-03-24] MEDS: Diphenoxylate/Atropine 1 TAB TABLET PO PRN ×2 (08:30→20:42)
[2017-03-24] MEDS: Nystatin Cream 15 GM TUBE TP SCH ×3 (08:30→20:43)
[2017-03-24] MEDS: Diltiazem CD (24hr) 180 MG CAPSULE PO SCH (08:30)
[2017-03-24] MEDS: *HR* OxyCODONE/APAP 5/325 TABLET PO SCH ×3 (08:30→20:42)
[2017-03-24 12:03] LABS: Adenovirus Not Detected (Not Detect); Bordetella Pertussis Not Detected (Not Detect); Chlamydophila pneumoniae Not Detected (Not Detect); Coronavirus 229E Not Detected (Not Detect); Coronavirus HKU1 Not Detected (Not Detect); Coronavirus NL63 Not Detected (Not Detect); Coronavirus OC43 Not Detected (Not Detect); Human Metapneumovirus Not Detected (Not Detect); Human Rhinovirus/Enterovirus Not Detected (Not Detect); Influenza A Subtype 2009 H1 Not Detected (Not Detect); Influenza A Untypeable Not Detected (Not Detect); Influenza B Not Detected (Not Detect); Mycoplasma pneumoniae Not Detected (Not Detect); Parainfluenza Virus 1 Not Detected (Not Detect); Parainfluenza Virus 2 Not Detected (Not Detect); Parainfluenza Virus 3 Not Detected (Not Detect); Parainfluenza Virus 4 Not Detected (Not Detect); Respiratory Syncytial Virus Not Detected (Not Detect)
--- NOTE | 2017-03-24 16:17 | Internal Med Progress Note ---
Date of Encounter: 03/24/17 Time of Encounter: 16:08 - Assessment and plan (1) Pneumonia Current Visit: Yes Status: Acute Assessment and plan: had outpatient CXR with Oncology on 03/23/17 that was concerning for pneumonia. Patient was advised to present to ER for further evaluation. Chest CTA interval parenchymal changes consistent with radiation-induced changes. Asymptomatic, no fevers or chills. Initially treated with IV Zyvox and cefepime. De- escalate to cefepime only as clinically stable. Respiratory PCR, urinary antigens pending. Qualifiers: Pneumonia type: due to unspecified organism Laterality: right Lung location: unspecified part of lung Qualified Code(s): J18.9 - Pneumonia, unspecified organism (2) Lung cancer Current Visit: No Status: Chronic Assessment and plan: per hx. Follows with Oncology. Can follow-up as previously planned. Qualifiers: Laterality: unspecified laterality Lung location: unspecified part of lung Qualified Code(s): C34.90 - Malignant neoplasm of unspecified part of unspecified bronchus or lung (3) Atrial fibrillation Current Visit: No Status: Chronic Assessment and plan: per hx. She was evaluated by Cardiology 11/2016 who noted CHADSVASC score 5 (Age , Female, HTN, DM); unable to be anticoagulated given pancytopenia and suspected GI bleed at that time. EKG with A. fib, rate controlled. Continue home CCB. Hold on anticoagulation. Will discuss with cardiology Qualifiers: Atrial fibrillation type: persistent Qualified Code(s): I48.1 - Persistent atrial fibrillation (4) DVT prophylaxis Current Visit: Yes Status: Acute Assessment and plan: heparin - Subjective Interval history: Seen and examined bedside. Patient is new to me, information obtained from chart review and patient report. Patient says she feels well. Says she never really had any symptoms. Says she had a chest x-ray with her oncologist yesterday and was called and told to go to the ER for further evaluation. She denies fevers, chills. She has a cough, nonproductive. No chest pain - Constitutional Vitals: Temp Pulse Resp BP Pulse Ox 97.9 F 98 17 99/64 97 03/24/17 16:00 03/24/17 16:00 03/24/17 16:00 03/24/17 16:00 03/24/17 16:00 General appearance: Present: cooperative, A&O X 3, pleasant, no acute distress - Head Head exam: Present: atraumatic, normocephalic - Eye Eye exam: Present: PERRL, conjuntiva pink, sclera anicteric Pupils: Present: PERRL - Neck Neck exam general surgery: Present: supple, trachea midline. Absent: lymphadenopathy - Respiratory Respiratory exam: Present: CTAB. Absent: accessory muscle use, rales, rhonchi, wheezes - Cardiovascular Cardiovascular exam: Present: RRR, +S1, +S2. Absent: diastolic murmur, gallop, rubs, systolic murmur - GI/Abdominal GI/Abdominal exam: Present: normal bowel sounds, soft, no peritoneal signs. Absent: distended, tenderness - Extremities Exam Extremities exam: Present: warm, radial pulses palpable and symmetrical. Absent : calf tenderness, cyanotic, pedal edema - Neurological Exam Neurological exam: Present: CN II-XII intact, oriented X3, no focal deficits. Absent: pronater drift, facial droop, speech deficit - Skin Skin exam: Present: dry, intact Internal Medicine: Result - Labs CBC & Chem 7: 03/23/17 05:04 03/24/17 04:21 Labs: BMP 03/24/17 04:21 Sodium 139 Potassium 3.7 Chloride 105 Carbon Dioxide 25 BUN 6 L Creatinine 0.71 Glucose 114 H Calcium 8.5 L Consult Discharge Plan - Plan Referrals: Tayo Hudson DO [Primary Care Provider] -
--- NOTE | 2017-03-24 17:29 | Electrocardiograph Report ---
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
[2017-03-25] MEDS: Ipratropium/Albuterol Neb 3 ML IH SCH ×3 (03:42→15:52)
[2017-03-25] MEDS ORDERED: 0.9 % Sodium Chloride 500 ML ONE (04:39)
[2017-03-25] MEDS ORDERED: 0.9 % Sodium Chloride 500 ML IVC ONE (05:46)
[2017-03-25] MEDS: *HR* Heparin 5,000 UNIT/ML VIAL SQ SCH (05:55)
[2017-03-25] MEDS: Insulin LISPRO 300 UNITS/3 ML VIAL SQ SCH ×2 (08:26→12:22)
[2017-03-25] MEDS: *HR* OxyCODONE/APAP 5/325 TABLET PO SCH (08:31)
[2017-03-25] MEDS: Diltiazem CD (24hr) 180 MG CAPSULE PO SCH (08:32)
[2017-03-25] MEDS: Cefepime HCl 1,000 MG in Water for inj. (sterile) 20 ML 10 ML IVP SCH (08:32)
[2017-03-25] MEDS: Nystatin Cream 15 GM TUBE TP SCH (08:33)
--- NOTE | 2017-03-25 09:04 | Cardiology Consult Note ---
<Adán Veronica - Last Filed: 03/25/17 14:38> Date of Encounter: 03/25/17 Time of Encounter: 08:50 Assessment and Plan (1) Atrial fibrillation with RVR Status: Resolved Patient with known hx of a fib on home Cardizem 180mg Daily Patient not on Anticoagulation previously due to GI bleed and pancytopenia 2/2 chemotherapy and adverse reaction to ASA(ulcers, upset stomach) Patient no longer on chemotherapy, Pancytopenia resolved. Hgb stable no anemia, no signs of bleeding. Patient with hx of Stage IIIa Lung CA Patient unaware of episodes of a fib or RVR Plan: Based on review of vital signs, patient appears rate controlled for most of they day on her home dose, Around bed time becomes tachycardic until next dose. In light of this we will change her cardizem to 180mg BID. Discussed pros and con of anticoagulation with patient. In light of patient's Stage IIIa Lung CA and ASA reaction will start patient on Plavix. Started 300mg loading dose today. 75mg Daily going forward. Agree with primary team that their is low suspicion for PNA. Discussion w patient/family: The assessment and plan as outlined above was discussed with the patient and/or family members who expressed understanding and agreement. All questions were answered. Thank you for involving us in the care of your patient. Please call with any questions. History of Present Illness Consult date: 03/25/17 Requesting physician: Kat Al Consult reason: a fib c RVR Chief complaint: a fib c RVR (sent in for concern for PNA) History of present illness: Ms. Hernandez is a 76 year old female c PMHx of IIIa, T3 N2 M0 NSSC Lung CA s/p Chemotherapy and Radiation therapy, aortic aneursym, a fib, COPD, DM, HLD, HTN who presented to [facility] on 03/24/17 after being told by oncologist that her CXR was concerning for PNA. Patient has not had any symptoms of PNA before or during hospitalization. Exam not consistent with PNA. CTA chest showed likel radiation induced changes no signs of PNA. Antibioitcs have been de-escalated. Patient has been afebrile through out and has no elevated WBC. Patient went into a fib with RVR during stay. Patient has hx of a fib c RVR on home Cardizem 180mg daily. Patient unaware of when she goes in and out of a fib. Patient denies chest pain, SOB, palpitations. Patient was evaluated previously for anticoagulation for her a fib on prior and was not recommended at that time due to GI bleed, and pancytopenia secondary to Chemotherapy. Past Med Surg Social Fam HX - Past Medical History Medical history: aortic aneurysm, atrial fibrillation, cancer, COPD, diabetes, hyperlipidemia, hypertension Psychiatric history: no psych history - Past Surgical History Surgical History: cholecystectomy, hysterectomy, knee replacement, other - Social History Smoking Status: Former smoker Smokeless Tobacco Status: No Alcohol use: none Drug use: none - Family History Mother Family Member Ethnicity: Non- Living Status: Age at : 74 Cause of : heart rt Hx Family Cardiac Disorders: Yes (unknown) Hx Family Respiratory Disorders: No Hx Family Cancer: No Hx Family GI Disorders: No Hx Family Genitourinary Disorders: No Hx Family Endocrine Disorder: Yes (dm) Hx Family Musculoskeletal Disorders: No Hx Family Neuromuscular Disorders: No Hx Family Neurologic Disorders: No Hx Family HEENT Disorders: No Hx Family Autoimmune Disorders: No Hx Family Reproductive Disorders: No Hx Family Psychosocial Disorders: No Hx Family Medical Disorders: No Father History Unknown: Yes Living Status: Cause of : coal mine accident Medications and Allergies Simvastatin [Zocor] 5 mg PO HS 06/28/16 [History] SitaGLIPtin [Januvia] 100 mg PO DAILY 07/31/16 [History] Albuterol Sulfate [Albuterol Inhaler] 2 puff IH Q6H PRN 08/07/16 [History] Magic Mouthwash [Magic Mouthwash BLM] 10 ml PO QID PRN #240 ml 08/07/16 [Rx] Prochlorperazine Maleate [Compazine] 10 mg PO Q8HR PRN #90 tablet 08/07/16 [Rx] Loperamide [Imodium] 2 mg PO TID PRN #90 capsule 08/20/16 [Rx] Ondansetron [Zofran] 4 mg PO Q8HR PRN #90 tablet 08/20/16 [Rx] Lidocaine/Prilocaine CREAM [Emla] 1 appl TP ONCE PRN 09/02/16 [History] Losartan [Cozaar] 12.5 mg PO DAILY #30 tab 09/11/16 [Rx] Potassium Chloride [K-Tab ER] 30 meq PO QPM 12/10/16 [History] Calcium Carbonate [Tums] 1,000 mg PO QID PRN 12/16/16 [History] Diphenoxylate/Atropine [Lomotil 2.5 mg/0.025 mg] 1 each PO QID PRN #90 tablet [Rx] Furosemide [Lasix] 20 - 40 mg PO DAILY 02/25/17 [History] OxyCODONE/APAP 5/325 [Percocet 5/325 MG] 1 each PO TID #90 tablet 03/09/17 [Rx] Psyllium Husk [Daily Fiber] 0.52 gm PO DAILY PRN 03/22/17 [History] Clopidogrel [Plavix] 75 mg PO DAILY #30 tablet 03/25/17 [Rx] Diltiazem SR (12hr) [Cardizem SR] 90 mg PO BID #60 cap.er.12h 03/25/17 [Rx] 3 Allergy/AdvReac Type Severity Reaction Status Date / Time Penicillins Allergy Rash Verified 03/15/17 13:17 vancomycin Allergy Rash Verified 03/15/17 13:17 aspirin AdvReac Gastrointestinal Verified 03/15/17 13:17 Upset Hydromorphone [From Dilaudid] AdvReac Confusion Verified 03/15/17 13:17 levofloxacin [From Levaquin] AdvReac Vomiting Verified 03/15/17 13:17 meperidine [From Demerol] AdvReac Confusion Verified 03/15/17 13:17 All Systems Review: A 10-system review of systems was performed and is negative for pertinent findings except as documented above in the HPI. Physical Examination Vital Signs, Last 4 Hours Temp Pulse Resp BP Pulse Ox 03/25/17 07:00 98.6 F 120 17 117/65 97 General: Conversant, No Apparent Distress HEENT: Atraumatic, Normocephaly, Mucus Membranes Moist Neck: No JVD Cardiac: No Murmur, Other (irregularly irregular) Lungs: Normal Breath Sounds, No Wheeze, Rales, Rhonchi Neuro: Alert and responsive, No focal deficits noted Abdomen: Soft, Non-Tender Skin: No rashes noted on visualized skin Musculoskeletal: No Chest Wall Tenderness Extremities: No Clubbing, No Cyanosis, No Edema, Normal Pulses Results 03/23/17 05:04 03/24/17 04:21 Consult Discharge Plan - Plan Instructions: Diltiazem (By mouth), Clopidogrel (By mouth), Atrial Fibrillation (DC) Referrals: Luz Marina Donaldson MD [Partnered Physician] - (Please keep your appointment on 03/29/17 as previously planned.) Tayo Hudson DO [Primary Care Provider] - 03/31/17 10:30 am Prescriptions: Clopidogrel [Plavix] 75 mg PO DAILY #30 tablet Diltiazem SR (12hr) [Cardizem SR] 90 mg PO BID #60 cap.er.12h <Gurwinder Restrepo - Last Filed: 03/26/17 19:15> Date of Encounter: 03/25/17 Time of Encounter: 20:00 - Attending Attestation I examined this patient and my medical decision-making was reviewed with the Resident Physician. I agree with the documented findings, disposition and treatment plan as described except to the extent set forth below. CC: Abnormal EKG Pt referred to [facility] from oncology office for evaluation of abnormal CXR, suggestive of pneumonia. While undergoing evaluation in ER, pt found to be in A fib with RVR. She has hx of paroxysmal atrial fib, which has been controlled on diltiazem cd 180 qd. She is asymptomatic when she goes into and out of A fib. She denies symptoms of chest pain, pressure or shortness of breath. She is comfortable at present, in no distress. PE: Reviewed, agree with above. IMP: 1. Paroxysmal atrial fibrillation, asymptomatic, ventricular rate better controlled on increased diltiazem to 180 mg CD bid. 2. Increased stroke risk with paroxysmal a fig, discussed options, pt is not a candidate for systemic anticoagulation, due to recent GI bleed and pancytopenia secondary to chemotherapy, has not tolerated aspirin, will begin clopidigrel, discussed with pt and family. Assessment and Plan Discussion w patient/family: The assessment and plan as outlined above was discussed with the patient and/or family members who expressed understanding and agreement. All questions were answered. Thank you for involving us in the care of your patient. Please call with any questions. History of Present Illness History of present illness: Ms. Hernandez is a 76 year old female All Systems Review: A 10-system review of systems was performed and is negative for pertinent findings except as documented above in the HPI. Results 03/23/17 05:04 03/24/17 04:21
[2017-03-25] MEDS ORDERED: Magnesium Oxide 400 MG TABLET PO SCH (10:45)
[2017-03-25 11:07] VITALS: BP 93/63
--- NOTE | 2017-03-25 14:39 | Discharge Summary ---
Date of Encounter: 03/25/17 Time of Encounter: 14:37 - Discharge Diagnosis (1) Pneumonia Priority: Primary Status: Resolved Comments: had outpatient CXR with Oncology on 03/23/17 that was concerning for pneumonia. Patient was advised to present to ER for further evaluation. Chest CTA with interval parenchymal changes consistent with radiation-induced changes; no evidence of pneumonia. Patient remained asymptomatic, no fevers or chills. Respiratory PCR, urinary antigens negative. Treated with IV Zyvox, cefepime. Discussed with oncology and will stop ATB as clinically does not appear to be pneumonia. Patient has follow-up with oncology on 03/29/2017. Qualifiers: Pneumonia type: due to unspecified organism Laterality: right Lung location: unspecified part of lung Qualified Code(s): J18.9 - Pneumonia, unspecified organism (2) Lung cancer Priority: Primary Status: Chronic Comments: per hx. Follows with Oncology. Chest CT with slight increased fullness of left adrenal gland, questionable for possible metastatic disease. Follow-up PET CT is recommended. Discussed with oncology and okay for patient to follow-up patient on 03/29/17 as previously planned. No further workup indicated at this time. Qualifiers: Laterality: unspecified laterality Lung location: unspecified part of lung Qualified Code(s): C34.90 - Malignant neoplasm of unspecified part of unspecified bronchus or lung (3) Atrial fibrillation Priority: Primary Status: Acute Comments: per hx. She was evaluated by Cardiology 11/2016 who noted CHADSVASC score 5 (Age , Female, HTN, DM); unable to be anticoagulated given pancytopenia and suspected GI bleed at that time (of note, patient was on chemotherapy during that hospitalization). EKG with ASumaya fib, initially rate controlled heart rates went up into 120s. Evaluated Cardiology who recommended anticoagulation with Plavix and increasing diltiazem to 180 mg twice a day. Patient did not want to increase diltiazem that much, she was agreeable to 90 mg twice a day and continuing Plavix 75 mg daily. Will need to follow-up with Cardiology Qualifiers: Atrial fibrillation type: persistent Qualified Code(s): I48.1 - Persistent atrial fibrillation - Discharge Medications Prescriptions: Clopidogrel [Plavix] 75 mg PO DAILY #30 tablet Diltiazem SR (12hr) [Cardizem SR] 90 mg PO BID #60 cap.er.12h Home Medications: Simvastatin [Zocor] 5 mg PO HS 06/28/16 [History] SitaGLIPtin [Januvia] 100 mg PO DAILY 07/31/16 [History] Albuterol Sulfate [Albuterol Inhaler] 2 puff IH Q6H PRN 08/07/16 [History] Magic Mouthwash [Magic Mouthwash BLM] 10 ml PO QID PRN #240 ml 08/07/16 [Rx] Prochlorperazine Maleate [Compazine] 10 mg PO Q8HR PRN #90 tablet 08/07/16 [Rx] Loperamide [Imodium] 2 mg PO TID PRN #90 capsule 08/20/16 [Rx] Ondansetron [Zofran] 4 mg PO Q8HR PRN #90 tablet 08/20/16 [Rx] Lidocaine/Prilocaine CREAM [Emla] 1 appl TP ONCE PRN 09/02/16 [History] Losartan [Cozaar] 12.5 mg PO DAILY #30 tab 09/11/16 [Rx] Potassium Chloride [K-Tab ER] 30 meq PO QPM 12/10/16 [History] Calcium Carbonate [Tums] 1,000 mg PO QID PRN 12/16/16 [History] Diphenoxylate/Atropine [Lomotil 2.5 mg/0.025 mg] 1 each PO QID PRN #90 tablet [Rx] Furosemide [Lasix] 20 - 40 mg PO DAILY 02/25/17 [History] OxyCODONE/APAP 5/325 [Percocet 5/325 MG] 1 each PO TID #90 tablet 03/09/17 [Rx] Psyllium Husk [Daily Fiber] 0.52 gm PO DAILY PRN 03/22/17 [History] Clopidogrel [Plavix] 75 mg PO DAILY #30 tablet 03/25/17 [Rx] Diltiazem SR (12hr) [Cardizem SR] 90 mg PO BID #60 cap.er.12h 03/25/17 [Rx] Allergies/Adverse Reactions: 3 Allergy/AdvReac Type Severity Reaction Status Date / Time Penicillins Allergy Rash Verified 03/15/17 13:17 vancomycin Allergy Rash Verified 03/15/17 13:17 aspirin AdvReac Gastrointestinal Verified 03/15/17 13:17 Upset Hydromorphone [From Dilaudid] AdvReac Confusion Verified 03/15/17 13:17 levofloxacin [From Levaquin] AdvReac Vomiting Verified 03/15/17 13:17 meperidine [From Demerol] AdvReac Confusion Verified 03/15/17 13:17 Procedures/tests Complete & Pending: Procedures Performed prior 72 hours Category Date Time Status CT chest w con [CT] Routine Cat Scan 03/23/17 08:30 Completed EKG [ECG 12 lead ECG] [ECG] Stat Y 03/24/17 09:58 Completed Date of admission: 03/22/17 20:46 Primary care physician: Tayo Hudson Consults: 03/25/17 08:15 Consult to Cardiology [CONS] Routine Comment: Consulting Provider: Cardiology Melissa Reason for Consult: a-fib with RVR Call Completed: Yes Discharging clinician: Kat Al Anticipated date of discharge: 03/25/17 - Patient Status Disposition: Home, Self-Care Condition: Good Functional capacity at discharge: independent ambulation Overall status at discharge: patient is back to baseline - Discharge Instructions Instructions: Atrial Fibrillation (DC), Clopidogrel (By mouth), Diltiazem (By mouth) Follow Up With: Tayo Hudson DO [Primary Care Provider] - 03/31/17 10:30 am Luz Marina Donaldson MD [Partnered Physician] - (Please keep your appointment on 03/29/17 as previously planned.) - Diet and Activity Activity: increase activity as tolerated Diet: advance to your usual diet Interval History: Seen and examined at bedside. Patient says she feels better and would like to go home today. I discussed case with oncology in [place]; and okay for patient to follow-up with oncology on Wednesday as previously planned. No need for further ATB as well as no evidence of pneumonia. Also discussed anticoagulation with oncology and okay to anticoagulate if needed from their standpoint. Spoke to patient at length, multiple times regarding concern for salt/low blood pressure and uncontrolled heart rate. I advised patient that she should stay overnight for continue monitoring however patient declined. Says she has a blood pressure monitor and pulse ox monitor at home and she would monitor blood pressure and heart rate. Daughter at bedside for conversation as well. Made it very clear that if heart rate is sustaining 120 or greater she would need to return to the emergency room. Both daughter and patient verbalized understanding. Hospital course: See assessment and plan for hospital course - Time Spent with Patient Total time spent providing and/or coordinating discharge services: - Constitutional Vitals: Temp Pulse Resp BP Pulse Ox 97.9 F 89 16 93/63 97 03/25/17 11:00 03/25/17 11:00 03/25/17 11:00 03/25/17 11:00 03/25/17 11:00 General appearance: Present: cooperative, A&O X 3, pleasant, no acute distress - Head Head exam: Present: atraumatic, normocephalic - Eye Eye exam: Present: PERRL, conjuntiva pink, sclera anicteric Pupils: Present: PERRL - Neck Neck exam general surgery: Present: supple, trachea midline. Absent: lymphadenopathy - Respiratory Respiratory exam: Present: CTAB. Absent: accessory muscle use, rales, rhonchi, wheezes - Cardiovascular Cardiovascular exam: Present: irregular rhythm, +S1, +S2. Absent: diastolic murmur, gallop, rubs, systolic murmur - GI/Abdominal GI/Abdominal exam: Present: normal bowel sounds, soft, no peritoneal signs. Absent: distended, tenderness - Extremities Exam Extremities exam: Present: warm, radial pulses palpable and symmetrical. Absent : calf tenderness, cyanotic, pedal edema - Neurological Exam Neurological exam: Present: CN II-XII intact, oriented X3, no focal deficits. Absent: pronater drift, facial droop, speech deficit - Skin Skin exam: Present: dry, intact
[2017-03-25] MEDS ORDERED: Diltiazem CD (24hr) 180 MG CAPSULE PO SCH (21:00)
== END 2017-03-25 17:00 | disposition home or self-care (01) ==
LOC: EMEROO 17:04 → 3BNU 17:04
PROVIDERS: ADMIT Pediatrics; ATTEND Registered Nurse

== ENCOUNTER 2017-05-14 15:09 | Inpatient (IN) ==
[2017-05-14] MEDS ORDERED: methylPREDNISolone 125 MG/2 ML VIAL IVP ONE (15:35)
[2017-05-14] MEDS ORDERED: Ipratropium/Albuterol Neb 3 ML IH ONE (15:35)
--- NOTE | 2017-05-14 15:40 | Emergency Department Note ---
Disposition Clinical Impression: Acute exacerbation of chronic obstructive airways disease Community acquired pneumonia Qualifiers: Laterality: unspecified laterality Qualified Code(s): J18.9 - Pneumonia, unspecified organism Disposition: Admitted As Inpatient Condition: Fair Referrals: Tayo Hudson DO [Primary Care Provider] - Forms: ED Satisfaction Letter Time of Disposition: 19:00 SOB HPI - General Chief Complaint: ED Shortness of Breath/Dyspnea Stated Complaint: NAS,Dry mouth Time Seen by Provider: 05/14/17 15:24 Source: patient Mode of arrival: ambulatory Limitations: no limitations Nursing Notes Reviewed: Yes Vital Signs Reviewed: Yes - History of Present Illness 76-year-old with a history of lung cancer comes in complaining of increasing shortness of breath. Patient has a history of lung cancer. Has a history of COPD. Pt Subjective Complaint: shortness of breath, cough Severity: moderate Consistency/Duration: constant Improves with: nothing Worsens with: exertion Known history of: COPD Associated symptoms: Reports: cough, wheezing Treatment prior to arrival: none - Related Data Home Medications Medication Instructions Recorded Confirmed Simvastatin [Zocor] 5 mg PO HS 06/28/16 04/26/17 SitaGLIPtin [Januvia] 100 mg PO DAILY 07/31/16 04/26/17 Lidocaine/Prilocaine CREAM [Emla] 1 appl TP ONCE PRN 09/02/16 04/26/17 Potassium Chloride [K-Tab ER] 30 meq PO QPM 12/10/16 04/26/17 Calcium Carbonate [Tums] 1,000 mg PO QID PRN 12/16/16 04/26/17 Furosemide [Lasix] 20 - 40 mg PO DAILY 02/25/17 04/26/17 Diltiazem SR (12hr) [Cardizem SR] 120 mg PO BID 04/26/17 04/26/17 Previous Rx's Medication Instructions Recorded Prochlorperazine Maleate 10 mg PO Q8HR PRN #90 tablet 08/07/16 [Compazine] Loperamide [Imodium] 2 mg PO TID PRN #90 capsule 08/20/16 Ondansetron [Zofran] 4 mg PO Q8HR PRN #90 tablet 08/20/16 Losartan [Cozaar] 12.5 mg PO DAILY #30 tab 09/11/16 Diphenoxylate/Atropine [Lomotil 1 each PO QID PRN #90 tablet 12/16/16 2.5 mg/0.025 mg] Clopidogrel [Plavix] 75 mg PO DAILY #30 tablet 03/25/17 Nebulizer Accessories [A.i.r.s. 1 each MC AD #1 kit 04/20/17 Nebulizer] Nebulizer and Compressor [Ombra 1 each MC 3-4XD PRN #1 each 04/20/17 Compressor System] Albuterol Sulfate [Albuterol 2 puff IH Q6H PRN #1 inhaler 04/21/17 Inhaler] Oxycodone HCl/Acetaminophen 1 each PO TID 30 Days #90 tablet 04/26/17 [Percocet 5-325 mg Tablet] MDD 3 Albuterol Sulfate 2.5 mg IH Q6H PRN #180 vial.neb 04/30/17 Levofloxacin [Levaquin] 500 mg PO DAILY #5 tablet 05/10/17 Sulfamethoxazole/Trimeth DS 1 each PO BID #10 tablet 05/10/17 [Bactrim DS] Magic Mouthwash [Magic Mouthwash 10 ml PO QID PRN #240 ml 05/14/17 BLM] Nystatin [Nystatin Suspension] 5 ml PO QID PRN #240 oral.susp 05/14/17 Allergies Allergy/AdvReac Type Severity Reaction Status Date / Time ciprofloxacin Allergy Vomiting Verified 05/14/17 15:22 Penicillins Allergy Rash Verified 05/10/17 13:26 vancomycin Allergy Rash Verified 05/10/17 13:26 aspirin AdvReac Gastrointestinal Verified 05/10/17 13:26 Upset Hydromorphone [From Dilaudid] AdvReac Confusion Verified 05/10/17 13:26 levofloxacin [From Levaquin] AdvReac Hives Verified 05/14/17 15:22 meperidine [From Demerol] AdvReac Confusion Verified 05/10/17 13:26 All systems ED: reviewed and negative except as stated. Constitutional: Denies: fever, chills, weakness, weight change Eyes: Denies: eye pain, eye discharge, vision change ENT ED: Denies: ear pain, throat pain, dental pain, hearing loss, epistaxis, congestion, dysphagia Cardiovascular: Denies: chest pain, palpitations, dyspnea on exertion, edema, syncope Respiratory: Reports: cough, dyspnea, wheezes. Denies: hemoptysis, stridor Gastrointestinal: Denies: abdominal pain, nausea, vomiting, diarrhea, constipation, hematemesis, melena, hematochezia Genitourinary: Denies: dysuria, frequency, hematuria, discharge Musculoskeletal: Denies: back pain, neck pain, arthralgia, myalgia Integumentary: Denies: rash, abrasion, lesions Neurological: Denies: headache, weakness, numbness, paresthesias, confusion, abnormal gait, vertigo Psychiatric: Denies: anxiety, depression, suicidal thoughts, homicidal thoughts , auditory hallucinations, visual hallucinations Endocrine: Denies: fatigue Hematological/Lymphatic: Denies: easy bleeding, easy bruising Allergic/Immunologic: Denies: facial swelling, urticaria Past Medical History - Past Medical History Medical history: Reports: aortic aneurysm, atrial fibrillation, cancer, COPD, diabetes, hyperlipidemia, hypertension Surgical history: Reports: cholecystectomy, hysterectomy, knee replacement, other Psychiatric history: Reports: no psych history - Social History Smoking Status: Former smoker Smokeless Tobacco Status: No Alcohol use: Reports: none Drug use: Reports: none Physical Exam - General Limitations: no limitations General appearance: alert, in no apparent distress - Head Head exam: atraumatic, normocephalic, normal inspection - Eye Eye exam: Present: normal appearance - ENT ENT exam: normal exam, normal oropharynx, mucous membranes moist - Neck Neck exam: Present: normal inspection, full ROM, trachea midline - Chest Chest inspection: Present: normal inspection, symmetric chest wall rise - Respiratory Respiratory exam: Present: wheezes - Cardiovascular Cardiovascular exam: Present: regular rate, normal rhythm, normal heart sounds - Abdominal Exam Abdominal exam: Present: soft, Non-Tender. Absent: tenderness, distention, guarding, rebound, rigidity - Extremities Exam Extremities exam: Present: normal inspection, full ROM. Absent: tenderness, pedal edema - Expanded Lower Extremity Exam Neurovascular/Tendon exam: Absent: motor deficit, sensory deficit, tendon deficit Gait: observed and normal - Back Exam Back exam: Present: normal inspection, full ROM. Absent: tenderness - Neurological Exam Neurological exam: Present: alert, oriented X3 - Psychiatric Psychiatric exam: Present: normal affect, normal mood - Skin Skin exam: Present: warm, dry, intact, normal color Course - Reevaluation(s) Reevaluation #1: 76-year-old with history of lung cancer comes in with increasing shortness of breath. Does have findings on CT scan of that may represent a pneumonia. No PE. Patient will be admitted. Time: 18:59 - Consultations Consultation #1: Discussed with , admit. Time: 18:59 Vital Signs Temperature 98.7 F 05/14/17 15:12 Pulse Rate 90 05/14/17 15:12 Respiratory Rate 26 05/14/17 15:12 Blood Pressure 113/75 05/14/17 15:12 O2 Sat by Pulse Oximetry 98 05/14/17 15:12 Temperature 98.7 F 05/14/17 15:12 Pulse Rate 86 05/14/17 17:09 Respiratory Rate 18 05/14/17 17:09 Blood Pressure 107/64 05/14/17 17:09 O2 Sat by Pulse Oximetry 97 05/14/17 17:09 Oxygen Delivery Oxygen Delivery Nasal Cannula Shortness of Breath/Dyspnea - Lab Data Result diagrams: 05/14/17 16:18 05/14/17 16:18 Lab Results 05/14/17 05/14/17 05/14/17 Range/Units 16:18 16:18 16:18 WBC 8.7 (4.3-11.1) K/mcL RBC 3.83 (3.82-4.97) M/mcL Hgb 11.2 L (11.5-15.4) g/dL Hct 34.1 L (35.3-44.9) % MCV 89.0 (83.0-100.0) fL MCH 29.2 (28.0-33.3) pg MCHC 32.8 (31.6-35.5) g/dL RDW 15.9 H (11.5-14.5) % Plt Count 292 (140-400) K/mcL MPV 9.2 L (9.4-12.4) fL Immature Gran % 0.7 (0-4) % Seg Neutrophils % 69.8 % Lymphocytes % 16.8 % Monocytes % 11.0 % Eosinophils % 1.1 % Basophils % 0.6 % Neutrophils # 6.1 (1.6-8.9) K/mcL Lymphocytes # 1.5 (0.6-4.6) K/mcL Monocytes # 1.0 (0.0-1.3) K/mcL Eosinophils # 0.1 (0.0-0.6) K/mcL Basophils # 0.1 (0.0-0.2) K/mcL D-Dimer (0-500) ng/mLFEU Sodium 136 (136-145) mEq/L Potassium 3.6 (3.5-5.1) mEq/L Chloride 103 (98-107) mEq/L Carbon Dioxide 22 L (23-29) mEq/L BUN 10 (8-23) mg/dL Creatinine 0.72 (0.60-1.20) mg/dL Est GFR ( Amer) > 60 (> 60) Est GFR (Non-Af Amer) > 60 (> 60) BUN/Creatinine Ratio 14 (6-26) Glucose 105 (70-105) mg/dL Calculated Osmolality 281 (280-300) Lactic Acid 1.2 (0.5-2.2) mmol/L Calcium 9.0 (8.6-10.3) mg/dL Troponin I < 0.03 (< 0.04) ng/mL B-Natriuretic Peptide (Less than 100) pg/mL 05/14/17 05/14/17 Range/Units 16:18 16:55 WBC (4.3-11.1) K/mcL RBC (3.82-4.97) M/mcL Hgb (11.5-15.4) g/dL Hct (35.3-44.9) % MCV (83.0-100.0) fL MCH (28.0-33.3) pg MCHC (31.6-35.5) g/dL RDW (11.5-14.5) % Plt Count (140-400) K/mcL MPV (9.4-12.4) fL Immature Gran % (0-4) % Seg Neutrophils % % Lymphocytes % % Monocytes % % Eosinophils % % Basophils % % Neutrophils # (1.6-8.9) K/mcL Lymphocytes # (0.6-4.6) K/mcL Monocytes # (0.0-1.3) K/mcL Eosinophils # (0.0-0.6) K/mcL Basophils # (0.0-0.2) K/mcL D-Dimer 1628 H (0-500) ng/mLFEU Sodium (136-145) mEq/L Potassium (3.5-5.1) mEq/L Chloride (98-107) mEq/L Carbon Dioxide (23-29) mEq/L BUN (8-23) mg/dL Creatinine (0.60-1.20) mg/dL Est GFR ( Amer) (> 60) Est GFR (Non-Af Amer) (> 60) BUN/Creatinine Ratio (6-26) Glucose (70-105) mg/dL Calculated Osmolality (280-300) Lactic Acid (0.5-2.2) mmol/L Calcium (8.6-10.3) mg/dL Troponin I (< 0.04) ng/mL B-Natriuretic Peptide 263 H (Less than 100) pg/mL - EKG Data EKG attestation: Yes I reviewed and interpreted this EKG. Rate: Reports: normal Rhythm: Reports: A.Fib Interpretation: Reports: no acute changes
[2017-05-14 16:29] LABS: Basophils # 0.1 K/mcL (0.0-0.2); Basophils % 0.6 %; Eosinophils # 0.1 K/mcL (0.0-0.6); Eosinophils % 1.1 %; Hematocrit 34.1 % (35.3-44.9); Hemoglobin 11.2 g/dL (11.5-15.4); Immature Granulocytes % 0.7 % (0-4); Lymphocytes # 1.5 K/mcL (0.6-4.6); Lymphocytes % 16.8 %; Mean Corpuscular HGB Conc 32.8 g/dL (31.6-35.5); Mean Corpuscular Hemoglobin 29.2 pg (28.0-33.3); Mean Platelet Volume 9.2 fL (9.4-12.4); Neutrophils # 6.1 K/mcL (1.6-8.9); Platelet Count 292 K/mcL (140-400); Red Blood Count 3.83 M/mcL (3.82-4.97); Red Cell Distribution Width 15.9 % (11.5-14.5); Segmented Neutrophils % 69.8 %
[2017-05-14 16:49] LABS: Troponin I < 0.03 ng/mL (< 0.04)
[2017-05-14 16:56] LABS: BUN/Creatinine Ratio 14 (6-26); Blood Urea Nitrogen 10 mg/dL (8-23); Carbon Dioxide 22 mEq/L (23-29); Chloride 103 mEq/L (98-107); Glucose 105 mg/dL (70-105); Osmolality,Calculated 281 (280-300); Potassium 3.6 mEq/L (3.5-5.1); Sodium 136 mEq/L (136-145); eGFR For African Americans > 60 (> 60); eGFR For Non-African Americans > 60 (> 60)
[2017-05-14] MEDS ORDERED: cefTRIAXone 1,000 MG in Water for inj. (sterile) 20 ML 10 ML IVP ONE (18:57)
[2017-05-14] MEDS ORDERED: Azithromycin 500 MG in D5% in Water 250 ML IVPB ONE (18:57)
--- NOTE | 2017-05-14 19:34 | Internal Med History&Physical ---
Addendum entered and electronically signed by Laura Cheatham MD 05/14/17 22:08: PoA file reviewed with RN. Kaylie Hernandez is pt's designated health power of traffic law attorney. When asked regarding code status, patient unsure of what she wants but has discussed with family "that they will try to do anything they can." Original Note: <Laura Cheatham - Last Filed: 05/14/17 21:23> Date of Encounter: 05/14/17 Time of Encounter: 19:31 Assessment and Plan (1) HCAP (healthcare-associated pneumonia) Current visit: Yes Status: Acute 76 Y with squamous CA on immunotherapy presenting with SOB x "couple of weeks" and cough. -Chest x-ray demonstrating increasing left perihilar and basilar opacity, suspicious for pneumonia and/or worsening pleural effusion. -Pneumonia Severity Index Score: Min 105, with hospitalization recommended. -Blood cultures pending. -2016 IDSA/ETS guidelines do not include HCAP in guidelines, approach to therapy now similar to CAP. Will continue with Rocephin and Azithromycin, which pt tolerated in ED. Code(s): J18.9 - Pneumonia, unspecified organism (2) Atrial fibrillation Current visit: No Status: Acute Seen by cardiology as outpatient. Outpatient note: was increased to cardizem to 120 mg BID in April 2017. Per cardiology outpatient note, patient developed pericardial effusion after starting Eliquis in September 2016, no longer on AC. Has aspirin allergy. Continue home meds. Qualifiers: Atrial fibrillation type: chronic Qualified Code(s): I48.2 - Chronic atrial fibrillation (3) COPD (chronic obstructive pulmonary disease) Current visit: No Status: Chronic History of COPD, with endorsement of shortness of breath, gradually worsening over past couple of weeks. Patient oxygen saturation seemed to decrease below 90% while talking at rest. No wheezing heard on exam. Given patient's immunocompromised status, we will proceed with careful management of COPD, with supplemental oxygen is a critical component. Administration of supplemental oxygen should target a pulse oxygen saturation ( SpO2) of 88 to 92 percent. Nasal cannula. Continue albuterol and anticholinergic agents Limited course of Prednisone 40 orally once daily for 5 days BIPAP qualification overnight O2 home qualification study Qualifiers: COPD type: COPD with acute lower respiratory infection Qualified Code(s): J44.0 - Chronic obstructive pulmonary disease with acute lower respiratory infection (4) Lung cancer Current visit: No Status: Chronic Pt on immunotherapy, with evidence for increasing left pleural effusion. Consult IR to evaluate for possible paracentesis. Qualifiers: Laterality: unspecified laterality Lung location: overlapping sites Qualified Code(s): C34.80 - Malignant neoplasm of overlapping sites of unspecified bronchus and lung (5) Essential hypertension Current visit: No Status: Chronic Continue home medication. (6) Diabetes mellitus, type 2 Current visit: No Status: Chronic Sliding scale, will adjust as needed. Hypoglycemia protocol as needed. Diabetic Diet. Qualifiers: Diabetes mellitus ferry terminal agent insulin use: without usp use Diabetes mellitus complication status: with unspecified complications Qualified Code(s) : E11.8 - Type 2 diabetes mellitus with unspecified complications (7) Cellulitis Current visit: Yes Status: Acute Patient states she was diagnosed with peritonitis, redness had marked erythema bilaterally in lower extremities refractory to antibiotics. Rare for cellulitis to present in b/l extremities. Will order Doppler ultrasound to to further evaluate etiology. Qualifiers: Site of cellulitis: extremity Site of cellulitis of extremity: lower extremity Laterality: unspecified laterality Qualified Code(s): L03.119 - Cellulitis of unspecified part of limb (8) Chronic pain Current visit: Yes Status: Acute Patient endorses chronic pain secondary to osteoarthritis s/p knee replacement in 2014. OARRS reviewed on admission. Continue pain medication. Qualifiers: Chronic pain type: other chronic pain Qualified Code(s): G89.29 - Other chronic pain (9) DVT prophylaxis Current visit: No Status: Acute Giselle Score: Min 7. Pharmacologic Prophylaxis IS indicated. Heparin SubQ 5000 BID Internal Medicine - H&P: HPI Chief complaint: Shortness of Breath Admitted From: Home History of present illness: Ms. 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 Patient was recently discharged from hospital March 2016 for shortness of breath, with a diagnosis atrial fibrillation with RVR. Patient states that she noticed shortness of breath at home for a couple of weeks. Notes shortness of breath is on talking and walking or slight movement. Endorses chronic cough, with yellow and white sputum. Endorses dryness in mouth, and white film, which she is treating with nystatin currently. Denies fevers, denies chest pain, denies abdominal pain. Endorses chronic leg pain secondary to osteoarthritis, denies tingling in legs. Endorses chronic marked erythema on bilateral legs, diagnosed as cellulitis. Past Med Surg Social Fam HX - Past Medical History Medical history: aortic aneurysm, atrial fibrillation, cancer, COPD, diabetes, hyperlipidemia, hypertension Psychiatric history: no psych history - Past Surgical History Surgical History: cholecystectomy, hysterectomy, knee replacement, other - Social History Smoking Status: Former smoker Smokeless Tobacco Status: No Alcohol use: none Drug use: none - Family History Mother Family Member Ethnicity: Non- Living Status: Hx Family Cardiac Disorders: Yes (unknown) Hx Family Respiratory Disorders: No Hx Family Cancer: No Hx Family GI Disorders: No Hx Family Endocrine Disorder: Yes (dm) Hx Family Neuromuscular Disorders: No Hx Family Neurologic Disorders: No Hx Family HEENT Disorders: No Hx Family Autoimmune Disorders: No Father Living Status: Internal Medicine - H&P: Meds Simvastatin [Zocor] 5 mg PO HS 06/28/16 [History] SitaGLIPtin [Januvia] 100 mg PO DAILY 07/31/16 [History] Prochlorperazine Maleate [Compazine] 10 mg PO Q8HR PRN #90 tablet 08/07/16 [Rx] Loperamide [Imodium] 2 mg PO TID PRN #90 capsule 08/20/16 [Rx] Ondansetron [Zofran] 4 mg PO Q8HR PRN #90 tablet 08/20/16 [Rx] Lidocaine/Prilocaine CREAM [Emla] 1 appl TP ONCE PRN 09/02/16 [History] Losartan [Cozaar] 12.5 mg PO DAILY #30 tab 09/11/16 [Rx] Potassium Chloride [K-Tab ER] 30 meq PO QPM 12/10/16 [History] Calcium Carbonate [Tums] 1,000 mg PO QID PRN 12/16/16 [History] Diphenoxylate/Atropine [Lomotil 2.5 mg/0.025 mg] 1 each PO QID PRN #90 tablet [Rx] Furosemide [Lasix] 20 - 40 mg PO DAILY 02/25/17 [History] Clopidogrel [Plavix] 75 mg PO DAILY #30 tablet 03/25/17 [Rx] Albuterol Sulfate [Albuterol Inhaler] 2 puff IH Q6H PRN #1 inhaler 04/21/17 [Rx] Oxycodone HCl/Acetaminophen [Percocet 5-325 mg Tablet] 1 each PO TID 30 Days # 90 tablet MDD 3 04/26/17 [Rx] Albuterol Sulfate 2.5 mg IH Q6H PRN #180 vial.neb 04/30/17 [Rx] Sulfamethoxazole/Trimeth DS [Bactrim DS] 1 each PO BID #10 tablet 05/10/17 [Rx] Magic Mouthwash [Magic Mouthwash BLM] 10 ml PO QID PRN #240 ml 05/14/17 [Rx] Nystatin [Nystatin Suspension] 5 ml PO QID PRN #240 oral.susp 05/14/17 [Rx] dilTIAZem HCl [Diltiazem 24Hr ER] 120 mg PO BID 05/14/17 [History] 3 Allergy/AdvReac Type Severity Reaction Status Date / Time ciprofloxacin Allergy Vomiting Verified 05/14/17 15:22 Penicillins Allergy Rash Verified 05/10/17 13:26 vancomycin Allergy Rash Verified 05/10/17 13:26 aspirin AdvReac Gastrointestinal Verified 05/10/17 13:26 Upset Hydromorphone [From Dilaudid] AdvReac Confusion Verified 05/10/17 13:26 levofloxacin [From Levaquin] AdvReac Hives Verified 05/14/17 15:22 meperidine [From Demerol] AdvReac Confusion Verified 05/10/17 13:26 All Systems PM: A 10-system review of systems was performed and is negative for pertinent findings except as documented above in the HPI. - Constitutional Vitals: Temp Pulse Resp BP Pulse Ox 98.7 F 94 18 101/73 94 05/14/17 15:12 05/14/17 19:30 05/14/17 19:30 05/14/17 19:30 05/14/17 19:30 General appearance: Present: cooperative, A&O X 3, no acute distress - Head Head exam: Present: atraumatic, normocephalic Additional comments: Nasal cannula in place - Respiratory Respiratory exam: Present: CTAB. Absent: accessory muscle use, wheezes, tachypnea - Cardiovascular Cardiovascular exam: Present: +S1, +S2. Absent: tachycardia - Extremities Exam Extremities exam: Absent: calf tenderness, joint swelling, pedal edema, tenderness, warm Additional comments: skin erythema on b/l legs. No edema, and no warmth - Psychiatric Psychiatric exam: Present: normal affect Internal Med - H&P Results - Labs CBC & Chem 7: 05/14/17 16:18 05/14/17 16:18 - Impressions ITS Impressions Chest X-Ray 05/14/17 15:35 IMPRESSION: Increasing left perihilar and basilar opacity, suspicious for pneumonia and/or worsening pleural effusion. D/ / 05/14/2017 16:15:28 Nicole Vee MD / [email or web address] Interpreting Provider: Nicole Vee MD Chest CTA 05/14/17 17:45 IMPRESSION: 1. No evidence of pulmonary embolism or aortic dissection. 2. Increased left pleural effusion. Increasing collapse and consolidation within the left lower lobe and within the lingula. Although some of this may represent neoplasm, much of that is also likely atelectasis or pneumonia. 3. Increased size of mediastinal lymph nodes. This is increased size could be reactive secondary to inflammation or infection, but progressive metastatic disease remains a concern as well. D/ / Sancho Treviño MD / Sancho Treviño MD Interpreting Provider: Sancho Treviño MD <Lityz Carreno - Last Filed: 05/15/17 02:40> Date of Encounter: 05/15/17 Internal Medicine - H&P: HPI History of present illness: Ms. Hernandez is a 76 year old female All Systems PM: A 10-system review of systems was performed and is negative for pertinent findings except as documented above in the HPI. - Constitutional Vitals: Temp Pulse Resp BP Pulse Ox 98 F 106 18 118/75 93 05/15/17 00:06 05/15/17 00:06 05/15/17 00:06 05/15/17 00:06 05/15/17 00:06 Internal Med - H&P Results - Labs CBC & Chem 7: 03/16/18 16:18 05/14/17 16:18 - Attending Attestation I have seen and examined this pt independently. I have discussed with Resident physician Dr Cheatham regarding the management plan. Agree with the documentation.
[2017-05-14] MEDS ORDERED: Naloxone 0.4 MG/ML INJ IVP PRN (20:47)
[2017-05-14] MEDS ORDERED: Diphenoxylate/Atropine 1 TAB TABLET PO PRN (20:48)
[2017-05-14] MEDS ORDERED: Magic Mouthwash 10 ML UD Cup PO PRN (20:48)
[2017-05-14] MEDS ORDERED: Ondansetron ODT 4 MG TAB.RAPDIS PO PRN (20:48)
[2017-05-14] MEDS ORDERED: Albuterol 2.5 MG/3 ML NEBULIZER IH PRN (20:48)
[2017-05-14] MEDS ORDERED: Azithromycin 500 MG in D5% in Water 250 ML IVPB SCH (21:00)
[2017-05-14] MEDS ORDERED: *HR* Dextrose 50 % in Water (Syg) 50 ML SYRINGE IVP PRN (21:38)
[2017-05-14] MEDS ORDERED: Dextrose Gel 15 GM/37.5 ML TUBE PO PRN ×2 (21:38)
[2017-05-14] MEDS ORDERED: D5% in Water 1,000 ML IVC PRN (21:38)
[2017-05-14] MEDS ORDERED: Insulin DETEMIR 100 UNIT/ML X5UNITS SQ SCH (21:45)
[2017-05-14] MEDS: predniSONE 20 MG TABLET PO SCH (22:03)
[2017-05-14] MEDS: Diltiazem CD (24hr) 120 MG CAPSULE PO SCH (22:04)
[2017-05-14] MEDS: *HR* OxyCODONE/APAP 5/325 TABLET PO PRN (22:07)
[2017-05-15] MEDS: Ipratropium/Albuterol Neb 3 ML IH SCH ×5 (00:11→22:12)
[2017-05-15 03:55] LABS: Basophils % 0.2 %; Hematocrit 32.3 % (35.3-44.9); Hemoglobin 10.7 g/dL (11.5-15.4); Immature Granulocytes % 0.2 % (0-4); Lymphocytes # 0.6 K/mcL (0.6-4.6); Mean Corpuscular HGB Conc 33.1 g/dL (31.6-35.5); Mean Corpuscular Hemoglobin 28.9 pg (28.0-33.3); Mean Corpuscular Volume 87.3 fL (83.0-100.0); Mean Platelet Volume 9.6 fL (9.4-12.4); Monocytes # 0.1 K/mcL (0.0-1.3); Monocytes % 1.5 %; Neutrophils # 4.9 K/mcL (1.6-8.9); Platelet Count 274 K/mcL (140-400); Red Cell Distribution Width 15.8 % (11.5-14.5); Segmented Neutrophils % 88.1 %
[2017-05-15 04:03] LABS: BUN/Creatinine Ratio 18 (6-26); Blood Urea Nitrogen 12 mg/dL (8-23); Carbon Dioxide 20 mEq/L (23-29); Chloride 104 mEq/L (98-107); Glucose 220 mg/dL (70-105); Osmolality,Calculated 285 (280-300); Potassium 3.6 mEq/L (3.5-5.1); Sodium 134 mEq/L (136-145); eGFR For African Americans > 60 (> 60); eGFR For Non-African Americans > 60 (> 60)
[2017-05-15] MEDS: *HR* Heparin 5,000 UNIT/ML VIAL SQ SCH ×2 (05:37→17:31)
[2017-05-15] MEDS: Insulin LISPRO 300 UNITS/3 ML VIAL SQ SCH ×4 (09:44→22:20)
[2017-05-15] MEDS: Diltiazem CD (24hr) 120 MG CAPSULE PO SCH ×2 (10:04→20:45)
[2017-05-15] MEDS: predniSONE 20 MG TABLET PO SCH (10:04)
[2017-05-15] MEDS: Furosemide 20 MG TABLET PO SCH ×2 (10:04→17:30)
--- NOTE | 2017-05-15 11:06 | Internal Med Progress Note ---
Date of Encounter: 05/15/17 Time of Encounter: 11:04 - Assessment and plan (1) Dyspnea Current Visit: Yes Status: Acute Assessment and plan: - History of lung cancer status post radiation and chemotherapy, history of pericardial effusion, history of COPD, history of left pleural effusion. - Presented with acute onset of exertional dyspnea. No history of CHF. last echo 03/2017 EF 65%. - CTA ruled out PE, demonstrated left infiltrate, concerning for infection/ recurrence of tumor, and increased size of left pleural effusion. - Blood culture pending, sputum culture pending. - We will treat pneumonia and watch patient response. If there is no improvement, plan thoracentesis, likely next week. - Continue treatment for COPD. Qualifiers: Dyspnea type: dyspnea on exertion Qualified Code(s): R06.09 - Other forms of dyspnea (2) HCAP (healthcare-associated pneumonia) Current Visit: Yes Status: Acute Assessment and plan: - Escalated antibiotics to meropenem and the linezolid. - Pending cultures. (3) Pleural effusion Current Visit: No Status: Chronic Assessment and plan: - Etiology likely related to malignancy/recently infection. - Continue Lasix, follow-up chest x-ray, if there is no improvement, plan thoracentesis next week. (4) Atrial fibrillation Current Visit: No Status: Acute Assessment and plan: - Rate controlled with Cardizem, not on anticoagulation due to history of hemorrhagic pericardia effusion. Qualifiers: Atrial fibrillation type: chronic Qualified Code(s): I48.2 - Chronic atrial fibrillation (5) COPD (chronic obstructive pulmonary disease) Current Visit: No Status: Chronic Assessment and plan: - Continue bronchodilator and 5 days course of steroid. Qualifiers: COPD type: COPD with acute lower respiratory infection Qualified Code(s): J44.0 - Chronic obstructive pulmonary disease with acute lower respiratory infection (6) Lung cancer Current Visit: No Status: Chronic Assessment and plan: - Currently on immunotherapy, we will consult oncology if needed. Qualifiers: Laterality: unspecified laterality Lung location: overlapping sites Qualified Code(s): C34.80 - Malignant neoplasm of overlapping sites of unspecified bronchus and lung (7) Cellulitis Current Visit: Yes Status: Acute Assessment and plan: - Patient reported has bilateral leg rashes for long time, has been treated with Bactrim in the past with no resolution of the rash. - Likely cancer related dermatitis, but cellulitis Not completely ruled out. - The border of the rash was marked, will monitor size change. Current antibiotics should cover possible cellulitis. Qualifiers: Site of cellulitis: extremity Site of cellulitis of extremity: lower extremity Laterality: unspecified laterality Qualified Code(s): L03.119 - Cellulitis of unspecified part of limb (8) Essential hypertension Current Visit: No Status: Chronic Assessment and plan: - Controlled. (9) Diabetes mellitus, type 2 Current Visit: No Status: Chronic Assessment and plan: - Continue sliding scale and basal insulin. 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 Still having cough with minimal sputum production. Denies fever , chills, or night sweats. - Constitutional Vitals: Temp Pulse Resp BP Pulse Ox 98.1 F 111 19 117/71 95 05/15/17 06:49 05/15/17 06:49 05/15/17 06:49 05/15/17 06:49 05/15/17 06:49 General appearance: Present: cooperative, A&O X 3, no acute distress Exam: PHYSICAL EXAMINATION: GENERAL APPEARANCE: The patient is alert, oriented and in no acute distress. HEENT: Head is normocephalic. The sinuses are nontender. Pupils are equal and reactive. The nares are patent. Oropharynx clear without lesions. NECK: Supple without lymphadenopathy. HEART: Regular rate and rhythm. LUNGS: decreased lung sound on the left side. ABDOMEN: Soft, nontender, nondistended with good bowel sounds heard. Inguinal area is normal. EXTREMITIES: Without cyanosis, clubbing or edema. NEUROLOGICAL: Gross nonfocal. SKIN: bilateral erythematous rash on both legs.. Internal Medicine: Result - Labs CBC & Chem 7: 05/15/17 03:08 05/15/17 03:08 Labs: Short CBC 05/15/17 Range/Units 03:08 WBC 5.5 (4.3-11.1) K/mcL Hgb 10.7 L (11.5-15.4) g/dL Hct 32.3 L (35.3-44.9) % Plt Count 274 (140-400) K/mcL Neutrophils # 4.9 (1.6-8.9) K/mcL BMP 05/15/17 03:08 Sodium 134 L Potassium 3.6 Chloride 104 Carbon Dioxide 20 L BUN 12 Creatinine 0.67 Glucose 220 H Calcium 9.0 - ABG Interpretation ABG results: PT/INR, D-dimer D-Dimer 1628 ng/mLFEU (0-500) H 05/14/17 16:55 Consult Discharge Plan - Plan Referrals: Tayo Hudson DO [Primary Care Provider] -
[2017-05-15] MEDS: Meropenem 1,000 MG in Water for inj. (sterile) 20 ML 10 ML IVP SCH ×2 (12:28→20:42)
[2017-05-15] MEDS: Nystatin SUSP 5 ML UD.LIQ PO PRN (12:29)
[2017-05-15] MEDS: *HR* OxyCODONE/APAP 5/325 TABLET PO PRN ×2 (14:58→23:21)
[2017-05-15] MEDS ORDERED: cefTRIAXone 1,000 MG in Water for inj. (sterile) 20 ML 10 ML IVP SCH (19:00)
[2017-05-15] MEDS ORDERED: Azithromycin 500 MG in D5% in Water 250 ML IVPB SCH (19:00)
[2017-05-16] MEDS: Ipratropium/Albuterol Neb 3 ML IH SCH ×4 (03:57→23:30)
[2017-05-16 04:00] LABS: Basophils % 0.2 %; Hematocrit 31.6 % (35.3-44.9); Hemoglobin 10.3 g/dL (11.5-15.4); Immature Granulocytes % 0.8 % (0-4); Lymphocytes # 0.6 K/mcL (0.6-4.6); Lymphocytes % 4.9 %; Mean Corpuscular HGB Conc 32.6 g/dL (31.6-35.5); Mean Corpuscular Hemoglobin 29.4 pg (28.0-33.3); Mean Corpuscular Volume 90.3 fL (83.0-100.0); Mean Platelet Volume 9.2 fL (9.4-12.4); Monocytes # 1.2 K/mcL (0.0-1.3); Monocytes % 9.4 %; Neutrophils # 10.4 K/mcL (1.6-8.9); Platelet Count 297 K/mcL (140-400); Red Cell Distribution Width 15.9 % (11.5-14.5); Segmented Neutrophils % 84.7 %
[2017-05-16 04:17] LABS: BUN/Creatinine Ratio 23 (6-26); Blood Urea Nitrogen 19 mg/dL (8-23); Calcium 9.2 mg/dL (8.6-10.3); Carbon Dioxide 23 mEq/L (23-29); Chloride 105 mEq/L (98-107); Glucose 195 mg/dL (70-105); Osmolality,Calculated 290 (280-300); Potassium 3.5 mEq/L (3.5-5.1); Sodium 136 mEq/L (136-145); eGFR For African Americans > 60 (> 60); eGFR For Non-African Americans > 60 (> 60)
[2017-05-16] MEDS: *HR* Heparin 5,000 UNIT/ML VIAL SQ SCH ×2 (05:03→16:48)
[2017-05-16] MEDS: Meropenem 1,000 MG in Water for inj. (sterile) 20 ML 10 ML IVP SCH ×2 (05:03→16:48)
[2017-05-16] MEDS: Diltiazem CD (24hr) 120 MG CAPSULE PO SCH ×2 (07:43→22:08)
[2017-05-16] MEDS: predniSONE 20 MG TABLET PO SCH (07:43)
[2017-05-16] MEDS: Furosemide 20 MG TABLET PO SCH ×2 (07:43→16:49)
[2017-05-16] MEDS: Insulin LISPRO 300 UNITS/3 ML VIAL SQ SCH ×4 (07:43→22:08)
--- NOTE | 2017-05-16 12:58 | Internal Med Progress Note ---
Date of Encounter: 05/16/17 Time of Encounter: 09:15 - Assessment and plan (1) Pneumonia Current Visit: Yes Status: Acute Assessment and plan: CT angiogram of the chest shows consolidation within the left lower lobe and within the lingula. Concerning for atelectasis or pneumonia. Patient is currently on broad-spectrum antibiotics. Follow culture results. Consider de- escalation tomorrow if cultures remain negative and WBC count is improving. High risk for complications. Qualifiers: Pneumonia type: due to unspecified organism Laterality: right Lung location: unspecified part of lung Qualified Code(s): J18.9 - Pneumonia, unspecified organism (2) Atrial fibrillation Current Visit: Yes Status: Chronic Assessment and plan: Heart rate mainly in the low 100s. Continue Cardizem 120 twice a day. If persistently elevated, consider increasing Cardizem or transition to long- acting Cardizem. Not on anticoagulation due to her history of hemorrhagic pericardial effusion Qualifiers: Atrial fibrillation type: chronic Qualified Code(s): I48.2 - Chronic atrial fibrillation (3) Cellulitis Current Visit: Yes Status: Ruled-out Assessment and plan: Does not appear to be cellulitis. Most likely dermatitis involving both lower extremities. Qualifiers: Site of cellulitis: extremity Site of cellulitis of extremity: lower extremity Laterality: unspecified laterality Qualified Code(s): L03.119 - Cellulitis of unspecified part of limb (4) COPD (chronic obstructive pulmonary disease) Current Visit: Yes Status: Chronic Assessment and plan: Continue treating underlying pneumonia. On bronchodilators and steroids. Qualifiers: COPD type: COPD with acute lower respiratory infection Qualified Code(s): J44.0 - Chronic obstructive pulmonary disease with acute lower respiratory infection (5) Diabetes mellitus, type 2 Current Visit: Yes Status: Chronic Assessment and plan: Blood sugars elevated. Likely due to steroid use. We will monitor and adjust insulin regimen accordingly. Add long-acting insulin. Qualifiers: Diabetes mellitus fci insulin use: without fci use Diabetes mellitus complication status: with unspecified complications Qualified Code(s) : E11.8 - Type 2 diabetes mellitus with unspecified complications (6) Essential hypertension Current Visit: Yes Status: Chronic Assessment and plan: Blood pressure is well controlled (7) Pleural effusion, left Current Visit: Yes Status: Acute Assessment and plan: Left-sided pleural effusion. Consult interventional radiology for possible ultrasound-guided thoracentesis. (8) Lung cancer Current Visit: Yes Status: Chronic Assessment and plan: Continue management per oncology recommendations as outpatient. Qualifiers: Laterality: unspecified laterality Lung location: overlapping sites Qualified Code(s): C34.80 - Malignant neoplasm of overlapping sites of unspecified bronchus and lung - Subjective Interval history: Patient is awake and alert. Sitting up in bed. Comfortable. Shortness of breath is improving. No chest pain at this time. - Constitutional Vitals: Temp Pulse Resp BP Pulse Ox 97.4 F L 108 16 93/47 96 05/16/17 11:08 05/16/17 11:23 05/16/17 11:23 05/16/17 11:08 05/16/17 11:23 General appearance: Present: cooperative, A&O X 3, no acute distress, answers questions appropriately - Neck Neck exam general surgery: Present: supple, trachea midline. Absent: lymphadenopathy - Respiratory Respiratory exam: Present: decreased breath sounds (At left base). Absent: accessory muscle use, rales, rhonchi, wheezes - Cardiovascular Cardiovascular exam: Present: irregular rhythm, +S1, +S2. Absent: diastolic murmur, gallop, rubs, systolic murmur - GI/Abdominal GI/Abdominal exam: Present: normal bowel sounds, soft, no peritoneal signs. Absent: distended, tenderness - Extremities Exam Extremities exam: Present: warm, radial pulses palpable and symmetrical. Absent : calf tenderness, cyanotic, pedal edema Additional comments: Erythema on anterior surface of both lower extremities; greater on the left; - Neurological Exam Neurological exam: Present: CN II-XII intact, oriented X3, no focal deficits. Absent: facial droop, speech deficit - Skin Skin exam: Present: dry, erythema (On lower extremities.), intact Internal Medicine: Result - Labs CBC & Chem 7: 05/16/17 03:43 05/16/17 03:43 Labs: Short CBC 05/16/17 Range/Units 03:43 WBC 12.3 H D (4.3-11.1) K/mcL Hgb 10.3 L (11.5-15.4) g/dL Hct 31.6 L (35.3-44.9) % Plt Count 297 (140-400) K/mcL Neutrophils # 10.4 H (1.6-8.9) K/mcL BMP 05/16/17 03:43 Sodium 136 Potassium 3.5 Chloride 105 Carbon Dioxide 23 BUN 19 Creatinine 0.83 Glucose 195 H Calcium 9.2 - ABG Interpretation ABG results: PT/INR, D-dimer D-Dimer 1628 ng/mLFEU (0-500) H 05/14/17 16:55 Consult Discharge Plan - Plan Referrals: Tayo Hudson DO [Primary Care Provider] -
[2017-05-16] MEDS: *HR* OxyCODONE/APAP 5/325 TABLET PO PRN ×2 (14:44→23:08)
[2017-05-16] MEDS: Nystatin SUSP 5 ML UD.LIQ PO PRN (14:44)
[2017-05-16] MEDS: Insulin DETEMIR 100 UNIT/ML X5UNITS SQ SCH (23:09)
[2017-05-17] MEDS: Ipratropium/Albuterol Neb 3 ML IH SCH ×4 (04:26→22:27)
[2017-05-17 04:31] LABS: Basophils % 0.1 %; Eosinophils % 0.2 %; Hematocrit 33.3 % (35.3-44.9); Hemoglobin 10.5 g/dL (11.5-15.4); Immature Granulocytes % 0.8 % (0-4); Lymphocytes # 0.8 K/mcL (0.6-4.6); Lymphocytes % 7.7 %; Mean Corpuscular HGB Conc 31.5 g/dL (31.6-35.5); Mean Corpuscular Hemoglobin 28.8 pg (28.0-33.3); Mean Corpuscular Volume 91.5 fL (83.0-100.0); Mean Platelet Volume 9.4 fL (9.4-12.4); Monocytes # 0.9 K/mcL (0.0-1.3); Monocytes % 9.5 %; Neutrophils # 8.1 K/mcL (1.6-8.9); Platelet Count 308 K/mcL (140-400); Red Blood Count 3.64 M/mcL (3.82-4.97); Red Cell Distribution Width 15.9 % (11.5-14.5); Segmented Neutrophils % 81.7 %
[2017-05-17 04:46] LABS: BUN/Creatinine Ratio 21 (6-26); Blood Urea Nitrogen 17 mg/dL (8-23); Calcium 9.1 mg/dL (8.6-10.3); Carbon Dioxide 23 mEq/L (23-29); Chloride 104 mEq/L (98-107); Glucose 183 mg/dL (70-105); Osmolality,Calculated 296 (280-300); Potassium 3.4 mEq/L (3.5-5.1); Sodium 140 mEq/L (136-145); eGFR For African Americans > 60 (> 60); eGFR For Non-African Americans > 60 (> 60)
[2017-05-17] MEDS: Meropenem 1,000 MG in Water for inj. (sterile) 20 ML 10 ML IVP SCH (05:42)
[2017-05-17] MEDS: *HR* Heparin 5,000 UNIT/ML VIAL SQ SCH ×2 (05:43→17:14)
[2017-05-17] MEDS: Diltiazem CD (24hr) 120 MG CAPSULE PO SCH ×2 (09:30→20:38)
[2017-05-17] MEDS: predniSONE 20 MG TABLET PO SCH (09:30)
[2017-05-17] MEDS: Furosemide 20 MG TABLET PO SCH ×2 (09:31→16:36)
[2017-05-17] MEDS: Insulin LISPRO 300 UNITS/3 ML VIAL SQ SCH ×4 (09:42→20:38)
[2017-05-17] MEDS: *HR* OxyCODONE/APAP 5/325 TABLET PO PRN ×2 (09:47→16:45)
--- NOTE | 2017-05-17 09:55 | Internal Med Progress Note ---
Date of Encounter: 05/17/17 Time of Encounter: 09:53 - Assessment and plan (1) HCAP (healthcare-associated pneumonia) Current Visit: Yes Status: Acute Assessment and plan: Healthcare associated pneumonia present upon admission, with left pleural effusion likely malignancy related status post thoracenteses, 1 L removed Send pleuritic fluid for cell count, culture, glucose and LDH Received meropenem and Zyvox, patient agrees to try to de-escalate antibiotic therapy Start cefepime and azithromycin CT scan of the chest showed: 1. No evidence of pulmonary embolism or aortic dissection. 2. Increased left pleural effusion. Increasing collapse and consolidation within the left lower lobe and within the lingula. Although some of this may represent neoplasm, much of that is also likely atelectasis or pneumonia. 3. Increased size of mediastinal lymph nodes. This is increased size could be reactive secondary to inflammation or infection, but progressive metastatic disease remains a concern as well. 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 Follow up as outpatient Qualifiers: Laterality: unspecified laterality Lung location: overlapping sites Qualified Code(s): C34.80 - Malignant neoplasm of overlapping sites of unspecified bronchus and lung (5) Cellulitis Current Visit: Yes Status: Ruled-out Assessment and plan: Bilateral lower extremity cellulitis, resolved, apparently failed Bactrim in the past Qualifiers: Site of cellulitis: extremity Site of cellulitis of extremity: lower extremity Laterality: unspecified laterality Qualified Code(s): L03.119 - Cellulitis of unspecified part of limb (6) Diabetes mellitus, type 2 Current Visit: Yes Status: Chronic Assessment and plan: Insulin sliding scale Qualifiers: Diabetes mellitus fdc insulin use: without fdc use Diabetes mellitus complication status: with unspecified complications Qualified Code(s) : E11.8 - Type 2 diabetes mellitus with unspecified complications (7) Hypokalemia Current Visit: No Status: Acute Assessment and plan: Replete as needed - Subjective Interval history: Feeling better after removing 1 L from her left lung, left pleuritic chest pain , no fever, no abdominal pain, no dysuria. - Constitutional Vitals: Temp Pulse Resp BP Pulse Ox 97.8 F 104 17 126/74 94 05/17/17 07:15 05/17/17 07:15 05/17/17 07:15 05/17/17 07:15 05/17/17 07:15 General appearance: Present: cooperative, A&O X 3, no acute distress, answers questions appropriately - Head Head exam: Present: atraumatic, normocephalic - Eye Eye exam: Present: PERRL, conjuntiva pink, sclera anicteric Pupils: Present: PERRL - Neck Neck exam general surgery: Present: supple, trachea midline. Absent: lymphadenopathy - Respiratory Respiratory exam: Present: CTAB, rales. Absent: accessory muscle use, rhonchi, wheezes Additional comments: right upper chest port left basilar crackles - Cardiovascular Cardiovascular exam: Present: RRR, +S1, +S2. Absent: diastolic murmur, gallop, rubs, systolic murmur - GI/Abdominal GI/Abdominal exam: Present: normal bowel sounds, soft, no peritoneal signs. Absent: distended, tenderness - Extremities Exam Extremities exam: Present: warm, radial pulses palpable and symmetrical. Absent : calf tenderness, cyanotic, pedal edema - Neurological Exam Neurological exam: Present: CN II-XII intact, oriented X3, no focal deficits. Absent: pronater drift, facial droop, speech deficit - Skin Skin exam: Present: dry, intact Internal Medicine: Result - Labs CBC & Chem 7: 05/17/17 04:04 05/17/17 04:04 Labs: Short CBC 05/17/17 Range/Units 04:04 WBC 9.9 (4.3-11.1) K/mcL Hgb 10.5 L (11.5-15.4) g/dL Hct 33.3 L (35.3-44.9) % Plt Count 308 (140-400) K/mcL Neutrophils # 8.1 (1.6-8.9) K/mcL BMP 05/17/17 04:04 Sodium 140 Potassium 3.4 L Chloride 104 Carbon Dioxide 23 BUN 17 Creatinine 0.80 Glucose 183 H Calcium 9.1 - ABG Interpretation ABG results: PT/INR, D-dimer D-Dimer 1628 ng/mLFEU (0-500) H 05/14/17 16:55 - Impressions Impressions Chest X-Ray 05/17/17 08:57 IMPRESSION: No pneumothorax is identified, following the left thoracentesis. Residual airspace disease or atelectasis in the left mid and lower lung. D/ / Mac Velasquez MD / Mac Velasquez MD Interpreting Provider: Mac Velasquez MD Consult Discharge Plan - Plan Referrals: Tayo Hudson DO [Primary Care Provider] -
[2017-05-17] MEDS ORDERED: Cefepime HCl 2,000 MG in Water for inj. (sterile) 20 ML IVP SCH (10:00)
[2017-05-17] MEDS ORDERED: Cefepime HCl 1,000 MG in Water for inj. (sterile) 20 ML 10 ML IVP SCH (10:00)
[2017-05-17] MEDS: Azithromycin 500 MG in D5% in Water 250 ML IVPB SCH (10:46)
[2017-05-17 11:38] LABS: RBC,Pleural Fluid < 0.002 M/mcL
[2017-05-17 12:42] LABS: Appearance of Pleural Fl Clear (Clear)
[2017-05-17] MEDS: Insulin DETEMIR 100 UNIT/ML X5UNITS SQ SCH (20:38)
[2017-05-17] MEDS ORDERED: Linezolid 600 MG TABLET PO SCH (21:00)
[2017-05-17] MEDS: Cefepime HCl 2,000 MG in Water for inj. (sterile) 20 ML 20 ML IVP SCH (22:52)
[2017-05-18] MEDS: Ipratropium/Albuterol Neb 3 ML IH SCH ×3 (04:03→15:55)
[2017-05-18] MEDS: *HR* Heparin 5,000 UNIT/ML VIAL SQ SCH (05:29)
[2017-05-18 05:51] LABS: Hematocrit 35.5 % (35.3-44.9); Hemoglobin 11.2 g/dL (11.5-15.4); Mean Corpuscular HGB Conc 31.5 g/dL (31.6-35.5); Mean Corpuscular Hemoglobin 28.6 pg (28.0-33.3); Mean Corpuscular Volume 90.8 fL (83.0-100.0); Mean Platelet Volume 9.2 fL (9.4-12.4); Platelet Count 287 K/mcL (140-400); Red Blood Count 3.91 M/mcL (3.82-4.97); Red Cell Distribution Width 15.9 % (11.5-14.5)
[2017-05-18 06:13] LABS: BUN/Creatinine Ratio 24 (6-26); Blood Urea Nitrogen 18 mg/dL (8-23); Carbon Dioxide 26 mEq/L (23-29); Chloride 106 mEq/L (98-107); Glucose 118 mg/dL (70-105); Osmolality,Calculated 291 (280-300); Potassium 3.8 mEq/L (3.5-5.1); Sodium 139 mEq/L (136-145); eGFR For African Americans > 60 (> 60); eGFR For Non-African Americans > 60 (> 60)
[2017-05-18] MEDS: Insulin LISPRO 300 UNITS/3 ML VIAL SQ SCH ×2 (09:03→11:56)
[2017-05-18] MEDS: Azithromycin 500 MG in D5% in Water 250 ML IVPB SCH (09:29)
[2017-05-18] MEDS: Furosemide 20 MG TABLET PO SCH (09:29)
[2017-05-18] MEDS: Diltiazem CD (24hr) 120 MG CAPSULE PO SCH (09:29)
[2017-05-18] MEDS: predniSONE 20 MG TABLET PO SCH (09:30)
--- NOTE | 2017-05-18 10:14 | Internal Med Progress Note ---
Date of Encounter: 05/18/17 - Assessment and plan (1) HCAP (healthcare-associated pneumonia) Current Visit: Yes Status: Acute (2) Atrial fibrillation Current Visit: Yes Status: Chronic Qualifiers: Atrial fibrillation type: chronic Qualified Code(s): I48.2 - Chronic atrial fibrillation - Constitutional Vitals: Temp Pulse Resp BP Pulse Ox 98.2 F 98 18 113/64 91 05/18/17 07:24 05/18/17 07:24 05/18/17 07:24 05/18/17 07:24 05/18/17 07:24 General appearance: Present: cooperative, A&O X 3, no acute distress, answers questions appropriately Internal Medicine: Result - Labs CBC & Chem 7: 05/18/17 05:28 05/18/17 05:28 Labs: Short CBC 05/18/17 Range/Units 05:28 WBC 9.3 (4.3-11.1) K/mcL Hgb 11.2 L (11.5-15.4) g/dL Hct 35.5 (35.3-44.9) % Plt Count 287 (140-400) K/mcL BMP 05/18/17 05:28 Sodium 139 Potassium 3.8 Chloride 106 Carbon Dioxide 26 BUN 18 Creatinine 0.74 Glucose 118 H Calcium 9.0 - ABG Interpretation ABG results: PT/INR, D-dimer D-Dimer 1628 ng/mLFEU (0-500) H 05/14/17 16:55 - Impressions Impressions Thoracentesis Ultrasound 05/17/17 00:00 IMPRESSION: Successful ultrasound guided thoracentesis. D/ / Devante Nieto MD / Devatne Nieto MD Interpreting Provider: Devante Nieto MD Head CT 05/17/17 17:41 IMPRESSION: 1. Patient motion partially limits evaluation of some images. Within that limitation, no definite acute intracranial abnormality is identified. 2. Mild age-appropriate diffuse atrophy with moderate chronic small vessel ischemic changes. 3. Unchanged encephalomalacia in the left cerebellar hemisphere. Questionable tiny old lacunar infarct in right basal ganglia. D/ / Florencio Cotto MD / Florencio Cotto MD Interpreting Provider: Florencio Cotto MD Consult Discharge Plan - Plan Referrals: Tayo Hudson DO [Primary Care Provider] -
[2017-05-18] MEDS: Cefepime HCl 2,000 MG in Water for inj. (sterile) 20 ML 20 ML IVP SCH (10:36)
--- NOTE | 2017-05-18 14:11 | Event Note ---
Date of Encounter: 05/18/17 Time of Encounter: 14:10 Pt has been found to require oxygen. She has evidence of desaturation at rest. Orders have been written.
[2017-05-18] MEDS: *HR* OxyCODONE/APAP 5/325 TABLET PO PRN (14:54)
[2017-05-18 15:44] VITALS: BP 114/68
--- NOTE | 2017-05-18 15:49 | Discharge Summary ---
<Alen Wang - Last Filed: 05/18/17 19:18> Orders not resulted at time of discharge: Pending orders 05/17/17 08:50 Culture,Body Fluid [RM] Stat Date of Encounter: 05/18/17 Time of Encounter: 15:56 - Discharge Diagnosis (1) HCAP (healthcare-associated pneumonia) Priority: Primary Status: Acute (2) Acute exacerbation of chronic obstructive airways disease Priority: Primary Status: Acute (3) Atrial fibrillation Priority: Secondary Status: Chronic Qualifiers: Atrial fibrillation type: chronic Qualified Code(s): I48.2 - Chronic atrial fibrillation (4) Pericardial effusion Priority: Secondary Status: Chronic (5) Lung mass Priority: Secondary Status: Acute (6) Abnormal chest CT Priority: Primary Status: Acute Hospital course: Ms. Hernandez is a 76 year old female with a past medical history of atrial fibrillation, stage III squamous cell lung cancer, type 2 diabetes mellitus, hypokalemia who presented to the emergency department on 05/14/2017. She was diagnosed with COPD exacerbation and pneumonia. Patient has been to the hospital for 5 days receiving steroids and antimicrobial therapy. Patient was initially on meropenem and Zyvox. She was then changed to cefepime and azithromycin for the last 2 days of her admission. Patient will be sent home with azithromycin and Omnicef for oral administration. Patient received 5 days of 40 mg of prednisone during her hospital stay. Patient also received a thoracentesis while inpatient. Patient required oxygen therapy. Prior to discharge, patient qualified for home oxygen. Patient was discharged home hemodynamically stable, not in any acute distress. Patient should follow-up her hospital stay with visit her primary care provider as well as oncologist. CTA that was obtained to rule out pulmonary embolism. Revealed increased size of mediastinal lymph nodes that could correlate with both secondary reaction to inflammation or infection, but could also be worsening metastatic disease. Chest CTA 05/14/17 17:45 IMPRESSION: 1. No evidence of pulmonary embolism or aortic dissection. 2. Increased left pleural effusion. Increasing collapse and consolidation within the left lower lobe and within the lingula. Although some of this may represent neoplasm, much of that is also likely atelectasis or pneumonia. 3. Increased size of mediastinal lymph nodes. This is increased size could be reactive secondary to inflammation or infection, but progressive metastatic disease remains a concern as well. D/ / Sancho Treviño MD / Sancho Treviño MD Interpreting Provider: Sancho Treviño MD Echocardiogram Limited Views 05/14/17 20:45 Impressions: LVEF 65%. There is a trivial pericardial effusion present. There is no echocardiographic evidence of tamponade. The IVC is dilated. < 50% respiratory change. Left Ventricular Wall Motion: Rest Echo Findings All wall segments showed normal motion. Findings: Study Quality * Technically adequate exam. ECG Findings * Atrial fibrillation. Right Ventricle * Normal right ventricular structure and function. Pericardium * There is a trivial pericardial effusion present. * There is no echocardiographic evidence of tamponade. IVC * The IVC is dilated. * < 50% respiratory change. Left Ventricle * LVEF 65%. * Indeterminate diastolic function. Thoracentesis Ultrasound 05/17/17 00:00 IMPRESSION: Successful ultrasound guided thoracentesis. D/ / Devante Neito MD / Devante Nieto MD Interpreting Provider: Devante Nieto MD Chest X-Ray 05/17/17 08:57 IMPRESSION: No pneumothorax is identified, following the left thoracentesis. Residual airspace disease or atelectasis in the left mid and lower lung. D/ / Mac Velasquez MD / Mac Velasquez MD Interpreting Provider: Mac Velasquez MD Head CT 05/17/17 17:41 IMPRESSION: 1. Patient motion partially limits evaluation of some images. Within that limitation, no definite acute intracranial abnormality is identified. 2. Mild age-appropriate diffuse atrophy with moderate chronic small vessel ischemic changes. 3. Unchanged encephalomalacia in the left cerebellar hemisphere. Questionable tiny old lacunar infarct in right basal ganglia. D/ / Florencio Cotto MD / Florencio Cotto MD Interpreting Provider: Florencio Cotto MD Discharge discussed with: patient, family - Time Spent with Patient Total time spent providing and/or coordinating discharge services: - Discharge Medications Prescriptions: Azithromycin 250 mg PO DAILY #5 tablet Cefdinir [Omnicef] 300 mg PO BID #10 capsule Home Medications: Simvastatin [Zocor] 5 mg PO HS 06/28/16 [History] SitaGLIPtin [Januvia] 100 mg PO DAILY 07/31/16 [History] Prochlorperazine Maleate [Compazine] 10 mg PO Q8HR PRN #90 tablet 08/07/16 [Rx] Loperamide [Imodium] 2 mg PO TID PRN #90 capsule 08/20/16 [Rx] Ondansetron [Zofran] 4 mg PO Q8HR PRN #90 tablet 08/20/16 [Rx] Lidocaine/Prilocaine CREAM [Emla] 1 appl TP ONCE PRN 09/02/16 [History] Losartan [Cozaar] 12.5 mg PO DAILY #30 tab 09/11/16 [Rx] Potassium Chloride [K-Tab ER] 30 meq PO QPM 12/10/16 [History] Calcium Carbonate [Tums] 1,000 mg PO QID PRN 12/16/16 [History] Diphenoxylate/Atropine [Lomotil 2.5 mg/0.025 mg] 1 each PO QID PRN #90 tablet [Rx] Furosemide [Lasix] 20 - 40 mg PO DAILY 02/25/17 [History] Clopidogrel [Plavix] 75 mg PO DAILY #30 tablet 03/25/17 [Rx] Albuterol Sulfate [Albuterol Inhaler] 2 puff IH Q6H PRN #1 inhaler 04/21/17 [Rx] Oxycodone HCl/Acetaminophen [Percocet 5-325 mg Tablet] 1 each PO TID 30 Days # 90 tablet MDD 3 04/26/17 [Rx] Albuterol Sulfate 2.5 mg IH Q6H PRN #180 vial.neb 04/30/17 [Rx] Magic Mouthwash [Magic Mouthwash BLM] 10 ml PO QID PRN #240 ml 05/14/17 [Rx] Nystatin [Nystatin Suspension] 5 ml PO QID PRN #240 oral.susp 05/14/17 [Rx] dilTIAZem HCl [Diltiazem 24Hr ER] 120 mg PO BID 05/14/17 [History] Azithromycin 250 mg PO DAILY #5 tablet 05/18/17 [Rx] Cefdinir [Omnicef] 300 mg PO BID #10 capsule 05/18/17 [Rx] Allergies/Adverse Reactions: 3 Allergy/AdvReac Type Severity Reaction Status Date / Time ciprofloxacin Allergy Vomiting Verified 05/14/17 15:22 Penicillins Allergy Rash Verified 05/10/17 13:26 vancomycin Allergy Rash Verified 05/10/17 13:26 aspirin AdvReac Gastrointestinal Verified 05/10/17 13:26 Upset Hydromorphone [From Dilaudid] AdvReac Confusion Verified 05/10/17 13:26 levofloxacin [From Levaquin] AdvReac Hives Verified 05/14/17 15:22 meperidine [From Demerol] AdvReac Confusion Verified 05/10/17 13:26 Date of admission: 05/15/17 02:41 Primary care physician: Tayo Hudson Discharging clinician: Moiz Palma - Constitutional Vitals: Temp Pulse Resp BP Pulse Ox 97.7 F 93 19 114/68 91 05/18/17 15:40 05/18/17 15:40 05/18/17 15:40 05/18/17 15:40 05/18/17 15:40 General appearance: Present: cooperative, A&O X 3, no acute distress, answers questions appropriately - ENT ENT exam: Present: normal oropharynx, TM's normal bilaterally - Respiratory Respiratory exam: Present: rales - Cardiovascular Cardiovascular exam: Absent: diastolic murmur, systolic murmur - GI/Abdominal GI/Abdominal exam: Present: soft. Absent: guarding, rebound, tenderness - Neurological Exam Neurological exam: Present: CN II-XII intact, oriented X3 - Patient Status Disposition: Home, Self-Care Condition: Good Overall status at discharge: patient is progressing back to baseline - Discharge Instructions Instructions: Atrial Fibrillation (DC), Diabetes Mellitus Type 2 in Adults (DC) , Chronic Obstructive Pulmonary Disease (DC), Pneumonia (DC) Follow Up With: Tayo Hudson DO [Primary Care Provider] - Additional Instructions: Take medications as prescribed. Take the antibiotics that were prescribed to you. Start oxygen at home. Return to the emergency department for further evaluation if you have any worsening of your current symptoms or develop any new symptoms. - Diet and Activity Activity: increase activity as tolerated Diet: advance to your usual diet <Moiz Palma - Last Filed: 05/18/17 19:31> Orders not resulted at time of discharge: Pending orders 05/17/17 08:50 Culture,Body Fluid [RM] Stat Date of Encounter: 05/18/17 - Discharge Diagnosis (1) Pneumonia Priority: Primary Status: Suspected Qualifiers: Pneumonia type: due to other aerobic Gram-negative bacteria Laterality: left Lung location: lower lobe of lung Qualified Code(s): J15.6 - Pneumonia due to other Gram-negative bacteria (2) Pleural effusion, left Priority: Secondary Status: Chronic (3) Lung cancer Priority: Secondary Status: Chronic Qualifiers: Laterality: unspecified laterality Lung location: unspecified part of lung Qualified Code(s): C34.90 - Malignant neoplasm of unspecified part of unspecified bronchus or lung (4) Atrial fibrillation Status: Chronic Qualifiers: Atrial fibrillation type: chronic Qualified Code(s): I48.2 - Chronic atrial fibrillation (5) Anemia Priority: Secondary Status: Chronic Qualifiers: Anemia type: other cause Other causes of anemia: chronic disease, neoplastic Qualified Code(s): D63.0 - Anemia in neoplastic disease (6) Diabetes mellitus, type 2 Priority: Secondary Status: Chronic Qualifiers: Diabetes mellitus retirement insulin use: without ad terminal 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 She becomes hypoxic and has qualified for home oxygen. Hospital course: Ms. Hernandez is a 76 year old female - Time Spent with Patient Total time spent providing and/or coordinating discharge services: 38min Date of admission: 05/15/17 02:41 Primary care physician: Tayo Hudson - Constitutional Vitals: Temp Pulse Resp BP Pulse Ox 97.7 F 93 19 114/68 91 05/18/17 15:40 05/18/17 15:40 05/18/17 15:40 05/18/17 15:40 05/18/17 15:40 - Attending Attestation I examined this patient and my medical decision-making was reviewed with the Resident Physician on 05/18/17. I agree with the documented findings, disposition and treatment plan as described except to the extent set forth below. Ms Hernandez has been admitted for acute resp failure due to pneumonia and pleural effusion. She is feeling nearly baseline today. No fever. Moving in room OK. Ready for discharge home - has had some ear pain and sore throat but exam negative Exam alert Comfortable Mucus membranes dry Heart reg Decreased breath sounds ABd soft Plan D/C home today.
--- NOTE | 2017-05-18 22:52 | Electrocardiograph Report ---
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
== END 2017-05-18 16:15 | disposition home or self-care (01) | DRG 178 ==
LOC: 2ANU 15:09 → EMEROO 15:09 → 2ANU 20:32 → SUATTDRO 05-15 02:41
PROVIDERS: ADMIT Internal Medicine; ATTEND Internal Medicine